=== PATIENT | female | born 1940 | race Caucasian/White ===

== ENCOUNTER 2017-07-08 14:26 | Emergency (ER) | payer MEDICARE, OTHER ==
[~2017-07-08] VITALS: Ht 162.6 cm; Wt 54.2 kg
[~2017-07-08 14:26] MED LIST: ADVAIR 500-501 EACH INH; ALBUTEROL SULF8.5 GM INH; ANTIVERT25 MG PO; BAYER CHEWABLE81 MG PO; BISOPROLOL FUMAR5 MG PO; BUSPIRONE HCL10 MG PO; CIPROFLOXACIN500 MG PO; CLARITIN10 M2 PO; CLONAZEPAM0.5 MG PO; COMBIVENT INH14.7 GM INH; COMBIVENT RESPIM4 GM INH; DESYREL50 MG PO; FUROSEMIDE20 MG PO; HYDROCODON-ACE1 EAC8 PO; HYDROXYZINE HCL10 MG PO; ICAPS PLUS1 EACH PO; LASIX20 MG PO; LEVAQUIN500 MG PO; LEVOFLOXAC500 MG/100 IV; MACROBID 100 M100 MG PO; OMEPRAZOLE20 MG PO; PANTOPRAZOLE SO40 MG PO; PREDNISONE20 MG PO; SERTRALINE HCL100 MG PO; SERTRALINE HCL25 MG PO; SIMVASTATIN20 MG PO; SUCRALFATE1 GM PO; TRAZODONE HCL50 MG PO; VENTOLIN HFA18 GM INH; VICODIN HP 10-1 EAC1 PO; VITAMIN D1000 UNIT PO; VITAMIN D400 UNI1 PO; ZOFRAN ODT4 MG PO
--- OUTSIDE RECORDS SUMMARY | 2017-07-08 14:49 | XMS ---
Demographics + + + | Address | [address] | | | [address] | | | [place] [address] | + + + | Preferred Language | Unknown | + + + | Marital Status | Unknown | + + + | Adventist Affiliation | Unknown | + + + | Race | Unknown | + + + | Ethnic Group | Unknown | + + + Author + + + | Author | [facility] | + + + | Organization | [facility] | + + + | Address | [address] | | | [place] [address] | + + + | Phone | | + + + Care Team Providers + + + + | Care Stereoplotter Operator Name | Role | Phone | + + + + Unavailable | Unavailable | + + + + PROBLEMS +---------+ + + +--------+ + + | Type | Condition | ICD9-CM | [id number] | Onset | Condition | SNOMED | | | | Code | Code | Dates | Status | Code | +---------+ + + +--------+ + + | Problem | Panic | F41.0 | | | Active | [id number] | | | disorder | | | | | | +---------+ + + +--------+ + + | Problem | COPD | | J44.1 | | Active | 569632210 | | | exacerbati | | | | | | | | on | | | | | | +---------+ + + +--------+ + + | Problem | Acute | | J96.02 | | Active | | | | respirator | | | | | | | | y failure | | | | | | | | with | | | | | | | | hypercapni | | | | | | | | a | | | | | | +---------+ + + +--------+ + + | Problem | Hyperchole | | E78.0 | | Active | 22028727 | | | sterolemia | | | | | | +---------+ + + +--------+ + + | Problem | Gastroesop | K21.9 | | | Active | 865573354 | | | hageal | | | | | | | | reflux | | | | | | | | disease | | | | | | | | without | | | | | | | | esophagiti | | | | | | | | s | | | | | | +---------+ + + +--------+ + + | Problem | Rectal | K62.5 | | | Active | 63872798 | | | bleeding | | | | | | +---------+ + + +--------+ + + | Problem | Stomach | R10.9 | | | Active | 56710738 | | | pain | | | | | | +---------+ + + +--------+ + + | 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 | 0379382 | | | emphysema | | | | | | +---------+ + + +--------+ + + | Problem | 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 | 557718975 | | | osteoarthr | | | | | | | | itis | | | | | | | | involving | | | | | | | | multiple | | | | | | | | joints | | | | | | +---------+ + + +--------+ + + | Problem | GERD | | K21.9 | | Active | 778148121 | | | (gastroeso | | | | | | | | phageal | | | | | | | | reflux | | | | | | | | disease) | | | | | | +---------+ + + +--------+ + + | Problem | Anxiety | | F41.9 | | Active | 15689799 | +---------+ + + +--------+ + + ALLERGIES Unknown Allergies SOCIAL HISTORY No smoking Hx information available PLAN OF CARE VITAL SIGNS MEDICATIONS + + + + + + + +--------+ | Medicati | Instruct | Dosage | Frequenc | Start | End Date | Duration | Status | | on | ions | | y | Date | | | | + + + + + + + +--------+ | Fosamax | Orally | 1 tablet | | | | 30 | Active | | 70 MG | once a | | | | | day(s) | | | | week | | | | | | | + + + + + + + +--------+ | DuoNeb | Inhalati | 3 ml | 6h | | | | Active | | 0.5-2.5 | on Four | | | | | | | | (3) | times a | | | | | | | | MG/3ML | day | | | | | | | + + + + + + + +--------+ | Furosemi | Orally | 1 tablet | 24h | | | 30 | Active | | de 20 MG | Once a | | | | | | | | | day | | | | | | | + + + + + + + +--------+ | Betameth | External | 1 | 24h | 07 Aug, | 13 May, | 30 days | Active | | asone | ly Once | applicat | | 2016 | 2017 | | | | Dipropio | a day | ion to | | | | | | | elizabeth | | affected | | | | | | | 0.05 % | | area | | | | | | + + + + + + + +--------+ | Omeprazo | Orally | 1 | 12h | 30 September, | | 30 days | Active | | le 20 mg | bid | capsule | | 2015 | | | | + + + + + + + +--------+ | Simvasta | Orally | 1 tablet | 24h | | | | Active | | tin 20 | Once a | every | | | | | | | MG | day | evening | | | | | | + + + + + + + +--------+ | Sertrali | Orally | 1.5 | 24h | | | | Active | | ne HCl | daily | tablets | | | | | | | 100 MG | | | | | | | | + + + + + + + +--------+ | Advair | Inhalati | 1 puff | 12h | | | 30 days | Active | | Diskus | on Twice | | | | | | | | 500-50 | a day | | | | | | | | MCG/DOSE | | | | | | | | + + + + + + + +--------+ | ProAir | | inhale 2 | | | | | Active | | HFA 108 | | puffs | | | | | | | (90 | | by mouth | | | | | | | Base) | | three | | | | | | | MCG/ACT | | times a | | | | | | | | | day | | | | | | + + + + + + + +--------+ | Meclizin | Orally | 1 tablet | 24h | Oct, | | 30 | Active | | e HCl | Once a | as | | 2016 | | day(s) | | | 12.5 MG | day | needed | | | | | | + + + + + + + +--------+ | BusPIRon | Orally | 1 tablet | 8h | | | 30 | Active | | e HCl 10 | Three | | | | | | | | MG | times a | | | | | | | | | day | | | | | | | + + + + + + + +--------+ RESULTS No Results PROCEDURES No Known procedures IMMUNIZATIONS No Known Immunizations"
--- OUTSIDE RECORDS SUMMARY | 2017-07-08 14:49 | XMS ---
Demographics + + + | Address | [address] | | | [address] | | | [place] [address] | + + + | Preferred Language | Unknown | + + + | Marital Status | Unknown | + + + | Nondenominational Affiliation | Unknown | + + + | Race | Unknown | + + + | Ethnic Group | Unknown | + + + Author + + + | Author | [facility] | + + + | Organization | [facility] | + + + | Address | [address] | | | [place] [address] | + + + | Phone | | + + + Care Team Providers + + + + | Care Machining Engineer Name | Role | Phone | + + + + Unavailable | Unavailable | + + + + PROBLEMS +---------+ + + +--------+ + + | Type | Condition | ICD9-CM | [id number] | Onset | Condition | SNOMED | | | | Code | Code | Dates | Status | Code | +---------+ + + +--------+ + + | Problem | Panic | F41.0 | | | Active | [id number] | | | disorder | | | | | | +---------+ + + +--------+ + + | Problem | COPD | | J44.1 | | Active | 996944293 | | | exacerbati | | | [...] | | E78.0 | | Active | 97378981 | | | sterolemia | | | | | | +---------+ + + +--------+ + + | Problem | Gastroesop | K21.9 | | | Active | 799831959 | | | hageal | | | [...] | K62.5 | | | Active | 96000841 | | | bleeding | | | | | | +---------+ + + +--------+ + + | Problem | Stomach | R10.9 | | | Active | 85667847 | | | pain | | | | | | +---------+ + + +--------+ + + | 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 | 9716495 | | | emphysema | | | | | | +---------+ + + +--------+ + + | Problem | 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 | 832442062 | | | osteoarthr | | | | | | | | itis | | | | | | | | involving | | | | | | | | multiple | | | | | | | | joints | | | | | | +---------+ + + +--------+ + + | Problem | GERD | | K21.9 | | Active | 126989188 | | | (gastroeso | | | | | | | | phageal | | | | | | | | reflux | | | | | | | | disease) | | | | | | +---------+ + + +--------+ + + | Problem | Anxiety | | F41.9 | | Active | 17274147 | +---------+ + + +--------+ + + ALLERGIES Unknown Allergies SOCIAL HISTORY No smoking Hx information available PLAN OF CARE VITAL SIGNS MEDICATIONS Unknown Medications RESULTS No Results PROCEDURES No Known procedures IMMUNIZATIONS No Known Immunizations"
--- OUTSIDE RECORDS SUMMARY | 2017-07-08 14:49 | XMS ---
Demographics + + + | Address | [address] | | | [address] | | | [place] [address] | + + + | Preferred Language | Unknown | + + + | Marital Status | Unknown | + + + | Anabaptism Affiliation | Unknown | + + + | Race | Unknown | + + + | Ethnic Group | Unknown | + + + Author + + + | Author | [facility] | + + + | Organization | [facility] | + + + | Address | [address] | | | [place] [address] | + + + | Phone | | + + + Care Team Providers + + + + | Care Payroll Accountant Name | Role | Phone | + + + + Unavailable | Unavailable | + + + + PROBLEMS +---------+ + + +--------+ + + | Type | Condition | ICD9-CM | [id number] | Onset | Condition | SNOMED | | | | Code | Code | Dates | Status | Code | +---------+ + + +--------+ + + | Problem | Panic | F41.0 | | | Active | [id number] | | | disorder | | | | | | +---------+ + + +--------+ + + | Problem | COPD | | J44.1 | | Active | 471749919 | | | exacerbati | | | [...] | | E78.0 | | Active | 61822355 | | | sterolemia | | | | | | +---------+ + + +--------+ + + | Problem | Gastroesop | K21.9 | | | Active | 572102581 | | | hageal | | | [...] | K62.5 | | | Active | 37757911 | | | bleeding | | | | | | +---------+ + + +--------+ + + | Problem | Stomach | R10.9 | | | Active | 95096224 | | | pain | | | | | | +---------+ + + +--------+ + + | 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 | 0043279 | | | emphysema | | | | | | +---------+ + + +--------+ + + | Problem | 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 | 173464898 | | | osteoarthr | | | | | | | | itis | | | | | | | | involving | | | | | | | | multiple | | | | | | | | joints | | | | | | +---------+ + + +--------+ + + | Problem | GERD | | K21.9 | | Active | 551237551 | | | (gastroeso | | | | | | | | phageal | | | | | | | | reflux | | | | | | | | disease) | | | | | | +---------+ + + +--------+ + + | Problem | Anxiety | | F41.9 | | Active | 29438368 | +---------+ + + +--------+ + + ALLERGIES No Information SOCIAL HISTORY Never Assessed PLAN OF CARE VITAL SIGNS MEDICATIONS Unknown Medications RESULTS No Results PROCEDURES No Known procedures IMMUNIZATIONS No Known Immunizations MEDICAL (GENERAL) HISTORY + + + + | Type | Description | Date | + + + + | Medical History | Hypercholestrol | | + + + + | Medical History | COPD | | + + + + | Medical History | GERD | | + + + + | Medical History | Hypertension | | + + + + | Medical History | Insomnia | | + + + + | Medical History | Vertigo | | + + + + | Medical History | hx/o Breast cancer 2005 | | + + + + | Medical History | | | + + + + | Medical History | Hypoxia on 2L/min since | | | | 2013 | | + + + + | Medical History | Kidney stone, right 02/01/16 | | + + + + | Medical History | T8 compression fx - started | | | | on bisphosphonate 08/2016 | | | | femoral T-score -2.2 | | + + + + | Surgical History | [facility] | | | | Provider | | + + + + | Surgical History | surgery breast cancer s/p | 2005 | | | lumpectomy - post | | | | radiation, on temoxifen for | | | | 5yrs. | | + + + + | Surgical History | L great toe fracture | 2012 | + + + + | Surgical History | D&C | 01/2008 | + + + + | Surgical History | Right ankle fracture | 1999 | + + + + | Surgical History | b/l cataract surgery | | + + + + | Surgical History | Gregoria Mulligan | 2011 | + + + + | Surgical History | Mammogram | 2016 | + + + + | Surgical History | Papsmear | 2007 | + + + + | Surgical History | 2D Echo - EF >70% | 07/11/15 | | | hyperdynamic LV function | | + + + + | Surgical History | DEXA femoral T-score -2.2 | 08/25/16 | + + + + | Hospitalization History | [facility] re: SOB | 07/03/15 | + + + + | Hospitalization History | [facility] re: COPD exacerbation | 07/10-07/14/15 | + + + + | Hospitalization History | [facility] re: sore throat, SOB | 07/17/15 | + + + + | Hospitalization History | [facility] | 07/16-09/06/15 | + + + + | Hospitalization History | [facility] re: SOB | 09/22/15 | + + + + | Hospitalization History | [facility] re: right kidney | 01/31-02/02/16 | | | stone, passed it | | + + + +"
--- OUTSIDE RECORDS SUMMARY | 2017-07-08 14:49 | XMS ---
Demographics + + + | Address | [address] | | | [address] | | | [place] [address] | + + + | Preferred Language [...] | + + + | Organization | [facility] | + + + | Address | [address] | | | [place] [address] | + + + | Phone | | + + + Care Team Providers + + + + | Care Television Servicer Name | Role | Phone | + + + + Unavailable | Unavailable | + + + + PROBLEMS +---------+ + + +--------+ + + | Type | Condition | ICD9-CM | [id number] | Onset | Condition | SNOMED | | | | Code | Code | Dates | Status | Code | +---------+ + + +--------+ + + | Problem | Panic | F41.0 | | | Active | [id number] | | | disorder | | | | | | +---------+ + + +--------+ + + | Problem | COPD | | J44.1 | | Active | 705145207 | | | exacerbati | | | [...] | | E78.0 | | Active | 06558202 | | | sterolemia | | | | | | +---------+ + + +--------+ + + | Problem | Gastroesop | K21.9 | | | Active | 990414135 | | | hageal | | | [...] | K62.5 | | | Active | 19024809 | | | bleeding | | | | | | +---------+ + + +--------+ + + | Problem | Stomach | R10.9 | | | Active | 31590255 | | | pain | | | | | | +---------+ + + +--------+ + + | 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 | 4120976 | | | emphysema | | | | | | +---------+ + + +--------+ + + | Problem | 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 | 257617642 | | | osteoarthr | | | | | | | | itis | | | | | | | | involving | | | | | | | | multiple | | | | | | | | joints | | | | | | +---------+ + + +--------+ + + | Problem | GERD | | K21.9 | | Active | 473512130 | | | (gastroeso | | | | | | | | phageal | | | | | | | | reflux | | | | | | | | disease) | | | | | | +---------+ + + +--------+ + + | Problem | Anxiety | | F41.9 | | Active | 02802963 | +---------+ + + +--------+ + + [...] | 24h | 07 Aug, | 13 [place], | 30 days | Active | | asone | ly Once | applicat | | 2017 | 2018 | | | | Dipropio | a [...]
--- OUTSIDE RECORDS SUMMARY | 2017-07-08 14:49 | XMS ---
Demographics + + + | Address | [address] | | | [address] | | | [place] [address] | + + + | Preferred Language | Unknown | + + + | Marital Status | Unknown | + + + | Jew Affiliation | Unknown | + + + | Race | Unknown | + + + | Ethnic Group | Unknown | + + + Author + + + | Author | [facility] | + + + | Organization | [facility] | + + + | Address | [address] | | | [place] [address] | + + + | Phone | | + + + Care Team Providers + + + + | Care Sales Operations Director Name | Role | Phone | + + + + Unavailable | Unavailable | + + + + PROBLEMS +---------+ + + +--------+ + + | Type | Condition | ICD9-CM | [id number] | Onset | Condition | SNOMED | | | | Code | Code | Dates | Status | Code | +---------+ + + +--------+ + + | Problem | Panic | F41.0 | | | Active | [id number] | | | disorder | | | | | | +---------+ + + +--------+ + + | Problem | COPD | | J44.1 | | Active | 016459017 | | | exacerbati | | | [...] | | E78.0 | | Active | 39795152 | | | sterolemia | | | | | | +---------+ + + +--------+ + + | Problem | Gastroesop | K21.9 | | | Active | 532464644 | | | hageal | | | [...] | K62.5 | | | Active | 95880879 | | | bleeding | | | | | | +---------+ + + +--------+ + + | Problem | Stomach | R10.9 | | | Active | 34061694 | | | pain | | | | | | +---------+ + + +--------+ + + | 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 | 3133446 | | | emphysema | | | | | | +---------+ + + +--------+ + + | Problem | 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 | 221616376 | | | osteoarthr | | | | | | | | itis | | | | | | | | involving | | | | | | | | multiple | | | | | | | | joints | | | | | | +---------+ + + +--------+ + + | Problem | GERD | | K21.9 | | Active | 898509062 | | | (gastroeso | | | | | | | | phageal | | | | | | | | reflux | | | | | | | | disease) | | | | | | +---------+ + + +--------+ + + | Problem | Anxiety | | F41.9 | | Active | 08940344 | +---------+ + + +--------+ + + ALLERGIES + + + + +--------+ | Substance | Reaction | Event Type | Date | Status | + + + + +--------+ | Diclofenac | rectal bleeding | Drug Allergy | Oct, | Active | + + + + +--------+ | Valium | drowsiness | Drug Allergy | Oct, | Active | + + + + +--------+ SOCIAL HISTORY No smoking Hx information available PLAN OF CARE + +---------+ | Activity | Details | + +---------+ +---+ | | +---+ + + + | Follow Up | prn Reason:null | + + + VITAL SIGNS + + + + | Height | 65 in | 2016-11-02 | + + + + | Weight | 126.9 lbs | 2016-11-02 | + + + + | BMI | 21.11 kg/m2 | 2016-11-02 | + + + + | Temperature | 98.2 degrees Fahrenheit | 2016-11-02 | + + + + | Heart Rate | 91 /min | 2016-11-02 | + + + + | Blood pressure systolic | 125 mm Hg | 2016-11-02 | + + + + | Blood pressure diastolic | 84 mm Hg | 2016-11-02 | + + + + MEDICATIONS + + + + + + [...] | Orally | 1 | 12h | 25 May, | | | Active | | le 20 mg [...] | 1.5 | 24h | | | 30 days | Active | | ne HCl | [...] | Once a | as | | 2017 | | day(s) | | | 12.5 MG | day | needed | | | | | | + + + + + + + +--------+ | Betameth | External | 1 | 24h | Aug, | 07 September, | 30 days | Active | | asone | ly Once | applicat | | 2016 | 2018 | | | | Dipropio | a day | ion to | | | | | | | elizabeth | | affected | | | | | | | 0.05 % | | area | | | | | | + + + + + + + +--------+ RESULTS No Results PROCEDURES + + + + + | Procedure | Date Ordered | Related Diagnosis | Body Site | + + + + + | Office Visit, Est | November 02, 2016 | | | | Pt., Level 3 | | | | + + + + + IMMUNIZATIONS No Known Immunizations"
--- OUTSIDE RECORDS SUMMARY | 2017-07-08 14:49 | XMS ---
Demographics + + + | Address | [address] | | | [address] | | | [place] [address] | + + + | Preferred Language | Unknown | + + + | Marital Status | Unknown | + + + | Baptist Affiliation | Unknown | + + + | Race | Unknown | + + + | Ethnic Group | Unknown | + + + Author + + + | Author | [facility] | + + + | Organization | [facility] | + + + | Address | [address] | | | [place] [address] | + + + | Phone | | + + + Care Team Providers + + + + | Care Triple Valve Mechanic Name | Role | Phone | + + + + Unavailable | Unavailable | + + + + PROBLEMS +---------+ + + +--------+ + + | Type | Condition | ICD9-CM | [id number] | Onset | Condition | SNOMED | | | | Code | Code | Dates | Status | Code | +---------+ + + +--------+ + + | Problem | Panic | F41.0 | | | Active | [id number] | | | disorder | | | | | | +---------+ + + +--------+ + + | Problem | COPD | | J44.1 | | Active | 933172472 | | | exacerbati | | | [...] | | E78.0 | | Active | 66514923 | | | sterolemia | | | | | | +---------+ + + +--------+ + + | Problem | Gastroesop | K21.9 | | | Active | 446235798 | | | hageal | | | [...] | K62.5 | | | Active | 84385295 | | | bleeding | | | | | | +---------+ + + +--------+ + + | Problem | Stomach | R10.9 | | | Active | 50853338 | | | pain | | | | | | +---------+ + + +--------+ + + | 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 | 1566267 | | | emphysema | | | | | | +---------+ + + +--------+ + + | Problem | 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 | 382035005 | | | osteoarthr | | | | | | | | itis | | | | | | | | involving | | | | | | | | multiple | | | | | | | | joints | | | | | | +---------+ + + +--------+ + + | Problem | GERD | | K21.9 | | Active | 118562339 | | | (gastroeso | | | | | | | | phageal | | | | | | | | reflux | | | | | | | | disease) | | | | | | +---------+ + + +--------+ + + | Problem | Anxiety | | F41.9 | | Active | 97791386 | +---------+ + + +--------+ + + [...] + + + | Follow Up | 4 Months Reason:null | + + + VITAL SIGNS + + + + | Height | 65 in | 2016-10-15 | + + + + | Weight | 126.4 lbs | 2016-10-15 | + + + + | BMI | 21.03 kg/m2 | 2016-10-15 | + + + + | Temperature | 98.0 degrees Fahrenheit | 2016-10-15 | + + + + | Heart Rate | 63 /min | 2016-10-15 | + + + + | Blood pressure systolic | 118 mm Hg | 2016-10-15 | + + + + | Blood pressure diastolic | 68 mm Hg | 2016-10-15 | + + + + MEDICATIONS + [...] 1 | 24h | 07 Aug, | 2 September, | 30 days | Active | [...] Orally | 1 | 12h | 25 September, | | | Active | | le [...] Orally | 1 tablet | 24h | 09 Oct, | | 30 | Active | | e HCl | Once a | as | | 2016 | | day(s) | | | 12.5 MG | day | needed | | | | | | + + + + + + + +--------+ | BusPIRon | Orally | 1 tablet | 8h | | | | Active | | e HCl 10 [...] + + | Office Visit, Est | October 15, 2016 | | | | Pt., Level 3 | | | | + + + + + IMMUNIZATIONS No Known Immunizations"
--- OUTSIDE RECORDS SUMMARY | 2017-07-08 14:50 | XMS ---
Demographics + + + | Address | [address] | | | [address] | | | [place] [address] | + + + | Preferred Language | Unknown | + + + | Marital Status | Unknown | + + + | Pentecostalism Affiliation | Unknown | + + + | Race | Unknown | + + + | Ethnic Group | Unknown | + + + Author + + + | Author | [facility] | + + + | Organization | [facility] | + + + | Address | [address] | | | [place] [address] | + + + | Phone | | + + + Care Team Providers + + + + | Care Fruit Buying Grader Name | Role | Phone | + + + + Unavailable | Unavailable | + + + + PROBLEMS +---------+ + + +--------+ + + | Type | Condition | ICD9-CM | [id number] | Onset | Condition | SNOMED | | | | Code | Code | Dates | Status | Code | +---------+ + + +--------+ + + | Problem | Panic | F41.0 | | | Active | 224449611 | | | disorder | | | | | | +---------+ + + +--------+ + + | Problem | COPD | | J44.1 | | Active | 270089273 | | | exacerbati | | | [...] | | E78.0 | | Active | 77337092 | | | sterolemia | | | | | | +---------+ + + +--------+ + + | Problem | Gastroesop | K21.9 | | | Active | 250290777 | | | hageal | | | [...] | K62.5 | | | Active | 29371476 | | | bleeding | | | | | | +---------+ + + +--------+ + + | Problem | Stomach | R10.9 | | | Active | 54647947 | | | pain | | | | | | +---------+ + + +--------+ + + | 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 | 1858562 | | | emphysema | | | | | | +---------+ + + +--------+ + + | Problem | 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 | 009403925 | | | osteoarthr | | | | | | | | itis | | | | | | | | involving | | | | | | | | multiple | | | | | | | | joints | | | | | | +---------+ + + +--------+ + + | Problem | GERD | | K21.9 | | Active | 063449542 | | | (gastroeso | | | | | | | | phageal | | | | | | | | reflux | | | | | | | | disease) | | | | | | +---------+ + + +--------+ + + | Problem | Anxiety | | F41.9 | | Active | 20145197 | +---------+ + + +--------+ + + ALLERGIES Unknown Allergies SOCIAL HISTORY No smoking Hx information available PLAN OF CARE VITAL SIGNS MEDICATIONS Unknown Medications RESULTS No Results PROCEDURES No Known procedures IMMUNIZATIONS No Known Immunizations"
--- OUTSIDE RECORDS SUMMARY | 2017-07-08 14:50 | XMS ---
Demographics + + + | Address | [address] | | | [address] | | | [place] [address] | + + + | Preferred Language [...] | + + + | Organization | [facility] | + + + | Address | [address] | | | [place] [address] | + + + | Phone | | + + + Care Team Providers + + + + | Care Assembler Clip On Sunglasses Name | Role | Phone | + + + + Unavailable | Unavailable | + + + + PROBLEMS +---------+ + + +--------+ + + | Type | Condition | ICD9-CM | [id number] | Onset | Condition | SNOMED | | | | Code | Code | Dates | Status | Code | +---------+ + + +--------+ + + | Problem | Panic | F41.0 | | | Active | 601578729 | | | disorder | | | | | | +---------+ + + +--------+ + + | Problem | COPD | | J44.1 | | Active | 988818518 | | | exacerbati | | | [...] | | E78.0 | | Active | 12499195 | | | sterolemia | | | | | | +---------+ + + +--------+ + + | Problem | Gastroesop | K21.9 | | | Active | 235412594 | | | hageal | | | [...] | K62.5 | | | Active | 45859499 | | | bleeding | | | | | | +---------+ + + +--------+ + + | Problem | Stomach | R10.9 | | | Active | 55802059 | | | pain | | | | | | +---------+ + + +--------+ + + | 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 | 5385507 | | | emphysema | | | | | | +---------+ + + +--------+ + + | Problem | 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 | 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 | | | | | | | | itis | | | | | | | | involving | | | | | | | | multiple | | | | | | | | joints | | | | | | +---------+ + + +--------+ + + | Problem | GERD | | K21.9 | | Active | [id number] | | | (gastroeso | | | | | | | | phageal | | | | | | | | reflux | | | | | | | | disease) | | | | | | +---------+ + + +--------+ + + | Problem | Anxiety | | F41.9 | | Active | 67088308 | +---------+ + + +--------+ + + ALLERGIES + + + + +--------+ | Substance | Reaction | Event Type | Date | Status | + + + + +--------+ | Diclofenac | rectal bleeding | Drug Allergy | Dec, | Active | + + + + +--------+ | Valium | drowsiness | Drug Allergy | Dec, | Active | + + + + +--------+ SOCIAL HISTORY No smoking Hx information available PLAN OF CARE + +---------+ | Activity | Details | + +---------+ +---+ | | +---+ + + + | Follow Up | prn Reason:null | + + + VITAL SIGNS + + + + | Height | 65 in | 2017-01-04 | + + + + | Weight | 122.2 lbs | 2017-01-04 | + + + + | BMI | 20.33 kg/m2 | 2017-01-04 | + + + + | Heart Rate | 92 /min | 2017-01-04 | + + + + | Blood pressure systolic | 120 mm Hg | 2017-01-04 | + + + + | Blood pressure diastolic | 69 mm Hg | 2017-01-04 | + + + + MEDICATIONS + + + + + + + +--------+ | Medicati | Instruct | Dosage | Frequenc | Start | End Date | Duration | Status | | on | ions | | y | Date | | | | + + + + + + + +--------+ | Vitamin | | 1 tab | 24h | | | | Active | | K | | | | | | | | + + + + + + + +--------+ | Meclizin | Orally | 1 tablet | 24h | Oct, | | 90 days | Active | | e HCl | Once a | as | | 2016 | | | | | 12.5 MG | day | needed | | | | | | + + + + + + + +--------+ | Fosamax | Orally | 1 tablet | | | Mar, | 90 days | Active | | 70 MG | once a | | | | 2017 | | | | | week | | | | | | | + + + + + + + +--------+ | Omeprazo | Orally | 1 | 12h | 30 September, | | 90 days | Active | | le 20 mg | bid | capsule | | 2016 | | | | + + + + + + + +--------+ | BusPIRon | Orally | 1 tablet | 8h | | | 90 days | Active | | e HCl 10 [...] + + + + + +--------+ | Boost | Orally | 1 can | 24h | 29 Aug, | | 30 days | Active | | High | daily | | | 2017 | | | | | Protein | | | | | | | | | - | | | | | | | | + + + + + + + +--------+ | Sertrali | Orally | 1 tablet | 24h | | | 90 days | Active | | ne HCl | daily | in am | | | | | | | 100 MG | | 1/2 | | | | | | | | | tablet | | | | | | | | | in pm | | | | | | + + + + + + + +--------+ | Furosemi | Orally | 1 tablet | 24h | | | 90 days | Active | | de 20 MG | Once a | | | | | | | | | day | | | | | | | + + + + + + + +--------+ | Advair | Inhalati | 1 puff | 12h | | | 90 days | Active | | Diskus | [...] 1 tablet | 24h | | | 90 days | Active | | tin 20 | Once a | every | | | | | | | MG | day | evening | | | | | | + + + + + + + +--------+ | Betameth | External | 1 | 24h | 07 Aug, | May, | 30 days | Active | [...] + + + + + +--------+ | Nystatin | External | 1 | 12h | Dec, | 25 Feb, | 30 days | Active | | [id number] | ly Twice | applicat | | 2016 | 2017 | | | | UNIT/GM | a day | ion to | | | | | | | | | affected | | | | | | | | | area | | | | | | + + + + + + + +--------+ RESULTS No Results PROCEDURES + + + + + | Procedure | Date Ordered | Related Diagnosis | Body Site | + + + + + | Office Visit, Est | Jan 04, 2017 | | | | Pt., Level 3 | | | | + + + + + IMMUNIZATIONS No Known Immunizations"
--- OUTSIDE RECORDS SUMMARY | 2017-07-08 14:50 | XMS ---
Demographics + + + | Address | [address] | | | [address] | | | [place] [address] | + + + | Preferred Language | Unknown | + + + | Marital Status | Unknown | + + + | Zoroastrian Affiliation | Unknown | + + + | Race | Unknown | + + + | Ethnic Group | Unknown | + + + Author + + + | Author | [facility] | + + + | Organization | [facility] | + + + | Address | [address] | | | [place] [address] | + + + | Phone | | + + + Care Team Providers + + + + | Care Tree Planter Name | Role | Phone | + + + + Unavailable | Unavailable | + + + + PROBLEMS +---------+ + + +--------+ + + | Type | Condition | ICD9-CM | [id number] | Onset | Condition | SNOMED | | | | Code | Code | Dates | Status | Code | +---------+ + + +--------+ + + | Problem | Panic | F41.0 | | | Active | [id number] | | | disorder | | | | | | +---------+ + + +--------+ + + | Problem | COPD | | J44.1 | | Active | 101952655 | | | exacerbati | | | [...] | | E78.0 | | Active | 62421124 | | | sterolemia | | | | | | +---------+ + + +--------+ + + | Problem | Gastroesop | K21.9 | | | Active | 604990818 | | | hageal | | | [...] | K62.5 | | | Active | 28709056 | | | bleeding | | | | | | +---------+ + + +--------+ + + | Problem | Stomach | R10.9 | | | Active | 55011887 | | | pain | | | | | | +---------+ + + +--------+ + + | 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 | 0406547 | | | emphysema | | | | | | +---------+ + + +--------+ + + | Problem | 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 | 664836538 | | | osteoarthr | | | | | | | | itis | | | | | | | | involving | | | | | | | | multiple | | | | | | | | joints | | | | | | +---------+ + + +--------+ + + | Problem | GERD | | K21.9 | | Active | 497979050 | | | (gastroeso | | | | | | | | phageal | | | | | | | | reflux | | | | | | | | disease) | | | | | | +---------+ + + +--------+ + + | Problem | Anxiety | | F41.9 | | Active | 06969598 | +---------+ + + +--------+ + + ALLERGIES Unknown Allergies SOCIAL HISTORY No smoking Hx information available PLAN OF CARE VITAL SIGNS MEDICATIONS + + +---------+ + + + +--------+ | Medicati | Instruct | Dosage | Frequenc | Start | End Date | Duration | Status | | on | ions | | y | Date | | | | + + +---------+ + + + +--------+ | Omeprazo | Orally | 1 | 12h | 25 September, | | 30 days | Active | | le 20 mg | bid | capsule | | 2016 | | | | + + +---------+ + + + +--------+ RESULTS No Results PROCEDURES No Known procedures IMMUNIZATIONS No Known Immunizations"
--- OUTSIDE RECORDS SUMMARY | 2017-07-08 14:50 | XMS ---
Demographics + + + | Address | [address] | | | [address] | | | [place] [address] | + + + | Preferred Language | Unknown | + + + | Marital Status | Unknown | + + + | Orthodoxy Affiliation | Unknown | + + + | Race | Unknown | + + + | Ethnic Group | Unknown | + + + Author + + + | Author | [facility] | + + + | Organization | [facility] | + + + | Address | [address] | | | [place] [address] | + + + | Phone | | + + + Care Team Providers + + + + | Care Teletypewriter Operator Name | Role | Phone | + + + + Unavailable | Unavailable | + + + + PROBLEMS +---------+ + + +--------+ + + | Type | Condition | ICD9-CM | [id number] | Onset | Condition | SNOMED | | | | Code | Code | Dates | Status | Code | +---------+ + + +--------+ + + | Problem | Panic | F41.0 | | | Active | [id number] | | | disorder | | | | | | +---------+ + + +--------+ + + | Problem | COPD | | J44.1 | | Active | 757382897 | | | exacerbati | | | [...] | | E78.0 | | Active | 91025790 | | | sterolemia | | | | | | +---------+ + + +--------+ + + | Problem | Gastroesop | K21.9 | | | Active | 454936713 | | | hageal | | | [...] | K62.5 | | | Active | 84572201 | | | bleeding | | | | | | +---------+ + + +--------+ + + | Problem | Stomach | R10.9 | | | Active | 06451615 | | | pain | | | | | | +---------+ + + +--------+ + + | 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 | 4939586 | | | emphysema | | | | | | +---------+ + + +--------+ + + | Problem | 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 | 991641036 | | | osteoarthr | | | | | | | | itis | | | | | | | | involving | | | | | | | | multiple | | | | | | | | joints | | | | | | +---------+ + + +--------+ + + | Problem | GERD | | K21.9 | | Active | 744777254 | | | (gastroeso | | | | | | | | phageal | | | | | | | | reflux | | | | | | | | disease) | | | | | | +---------+ + + +--------+ + + | Problem | Anxiety | | F41.9 | | Active | 58128173 | +---------+ + + +--------+ + + ALLERGIES Unknown Allergies SOCIAL HISTORY No smoking Hx information available PLAN OF CARE VITAL SIGNS MEDICATIONS Unknown Medications RESULTS No Results PROCEDURES No Known procedures IMMUNIZATIONS No Known Immunizations"
[2017-07-08] MEDS ORDERED: ZITHROMAX250 MG PO (17:24)
--- NOTE | 2017-07-09 22:31 | EKG ---
[facility] [address] [facility] [place] [address] Signed Normal sinus rhythm Low voltage QRS Cannot rule out Anterior infarct , age undetermined Abnormal ECG No previous ECGs available Confirmed by SCOTT HOPPER MD ([id number]) on 07/09/2017 10:31:50 PM Electronically Signed By: SCOTT HOPPER MD 07/09/17 223 PATIENT NAME: HANSA CRAWFORD Electrocardiogram DATE OF : 42 PHYSICIAN: SCOTT HOPPER MD REPORT #: [id number] REPORT IS CONFIDENTIAL AND NOT TO BE RELEASED WITHOUT AUTHORIZATION
== END 2017-07-08 18:11 | disposition home or self-care (01) ==
LOC: ED 14:26
DX: J44.1 Chronic obstructive pulmonary disease with (acute) exacerbation (principal); J44.0 Chronic obstructive pulmonary disease with (acute) lower respiratory infection; J18.9 Pneumonia, unspecified organism; K21.9 Gastro-esophageal reflux disease without esophagitis; Z85.3 Personal history of malignant neoplasm of breast; Z87.891 Personal history of nicotine dependence; Z91.040 Latex allergy status; Z88.2 Allergy status to sulfonamides; Z88.8 Allergy status to other drugs, medicaments and biological substances; Z79.82 Long term (current) use of aspirin; Z79.899 Other long term (current) drug therapy
CPT/HCPCS: 71045; 80053; 83735; 84484; 85025; 93005; 93010; 96374; 99284; J1200; J1956

== ENCOUNTER 2017-08-16 12:46 | Emergency (ER) | payer MEDICARE, OTHER ==
[~2017-08-16] VITALS: Ht 162.6 cm; Wt 52.2 kg
--- OUTSIDE RECORDS SUMMARY | ~2017-08-16 | XMS | Clinical Summary ---
Demographics + + + | Address | [address] | | | [address] | | | [place] [address] | + + + | Home Phone | | + + + | Preferred Language | Unknown | + + + | Marital Status | | + + + | Alevism Affiliation | 1075 | + + + | Race | Unknown | + + + | Ethnic Group | Unknown | + + + Author + + + | Author | [facility] | + + + | Organization | [facility] | + + + | Address | Unknown | + + + | Phone | Unavailable | + + + Support + + + + + | Name | Relationship | Address | Phone | + + + + + | Jyothi Kimbrough | ECON | [address] | | | | | [place] [address] | | + + + + + Care Team Providers + +------+ + | Care Valve Inserter Name | Role | Phone | + [...] | + + + + + | Colon Cancer | | | | | Screening | 2 | | | | (Colonoscopy) | | | | + + + + + | Vaccine: Zoster (#1) | | | | | | 2 | | | + + [...] Vaccine: Influenza | | | | | (Season Ended) | 8 | | | + + + + + Results Not on filefrom Last 3 Months"
--- OUTSIDE RECORDS SUMMARY | ~2017-08-16 | XMS | Clinical Summary ---
Demographics + + + | Address | [address] | | | [address] | | | [place] [address] | + + + | Home Phone | | + + + | Preferred Language | Unknown | + + + | Marital Status | | + + + | Congregation Affiliation | 1075 | + + + | Race | Unknown | + + + | Ethnic Group | Unknown | + + + Author + + + | Author | [facility] | + + + | Organization | [facility] | + + + | Address | Unknown | + + + | Phone | Unavailable | + + + Support + + + + + | Name | Relationship | Address | Phone | + + + + + | Jyothi Kimbrough | ECON | [address] | | | | | [place] [address] | | + + + + + Care Team Providers + +------+ + | Care Sap Integration Architect Name | Role | Phone | [...]
--- OUTSIDE RECORDS SUMMARY | ~2017-08-16 | XMS | Clinical Summary ---
Demographics + + + | Address | [address] | | | [place] [address] | + + + | Home Phone | | + + + | Preferred Language | Unknown | + + + | Marital Status | | + + + | Gnosticism Affiliation | Unknown | + + + | Race | Unknown | + + + | Ethnic Group | Unknown | + + + Author + + + | Author | [facility] | | | and [place] | + + + | Organization | [facility] | | | [...] Providers + +------+ + | Care Chief Airline Radio Operator Name | Role | Phone | [...] | + + + + + | COLON CANCER | | | | | SCREENING | 2 | | | | (COLONOSCOPY EVERY | | | | | 10 YEARS 50-75) | | | | + + + + + | Vaccine: Zoster (#1) | | | | | | 2 | | | + + + + + | Vaccine: Influenza | | 01/18/2015 | | | (Season Ended) | 8 [...] + + | MEDICARE | MEDICA | xxxxxxxxxx | Medica | +1- | | | | RE | | re | [phone] | | | | PART A | | | | | | | AND B | | | | | + +--------+ +--------+ + + | MODA | MODA | xxxxxxxxx | Indemn | [phone] | [address] [address] | | | HEALTH | | ity | [address] | [place] [address] | | | MDCR | | | [...] | [address] | | | [address] | | 1941 | [phone] [address] [place] | | | mon[place] | | | [phone] | + +--------+ +--------+ + +
--- OUTSIDE RECORDS SUMMARY | ~2017-08-16 | XMS | Clinical Summary ---
Demographics + + + | Address | [address] | | | [place] [address] | + + + | Home Phone | | + + + | Preferred Language | Unknown | + + + | Marital Status | | + + + | Anglican Affiliation | Unknown | + + + | Race | Unknown | + + + | Ethnic Group | Unknown | + + + Author + + + | Author | [facility] | | | and [place] | + + + | Organization | [facility] | | | and [place] | + + + | Address | Unknown | + + + | Phone | Unavailable | + + + Support + + +---------+ + | Name | Relationship | Address | Phone | + + +---------+ + | Columba Foreman | ECON | Unknown | | + + +---------+ + | Jyothi Barklye | ECON | Unknown | | + + +---------+ + Care Team Providers + +------+ + | Care Insulation Worker Furnace Installer Name | Role | Phone | + [...] | MODA | [phone] | Indemn | [phone] | [address] [address] | | | HEALTH | | ity | [address] | [place] [address] | | | MDCR | | | [...] | monika | | | [phone] | [phone] | + +--------+ +--------+ + +
[~2017-08-16 12:46] MED LIST changes: +ZITHROMAX250 MG PO
[2017-08-16] MEDS ORDERED: METHYLPREDNISOLO4 M1 PO (14:44)
[2017-08-16] MEDS ORDERED: ZITHROMAX250 MG PO (14:44)
--- NOTE | 2017-08-17 06:37 | EKG ---
[facility] [address] [place] [address] Signed Sinus rhythm with premature atrial complexes Otherwise normal ECG When compared with ECG of 08-JUL-2017 14:38, premature atrial complexes are now present Confirmed by TRISH NICHOLAS MD ([id number]) on 08/17/2017 6:37:43 AM Electronically Signed By: TRISH NICHOLAS MD 08/17/17 0637 PATIENT NAME: HANSA CRAWFORD Electrocardiogram DATE OF : 42 PHYSICIAN: TRISH NICHOLAS MD REPORT #: [id number] REPORT IS CONFIDENTIAL AND NOT TO BE RELEASED WITHOUT AUTHORIZATION
== END 2017-08-16 15:00 | disposition home or self-care (01) ==
LOC: ED 12:46
DX: J44.1 Chronic obstructive pulmonary disease with (acute) exacerbation (principal); K21.9 Gastro-esophageal reflux disease without esophagitis; Z91.040 Latex allergy status; Z87.891 Personal history of nicotine dependence; Z88.2 Allergy status to sulfonamides; Z88.8 Allergy status to other drugs, medicaments and biological substances; Z79.82 Long term (current) use of aspirin; Z79.899 Other long term (current) drug therapy
CPT/HCPCS: 71046; 80048; 81001; 84484; 85025; 93005; 93010; 94640; 96374; 99283; J2930

== ENCOUNTER 2017-11-23 15:33 | Emergency (ER) | payer MEDICARE, OTHER ==
[~2017-11-23] VITALS: Ht 162.6 cm; Wt 50.4 kg
[~2017-11-23 15:33] MED LIST changes: +METHYLPREDNISOLO4 M1 PO
[2017-11-23] MEDS ORDERED: BACTRIM DS TAB1 EACH (18:08)
[2017-11-23] MEDS ORDERED: BACTRIM DS TAB1 EACH PO (18:08)
[2017-11-23] MEDS ORDERED: METHYLPREDNISOLO4 M1 PO (18:09)
[2017-11-23] MEDS ORDERED: CIPRO250 MG PO (18:09)
== END 2017-11-23 18:48 | disposition home or self-care (01) ==
LOC: ED 15:33
DX: J18.9 Pneumonia, unspecified organism (principal); N39.0 Urinary tract infection, site not specified; Z87.891 Personal history of nicotine dependence; Z91.040 Latex allergy status; Z88.2 Allergy status to sulfonamides; Z88.8 Allergy status to other drugs, medicaments and biological substances; Z79.82 Long term (current) use of aspirin; Z79.899 Other long term (current) drug therapy
CPT/HCPCS: 71045; 80053; 81001; 85025; 99285

== ENCOUNTER 2017-11-23 19:43 | Emergency (ER) | payer MEDICARE, OTHER ==
[~2017-11-23] VITALS: Ht 162.6 cm; Wt 50.4 kg
[~2017-11-23 19:43] MED LIST changes: +BACTRIM DS TAB1 EACH; +BACTRIM DS TAB1 EACH PO; +CIPRO250 MG PO
== END 2017-11-23 22:10 | disposition home or self-care (01) ==
LOC: ED 19:43
DX: F41.0 Panic disorder [episodic paroxysmal anxiety] (principal); J44.9 Chronic obstructive pulmonary disease, unspecified; Z87.891 Personal history of nicotine dependence; Z91.040 Latex allergy status; Z88.2 Allergy status to sulfonamides; Z88.8 Allergy status to other drugs, medicaments and biological substances; Z79.899 Other long term (current) drug therapy
CPT/HCPCS: 94640; 99283; J7512

== ENCOUNTER 2017-12-10 18:34 | Emergency (ER) | payer MEDICARE, OTHER ==
[~2017-12-10] VITALS: Ht 162.6 cm; Wt 52.6 kg
[~2017-12-10 18:34] MED LIST changes: +GAVILAX17 GM PO; +SERTRALINE HCL50 MG PO; +SYMBICORT 16010.2 GM INH
[2017-12-10] MEDS ORDERED: ZOFRAN ODT4 MG PO (23:39)
[2017-12-15] MEDS ORDERED: ALENDRONATE SOD70 MG PO (11:37)
[2017-12-15] MEDS ORDERED: ADULT GLYCERIN1 EACH PR (15:14)
[2017-12-15] MEDS ORDERED: REFRESH CLASSI1 EACH OU (15:14)
[2017-12-15] MEDS ORDERED: VITAMIN B-121000 MC2 SL (15:15)
[2017-12-15] MEDS ORDERED: TYLENOL EXTRA500 MG PO (15:15)
== END 2017-12-10 23:54 | disposition home or self-care (01) ==
LOC: ED 18:34
DX: R11.0 Nausea (principal); J44.9 Chronic obstructive pulmonary disease, unspecified; K21.9 Gastro-esophageal reflux disease without esophagitis; Z87.891 Personal history of nicotine dependence; Z91.040 Latex allergy status; Z88.8 Allergy status to other drugs, medicaments and biological substances; Z88.2 Allergy status to sulfonamides; Z79.899 Other long term (current) drug therapy
CPT/HCPCS: 94640; 96361; 96374; 99284; J2405; J7030

== ENCOUNTER 2017-12-15 02:49 | Observation (INO) | payer MEDICARE, OTHER ==
[~2017-12-15] VITALS: Ht 162.6 cm; Wt 50.9 kg
--- OUTSIDE RECORDS SUMMARY | ~2017-12-15 | XMS | Clinical Summary ---
Demographics + + + | Address | [address] | | | [address] | | | [place] [address] | + + + | Home Phone | | + + + | Preferred Language | Unknown | + + + | Marital Status | | + + + | Rastafari Affiliation | 1075 | + + + | Race | Unknown | + + + | Ethnic Group | Unknown | + + + Author + + + | Author | [facility] [employer] [facility] | + + + | Organization | [facility] [employer] [facility] | + + + | Address | Unknown | + + + | Phone | Unavailable | + + + Support + + + + + | Name | Relationship | Address | Phone | + + + + + | Jyothi Kimbrough | ECON | [address] | | | | | [place] [address] | | + + + + + Care Team Providers + +------+ + | Care Client Service Administrator Name | Role | Phone | + +------+ + | Jose F Zambrano MD | PP | | + +------+ + Allergies Not on File Current Medications Not on file Active Problems Not on file Social History + +-------+ +--------+------+ | Tobacco Use | Types | Packs/Day | Years | Date | | | | | Used | | + +-------+ +--------+------+ | Never Assessed | | | | | + +-------+ +--------+------+ + + + | Sex Assigned at | Date Recorded | | | | + + + | Not on file | | + + + Plan of Treatment + + + + + | Health Maintenance | Due Date | Last Done | Comments | + + + + + | Vaccine: | | | | | Dtap/Tdap/Td (1 - | 1 | | | | Tdap) | | | | + + + + + | DEXA SCAN SCREENING | | | | | | 7 | | | + + + + + | Vaccine: | | | | | Pneumococcal 65+ | 7 | | | | Low/Medium Risk (1 | | | | | of 2 - PCV13) | | | | + + + + + | Vaccine: Influenza | | | | | (#1) | 8 | | | + + + + + Results Not on filefrom Last 3 Months"
--- OUTSIDE RECORDS SUMMARY | ~2017-12-15 | XMS | Clinical Summary ---
Demographics + + + | Address | [address] | | | [place] [address] | + + + | Home Phone | | + + + | Preferred Language | Unknown | + + + | Marital Status | | + + + | Rastafari Affiliation | Unknown | + + + | Race | Unknown | + + + | Ethnic Group | Unknown | + + + Author + + + | Author | [facility] | | | and [place] | + + + | Organization | [facility] | | | and [...] Team Providers + +------+ + | Care Cryptological Technician Name | Role | Phone | + [...] + + | MEDICARE | MEDICA | [id number] | Medica | +1- | | | | RE | | re | [phone] | | | | PART A | | | | | | | AND B | | | | | + +--------+ +--------+ + + | MODA | MODA | [id number] | Indemn | [phone] | [address] [address] | | | HEALTH | | ity | [address] | [place] [address] | | | MDCR | | | [...] | monika | | | [phone] | [phone] | + +--------+ +--------+ + +
--- OUTSIDE RECORDS SUMMARY | ~2017-12-15 | XMS | Clinical Summary ---
Demographics + + + | Address | [address] | | | [address] | | | [place] [address] | + + + | Home Phone | | + + + | Preferred Language | Unknown | + + + | Marital Status | | + + + | Jew Affiliation | 1075 | + + + | Race | Unknown | + + + | Ethnic Group | Unknown | + + + Author + + + | Author | [facility] [employer] [facility] | + + + | Organization | [facility] [employer] [facility] | + + + | Address | Unknown | + + + | Phone | Unavailable | + + + Support + + + + + | Name | Relationship | Address | Phone | + + + + + | Jyothi Kimbrough | ECON | [address] | | | | | [place] [address] | | + + + + + Care Team Providers + +------+ + | Care Roll Coverer Name | Role | Phone | + [...]
--- OUTSIDE RECORDS SUMMARY | ~2017-12-15 | XMS | Clinical Summary ---
Demographics + + + | Address | [address] | | | [address] | | | [place] [address] | + + + | Home Phone | | + + + | Preferred Language | Unknown | + + + | Marital Status | | + + + | Nondenominational Affiliation | 1075 | + + + | Race | Unknown | + + + | Ethnic Group | Unknown | + + + Author + + + | Author | [facility] [employer] [facility] | + + + | Organization | [facility] [employer] [facility] | + + + | Address | Unknown | + + + | Phone | Unavailable | + + + Support + + + + + | Name | Relationship | Address | Phone | + + + + + | Jyothi Kimbrough | ECON | [address] | | | | | [place] [address] | | + + + + + Care Team Providers + +------+ + | Care Line Person Name | Role | Phone | + [...]
--- OUTSIDE RECORDS SUMMARY | ~2017-12-15 | XMS | Clinical Summary ---
Demographics + + + | Address | [address] | | | [place] [address] | + + + | Home Phone | | + + + | Preferred Language | Unknown | + + + | Marital Status | | + + + | Nondenominational Affiliation | Unknown | + + + | Race | Unknown | + + + | Ethnic Group | Unknown | + + + Author + + + | Author | [facility] | | | and [place] | + + + | Organization | [facility] | | | [...] Team Providers + +------+ + | Care Head Coach Name | Role | Phone | + [...] + + | MEDICARE | MEDICA | [id number] | Medica | +1- | | | | RE | | re | [phone] | | | | PART A | | | | | | | AND B | | | | | + +--------+ +--------+ + + | MODA | MODA | [id number] | Indemn | [phone] | [address] [address] | | | HEALTH | | ity | [address] | [place] [address] | | | MDCR | | | [...] | mon[place] | | | [phone] | [phone] | + +--------+ +--------+ + +
--- OUTSIDE RECORDS SUMMARY | ~2017-12-15 | XMS | Clinical Summary ---
Demographics + + + | Address | [address] | | | [place] [address] | + + + | Home Phone [...] + + + | Author | [facility] | | | and [place] | + + + | Organization | [facility] | | | [...] Team Providers + +------+ + | Care Meat Blender Name | Role | Phone | + [...] + + | MEDICARE | MEDICA | [id number] | Medica | +1- | | | | RE | | re | [phone] | | | | PART A | | | | | | | AND B | | | | | + +--------+ +--------+ + + | MODA | MODA | [id number] | Indemn | [phone] | [address] [address] | | | HEALTH | | ity | [address] | [place] [address] | | | MDCR | | | [...] | monika | | | [phone] | [phone] | + +--------+ +--------+ + +
--- NOTE | 2017-12-15 06:30 | NUR ---
COOPERATIVE WITH ADMIT ASSESSMENT, O2 2L IN PLACE, SOB NOTED WITH EXERTION. RESTING AT THIS TIME.
--- NOTE | 2017-12-15 08:37 | NUR ---
GOT PATIENT A NEW GLASS OF WATER. HELPED HER MAKE A PHONE CALL. NOW SHE IS SITTING UP IN HER BED JUST FINISHED HER BREAKFAST. SHE SAID SHE MIGHT TAKE A SHOWER TODAY.
--- NOTE | 2017-12-15 09:02 | NUR ---
DR. HOPPER ROUNDED IN ROOM.
--- NOTE | 2017-12-15 10:05 | NUR ---
PATIENT ASSISTED TO THE BR WITH A STBY ASSIST. VOIDED 375MLS. PATIENT FAMILY MEMBER AT BEDSIDE AT THIS TIME.
--- NOTE | 2017-12-15 10:37 | NUR ---
PATIENT REQUESTING STOOL SOFTENER WITH LUNCH. WOULD ALSO LIKE TO HAVE PRUNE JUICE TO ASSIST IN HER GOING TO THE BR. ORDERED LUNCH. PATIENT C/O FOOT CRAMPS. LOTION RUBBED ON FEET.
--- NOTE | 2017-12-15 10:59 | NUR ---
DIETARY IN ROOM WITH PATIENT AT THIS TIME.
[2017-12-15] MEDS ORDERED: MIRTAZAPINE7.5 MG PO (11:36)
[2017-12-15] MEDS ORDERED: ALENDRONATE SOD70 MG PO ×2 (11:37)
--- NOTE | 2017-12-15 12:36 | NUR ---
PATIENT ASSISTED TO CHAIR FROM BED FOR LUNCH. ASSISTED WITH CUTTING UP MEAT. TOLERATING MOVEMENT WELL. NO DIZZINESS OR SOB AT THIS TIME.
--- NOTE | 2017-12-15 13:17 | NUR ---
patient finished 50 percent of lunch. patient assisted back to the bed to rest for a moment. assessment complete. lungs remain clear and diminished in the bases. patient currently sating 92 percent on her chronic 2 l
--- NOTE | 2017-12-15 15:11 | NUR ---
OT IN ROOM TO WORK WITH PATIENT.
[2017-12-15] MEDS ORDERED: REFRESH CLASSI1 EACH OU ×2 (15:14)
[2017-12-15] MEDS ORDERED: ADULT GLYCERIN1 EACH PR ×2 (15:14)
[2017-12-15] MEDS ORDERED: TYLENOL EXTRA500 MG PO ×2 (15:15)
[2017-12-15] MEDS ORDERED: VITAMIN B-121000 MC2 SL ×2 (15:15)
--- NOTE | 2017-12-15 15:16 | NUR ---
MED REC COMPLETE
--- NOTE | 2017-12-15 17:43 | NUR ---
patient did well today. patient is back on her chronic 2 l per nc. sating well. tolerating food well. outpatient appointment with [facility] made. plan to d/c home tomorrow. working with pt/ ot. patient had small bm today. is requesting more stool softener at this time.
--- NOTE | 2017-12-15 17:43 | NUR ---
pt finished 100 percent of dinner. tolerated well. asked for warm blanket.
--- NOTE | 2017-12-15 18:41 | NUR ---
bisacodyl suppository place, pt tolerated well. Pt instructed to hold suppository and call when ready to have bm. Pt denies other needs at this time.
--- NOTE | 2017-12-15 20:20 | NUR ---
CHARGE NURSE ROUNDING NOTE. PT VISITING WITH FAMILY VIA PHONE. NO C/O PAIN. O2 2LNC IN PLACE. FLUIDS AND CALL LIGHT AT HANDS REACH
--- NOTE | 2017-12-15 21:30 | NUR ---
PATIENT HAVING NO PAIN AND MOVING AROUND IN BED INDEPENDENT. PATIENT TOOK ALL EVENING MEDS. LUNGS CLEAR AND BOWEL TONES ACTIVE. PATIENT HAS NO COMPLAINTS AND IS WATCHING TV. IV FLUSHES WELL. USES IS AND ACAPELLA. HAD A SHOWER TODAY.PATIET ON 2L/NC CHRONIC. CALL LIGHT IN REACH.
--- NOTE | 2017-12-15 22:10 | NUR ---
VITALS AND I&OS DONE AND CHARTED. HELPED PT TO THE BATHROOM AND BACK TO BED. BEDSIDE TABLE AND CALL LIGHT WITHIN REACH.
--- NOTE | 2017-12-15 23:14 | NUR ---
PATIENT RESTING QUIETLY ON HER RIGHT SIDE. O2 SATS 96% ON 2L/NC AND HR OF 76 AND RESPIRATIONS OF 16. CALL LIGHT IN REACH.
--- NOTE | 2017-12-16 00:39 | NUR ---
PATIENT COVERD UP AND RESTING QUIETLY ON HER RIGHT SIDE. SATS 99% ON 2L/NC WITH A HR OF 69. RESPIRATIONS REGUALR AND EVEN AT A RATE OF 16. PATIENT'S CALL LIGHT IS IN REACH.
--- NOTE | 2017-12-16 01:41 | NUR ---
VITALS AND I&OS DONE AND CHARTED. HELPED PT TO THE BATHROOM AND BACK TO BED. WARM BLANKET GIVEN. BEDSIDE TABLE AND CALL LIGHT WITHIN REACH.
--- NOTE | 2017-12-16 03:46 | NUR ---
PATIENT HAS BEEN SLEEPING WELL TONIGHT , ON ASSESSMENT PATIENT SATS STILL 96% ON 2L/NC AND HR=68 WITH RESPIRATIONS OF 16. EYES CLOSED AND RESPIRATIONS HAVE BEEN REGULAR AND EVEN. PATIENT GOES BACK TO SLEEP READILY AND HAS HAD NO C/O PAIN. CALL LIGHT IS IN REACH.
--- NOTE | 2017-12-16 05:51 | NUR ---
PATIENT HAS HAD NO C/O PAIN ALL SHIFT AND HAS SLEPT WELL MAINTAINING GOOD VS AND SATS ON HER 2L/NC. ASSESSMENT HAS REMAINED UNCHANGED. PATIENT AMBULATING INTO THE RESTROOM WITH ASSISTANCE. PATIENT HAS NOT CALLED AND ASKED FOR ANYTHING ALL SHIFT OTHER THAN SOME WARM BLANKETS. IV FLUSHES WELL AND CALL LIGHT HAS BEEN IN REACH ALL NIGHT.
--- NOTE | 2017-12-16 06:08 | NUR ---
PATIENT JUST STARTED TO C/O OF A 7/10 SANCHEZ AND NECK PAIN. 650MG OF PO TYLENOL WAS GIVEN WHICH SHE FEELS WILL PROBABLY HELP, BUT SHE SAYS SHE IS ALSO FEELING A LITTLE ANXIOUS WELL AND IS SITTING AT THE SIDE OF THE BED TRYING TO RELAX. CALL LIGHT IS IN REACH IF PATIENT IS IN NEED OF ANYTHING.
--- NOTE | 2017-12-16 06:17 | NUR ---
VITALS DONE AND CHARTED. PT WANTS TO WAIT A FEW MINUTES TO GO TO THE BATHROOM DUE TO HER "BAD HEADACHE" HER RN LUZ CAME IN AND TALKED TO HER ABOUT HER HEADACHE . SHE SAYS SHE WILL CALL WHEN SHE CAN GET UP TO GO TO THE BATHROOM. BEDSIDE TABLE AND CALL LIGHT WITHIN REACH.
--- NOTE | 2017-12-16 08:29 | NUR ---
PATIENT RESTING IN CHAIR. TOLERATING ACTICITY WELL. SITTING IN CHAIR SATING 95 PERCENT ON HER CHRONIC 2 L. MEDICATION GIVEN THIS AM. PATIENT TOLERATING DIET WELL. CURRENTLY EATING 50 PERCENT OF BREAKFAST. ENSURE BROUGHT TO ROOM FOR AFTER BREAKFAST. MIRALAX MIXED IN WATER. PATIENT HAD NO OTHER BMS LASY NIGHT.
--- NOTE | 2017-12-16 09:44 | NUR ---
[id number]: NUTRITION PATIENT UP IN CHAIR. ATE 90% OF HER BREAKFAST. SHE WAS ASKING ABOUT CALORIES YESTERDAY SO TODAY I BROUGHT HER A HIGH-CALORIE HIGH-PROTEIN HANDOUT WITH A LIST OF PROTEIN FOODS AND FATS AND THEIR CALORIES. I REMINDED HER THAT I SUGGEST SHE CONSUME 2000 CALORIES EVERY DAY TO GAIN WEIGHT. SHE MAY NEED MORE CALORIES IF SHE HASN'T GAINED WEIGHT IN 2-3 WEEKS. SHE REALLY LIKES THE ENSURE CLEAR DRINKS. I TOLD HER SHE CAN BUY THEM ON HER OWN IN MOST STORES AROUND HERE. SHE IS REALLY DETERMINED TO GO HOME AND NOT TO A USP. SHE PROCEEDS TO TELL ME ABOUT HER CHILDHOOD, GROWING UP WITH HER TOUGH MOTHER, AND TAKING CARE OF HER MOTHER BEFORE SHE . THEN PHYSICAL THERAPY CAME IN TO WORK WITH HER. I PUT THE HANDOUT IN THE FOLDER WITH OTHER INFO NURSING PROVIDED.
--- NOTE | 2017-12-16 09:44 | NUR ---
PATIENT WORKING WITH PT. AMBULATING IN NUNEZ.
[2017-12-16] MEDS ORDERED: ZITHROMAX250 MG PO ×2 (10:24)
[2017-12-16] MEDS ORDERED: ZOLOFT100 MG PO ×4 (10:25→11:49)
[2017-12-16] MEDS ORDERED: PREDNISONE20 MG PO ×2 (10:26)
--- NOTE | 2017-12-16 10:28 | NUR ---
ROUNDED WITH DR. RODRIGUEZ. PLAN TO DISCHARGE HOME WITH PCP APPOINTMENT. PLAN TO HABE COMMUNITY HEALTH WORKER COME TO HOUSE. FOLLOW UP APPOINTMENT WITH [facility] TO FOLLOW PATIENT DUE ANXIETY.
--- NOTE | 2017-12-16 11:08 | NUR ---
PATIENT BACK FROM THE BR. PATEINT STATING SHE IS STARTING TO HAVE A PANIC ATTACK. PATIENT WORKING HERSELF UP ABOUT GOING HOME. STATING SHE CANNOT GO HOME UNTIL SHE HAS HAD AN ENEMA. ORDER FROM DR. RODRIGUEZ GIVEN. COMMUNITY HEALTH WORKER TO GO INTO ROOM TO GO OVER PLAN TO CONTINUE WORKING WITH THEM AFTER DISCHARGE. PATEINT NEEDING FREQUENT THERAPUTIC COMMUNICATION IN ORDER TO CALM DOWN.
--- NOTE | 2017-12-16 11:13 | NUR ---
PATIENT TALKING WITH SUMMER ABOUT COMMUNITY HEALTH WORKER.
--- NOTE | 2017-12-16 11:34 | NUR ---
ot in room working with patient.
--- NOTE | 2017-12-16 11:40 | NUR ---
PT DAUGHTER EVGENY CALLED, I SPOKE WITH HER FOR SEVERAL MINUTES WITH HER DISCUSING HOW CONCERNED SHE IS ABOUT HER MOTHER AND HER CHOICES FOR LIVING SITUATIONS. SHE STATES THAT SHE IS TRYING TO ARRANGE THE HELP THE PT NEEDS VIA PHONE. STATES SHE HAS TALKED WITH HELPING HANDS. IN SUGGESTION I GAVE HER THE NUMBER FOR AGING AND PEOPLE WITH DISABILITIES AND TOLD HER THEY MAY BE ABLE TO HELP HER SOME. ALSO TOLD EVGENY THAT I HAD TALKED WITH HER MOTHER ABOUT HAVING A CHW COME OUT TO VISIT WITH HER MOTHER AND SEE WHAT KIND OF HELP THEY COULD DO FOR HER. ALSO SAID I WAS GOING TO SEE IF WE COULD GET [facility] IN TO DO AN EVAL AND CHECK ON HER MEDS. ALSO SHE STATED THAT THE THERAPIST THAT IS SEEING HER MOTHER WON'T DO ANYTHING WITH ANY OF THE MEDICATIONS THAT THE PT IS TAKING FOR ANXIETY AND THEY FEEL SOME OF THESE MAY NEED TO BE CHANGED AND MAYBE JUST REEVALUATED BY SOMEONE THAT DEALS WITH THESE TYPES OF MEDS. I TOLD HER WE WOULD LIKE TO GET HER SET UP WITH [facility] IN [facility] AND THEY MAYBE ABLE TO HELP HER. LET HER KNOW THAT [facility] COMES IN TO DO THEIR WORK PROB 1 OR 2 TIMES A WEEK, AND IS NOT THERE ON A DAILY BASIS TO DO CARE. SHE STATED SHE IS ATTEMPTING TO HIRE CAREGIVERS THROUGH [facility].
[2017-12-16] MEDS ORDERED: VENTOLIN HFA18 GM ×2 (11:50)
[2017-12-16] MEDS ORDERED: ZOLOFT50 MG PO ×2 (11:50)
--- NOTE | 2017-12-16 12:15 | NUR ---
TALKED WITH PT ABOUT HER IMPENDING DC AND WHO SHE COULD EXPECT TO CALL AND COME TO VISIT WITH HER. SHE STATED SHE IS GRATEFUL AND APPRECIATES ALL THE HELP WE ARE GIVING. I ALSO TALKED WITH THE RN TAKING CARE OF HER TODAY AND SHE STATED SHE HAS MADE AN APPT WITH [facility] FOR PT ON 01/02/18 AT 2:30 IN AFTERNOON, CHW STATES SHE WOULD GLADLY GO WITH PT TO THIS APPT.
--- NOTE | 2017-12-16 12:33 | NUR ---
rt finished treatment in room. enema given. call light given to patient. patient resting on l side. patient will call when needing to go to br. ordered lunch.
--- NOTE | 2017-12-16 13:02 | NUR ---
patient attempted to have bm. no bm with enema. lunch at bedside. pharmacy in room to go over medication.
--- NOTE | 2017-12-16 13:20 | NUR ---
CHW NOTE REC'D REFERRAL FOR CHW TO FOLLOW PATIENT. WAS ASKED TO SEE PATIENT BEFORE SHE IS DISCHARGED TODAY BY MARCEL, TANVIR. MADE VISIT WITH PATIENT WHO WAS EXPERIENCING ANXIETY. INTRODUCED MYSELF AND POSITION CHW. EXPLAINED WHAT IT IS WE DO AND WAYS I COULD POSSIBLY HELP IN CONNECTING WITH A VARIETY OF COMMUNITY RESOURCES. WE CONTINUED TO TALK SHE SLOWLY BECAME MORE CALM. SHE SHARED SOME CONCERNS SUCH THE FINANCIAL IMPACT THAT IT MAY COST FOR CAREGIVING FOR MEAL PREPS, SOME LIGHT DUTY CLEANING, WATERING YARD, ETC. PATIENT IS IN AGREEANCE FOR ME TO COME OUT TO HER HOME FOR AN ASSESSMENT FOLLOW UP. AFTER VISITING WITH THE PATIENT HANSA I SPOKE TO HER DAUGHTER (TERESE) AND EXPLAINED OUR PLAN. LET HER KNOW THAT I WOULD KEEP HER POSTED LONG HANSA CONTINUES TO AGREE THAT I SHARE HER INFORMATION.
--- NOTE | 2017-12-16 13:23 | NUR ---
patient in good spirits. pharmacy just finished talking with patient. verified with [facility] that medication are being filled. dinner to go ordered for patient.
--- NOTE | 2017-12-16 13:58 | NUR ---
FAXED CHART NOTES INCLUDING FACESHEET, ORDER, H AND P, DC SUMMARY AND PACKET TO [facility]. I TALKED WITH DEXTER RAMEY REGARDING THIS PT EXPLAINING THAT WHEN THE PT WAS DC'D LAST WEEKEND SHE GOT CONFUSED BY THE PHARMACIST (OUTSIDE PHARMACY) TOLD HER SO SHE JUST DIDN'T TAKE ANY OF THOSE MEDS SHE STATES. THIS MAY HAVE CONTRIBUTED TO HER COMING BACK TO THE HOSPITAL. AND EXPLAINED WHAT WE WOULD LIKE FROM HOME HEALTH WITH PT. RECIEVED A FAX CONFIRMATION OF THIS.
--- NOTE | 2017-12-16 14:20 | NUR ---
PT FINISHING UP LUNCH, PREPPING FOR DC. SHE IS ALERT AND ORIENTED ON NC O2. PLEASANT TO VISIT WITH, RICKEY SANTO IN TO DO VITALS. EXTENDED A BLESSING, WILL FOLLOW NEEDED
--- NOTE | 2017-12-16 14:42 | NUR ---
PATIENT WAS NERVOUS ABOUT GOING HOME AND NOT HAVING A SHOWER. OT IN ROOM TO ASSIST PERSON WITH SHOWER BEFORE BEING DISCHARGED HOME.
--- NOTE | 2017-12-16 15:28 | NUR ---
WENT IN ROOM TO GO OVER DISCHARGE INSTRUCTIONS. PATIENT WAS ABLE TO RESTATE APPOINTMENT TIMES AND PLAN FOR WHEN SHE GETS HOME. NUMBER FOR [facility] DISCHARGE PLANNING WAS GIVEN TO HER FOR HER TO CALL IF SHE HAD ANY QUESTIONS. RT CALLED INTO ROOM FOR BREATHING TREATMENT BEFORE DISCHARGE. WC VAN TO COME AND PICK PATIENT UP AT 1615.
--- NOTE | 2017-12-16 17:41 | NUR ---
PATIENT CALLED AT HOME. NEW MEDICATIONS THAT WERE NEW FROM PHARMACY WERE VERIFIED VIA PHONE. PATIENT STATING, " I HAD ONE PANIC ATTACK, BUT I AM DOING WELL NOW". AMINAH PATIENTS FRIEND AT HOME WITH HER. ASKED IF PATIENT HAD ANY OTEHR QUESTIONS ABOUT HER DISCHARGE. NO QUESTIONS ABOUT DISCHARGE AT THIS TIME.
== END 2017-12-16 16:15 | disposition home or self-care (01) ==
LOC: ED 02:49 → MS 02:51
PROVIDERS: ADMIT Internal Medicine
DX: J43.9 Emphysema, unspecified (principal); J96.11 Chronic respiratory failure with hypoxia; F41.1 Generalized anxiety disorder; F41.0 Panic disorder [episodic paroxysmal anxiety]; K21.9 Gastro-esophageal reflux disease without esophagitis; E78.5 Hyperlipidemia, unspecified; J30.2 Other seasonal allergic rhinitis; Z99.81 Dependence on supplemental oxygen; Z85.3 Personal history of malignant neoplasm of breast; Z87.891 Personal history of nicotine dependence; Z79.82 Long term (current) use of aspirin; Z79.51 Long term (current) use of inhaled steroids; Z79.899 Other long term (current) drug therapy; Z88.2 Allergy status to sulfonamides; Z88.8 Allergy status to other drugs, medicaments and biological substances; Z91.040 Latex allergy status
CPT/HCPCS: 71045; 80053; 83880; 85025; 94640; 94668; 94762; 96372; 96374; 96375; 97116; 97162; 97165; 97530; 99285; G0378; J1650; J2405; J2930; J7512

== ENCOUNTER 2017-12-18 20:04 | Emergency (ER) | payer MEDICARE, OTHER ==
[~2017-12-18] VITALS: Ht 162.6 cm; Wt 50.8 kg
--- OUTSIDE RECORDS SUMMARY | ~2017-12-18 | XMS | Clinical Summary ---
Demographics + + + | Address | [address] | | | [place] [address] | + + + | Home Phone | | + + + | Preferred Language | Unknown | + + + | Marital Status | | + + + | Presybeterian Affiliation | Unknown | + + + | Race | Unknown | + + + | Ethnic Group | Unknown | + + + Author + + + | Author | [facility] | | | and [place] | + + + | Organization | [facility] | | | and [...] Team Providers + +------+ + | Care Rn Orthopedic Name | Role | Phone | + [...] + + | MEDICARE | MEDICA | [id number] | Medica | +1- | | | | RE | | re | [phone] | | | | PART A | | | | | | | AND B | | | | | + +--------+ +--------+ + + | MODA | MODA | [id number] | Indemn | [phone] | [address] [address] | | | HEALTH | | ity | [address] | [place] [address] | | | MDCR | | | [...] | monika | | | [phone] | [phone] | + +--------+ +--------+ + +
--- OUTSIDE RECORDS SUMMARY | ~2017-12-18 | XMS | Clinical Summary ---
Demographics + + + | Address | [address] | | | [place] [address] | + + + | Home Phone | | + + + | Preferred Language | Unknown | + + + | Marital Status | | + + + | Bahai Affiliation | Unknown | + + + | Race | Unknown | + + + | Ethnic Group | Unknown | + + + Author + + + | Author | [facility] | | | and [place] | + + + | Organization | [facility] | | | and [...] Team Providers + +------+ + | Care Bilingual Medical Receptionist Name | Role | Phone | + [...] + + | MEDICARE | MEDICA | [id number] | Medica | +1- | | | | RE | | re | [phone] | | | | PART A | | | | | | | AND B | | | | | + +--------+ +--------+ + + | MODA | MODA | [id number] | Indemn | [phone] | [address] [address] | | | HEALTH | | ity | [phone] | [place] [address] | | | MDCR | | | [...] | monika | | | [phone] | [phone] | + +--------+ +--------+ + +
--- OUTSIDE RECORDS SUMMARY | ~2017-12-18 | XMS | Clinical Summary ---
Demographics + + + | Address | [address] | | [address] | | | [place] [address] | + + + | Home Phone [...] + + + | Author | [facility] [employer] [facility] | + + + | Organization | [facility] | + + + | Address | Unknown | + + + | Phone | Unavailable | + + + Support + + + + + | Name | Relationship | Address | Phone | + + + + + | Jyothi Kimbrough | ECON | [address] | | | | | [place] [address] | | + + + + + Care Team Providers + +------+ + | Care Writing Center Director Name | Role | Phone | [...]
--- OUTSIDE RECORDS SUMMARY | ~2017-12-18 | XMS | Clinical Summary ---
Demographics + + + | Address | [address] | | | [address] | | | [place] [address] | + + + | Home Phone | | + + + | Preferred Language | Unknown | + + + | Marital Status | | + + + | Scientology Affiliation | 1075 | + + + | Race | Unknown | + + + | Ethnic Group | Unknown | + + + Author + + + | Author | [facility] [employer] [facility] | + + + | Organization | [facility] | + + + | Address | Unknown | + + + | Phone | Unavailable | + + + Support + + + + + | Name | Relationship | Address | Phone | + + + + + | Jyothi Kimbrough | ECON | [address] | | | | | [place] [address] | | + + + + + Care Team Providers + +------+ + | Care Patient Financial Specialist Name | Role | Phone | [...]
[~2017-12-18 20:04] MED LIST changes: +ADULT GLYCERIN1 EACH PR; +ALENDRONATE SOD70 MG PO; +MIRTAZAPINE7.5 MG PO; +REFRESH CLASSI1 EACH OU; +TYLENOL EXTRA500 MG PO; +VENTOLIN HFA18 GM; +VITAMIN B-121000 MC2 SL; +ZOLOFT100 MG PO; +ZOLOFT50 MG PO
== END 2017-12-18 22:45 | disposition home or self-care (01) ==
LOC: ED 20:04
DX: J44.1 Chronic obstructive pulmonary disease with (acute) exacerbation (principal); F41.9 Anxiety disorder, unspecified; K59.00 Constipation, unspecified; K21.9 Gastro-esophageal reflux disease without esophagitis; Z99.81 Dependence on supplemental oxygen; Z87.891 Personal history of nicotine dependence; Z91.040 Latex allergy status; Z88.8 Allergy status to other drugs, medicaments and biological substances; Z88.2 Allergy status to sulfonamides; Z79.82 Long term (current) use of aspirin; Z79.899 Other long term (current) drug therapy
CPT/HCPCS: 71045; 80053; 83880; 84484; 85025; 96374; 99285; J2930

== ENCOUNTER 2017-12-21 21:57 | Emergency (ER) | payer MEDICARE, OTHER ==
[~2017-12-21] VITALS: Ht 162.6 cm; Wt 50.8 kg
--- OUTSIDE RECORDS SUMMARY | ~2017-12-21 | XMS | Clinical Summary ---
Demographics + + + | Address | [address] | | [address] | | | [place] [address] | + + + | Home Phone | | + + + | Preferred Language | Unknown | + + + | Marital Status | | + + + | Restorationism Affiliation | 1075 | + + + | Race | Unknown | + + + | Ethnic Group | Unknown | + + + Author + + + | Author | [facility] [facility] | + + + | Organization | [facility] | + + + | Address | Unknown | + + + | Phone | Unavailable | + + + Support + + + + + | Name | Relationship | Address | Phone | + + + + + | Jyothi Kimbrough | ECON | [address] | | | | | [place] [address] | | + + + + + Care Team Providers + +------+ + | Care Runner Man Name | Role | Phone | + [...]
--- OUTSIDE RECORDS SUMMARY | ~2017-12-21 | XMS | Clinical Summary ---
Demographics + + + | Address | [address] | | | [place] [address] | + + + | Home Phone | | + + + | Preferred Language | Unknown | + + + | Marital Status | | + + + | Holiness Affiliation | Unknown | + + + | Race | Unknown | + + + | Ethnic Group | Unknown | + + + Author + + + | Author | [facility] | | | and [place] | + + + | Organization | [facility] | | | and [place] | + [...] Team Providers + +------+ + | Care Search Engine Optimization Analyst Name | Role | Phone | + [...] + + | MEDICARE | MEDICA | [id number] | Medica | +1- | | | | RE | | re | [phone] | | | | PART A | | | | | | | AND B | | | | | + +--------+ +--------+ + + | MODA | MODA | [id number] | Indemn | [phone] | [address] [address] | | | HEALTH | | ity | [phone] | [place] [address] | | | MDCR | | | [...] | [birth year] | Home: | [address] | | | al/Fam | | [phone] | [phone] | [address] [place] | | | monika | | | [phone] | [phone] | + +--------+ +--------+ + +
--- OUTSIDE RECORDS SUMMARY | ~2017-12-21 | XMS | Clinical Summary ---
Demographics + + + | Address | [address] | | | [place] [address] | + + + | Home Phone | | + + + | Preferred Language | Unknown | + + + | Marital Status | | + + + | Nondenominational Affiliation | Unknown | + + + | Race | Unknown | + + + | Ethnic Group | Unknown | + + + Author + + + | Author | [facility] | | | and [place] | + + + | Organization | [facility] | | | [...] Team Providers + +------+ + | Care Band And Cuff Cutter Name | Role | Phone | + [...] + + | MEDICARE | MEDICA | [id number] | Medica | +1- | | | | RE | | re | [phone] | | | | PART A | | | | | | | AND B | | | | | + +--------+ +--------+ + + | MODA | MODA | [id number] | Indemn | [phone] | [address] [address] | | | HEALTH | | ity | [phone] | [place] [address] | | | MDCR | | | [...] | monika | | | [phone] | [phone] | + +--------+ +--------+ + +
--- OUTSIDE RECORDS SUMMARY | ~2017-12-21 | XMS | Clinical Summary ---
Demographics + + + | Address | [address] | | | [address] | | | [place] [address] | + + + | Home Phone | | + + + | Preferred Language | Unknown | + + + | Marital Status | | + + + | Voodoo Affiliation | 1075 | + + + | Race | Unknown | + + + | Ethnic Group | Unknown | + + + Author + + + | Author | [facility] | + + + | Organization | [facility] | + + + | Address | Unknown | + + + | Phone | Unavailable | + + + Support + + + + + | Name | Relationship | Address | Phone | + + + + + | Jyothi Kimbrough | ECON | [address] | | | | | [place] [address] | | + + + + + Care Team Providers + +------+ + | Care Repairer Evaporator Name | Role | Phone | + [...]
== END 2017-12-22 00:45 | disposition home or self-care (01) ==
LOC: ED 21:57
DX: J44.9 Chronic obstructive pulmonary disease, unspecified (principal); K21.9 Gastro-esophageal reflux disease without esophagitis; Z85.3 Personal history of malignant neoplasm of breast; Z87.891 Personal history of nicotine dependence; Z91.040 Latex allergy status; Z91.048 Other nonmedicinal substance allergy status; Z79.899 Other long term (current) drug therapy; Z79.52 Long term (current) use of systemic steroids; Z79.82 Long term (current) use of aspirin; Z99.81 Dependence on supplemental oxygen
CPT/HCPCS: 81001; 99285

== ENCOUNTER 2017-12-22 12:23 | Emergency (ER) | payer MEDICARE, OTHER ==
[~2017-12-22] VITALS: Ht 162.6 cm; Wt 50.8 kg
--- OUTSIDE RECORDS SUMMARY | ~2017-12-22 | XMS | Clinical Summary ---
Demographics + + + | Address | [address] | | | [address] | | | [place] [address] | + + + | Home Phone | | + + + | Preferred Language | Unknown | + + + | Marital Status | | + + + | Latter-Day Affiliation | 1075 | + + + | Race | Unknown | + + + | Ethnic Group | Unknown | + + + Author + + + | Author | [facility] [employer] [facility] | + + + | Organization | [facility] | + + + | Address | Unknown | + + + | Phone | Unavailable | + + + Support + + + + + | Name | Relationship | Address | Phone | + + + + + | Jyothi Kimbrough | ECON | [address] | | | | | [place] [address] | | + + + + + Care Team Providers + +------+ + | Care Vending Machine Attendant Name | Role | Phone | + [...]
--- OUTSIDE RECORDS SUMMARY | ~2017-12-22 | XMS | Clinical Summary ---
Demographics + + + | Address | [address] | | | [place] [address] | + + + | Home Phone | | + + + | Preferred Language | Unknown | + + + | Marital Status | | + + + | Roman Catholic Affiliation | Unknown | + + + | Race | Unknown | + + + | Ethnic Group | Unknown | + + + Author + + + | Author | [facility] | | | and [place] | + + + | Organization | [facility] | | | [...] Team Providers + +------+ + | Care Hardware Test Engineer Name | Role | Phone | [...] + + | MEDICARE | MEDICA | [id number] | Medica | +1- | | | | RE | | re | [phone] | | | | PART A | | | | | | | AND B | | | | | + +--------+ +--------+ + + | MODA | MODA | [id number] | Indemn | [phone] | [address] [address] | | | HEALTH | | ity | [address] | [place] [address] | | | MDCR | | | [...] | monika | | | [phone] | [phone] | + +--------+ +--------+ + +
--- NOTE | 2017-12-22 15:40 | EKG ---
[facility] [address] [place], [place] [address] Signed Sinus tachycardia with premature supraventricular complexes Otherwise normal ECG When compared with ECG of 16-AUG-2017 13:34, No significant change was found Confirmed by SCOTT HOPPER MD ([id number]) on 12/22/2017 3:39:36 PM Electronically Signed By: SCOTT HOPPER MD 12/22/17 1540 PATIENT NAME: HANSA CRAWFORD Electrocardiogram DATE OF : 42 PHYSICIAN: SCOTT HOPPER MD REPORT #: [id number] REPORT IS CONFIDENTIAL AND NOT TO BE RELEASED WITHOUT AUTHORIZATION
== END 2017-12-22 18:50 | disposition short-term general hospital (02) ==
LOC: ED 12:23
DX: J44.9 Chronic obstructive pulmonary disease, unspecified (principal); R79.89 Other specified abnormal findings of blood chemistry; K21.9 Gastro-esophageal reflux disease without esophagitis; Z99.81 Dependence on supplemental oxygen; Z91.040 Latex allergy status; Z88.8 Allergy status to other drugs, medicaments and biological substances; Z88.2 Allergy status to sulfonamides; Z79.899 Other long term (current) drug therapy; Z79.82 Long term (current) use of aspirin
CPT/HCPCS: 71045; 80048; 83880; 84484; 85025; 93005; 93010; 94640; 96374; 96375; 99285; J2405; J2930

== ENCOUNTER 2017-12-28 16:24 | Emergency (ER) | payer MEDICARE, OTHER ==
[~2017-12-28] VITALS: Ht 162.6 cm; Wt 50.8 kg
--- OUTSIDE RECORDS SUMMARY | ~2017-12-28 | XMS | Encounter Summary ---
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 Ref Range Status 12/23/2017 138 135 - 145 mmol/L Final POTASSIUM Date Value Ref Range Status 12/23/2017 4.4 3.5 - 4.9 mmol/L Final CHLORIDE Date Value Ref Range Status 12/23/2017 97 (L) 99 - 109 mmol/L Final CO2 Date Value Ref Range Status 12/23/2017 36 (H) 23 - 32 mmol/L Final ANION GAP AGAP Date Value Ref Range Status 12/23/2017 9 5 - 20 mmol/L Final @[id number]@ HDL CHOL Date Value Ref Range Status 12/23/2017 52 >40 mg/dL Final CHOLESTEROL Date Value Ref Range Status 12/23/2017 151 <200 mg/dL Final TSH Date Value Ref Range Status 12/23/2017 0.334 (L) 0.450 - 5.100 uIU/mL Final Comment: Testing performed at [facility], [address] [place] [id number] No results found for: PROT, ALBUMIN, BILITOT, BILIDIR, ALKPHOS, AST, ALT Diagnostic: Nm Myocardial Perfusion Spect (stress And Rest) Result Date: 12/23/2017 AMMY CRAWFORD NM MYOCARDIAL PERFUSION SPECT - STRESS AND REST HISTORY: 77 years. Female. C hest pain TECHNIQUE: A same day protocol was used. For the resting portion of the study the patient was injected intravenously with 11.7 mCi technetium 99m Myoview. Gated SPECT imagi ng was performed in the supine position. The patient was then pharmacologically stressed usi ng a regadenoson protocol. The patient received 0.4 mg of regadenoson intravenously. The p atient was intravenously administered 30.7 mCi technetium 99m Myoview. Gated SPECT images we re acquired in the prone and supine positions. COMPARISON: None. FINDINGS: Decreased radiot racer uptake at the mid septum which could represent infarct or artifact. Prone images were not obtained for differentiation. No stress-induced ischemia. The following functional data was obtained: STRESS: End-diastolic volume: 42 mL End-systolic volume: 7 mL Ejection fractio n: 83% REST: End-diastolic volume: 32 mL End-systolic volume: 6 mL Ejection fraction: 81% 1. No stress-induced ischemia. 2. Nonspecific decreased area of uptake at the mid septum which could represent artifact or infarct. Prone images not obtained for differentiation 3. Left ventricular ejection fraction is calculated at 83%. Risk stratification according to t he [place] [employer] and [place] [employer] Scientific Statement. Circu lation (2008); 118: p 1497-518. Definitions: Low risk: 1. Normal or small myocardial perfusi on defect at rest or with stress.* 2. No change of resting wall motion abnormalities during stress.* Intermediate risk: 1. Mild/moderate resting left ventricular dysfunction (LVEF = 35 % to 49%). 2. Stress-induced moderate perfusion defect without left ventricular dilation or increased lung intake. High risk: 1. Severe resting left ventricular dysfunction (exercise L VEF < 35%). 2. Severe exercise left ventricular dysfunction (exercise LVEF < 35%). 3. Stress -induced large perfusion defect (particularly if anterior). 4. Stress-induced multiple perfu lizeth defects of moderate size. 5. Large, fixed perfusion defect with left ventricular dilati on. 6. Stress-induced moderate perfusion defect with LV dilation. * Although the published d jessie are limited, patients with these findings will probably not be at low risk in the presen ce of either a high risk treadmill score or severe resting left ventricular dysfunction (LVE F < 35%). X-ray Chest 1 View Result Date: 12/22/2017 This is a non-reportable procedure without a radiologist report and is used for image [facility] only PROBLEM LIST Principal Problem: Dyspnea Active Problems: Benign essential hypertension Hyperlipidemia COPD (chronic obstructive pulmonary disease) (HCC) Chronic respiratory failure with hypoxia (HCC) ASSESSMENT & PLAN Dyspnea - likely secondary to COPD. Appears to be somewhat improved. - Continue prednisone and azithromycin - Continue Symbicort - Supplemental oxygen at 2 L, titrate to between 88 and 92 percent - Continue loratadine Hypertension - Continue metoprolol Hyperlipidemia - Continue atorvastatin Depression - Continue Zoloft CODE STATUS: Full Disposition: We will likely send patient home in the morning if she is stable Andrew MoonDO una 12/23/2017 3:33 PM Bernie Hooper, [facility] - 12/22/2017 10:40 PM PDTFormatting of this note may be different from the original. Clinical Pharmacy Note: Renal Monitoring Ammy Crawford 77 y.o. female Ht Readings from Last 1 Encounters: 12/22/17 1.626 m (5' 4") Wt Readings from Last 1 Encounters: 12/22/17 49.1 kg (108 lb 4.8 oz) Creatinine clearance cannot be calculated (No order found.) Pharmacy dosing for renal function per Dr. Sawyer Cross. Currently, there are no labs. Pharmacy will adjust medications, if necessary, in AM when la bs are reported. Bernie Hooper PharmD 12/22/2017 10:40 PM in this encounter Plan of Treatment + +--------+ + + | Name | Priori | Associated Diagnoses | Order Schedule | | | ty | | | + +--------+ + + | Sputum culture | Timed | | Timed (Now or | | | | | Specify) for 1 | | | | | Occurrences starting | | | | | 12/22/2017 until | | | | | 12/22/2017 | + +--------+ + + as of this encounter Procedures + +--------+ + + + | Procedure Name | Priori | Date/Time | Associated Diagnosis | Comments | | | ty | | | | + +--------+ + + + | NM MYOCARDIAL | Routin | 12/23/2017 | | Results for this | | PERFUSION SPECT - | e | 2:05 PM | | procedure are in the | | STRESS AND REST | | PDT | | results section. | + +--------+ + + + | NM CARDIOVASCULAR | Routin | 12/23/2017 | | Results for this | | STRESS TREADMILL | e | 1:14 PM | | procedure are in the | | | | PDT | | results section. | + +--------+ + + + | EKG STANDARD 12 LEAD | Routin | 12/23/2017 | | Results for this | | | e | 5:51 AM | | procedure are in the | | | | PDT | | results section. | + +--------+ + + + | TROPONIN I | Timed | 12/23/2017 | | Results for this | | | | 2:12 AM | | procedure are in the | | | | PDT | | results section. | + +--------+ + + + | CBC W/AUTO DIFF | Routin | 12/23/2017 | | Results for this | | (REFLEX TO MANUAL) | e - AM | 2:12 AM | | procedure are in the | | | | PDT | | results section. | + +--------+ + + + | TSH | Routin | 12/23/2017 | | Results for this | | | e - AM | 2:12 AM | | procedure are in the | | | | PDT | | results section. | + +--------+ + + + | HEMOGLOBIN A1C | Routin | 12/23/2017 | | Results for this | | | e - AM | 2:12 AM | | procedure are in the | | | | PDT | | results section. | + +--------+ + + + | LIPID PANEL | Routin | 12/23/2017 | | Results for this | | | e - AM | 2:12 AM | | procedure are in the | | | | PDT | | results section. | + +--------+ + + + | BASIC METABOLIC | Routin | 12/23/2017 | | Results for this | | PANEL | e - AM | 2:12 AM | | procedure are in the | | | | PDT | | results section. | + +--------+ + + + | PROCALCITONIN | Timed | 12/22/2017 | | Results for this | | | | 10:41 PM | | procedure are in the | | | | PDT | | results section. | + +--------+ + + + | TROPONIN I | Timed | 12/22/2017 | | Results for this | | | | 10:41 PM | | procedure are in the | | | | PDT | | results section. | + +--------+ + + + in this encounter Results NM myocardial perfusion SPECT (stress and rest) (12/23/2017 2:05 PM) + + + | Impressions | Performed At | + + + | 1. No stress-induced ischemia. 2. Nonspecific decreased area | [facility] | | of uptake at the mid septum which could represent artifact or infarct. | RADIOLOGY | | Prone images not obtained for differentiation 3. Left ventricular | | | ejection fraction is calculated at 83%. Risk stratification | | | according to the [place] [employer] and [employer] | | | Cardiology Scientific Statement. Circulation (2008); 118: p 1497-518. | | | Definitions: Low risk: 1. Normal or small myocardial perfusion | | | defect at rest or with stress.* 2. No change of resting wall motion | | | abnormalities during stress.* Intermediate risk: 1. | | | Mild/moderate resting left ventricular dysfunction (LVEF = 35% to | | | 49%). 2. Stress-induced moderate perfusion defect without left | | | ventricular dilation or increased lung intake. High risk: 1. | | | Severe resting left ventricular dysfunction (exercise LVEF < 35%). 2. | | | Severe exercise left ventricular dysfunction (exercise LVEF < 35%). | | | 3. Stress-induced large perfusion defect (particularly if anterior). | | | 4. Stress-induced multiple perfusion defects of moderate size. 5. | | | Large, fixed perfusion defect with left ventricular dilation. 6. | | | Stress-induced moderate perfusion defect with LV dilation. * | | | Although the published data are limited, patients with these findings | | | will probably not be at low risk in the presence of either a high risk | | | treadmill score or severe resting left ventricular dysfunction (LVEF | | | < 35%). | | | 2:15 PM | | + + + + + + | Narrative | Performed At | + + + | AMMY CRAWFORD CO MYOCARDIAL PERFUSION SPECT - STRESS AND REST | [facility] | | HISTORY: 77 years. Female. Chest pain TECHNIQUE: A same day | RADIOLOGY | | protocol was used. For the resting portion of the study the patient | | | was injected intravenously with 11.7 mCi technetium 99m | | | Myoview. Gated SPECT imaging was performed in the supine position. | | | The patient was then pharmacologically stressed using a | | | regadenoson protocol. The patient received 0.4 mg of regadenoson | | | intravenously. The patient was intravenously administered 30.7 mCi | | | technetium 99m Myoview. Gated SPECT images were acquired in | | | the prone and supine positions. COMPARISON: None. | | | FINDINGS: Decreased radiotracer uptake at the mid septum which could | | | represent infarct or artifact. Prone images were not obtained for | | | differentiation. No stress-induced ischemia. The following | | | functional data was obtained: STRESS: End-diastolic volume: 42 mL | | | End-systolic volume: 7 mL Ejection fraction: 83% REST: | | | End-diastolic volume: 32 mL End-systolic volume: 6 mL Ejection | | | fraction: 81% | | + + + + + | Procedure Note | + + | Solomon Gordon In - 12/23/2017 2:20 PM [facility] MYOCARDIAL PERFUSION | | SPECT - STRESS AND RESTHISTORY:77 years. Female. Chest painTECHNIQUE:A same day protocol | | was used. For the resting portion of the study the patient was injected intravenously | | with 11.7 mCi technetium 99m Myoview. Gated SPECT imaging was performed in the supine | | position.The patient was then pharmacologically stressed using a regadenoson protocol. | | The patient received 0.4 mg of regadenoson intravenously. The patient was intravenously | | administered 30.7 mCi technetium 99m Myoview. Gated SPECT images were acquired in the | | prone and supine positions.COMPARISON:None.FINDINGS:Decreased radiotracer uptake at the | | mid septum which could represent infarct or artifact. Prone images were not obtained for | | differentiation. No stress-induced ischemia.The following functional data was | | obtained:STRESS:End-diastolic volume: 42 mLEnd-systolic volume: 7 mLEjection fraction: | | 83%REST:End-diastolic volume: 32 mLEnd-systolic volume: 6 mLEjection fraction: | | 81%IMPRESSION:1. No stress-induced ischemia.2. Nonspecific decreased area of uptake at | | the mid septum which could represent artifact or infarct. Prone images not obtained for | | differentiation3. Left ventricular ejection fraction is calculated at 83%.Risk | | stratification according to the [place] [employer] and [employer] of | | Cardiology Scientific Statement. Circulation (2008); 118: p 1497-518.Definitions:Low | | risk:1. Normal or small myocardial perfusion defect at rest or with stress.* 2. No | | change of resting wall motion abnormalities during stress.* Intermediate risk:1. | | Mild/moderate resting left ventricular dysfunction (LVEF = 35% to 49%).2. Stress-induced | | moderate perfusion defect without left ventricular dilation or increased lung | | intake.High risk:1. Severe resting left ventricular dysfunction (exercise LVEF < 35%).2. | | Severe exercise left ventricular dysfunction (exercise LVEF < 35%).3. Stress-induced | | large perfusion defect (particularly if anterior).4. Stress-induced multiple perfusion | | defects of moderate size.5. Large, fixed perfusion defect with left ventricular | | dilation.6. Stress-induced moderate perfusion defect with LV dilation.* Although the | | published data are limited, patients with these findings will probably not be at low | | risk in the presence of either a high risk treadmill score or severe resting left | | ventricular dysfunction (LVEF < 35%).Electronically signed by Vinayak Bliss MD on | | 12/23/2017 2:15 PM | |IMPRESSION: | |1. No stress-induced ischemia. | |2. Nonspecific decreased area of uptake at the mid septum which could represent artifact o r infarct. Prone images not obtained for differentiation | |3. Left ventricular ejection fraction is calculated at 83%. | | | | | |Risk stratification according to the [place] [employer] and [employer] [employer] Scientific Statement. Circulation (2008); 118: p 1497-518. | | | |Definitions: | |Low risk: | |1. Normal or small myocardial perfusion defect at rest or with stress.* | |2. No change of resting wall motion abnormalities during stress.* | | | |Intermediate risk: | |1. Mild/moderate resting left ventricular dysfunction (LVEF = 35% to 49%). | |2. Stress-induced moderate perfusion defect without left ventricular dilation or increased lung intake. | | | |High risk: | |1. Severe resting left ventricular dysfunction (exercise LVEF < 35%). | |2. Severe exercise left ventricular dysfunction (exercise LVEF < 35%). | |3. Stress-induced large perfusion defect (particularly if anterior). | |4. Stress-induced multiple perfusion defects of moderate size. | |5. Large, fixed perfusion defect with left ventricular dilation. | |6. Stress-induced moderate perfusion defect with LV dilation. | | | |* Although the published data are limited, patients with these findings will probably not b e at low risk in the presence of either a high risk treadmill score or severe resting left v entricular dysfunction (LVEF < 35%). | | | | | | | + + + + + + + | Performing | Address | City/State/Zipcode | Phone Number | | Organization | | | | + + + + + | [facility] | [address] | [place] [address] | | + + + + + NM cardiovascular stress treadmill (12/23/2017 1:14 PM) + + + + + | Component | Value | Ref Range | Performed At | + + + + + | Diagnosis | 1. LEXISCAN | | [facility] | | | ETT.2. NO ST | | | | | ELEVATION OR DEPRESSION | | | | | NOTED.3. MYOCARDIAL | | | | | PERFUSION SCAN TO FOLLOW | | | | | PER RADIOLOGY. J. | | | | | UCHE MARCANO MD [facility] | | | | | Confirmed by KRYS, | | | | | PRINCESS ([id number]) on 12/23/2017 | | | | | 1:33:31 PM | | | + + + + + + + + + + | Performing | Address | City/State/Zipcode | Phone Number | | Organization | | | | + + + + + | [facility] | [address] | [place] [address] | | + + + + + EKG STANDARD 12 LEAD (12/23/2017 5:51 AM) + + + + + | Component | Value | Ref Range | Performed At | + + + + + | Ventricular Rate | 75 | BPM | [facility] | + + + + + | Atrial Rate | 75 | BPM | [facility] | + + + + + | P-R Interval | 156 | ms | [facility] | + + + + + | QRS Duration | 84 | ms | [facility] | + + + + + | Q-T Interval | 374 | ms | [facility] | + + + + + | QTC Calculation | 417 | ms | [facility] | | (Bezet) | | | | + + + + + | Calculated P [place] | -27 | degrees | [facility] | + + + + + | Calculated R [place] | 77 | degrees | [facility] | + + + + + | Calculated T [place] | 75 | degrees | [facility] | + + + + + | Diagnosis | Normal sinus rhythmST | | [facility] | | | elevation, consider | | | | | early repolarization, | | | | | pericarditis, or | | | | | injuryAbnormal ECGWhen | | | | | compared with ECG of | | | | | 04-OCT-2009 | | | | | 04:08,Premature | | | | | ventricular complexes | | | | | are no longer PresentT | | | | | wave amplitude has | | | | | increased in Anterior | | | | | leadsST more elevated in | | | | | 2,3,avf, [id number]-[id number] | | | | | by FE SAXENA MD | | | | | ([id number]) on 12/23/2017 | | | | | 10:19:26 AM | | | + + + + + + + + + + | Performing | Address | City/State/[facility] | Phone Number | | Organization | | | | + + + + + | [facility] | [address] | [place] [address] | | + + + + + Troponin I (12/23/2017 2:12 AM) + + + + + | Component | Value | Ref Range | Performed At | + + + + + | TROPONIN I | 0.026Comment: 0.00 to | 0.00 - 0.10 ng/mL | [facility] | | | 0.10 CONSISTENT WITH | | | | | NORMAL POPULATION0.11 | | | | | to 0.60 CONSISTENT | | | | | WITH INCREASED RISK FOR | | | | | ADVERSE OUTCOMES> | | | | | 0.60 | | | | | CONSISTENT WITH WHO | | | | | CRITERIA FOR ACUTE PA | | | | | Testing performed at | | | | | [facility];[address] [place] [address] | | | | | [facility];[place] [address] | | | + + + + + + + | Specimen | + + | Blood | + + + + + + + | Performing | Address | City/State/Zipcode | Phone Number | | Organization | | | | + + + + + | [facility] | [address] | [place] [address] | | + + + + + Lipid panel (12/23/2017 2:12 AM) + + + + + | Component | Value | Ref Range | Performed At | + + + + + | CHOLESTEROL | 151 | <200 mg/dL | [facility] | | | | | LABORATORY | + + + + + | Triglycerides | 100 | <150 mg/dL | [facility] | | | | | LABORATORY | + + + + + | HDL CHOL | 52 | >40 mg/dL | [facility] | | | | | LABORATORY | + + + + + | LDL CALC | 79Comment: Testing | <100 mg/dL | [facility] | | | performed at [facility], [address] | | LABORATORY | | | [address], | | | | | [place] [address] | | | + + + + + + + | Specimen | + + | Blood | + + + + + + + | Performing | Address | City/State/Zipcode | Phone Number | | Organization | | | | + + + + + | [facility] | [address] | [place] [address] | [phone] | | LABORATORY | [address] | | | + + + + + TSH (12/23/2017 2:12 AM) + + + + + | Component | Value | Ref Range | Performed At | + + + + + | TSH | 0.334 (L)Comment: | 0.450 - 5.100 uIU/mL | [facility] | | | Testing performed at | | LABORATORY | | | [facility], [address] | | | | | [address], [place] | | | | | [address] | | | + + + + + + + | Specimen | + + | Blood | + + + + + + + | Performing | Address | City/State/Zipcode | Phone Number | | Organization | | | | + + + + + | [facility] | [address] | [place] [address] | [phone] | | LABORATORY | [address] | | | + + + + + Glycohemoglobin A1c (12/23/2017 2:12 AM) + + + + + | Component | Value | Ref Range | Performed At | + + + + + | HEMOGLOBIN A1C | 5.2Comment: The [place] | 4.0 - 6.0 % | [facility] | | | Diabetes Association | | LABORATORY | | | considers a hemoglobin | | | | | A1c result of <7.0% to | | | | | be the goal of diabetic | | | | | therapy. When results | | | | | are consistently >8.0%, | | | | | the ADA suggests | | | | | reevaluation of the | | | | | treatment | | | | | regimen. The testing | | | | | method used is certified | | | | | traceable to the | | | | | Diabetes Control and | | | | | Complications Trial | | | | | reference method. | | | + + + + + | ESTIMATED AVG | 103Comment: The ADA | mg/dL | [facility] | | GLUCOSE | considers an eAG result | | LABORATORY | | | of LT 154 mg/dL to be | | | | | the goal of diabetic | | | | | therapy. Estimated | | | | | Average Glucose | | | | | calculated from | | | | | hemoglobin A1c by use of | | | | | the ADA recommended | | | | | formula.Testing | | | | | performed at [facility], [address] | | | | | [facility], | | | | | [place] [address] | | | + + + + + + + | Specimen | + + | Blood | + + + + + + + | Performing | Address | City/State/Zipcode | Phone Number | | Organization | | | | + + + + + | [facility] | [address] | [place] [address] | [phone] | | LABORATORY | [address] | | | + + + + + Basic metabolic panel (12/23/2017 2:12 AM) + + + + + | Component | Value | Ref Range | Performed At | + + + + + | SODIUM | 138 | 135 - 145 mmol/L | [facility] | | | | | LABORATORY | + + + + + | POTASSIUM | 4.4 | 3.5 - 4.9 mmol/L | [facility] | | | | | LABORATORY | + + + + + | CHLORIDE | 97 (L) | 99 - 109 mmol/L | [facility] | | | | | LABORATORY | + + + + + | CO2 | 36 (H) | 23 - 32 mmol/L | [facility] | | | | | LABORATORY | + + + + + | ANION GAP AGAP | 9 | 5 - 20 mmol/L | [facility] | | | | | LABORATORY | + + + + + | GLUCOSE | 97 | 65 - 99 mg/dL | [facility] | | | | | LABORATORY | + + + + + | BUN | 18 | 8 - 25 mg/dL | [facility] | | | | | LABORATORY | + + + + + | CREATININE | 0.7 | 0.50 - 1.00 mg/dL | [facility] | | | | | LABORATORY | + + + + + | BUN/CREAT | 26 | | [facility] | | | | | LABORATORY | + + + + + | CALCIUM | 9.2 | 8.5 - 10.5 mg/dL | [facility] | | | | | LABORATORY | + + + + + | EGFR | >60Comment: GFR <60: | >60 mL/min/1.73m2 | [facility] | | | CHRONIC KIDNEY DISEASE, | | LABORATORY | | | IF FOUND OVER A 3 MONTH | | | | | PERIOD.GFR <15: KIDNEY | | | | | FAILURE.FOR | | | | | AMERICANS, MULTIPLY THE | | | | | CALCULATED GFR BY | | | | | 1.210.This eGFR is | | | | | calculated using the | | | | | MDRD IDID traceable | | | | | equation.Testing | | | | | performed at [facility], [address] | | | | | [facility], | | | | | [place] [address] | | | + + + + + + + | Specimen | + + | Blood | + + + + + + + | Performing | Address | City/State/Zipcode | Phone Number | | Organization | | | | + + + + + | [facility] | [address] | [place] [address] | [phone] | | LABORATORY | [address] | | | + + + + + CBC W/Auto Diff (Reflex to Manual) (12/23/2017 2:12 AM) + + + + + | Component | Value | Ref Range | Performed At | + + + + + | WBC | 7.23 | 3.80 - 11.00 K/uL | [facility] | | | | | LABORATORY | + + + + + | RBC | 4.44 | 3.70 - 5.10 M/uL | [facility] | | | | | LABORATORY | + + + + + | HGB | 12.0 | 11.3 - 15.5 g/dL | [facility] | | | | | LABORATORY | + + + + + | HCT | 36.3 | 34.0 - 46.0 % | [facility] | | | | | LABORATORY | + + + + + | MCV | 81.7 | 80.0 - 100.0 fl | [facility] | | | | | LABORATORY | + + + + + | MCH | 27.1 | 27.0 - 34.0 pg | [facility] | | | | | LABORATORY | + + + + + | MCHC | 33.2 | 32.0 - 35.5 g/dL | [facility] | | | | | LABORATORY | + + + + + | RDW SD | 45.5 | 37 - 53 fl | [facility] | | | | | LABORATORY | + + + + + | PLT | 231 | 150 - 400 K/uL | [facility] | | | | | LABORATORY | + + + + + | MPV | 9.2 | fl | [facility] | | | | | LABORATORY | + + + + + | DIFF TYPE | MANUAL | | [facility] | | | | | LABORATORY | + + + + + | Neutrophils Manual | 89 | % | [facility] | | | | | LABORATORY | + + + + + | Lymphocytes Manual | 7 | % | [facility] | | | | | LABORATORY | + + + + + | Monocytes Manual | 4 | % | [facility] | | | | | LABORATORY | + + + + + | Neutrophils Absolute | 6.43 | 1.90 - 7.40 K/uL | [facility] | | | | | LABORATORY | + + + + + | Lymphocytes Absolute | 0.51 (L) | 1.00 - 3.90 K/uL | [facility] | | | | | LABORATORY | + + + + + | Monocytes Absolute | 0.29 | 0.00 - 0.80 K/uL | [facility] | | | | | LABORATORY | + + + + + | MORPHOLOGY | 1+Comment: HYPONORMAL | | [facility] | | | PLT MORPHTesting | | LABORATORY | | | performed at [facility], [address] | | | | [address], | | | | | [place] [address] | | | | | | | | + + + + + + + | Specimen | + + | Blood | + + + + + + + | Performing | Address | City/State/Zipcode | Phone Number | | Organization | | | | + + + + + | [facility] | [address] | [place] [address] | [phone] | | LABORATORY | [address] | | | + + + + + Troponin I (12/22/2017 10:41 PM) + + + + + | Component | Value | Ref Range | Performed At | + + + + + | TROPONIN I | 0.034Comment: 0.00 to | 0.00 - 0.10 ng/mL | [facility] | | | 0.10 CONSISTENT WITH | | | | | NORMAL POPULATION0.11 | | | | | to 0.60 CONSISTENT | | | | | WITH INCREASED RISK FOR | | | | | ADVERSE OUTCOMES> | | | | | 0.60 | | | | | CONSISTENT WITH WHO | | | | | CRITERIA FOR ACUTE PA | | | | | Testing performed at | | | | | [facility];[address] [place] [address] | | | | | Blvd;[place] [address] | | | + + + + + + + | Specimen | + + | Blood | + + + + + + + | Performing | Address | City/State/Zipcode | Phone Number | | Organization | | | | + + + + + | [facility] | [address] | [place] [address] | | + + + + + PROCALCITONIN (12/22/2017 10:41 PM) + + + + + | Component | Value | Ref Range | Performed At | + + + + + | PROCALCITONIN | <0.05Comment: | <0.5 ng/mL | [facility] | | | INTERPRETIVE | | | | | INFORMATION: PROCALCI | | | | | TONIN PCT <= 0.5 | | | | | ng/mL: Low risk | | | | | for progression to | | | | | severe | | | | | systemic bacteria | | | | | l infection (severe | | | | | sepsis/septic | | | | | shock). Does not | | | | | exclude an infection, | | | | | because | | | | | localized infecti | | | | | ons may be associated | | | | | with such low | | | | | levels. If PCT is | | | | | measured very early | | | | | after | | | | | bacterial challen | | | | | ge (usually <6 hours), | | | | | results may still | | | | | be low and should | | | | | re-assess PCT 6-24 | | | | | hours later. PCT >0.5 | | | | | and <= 2 | | | | | ng/mL: Moderate | | | | | risk for progression to | | | | | severe | | | | | systemic infectio | | | | | n (severe sepsis/septic | | | | | shock). Other | | | | | conditions are known to | | | | | elevate PCT, patient | | | | | should be | | | | | closely monitored both | | | | | clinically and | | | | | by re-assessing | | | | | PCT within 6-24 hours. | | | | | PCT > 2 | | | | | ng/mL: High | | | | | likelihood for | | | | | progression to severe | | | | | systemic bacteria | | | | | l infection (severe | | | | | sepsis/septic shock). | | | | | PCT >= 10 | | | | | ng/mL: High | | | | | likelihood of severe | | | | | sepsis or septic | | | | | shock.Testing performed | | | | | at [facility];[address] [facility] | | | | | [place];[place] [address] | | | + + + + + + + + + + | Performing | Address | City/State/Zipcode | Phone Number | | Organization | | | | + + + + + | [facility] | [address] | [place] [address] | | + + + + + in this encounter Visit Diagnoses Not on filein this encounter Admitting Diagnoses + + | Diagnosis | + + | Chest pain | + + Administered Medications + +--------+---------+------+------+------+ | Medication Order | MAR | Action | Dose | Rate | Site | | | Action | Date | | | | + +--------+---------+------+------+------+ + +---+ | acetaminophen (TYLENOL) | | | suppository 650 mg 650 mg, | | | Rectal, Every 6 Hours PRN, Mild | | | Pain (1-3), Fever, Starting Jossie | | | 12/22/17 at 2231 | | + +---+ | | | + +---+ + +-------+ +--------+---+---+ | acetaminophen (TYLENOL) tablet | Given | | 650 mg | | | | 650 mg 650 mg, Oral, Every 6 | | 8 21:40 | | | | | Hours PRN, Mild Pain (1-3), | | PDT | | | | | Fever, Starting Jossie 12/22/17 at | | | | | | | 2231 | | | | | | + +-------+ +--------+---+---+ +---+---+ | | | +---+---+ + +-------+ +-------+---+---+ | aspirin EC tablet 81 mg 81 mg, | Given | | 81 mg | | | | Oral, Daily, First dose on Tue | | 8 16:48 | | | | | 12/23/17 at 0900 | | PDT | | | | + +-------+ +-------+---+---+ +-------+ +-------+---+---+ | Given | | 81 mg | | | | | 8 09:00 | | | | | | PDT | | | | +-------+ +-------+---+---+ +---+---+ | | | +---+---+ + +-------+ +-------+---+---+ | atorvastatin (LIPITOR) tablet | Given | | 40 mg | | | | 40 mg 40 mg, Oral, Nightly, | | 8 23:42 | | | | | First dose on Tue12/22/17 at 2300 | | PDT | | | | + +-------+ +-------+---+---+ +---+---+ | | | +---+---+ + +-------+ +--------+---+---+ | azithromycin (ZITHROMAX) tablet | Given | | 250 mg | | | | 250 mg 250 mg, Oral, Every 24 | | 8 21:39 | | | | | Hours, First dose on Tue12/23/17 | | PDT | | | | | at 2300, For 4 doses, | | | | | | | Indications: Acute Exacerbation | | | | | | | of COPD | | | | | | + +-------+ +--------+---+---+ +---+---+ | | | +---+---+ + +-------+ +--------+---+---+ | azithromycin (ZITHROMAX) tablet | Given | | 500 mg | | | | 500 mg 500 mg, Oral, Daily, | | 8 23:42 | | | | | First dose on Tue12/22/17 at | | PDT | | | | | 2300, For 1 dose, Indications: | | | | | | | Acute Exacerbation of COPD | | | | | | + +-------+ +--------+---+---+ +---+---+ | | | +---+---+ + +-------+ +---------+---+---+ | budesonide-formoterol | Given | | 2 puffs | | | | (SYMBICORT) 80-4.5 MCG/ACT | | 8 08:11 | | | | | inhaler 2 puff 2 puff, | | PDT | | | | | Inhalation, 2 Times Daily, First | | | | | | | dose on Tue12/23/17 at 0900 | | | | | | + +-------+ +---------+---+---+ +-------+ +---------+---+---+ | Given | | 2 puffs | | | | | 8 21:40 | | | | | | PDT | | | | +-------+ +---------+---+---+ | Given | | 2 puffs | | | | | 8 09:01 | | | | | | PDT | | | | +-------+ +---------+---+---+ +---+---+ | | | +---+---+ + +-------+ +--------+---+---+ | cholecalciferol (VITAMIN D-3) | Given | | 2,000 | | | | tablet 2,000 Units 2,000 Units, | | 8 16:48 | Units | | | | Oral, Daily, First dose on Fri | | PDT | | | | | 12/23/17 at 0900 | | | | | | + +-------+ +--------+---+---+ +-------+ +--------+---+---+ | Given | | 2,000 | | | | | 8 09:00 | Units | | | | | PDT | | | | +-------+ +--------+---+---+ +---+---+ | | | +---+---+ + +-------+ +-------+---+---+ | ipratropium-albuterol (DUO-NEB) | Given | | 3 mLs | | | | 0.5-2.5 mg/3mL nebulizer | | 8 12:41 | | | | | solution 3 mL 3 mL, | | PDT | | | | | Nebulization, Every 6 Hours PRN, | | | | | | | Wheezing, Starting [facility] 12/22/17 at | | | | | | | 2234 | | | | | | + +-------+ +-------+---+---+ +---+---+ | | | +---+---+ + +-------+ +-------+---+---+ | loratadine (CLARITIN) tablet 10 | Given | | 10 mg | | | | mg 10 mg, Oral, Daily, First | | 8 09:00 | | | | | dose on Tue12/23/17 at 0900 | | PDT | | | | + +-------+ +-------+---+---+ +---+---+ | | | +---+---+ + +-------+ +-------+---+---+ | metoprolol (LOPRESSOR) tablet | Given | | 25 mg | | | | 25 mg 25 mg, Oral, 2 Times | | 8 09:01 | | | | | Daily, First dose on [facility] 12/22/17 | | PDT | | | | | at 2300 | | | | | | + +-------+ +-------+---+---+ + +---+ | | | + +---+ | ondansetron (ZOFRAN) injection | | | 4 mg 4 mg, Intravenous, Every 6 | | | Hours PRN, Nausea, Vomiting, | | | Starting [facility] 12/22/17 at 2231 | | + +---+ | | | + +---+ + +-------+ +------+---+---+ | ondansetron (ZOFRAN-ODT) | Given | | 4 mg | | | | disintegrating tablet 4 mg 4 mg, | | 8 17:28 | | | | | Oral, Every 6 Hours PRN, Nausea, | | PDT | | | | | Vomiting, Starting Jossie 12/22/17 | | | | | | | at 2231 | | | | | | + +-------+ +------+---+---+ +---+---+ | | | +---+---+ + +-------+ +-------+---+---+ | pantoprazole (PROTONIX) EC | Given | | 40 mg | | | | tablet 40 mg 40 mg, Oral, Every | | 8 06:23 | | | | | Morning Before Breakfast, First | | PDT | | | | | dose on Tue12/23/17 at 0630 | | | | | | + +-------+ +-------+---+---+ +-------+ +-------+---+---+ | Given | | 40 mg | | | | | 8 05:53 | | | | | | PDT | | | | +-------+ +-------+---+---+ +---+---+ | | | +---+---+ + +-------+ +-------+---+---+ | predniSONE (DELTASONE) tablet | Given | | 40 mg | | | | 40 mg 40 mg, Oral, Daily With | | 8 16:48 | | | | | Breakfast, First dose on Fri | | PDT | | | | | 12/23/17 at 0800 | | | | | | + +-------+ +-------+---+---+ +-------+ +-------+---+---+ | Given | | 40 mg | | | | | 8 09:00 | | | | | | PDT | | | | +-------+ +-------+---+---+ +---+---+ | | | +---+---+ + +-------+ +--------+---+---+ | regadenoson (LEXISCAN) | Given | | 0.4 mg | | | | injection 0.4 mg 0.4 mg, | | 8 13:14 | | | | | Intravenous, Img Once PRN, per | | PDT | | | | | protocol for a Nuc Med | | | | | | | regadenoson stress test, Starting | | | | | | | 12/23/17 at 0838, For 1 dose, | | | | | | | Procedural (NucMed) | | | | | | + +-------+ +--------+---+---+ +---+---+ | | | +---+---+ + +-------+ +--------+---+---+ | sertraline (ZOLOFT) tablet 200 | Given | | 200 mg | | | | mg 200 mg, Oral, Daily, First | | 8 16:49 | | | | | dose on 12/23/17 at 0900 | | PDT | | | | + +-------+ +--------+---+---+ +-------+ +--------+---+---+ | Given | | 200 mg | | | | | 8 09:00 | | | | | | PDT | | | | +-------+ +--------+---+---+ +---+---+ | | | +---+---+ in this encounter
--- OUTSIDE RECORDS SUMMARY | ~2017-12-28 | XMS | Clinical Summary ---
Demographics + + + | Address | [address] | | | [place] [address] | + + + | Home Phone | | + + + | Preferred Language | Unknown | + + + | Marital Status | | + + + | Christianity Affiliation | Unknown | + + + | Race | Unknown | + + + | Ethnic Group | Unknown | + + + Author + + + | Author | [facility] | | | and [place] | + + + | Organization | [facility] | | | and [...] Team Providers + +------+ + | Care Photographic Processor Name | Role | Phone | + [...] + + | MEDICARE | MEDICA | [id number] | Medica | [phone] | | | RE | | re | [phone] | | | | PART A | | | | | | | AND B | | | | | + +--------+ +--------+ + + | MODA | MODA | [id number] | Indemn | [phone] | [address] [address] | | | HEALTH | | ity | [phone] | [place] [address] | | | MDCR | | | [...] | monika | | | [phone] | + +--------+ +--------+ + +
--- OUTSIDE RECORDS SUMMARY | ~2017-12-28 | XMS | Clinical Summary ---
Demographics + + + | Address | [address] | | | [place] [address] | + + + | Home Phone | | + + + | Preferred Language | Unknown | + + + | Marital Status | | + + + | Confucianist Affiliation | Unknown | + + + | Race | Unknown | + + + | Ethnic Group | Unknown | + + + Author + + + | Author | [facility] | | | and [place] | + + + | Organization | [facility] | | | [...] Team Providers + +------+ + | Care Rental Clerk Name | Role | Phone | + [...] + + | MEDICARE | MEDICA | [id number] | Medica | [phone] | | | RE | | re | [phone] | | | | PART A | | | | | | | AND B | | | | | + +--------+ +--------+ + + | MODA | MODA | [id number] | Indemn | [phone] | [address] [address] | | | HEALTH | | ity | [phone] | [place] [address] | | | MDCR | | | [...] | monika | | | [phone] | + +--------+ +--------+ + +
--- OUTSIDE RECORDS SUMMARY | ~2017-12-28 | XMS | Encounter Summary ---
Demographics + + + | Address | [address] | | | [place] [address] | + + + | Home Phone | | + + + | Preferred Language | Unknown | + + + | Marital Status | | + + + | Jewish Affiliation | 1075 | + + + | Race | Unknown | + + + | Ethnic Group | Unknown | + + + Author + + + | Author | [facility] | + + + | Organization | [facility] | + + + | Address | Unknown | + + + | Phone | Unavailable | + + + Support + + + + + | Name | Relationship | Address | Phone | + + + + + | Jyothi Kimbrough | ECON | [address] | | | | | [place] [address] | | + + + + + Care Team Providers + +------+ + | Care Procedures Analyst Name | Role | Phone | + +------+ + | Mariaelena West | PCP | | + +------+ + Encounter Details +--------+ + + + + | Date | Type | Department | Care Team | Description | +--------+ + + + + | 12/22/ | Ancillary | [facility] | See, Medical | Diagnosis unknown | | 2018 | Orders | [facility] | Record | | | | | [address] | | | | | | [place] [address] | | | | | | [phone] | | | +--------+ + + + [...] [facility] | [address] | [place] [address] | | + + + + + in this encounter Visit Diagnoses + + | Diagnosis | + + | Diagnosis unknown | + + | Other unknown and unspecified cause of morbidity or mortality | + +"
--- OUTSIDE RECORDS SUMMARY | ~2017-12-28 | XMS | Clinical Summary ---
Demographics + + + | Address | [address] | | | [place] [address] | + + + | Home Phone | | + + + | Preferred Language | Unknown | + + + | Marital Status | | + + + | Druze Affiliation | 1075 | + + + | Race | Unknown | + + + | Ethnic Group | Unknown | + + + Author + + + | Author | [facility] | + + + | Organization | [facility] | + + + | Address | Unknown | + + + | Phone | Unavailable | + + + Support + + + + + | Name | Relationship | Address | Phone | + + + + + | Jyothi Kimbrough | ECON | [address] | | | | | [place] [address] | | + + + + + Care Team Providers + +------+ + | Care Retail Sales Associate Bilingual Name | Role | Phone | + [...] | | | BrysonMRN: | | | [id number]/ | | | | | | y.o.Admit [...] | | | St. | | | [facility] | | | Hospital | | [...] | | to the | | | [place] | | | Heart | | | Association | | | and | | | [place] | | | College of | | [...] | | | PO2ART, | | | OIL2NVS, | | | [id number], | | | BEART in | | [...] | | | [place], | | | [id number] | | | [address] | | | [place] | | | [address] | | | n [place] | | | [phone] | | | [phone] | | | [...] stratification | | | according to the [place] [employer] Association and [place] [employer] of | | | Cardiology Scientific [...] 83%.Risk | | stratification according to the [place] Heart Association and [place] [employer] of | | Cardiology Scientific Statement. [...] | | |Risk stratification according to the [place] Heart Association and [place] [employer] Car diology Scientific Statement. Circulation [...] [facility] | [address] | [place] [address] | | + + + + + [...] | | | | UCHE MARCANO MD [facility] | | | | | Confirmed by KRYS | | | | | PRINCESS ([id number]) on 12/23/2017 | | | | | 1:33:31 PM | | | + + + + + + + + + + | Performing | Address | City/State/Zipcode | Phone Number | | Organization | | | | + + + + + | [facility] | [address] | [place] [facility] [place] [address] | | + + + + + [...] + + + + | Calculated P [place] | -27 | degrees | [facility] | + + + + + | Calculated R [place] | 77 | degrees | [facility] | + + + + + | Calculated T [place] | 75 | degrees | [facility] [...] in | | | | | 2,3,avf, [id number] | | | | | by FE SAXENA MD | | | | | (203) on 12/23/2017 | | | | | 10:19:26 AM | | | + + + + + + + + + + | Performing | Address | City/State/Zipcode | Phone Number | | Organization | | | | + + + + + | [facility] | [address] | [place] [address] | | + + + + + Troponin I (12/23/2017 2:12 AM)Only the most recent of 2 results within the time period is included. + + + + + | Component | Value | Ref Range | Performed At | + + + + + | TROPONIN I | 0.026Comment: 0.00 to | 0.00 - 0.10 ng/mL | [facility] | | | 0.10 CONSISTENT WITH | | | | | NORMAL POPULATION0.11 | | | | | to 0.60 CONSISTENT | | | | | WITH INCREASED RISK FOR | | | | | ADVERSE OUTCOMES> | | | | | 0.60 | | | | | CONSISTENT WITH WHO | | | | | CRITERIA FOR ACUTE ND | | | | | Testing performed at | | | | | [facility];[address] [facility] | | | | | [facility];[place] [address] | | | + + + + + + + | Specimen | + + | Blood | + + + + + + + | Performing | Address | City/State/Zipcode | Phone Number | | Organization | | | | + + + + + | [facility] | [address] | [place] [address] | | + + + + + [...] | LABORATORY | | | performed at [facility], [address] | | | | | [facility], | | | | | [place] [address] | | | | | | | | + + + + + + + | Specimen | + + | Blood | + + + + + + + | Performing | Address | City/State/Zipcode | Phone Number | | Organization | | | | + + + + + | [facility] | [address] [place] [address] | [place] [address] | [phone] | | LABORATORY | Blvd. | | | + + + + + TSH (12/23/2017 2:12 AM) + + + + + | Component | Value | Ref Range | Performed At | + + + + + | TSH | 0.334 (L)Comment: | 0.450 - 5.100 uIU/mL | [facility] | | | Testing performed at | | LABORATORY | | | TCL, [address] [place] [address] | | | | | Blvd, [place] | | | | | [address] | | | + + + + + + + | Specimen | + + | Blood | + + + + + + + | Performing | Address | City/State/Zipcode | Phone Number | | Organization | | | | + + + + + | [facility] | [address] [facility] | [place] [address] | [phone] | | LABORATORY | Blvd. | | | + + + + + Glycohemoglobin A1c (12/23/2017 2:12 AM) + + + + + | Component | Value | Ref Range | Performed At | + + + + + | HEMOGLOBIN A1C | 5.2Comment: The [place] | 4.0 - 6.0 % | [facility] | | | Diabetes Association [...] | 103Comment: The ADA | mg/dL | [facility] | | GLUCOSE | considers [...] | | | | | performed at [facility], [address] | | | | | [address], | | | | | [place] [address] | | | + + + + + + + | Specimen | + + | Blood | + + + + + + + | Performing | Address | City/State/Zipcode | Phone Number | | Organization | | | | + + + + + | [facility] | [address] | [place] [address] | [phone] | | LABORATORY | Blvd. | | [...] | [facility] | | | performed at [facility], [address] | | LABORATORY | | | [address], | | | | | [place] [address] | | | + + + + + + + | Specimen | + + | Blood | + + + + + + + | Performing | Address | City/State/Zipcode | Phone Number | | Organization | | | | + + + + + | [facility] | [address] [facility] [address] | [place] [address] | [phone] | | LABORATORY | Blvd. | | [...] | | | | | performed at [facility], [address] | | | | | [facility], | | | | | [place] [address] | | | + + + + + + + | Specimen | + + | Blood | + + + + + + + | Performing | Address | City/State/Zipcode | Phone Number | | Organization | | | | + + + + + | [facility] | [address] | [place] [address] | [phone] | | LABORATORY | Blvd. | | | + + + + + PROCALCITONIN (12/22/2017 10:41 PM) + + + + + | Component | Value | Ref Range | Performed At | + + + + + | PROCALCITONIN | <0.05Comment: | <0.5 ng/mL | [facility] | | | INTERPRETIVE | | [...] | | | at [facility];[address] [place] [address] | | | | | [facility];[place] [address] | | | + + + + + + + + + + | Performing | Address | City/State/Zipcode | Phone Number | | Organization | | | | + + + + + | [facility] | [address] | [place] [address] | | + + + + + X-ray chest 1 view (12/22/2017 4:38 PM) + + + | Narrative | Performed At | + + + | This is a non-reportable procedure without a radiologist report and | [facility] | | is used for image storage only | RADIOLOGY | + + + + + + + + | Performing | Address | City/State/Zipcode | Phone Number | | Organization | | | | + + + + + | [facility] | [address] | [place] [address] | | + + + + + [...] +------+-------+ + | MEDICARE | MEDICA | [id number] | | | [address] | | | RE | | | | [place] [address] | | | IP-OP | | | | | + +--------+ +------+-------+ + | [employer] | ODS - | [id number] | | | | | | GENERI [...] | | | [place] | | | [phone] | [phone] | + +--------+ +--------+ + +
--- OUTSIDE RECORDS SUMMARY | ~2017-12-28 | XMS | Encounter Summary ---
Demographics + + + | Address | [address] | | | [place] [address] | + + + | Home Phone | | + + + | Preferred Language | Unknown | + + + | Marital Status | | + + + | Restoration Affiliation | 1075 | + + + | Race | Unknown | + + + | Ethnic Group | Unknown | + + + Author + + + | Author | [facility] | + + + | Organization | [facility] | + + + | Address | Unknown | + + + | Phone | Unavailable | + + + Support + + + + + | Name | Relationship | Address | Phone | + + + + + | Jyothi Kimbrough | ECON | [address] | | | | | [place] [address] | | + + + + + Care Team Providers + +------+ + | Care Aluminum Container Tester Name | Role | Phone | + +------+ + | Mariaelena West | PCP | | + +------+ + Encounter Details +--------+ + + + + | Date | Type | Department | Care Team | Description | +--------+ + + + + | 12/22/ | Ancillary | [facility] | See, Medical | Diagnosis unknown | | 2018 | Orders | [facility] | Record | | | | | [address] | | | | | | [place] [address] | | | | | | [phone] | | | +--------+ + + + [...] [facility] | [address] | [place] [address] | | + + + + + in this encounter Visit Diagnoses + + | Diagnosis | + + | Diagnosis unknown | + + | Other unknown and unspecified cause of morbidity or mortality | + +"
--- OUTSIDE RECORDS SUMMARY | ~2017-12-28 | XMS | Encounter Summary ---
Demographics + + + | Address | [address] | | | [place] [address] | + + + | Home Phone | | + + + | Preferred Language | Unknown | + + + | Marital Status | | + + + | Mu-Ism Affiliation | 1075 | + + + | Race | Unknown | + + + | Ethnic Group | Unknown | + + + Author + + + | Author | [facility] | + + + | Organization | [facility] | + + + | Address | Unknown | + + + | Phone | Unavailable | + + + Support + + + + + | Name | Relationship | Address | Phone | + + + + + | Jyothi Kimbrough | ECON | [address] | | | | | [place] [address] | | + + + + + Care Team Providers + +------+ + | Care Section Chief Name | Role | Phone | + +------+ + | Mariaelena West | PCP | | + +------+ + Encounter Details +--------+ + + + + | Date | Type | Department | Care Team | Description | +--------+ + + + + | 12/22/ | Hospital | [facility] | See, Medical | Diagnosis unknown | | 2017 | Encounter | [facility] | Record | | | | | RADIOLOGY [address] | | | | [address] | | | | | | [place] [address] | | | | | | [phone] | | | +--------+ + + + [...] [facility] | [address] | [place] [address] | | + + + + + in this encounter Visit Diagnoses + + | Diagnosis | + + | Diagnosis unknown | + + | Other unknown and unspecified cause of morbidity or mortality | + +"
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
--- OUTSIDE RECORDS SUMMARY | ~2017-12-28 | XMS | Clinical Summary ---
Demographics + + + | Address | [address] | | | [place] [address] | + + + | Home Phone | | + + + | Preferred Language | Unknown | + + + | Marital Status | | + + + | Restorationist Affiliation | 1075 | + + + | Race | Unknown | + + + | Ethnic Group | Unknown | + + + Author + + + | Author | [facility] | + + + | Organization | [facility] | + + + | Address | Unknown | + + + | Phone | Unavailable | + + + Support + + + + + | Name | Relationship | Address | Phone | + + + + + | Jyothi Kimbrough | ECON | [address] | | | | | [place] [address] | | + + + + + Care Team Providers + +------+ + | Care Grading Machine Operator Name | Role | Phone | [...] | | | BrysonMRN: | | | [id number]/ | | | | | | y.o.Admit [...] | | | St. | | | [facility] | | | Hospital | | | [...] | | to the | | | Macanese | | | Heart | | | Association | | | and | | | Macanese | | | College of | | [...] | | | PO2ART, | | | [id number], | | | [id number], | | | BEART in | | [...] | | | [place], | | | [address] | [address] | | | [place] | | | [address] | | | n [place] | | | [phone] | | | [phone] | | | [...] stratification | | | according to the [place] Heart Association and [employer] [employer] of | | | Cardiology Scientific [...] 83%.Risk | | stratification according to the [place] Heart Association and [employer] of | | Cardiology Scientific Statement. [...] | | |Risk stratification according to the [place] Heart Association and [employer] Car diology Scientific Statement. Circulation [...] [facility] | [address] | [place] [address] | | + + + + + [...] | | | | UCHE MARCANO MD [facility] | | | | | Confirmed by KRYS | | | | | PRINCESS ([id number]) on 12/23/2017 | | | | | 1:33:31 PM | | | + + + + + + + + + + | Performing | Address | City/State/Zipcode | Phone Number | | Organization | | | | + + + + + | [facility] | [address] | [place] [place] [place] [place] [address] | | + + + + + [...] + + + + | Calculated P [place] | -27 | degrees | [facility] | + + + + + | Calculated R [place] | 77 | degrees | [facility] | + + + + + | Calculated T [place] | 75 | degrees | [facility] E[facility] [...] in | | | | | 2,3,avf, v3-l7Gfiuxpszl | | | | | by FE SAXENA MD | | | | | (203) on 12/23/2017 | | | | | 10:19:26 AM | | | + + + + + + + + + + | Performing | Address | City/State/Zipcode | Phone Number | | Organization | | | | + + + + + | [facility] | [address] | [place] [address] | | + + + + + Troponin I (12/23/2017 2:12 AM)Only the most recent of 2 results within the time period is included. + + + + + | Component | Value | Ref Range | Performed At | + + + + + | TROPONIN I | 0.026Comment: 0.00 to | 0.00 - 0.10 ng/mL | [facility]ORY | | | 0.10 CONSISTENT WITH | | | | | NORMAL POPULATION0.11 | | | | | to 0.60 CONSISTENT | | | | | WITH INCREASED RISK FOR | | | | | ADVERSE OUTCOMES> | | | | | 0.60 | | | | | CONSISTENT WITH WHO | | | | | CRITERIA FOR ACUTE CO | | | | | Testing performed at | | | | | [facility];[address] [facility] | | | | | [facility];[place] [address] | | | + + + + + + + | Specimen | + + | Blood | + + + + + + + | Performing | Address | City/State/Zipcode | Phone Number | | Organization | | | | + + + + + | [facility] | [address] | [place] [address] | | + + + + + [...] | LABORATORY | | | performed at [facility], [address] | | | | | [facility], | | | | | [place] [address] | | | | | | | | + + + + + + + | Specimen | + + | Blood | + + + + + + + | Performing | Address | City/State/Zipcode | Phone Number | | Organization | | | | + + + + + | [facility] | [address] [address] | [place] [address] | [phone] | | LABORATORY | Blvd. | | | + + + + + TSH (12/23/2017 2:12 AM) + + + + + | Component | Value | Ref Range | Performed At | + + + + + | TSH | 0.334 (L)Comment: | 0.450 - 5.100 uIU/mL | [facility] | | | Testing performed at | | LABORATORY | | | [facility], [address] [place] [address] | | | | | Blvd, [place] | | | | | [address] | | | + + + + + + + | Specimen | + + | Blood | + + + + + + + | Performing | Address | City/State/Zipcode | Phone Number | | Organization | | | | + + + + + | [facility] | [address] [facility] | [place] [address] | [phone] | | LABORATORY | Blvd. | | | + + + + + Glycohemoglobin A1c (12/23/2017 2:12 AM) + + + + + | Component | Value | Ref Range | Performed At | + + + + + | HEMOGLOBIN A1C | 5.2Comment: The Macanese | 4.0 - 6.0 % | [facility] | | | Diabetes Association | [...] | 103Comment: The ADA | mg/dL | [facility] | | GLUCOSE | considers an [...] | | | | | performed at [facility], [address] | | | | | [place], | | | | | [place] [address] | | | + + + + + + + | Specimen | + + | Blood | + + + + + + + | Performing | Address | City/State/Zipcode | Phone Number | | Organization | | | | + + + + + | [facility] | [address] [facility] | [place] [address] | [phone] | | LABORATORY | Blvd. | | [...] | [facility] | | | performed at [facility], [address] | | LABORATORY | | | [place], | | | | | [place] [address] | | | + + + + + + + | Specimen | + + | Blood | + + + + + + + | Performing | Address | City/State/Zipcode | Phone Number | | Organization | | | | + + + + + | [facility] | [address] [facility] | [place] [address] | [phone] | | LABORATORY | Blvd. | | [...] | | | | | performed at [facility], [address] | | | | | [facility], | | | | | [place] [address] | | | + + + + + + + | Specimen | + + | Blood | + + + + + + + | Performing | Address | City/State/Zipcode | Phone Number | | Organization | | | | + + + + + | [facility] | [address] [facility] | [place] [address] | [phone] | | LABORATORY | Blvd. | | | + + + + + PROCALCITONIN (12/22/2017 10:41 PM) + + + + + | Component | Value | Ref Range | Performed At | + + + + + | PROCALCITONIN | <0.05Comment: | <0.5 ng/mL | [facility] | | | INTERPRETIVE [...] performed | | | | | at [facility];[address] [place] [address] | | | | | [facility];[place] [address] | | | + + + + + + + + + + | Performing | Address | City/State/Zipcode | Phone Number | | Organization | | | | + + + + + | [facility] | [address] | [place] [address] | | + + + + + X-ray chest 1 view (12/22/2017 4:38 PM) + + + | Narrative | Performed At | + + + | This is a non-reportable procedure without a radiologist report and | [facility] | | is used for image storage only | RADIOLOGY | + + + + + + + + | Performing | Address | City/State/Zipcode | Phone Number | | Organization | | | | + + + + + | [facility] | [address] | [place] [address] | | + + + + + [...] +------+-------+ + | MEDICARE | MEDICA | [id number] | | | [address] | | | RE | | | | [place] [address] | | | IP-OP | | | | | + +--------+ +------+-------+ + | [employer] | ODS - | [id number] | | | | | | GENERI [...] | | | monika | | | 1246 | [address] | + +--------+ +--------+ + +
--- OUTSIDE RECORDS SUMMARY | ~2017-12-28 | XMS | Encounter Summary ---
Demographics + + + | Address | [address] | | | [place] [address] | + + + | Home Phone | | + + + | Preferred Language | Unknown | + + + | Marital Status | | + + + | Sikh Affiliation | 1075 | + + + | Race | Unknown | + + + | Ethnic Group | Unknown | + + + Author + + + | Author | [facility] | + + + | Organization | [facility] | + + + | Address | Unknown | + + + | Phone | Unavailable | + + + Support + + + + + | Name | Relationship | Address | Phone | + + + + + | Jyothi Kimbrough | ECON | [address] | | | | | [place] [address] | | + + + + + Care Team Providers + +------+ + | Care Ladies' Locker Room Attendant Name | Role | Phone | + +------+ + | Mariaelena West | PCP | | + +------+ + Encounter Details +--------+ + + + + | Date | Type | Department | Care Team | Description | +--------+ + + + + | 12/22/ | Hospital | [facility] | See, Medical | Diagnosis unknown | | 2017 | Encounter | [facility] | Record | | | | | RADIOLOGY [address] | | | [address] | | | | | | [place] [address] | | | | | | [phone] | | | +--------+ + + + [...] [facility] | [address] | [place] [address] | | + + + + + in this encounter Visit Diagnoses + + | Diagnosis | + + | Diagnosis unknown | + + | Other unknown and unspecified cause of morbidity or mortality | + +"
== END 2017-12-28 19:00 | disposition home or self-care (01) ==
LOC: ED 16:24
DX: J44.1 Chronic obstructive pulmonary disease with (acute) exacerbation (principal); K21.9 Gastro-esophageal reflux disease without esophagitis; Z85.3 Personal history of malignant neoplasm of breast; Z87.891 Personal history of nicotine dependence; Z91.040 Latex allergy status; Z91.048 Other nonmedicinal substance allergy status; Z88.2 Allergy status to sulfonamides; Z88.8 Allergy status to other drugs, medicaments and biological substances; Z79.899 Other long term (current) drug therapy; Z79.52 Long term (current) use of systemic steroids; Z79.2 Long term (current) use of antibiotics; Z79.82 Long term (current) use of aspirin; Z99.81 Dependence on supplemental oxygen
CPT/HCPCS: 71045; 80053; 83880; 84484; 85025; 94640; 96374; 96375; 99285; J2930

== ENCOUNTER 2017-12-31 20:28 | Emergency (ER) | payer MEDICARE, OTHER ==
[~2017-12-31] VITALS: Ht 162.6 cm; Wt 49.0 kg
--- OUTSIDE RECORDS SUMMARY | ~2017-12-31 | XMS | Encounter Summary ---
Demographics + + + | Address | [address] | | | [place] [address] | + + + | Home Phone | | + + + | Preferred Language | Unknown | + + + | Marital Status | | + + + | Cheondoism Affiliation | 1075 | + + + | Race | Unknown | + + + | Ethnic Group | Unknown | + + + Author + + + | Author | [facility] | + + + | Organization | [facility] | + + + | Address | Unknown | + + + | Phone | Unavailable | + + + Support + + + + + | Name | Relationship | Address | Phone | + + + + + | Jyothi Kimbrough | ECON | [address] | | | | | [place] [address] | | + + + + + Care Team Providers + +------+ + | Care Auto Roller Name | Role | Phone | + +------+ + | Mariaelena West | PCP | | + +------+ + Encounter Details +--------+ + + + + | Date | Type | Department | Care Team | Description | +--------+ + + + + | 12/22/ | Hospital | [facility] | See, Medical | Diagnosis unknown | | 2017 | Encounter | [facility] | Record | | | | | RADIOLOGY [address] | | | | | | [address] | | | | | | [place] [address] | | | | | | [phone] | | | +--------+ + + + + Social History + +-------+ +--------+ + | Tobacco Use | Types | Packs/Day | Years | Date | | | | | Used | | + +-------+ +--------+ + | Former Smoker | | | | Quit: 12/23/1999 | + +-------+ +--------+ + + +---+---+---+ | Smokeless Tobacco: | | | | | Never Used | | | | + +---+---+---+ + + + | Sex Assigned at | Date Recorded | | | | + + + | Not on file | | + + + as of this encounter Medications at Time of Discharge + + +--------+---------+ + + | Medication | Sig. | Disp. | Refills | Start | End Date | | | | | | Date | | + + +--------+---------+ + + | albuterol | Inhale 2 puffs into | | | | | | (PROVENTIL | the lungs 3 (three) | | | | | | HFA;VENTOLIN HFA) | times daily as | | | | | | 108 (90 Base) | needed for Wheezing. | | | | | | MCG/ACT inhaler | | | | | | + + +--------+---------+ + + | alendronate | Take 70 mg by mouth | | | | | | (FOSAMAX) 70 MG | every 7 days. Take | | | | | | tablet | in the morning with | | | | | | | a full glass of | | | | | | | water, on an empty | | | | | | | stomach, and do not | | | | | | | take anything else | | | | | | | by mouth or lie down | | | | | | | for the next 30 | | | | | | | min. | | | | | + + +--------+---------+ + + | aspirin 81 MG | Take 81 mg by mouth | | | | | | tablet | daily. | | | | | + + +--------+---------+ + + | azithromycin | Take 1 tab daily x 4 | 4 | 0 | / | | | (ZITHROMAX) 250 MG | days | tablet | | 18 | | | tablet | | | | | | + + +--------+---------+ + + | | Inhale 2 puffs into | | | | | | budesonide-formotero | the lungs 2 (two) | | | | | | l (SYMBICORT) | times daily. | | | | | | 160-4.5 MCG/ACT | | | | | | | inhaler | | | | | | + + +--------+---------+ + + | busPIRone (BUSPAR) | Take 10 mg by mouth | | | | | | 10 MG tablet | 3 (three) times | | | | | | | daily. | | | | | + + +--------+---------+ + + | | Place 1 drop into | | | | | | carboxymethylcellulo | both eyes 4 (four) | | | | | | se (REFRESH PLUS) | times daily as | | | | | | 0.5 % SOLN | needed. | | | | | + + +--------+---------+ + + | cholecalciferol | Take 1,000 Units by | | | | | | (VITAMIN D-3) 1000 | mouth daily. | | | | | | units tablet | | | | | | + + +--------+---------+ + + | cyanocobalamin | Take 1,000 mcg by | | | | | | (VITAMIN B-12) 1000 | mouth daily. | | | | | | MCG tablet | | | | | | + + +--------+---------+ + + | loratadine | Take 10 mg by mouth | | | | | | (CLARITIN) 10 MG | daily. | | | | | | tablet | | | | | | + + +--------+---------+ + + | omeprazole | Take 20 mg by mouth | | | | | | (PRILOSEC) 40 MG | every morning before | | | | | | capsule | breakfast. | | | | | + + +--------+---------+ + + | polyethylene | Take 17 g by mouth | | | | | | glycol (GLYCOLAX) | daily. | | | | | | packet | | | | | | + + +--------+---------+ + + | predniSONE | Take 40mg daily x 4 | 40 | 0 | 08/18/20 | | | (DELTASONE) 10 MG | days then take 30mg | tablet | | 18 | | | tablet | x 4 days then take | | | | | | | 20mg x 4 days then | | | | | | | 10 mg daily x 4 days | | | | | | | then stop | | | | | + + +--------+---------+ + + | sertraline | Take 200 mg by mouth | | | | | | (ZOLOFT) 100 MG | daily. | | | | | | tablet | | | | | | + + +--------+---------+ + + | simvastatin | Take 20 mg by mouth | | | | | | (ZOCOR) 10 MG tablet | nightly. | | | | | + + +--------+---------+ + + as of this encounter Plan of Treatment Not on fileas of this encounter Procedures + +--------+ + + + | Procedure Name | Priori | Date/Time | Associated Diagnosis | Comments | | | ty | | | | + +--------+ + + + | XR CHEST 1 VIEW | Routin | 12/22/2017 | Diagnosis unknown | Results for this | | | e | 4:38 PM | | procedure are in the | | | | PDT | | results section. | + +--------+ + + + in this encounter Results X-ray chest 1 view (12/22/2017 4:38 PM) + + + | Narrative | Performed At | + + + | This is a non-reportable procedure without a radiologist report and | [facility] | | is used for image storage only | [facility]IOLOGY | + + + + + + + + | Performing | Address | City/State/Zipcode | Phone Number | | Organization | | | | + + + + + | [facility] | [address] | [place] [address] | | + + + + + in this encounter Visit Diagnoses + + | Diagnosis | + + | Diagnosis unknown | + + | Other unknown and unspecified cause of morbidity or mortality | + +"
--- OUTSIDE RECORDS SUMMARY | ~2017-12-31 | XMS | Clinical Summary ---
Demographics + + + | Address | [address] | | | [place] [address] | + + + | Home Phone | | + + + | Preferred Language | Unknown | + + + | Marital Status | | + + + | Druze Affiliation | Unknown | + + + | Race | Unknown | + + + | Ethnic Group | Unknown | + + + Author + + + | Author | [facility] | | | and [place] | + + + | Organization | [facility] | | | and [place] | + + + | Address | Unknown | + + + | Phone | Unavailable | + + + Support + + +---------+ + | Name | Relationship | Address | Phone | + + +---------+ + | Columba Foreman | ECON | Unknown | | + + +---------+ + | Jyothi Barkley | ECON | Unknown | | + + +---------+ + Care Team Providers + +------+ + | Care Director Of Retail Marketing Name | Role | Phone | + +------+ + | West Ferrell DO | PP | | + +------+ + Allergies + + + + + + | Active Allergy | Reactions | Severity | Noted | Comments | | | | | Date | | + + + + + + | Clobetasol | | | 08/26/19 | | | | | | 16 | | + + + + + + | Diazepam | | | 04/19/20 | | | | | | 16 | | + + + + + + | Haloperidol | | | 04/19/20 | | | | | | 16 | | + + + + + + | Latex | | | 04/19/20 | | | | | | 16 | | + + + + + + | Sulfa Antibiotics | | | 04/19/20 | | | | | | 16 | | + + + + + + Current Medications + + + +---------+------+------+-------+ | Prescription | Sig. | Disp. | Refills | Star | End | Statu | | | | | | t | Date | s | | | | | | Date | | | + + + +---------+------+------+-------+ | furosemide (LASIX) | Take 20 mg by mouth | | 0 | 03/0 | | Activ | | 20 mg tablet | 2 times daily. | | | 7/20 | | e | | | | | | 16 | | | + + + +---------+------+------+-------+ | VENTOLIN HFA 108 | | | 1 | 02/2 | | Activ | | (90 BASE) MCG/ACT | | | | 1/20 | | e | | inhaler | | | | 16 | | | + + + +---------+------+------+-------+ | aspirin 81 MG | Take 81 mg by mouth | | | | | Activ | | tablet | Daily. | | | | | e | + + + +---------+------+------+-------+ | cholecalciferol | Take 1,000 Units by | | | | | Activ | | (VITAMIN D-3) 1,000 | mouth Daily. | | | | | e | | units tablet | | | | | | | + + + +---------+------+------+-------+ | | Take 1 tablet by | | | | | Activ | | HYDROcodone-acetamin | mouth every 4 hours | | | | | e | | ophen (NORCO) 10-325 | as needed for Pain. | | | | | | | mg per tablet | | | | | | | + + + +---------+------+------+-------+ | hydrOXYzine | Take 10 mg by mouth | | | | | Activ | | hydrochloride | every 4 hours as | | | | | e | | (ATARAX) 10 mg | needed for Anxiety. | | | | | | | tablet | | | | | | | + + + +---------+------+------+-------+ | meclizine | Take 25 mg by mouth | | | | | Activ | | (ANTIVERT) 25 mg | as needed for | | | | | e | | tablet | Nausea. | | | | | | + + + +---------+------+------+-------+ | sertraline | Take one tablet | | | 02 | | Activ | | (ZOLOFT) 50 mg | daily | | | 12/26 | | e | | tablet | | | | 16 | | | + + + +---------+------+------+-------+ | busPIRone (BUSPAR) | Take 10 mg by mouth | | | | | Activ | | 10 MG tablet | 3 times daily. | | | | | e | + + + +---------+------+------+-------+ | atorvaSTATin | Take 10 mg by mouth | | | | | Activ | | (LIPITOR) 10 mg | nightly. | | | | | e | | tablet | | | | | | | + + + +---------+------+------+-------+ | omeprazole | Take 20 mg by mouth | | | | | Activ | | (PRILOSEC) 20 mg | 2 times daily. | | | | | e | | capsule | | | | | | | + + + +---------+------+------+-------+ | Multiple | Take by mouth | | | | | Activ | | Vitamins-Minerals | Daily. | | | | | e | | (ICAPS) CAPS | | | | | | | + + + +---------+------+------+-------+ | loratadine | Take 10 mg by mouth | | | | | Activ | | (CLARITIN) 10 mg | Daily as needed for | | | | | e | | tablet | Allergies. | | | | | | + + + +---------+------+------+-------+ | acetaminophen | Take 500 mg by mouth | | | | | Activ | | (TYLENOL) 500 mg | every 6 hours as | | | | | e | | tablet | needed for Pain. | | | | | | + + + +---------+------+------+-------+ | | Take 3 mLs by | | | | | Activ | | albuterol-ipratropiu | nebulization 4 times | | | | | e | | m (DUONEB) 2.5-0.5 | daily. | | | | | | | mg/3 mL SOLN | | | | | | | + + + +---------+------+------+-------+ | aluminum & | Take 30 mLs by mouth | | | | | Activ | | magnesium | as needed for | | | | | e | | hydroxide-simethicon | Indigestion. | | | | | | | e (MAALOX PLUS | | | | | | | | DOUBLE STRENGTH) | | | | | | | | 400-400-40 mg/5 mL | | | | | | | | suspension | | | | | | | + + + +---------+------+------+-------+ | | Inhale 2 puffs into | 1 | 11 | 05/1 | | Activ | | fluticasone-salmeter | the lungs 2 times | Inhaler | | 2/20 | | e | | ol (ADVAIR HFA) | daily. | | | 16 | | | | 230-21 MCG/ACT | | | | | | | | inhaler | | | | | | | + + + +---------+------+------+-------+ | Spacer/Aero | Use with inhaler as | 1 each | 1 | 05/1 | | Activ | | Chamber Mouthpiece | directed. | | | 2/20 | | e | | MISC | | | | 16 | | | + + + +---------+------+------+-------+ Active Problems + + + | Problem | Noted Date | + + + | Chronic hypercapnic respiratory failure (HCC) | | + + + | COPD (chronic obstructive pulmonary disease) (HCC) | | + + + | GERD (gastroesophageal reflux disease) | | + + + | Hypertension | | + + + | Hyperlipidemia | | + + + | Depression | | + + + | Seasonal allergies | | + + + | Lymphedema of left arm | | + + + Immunizations + + + + | Name | Dates Previously Given | Next Due | + + + + | INFLUENZA 66 Y OR >, | 01/18/2015 | | | TRIVALENT HIGH-DOSE | | | + + + + | PNEUMOCOCCAL | 02/17/2015 | | | CONJUGATE 13-VALENT | | | | (PCV13) | | | + + + + | PNEUMOCOCCAL | 01/19/2008 | | | POLYSACCHARIDE | | | | 23-VALENT (PPSV23) | | | + + + + Family History + + +------+ + | Medical History | Relation | Name | Comments | + + +------+ + | Arthritis | Brother | | | + + +------+ + | Obesity | Brother | | | + + +------+ + | COPD | Brother | | | + + +------+ + | Other (see comment) | Brother | | Polio | + + +------+ + | Diabetes | Brother | | | + + +------+ + | PVD | Brother | | | + + +------+ + | Prostate cancer | Brother | | | + + +------+ + | Drug abuse | Brother | | | + + +------+ + | Heart arrhythmias | Daughter | | | + + +------+ + | Other (see comment) | Daughter | | uterine tumor, benign, with hemorrhage | + + +------+ + | Heart attack | Father | | | + + +------+ + | Hypertension | Father | | | + + +------+ + | Diabetes | Mother | | | + + +------+ + | Hypertension | Mother | | | + + +------+ + | Other (see comment) | Mother | | intestinal obstruction | + + +------+ + | Allergies | Sister | | | + + +------+ + | COPD | Sister | | | + + +------+ + + +------+ + + | Relation | Name | Status | Comments | + +------+ + + | Brother | | Alive | | + +------+ + + | Brother | | Alive | | + +------+ + + | Brother | | | comp of DM | + +------+ + + | Brother | | | prostate cancer | + +------+ + + | Brother | | | suicide | + +------+ + + | Daughter | | Alive | | + +------+ + + | Daughter | | Alive | | + +------+ + + | Father | | | heart attack | | | | (Age | | | | | 56) | | + +------+ + + | Mother | | | intestinal obstruction and diabetes | | | | (Age | | | | | 91) | | + +------+ + + | Sister | | Alive | | + +------+ + + Social History + + + +--------+ + | Tobacco Use | Types | Packs/Day | Years | Date | | | | | Used | | + + + +--------+ + | Former Smoker | Cigarettes | 0.75 | 33 | 09/17/1965 - | | | | | | 05/20/1998 | + + + +--------+ + + +---+---+---+ | Smokeless Tobacco: | | | | | Never Used | | | | + +---+---+---+ + + | Tobacco Cessation: Counseling Given: No | + + + + +---------+ + | Alcohol Use | Drinks/We | oz/Week | Comments | | | ek | | | + + +---------+ + | No | 0 | 0.0 | | | | Standard | | | | | drinks or | | | | | | | | | | equivalen | | | | | t | | | + + +---------+ + + + + | Sex Assigned at | Date Recorded | | | | + + + | Not on file | | + + + Last Filed Vital Signs + + + + | Vital Sign | Reading | Time Taken | + + + + | Blood Pressure | 110/80 | 09/18/2015 0933 PDT | + + + + | Pulse | 86 | 09/18/2015932 PDT | + + + + | Temperature | - | - | + + + + | Respiratory Rate | - | - | + + + + | Oxygen Saturation | 94% | 09/18/2015932 PDT | + + + + | Inhaled Oxygen | - | - | | Concentration | | | + + + + | Weight | 75.3 kg (166 lb) | 09/18/2015932 PDT | + + + + | Height | 165.1 cm (5' 5") | 09/18/2015932 PDT | + + + + | Body Mass Index | 27.62 | 09/18/2015 0933 PDT | + + + + Plan of Treatment + + + + + | Health Maintenance | Due Date | Last Done | Comments | + + + + + | Vaccine: | | | | | Dtap/Tdap/Td (1 - | 1 | | | | Tdap) | | | | + + + + + | Vaccine: Zoster (1 | | | | | of 2) | 2 | | | + + + + + | Vaccine: Influenza | | 01/18/2015 | | | (#1) | 8 | | | + + + + + | Vaccine: | Completed | 02/17/2015, 01/19/2008 | | | Pneumococcal 65+ | | | | | Low/Medium Risk | | | | + + + + + Results Not on filefrom Last 3 Months Insurance + +--------+ +--------+ + + | Payer | Benefi | Subscriber | Type | Phone | Address | | | t Plan | ID | | | | | | / | | | | | | | Group | | | | | + +--------+ +--------+ + + | MEDICARE | MEDICA | [id number] | Medica | [phone] | | | RE | | re | [phone] | | | | PART A | | | | | | | AND B | | | | | + +--------+ +--------+ + + | MODA | MODA | [id number] | Indemn | [phone] [address] [address] | | | HEALTH | | ity | [phone] | [place] [address] | | | MDCR | | | | | | | SUPPL | | | | | + +--------+ +--------+ + + + +--------+ +--------+ + + | Guarantor Name | Accoun | Relation to | Date | Phone | Billing Address | | | t Type | Patient | of | | | | | | | | | | + +--------+ +--------+ + + | HANSA CRAWFORD | Person | Self [birth year] | Home: | [address] | | | al/Fam | | 1941 | [phone] [address] [place] | | | [place] | | [phone] | + +--------+ +--------+ + +
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
--- OUTSIDE RECORDS SUMMARY | ~2017-12-31 | XMS | Encounter Summary ---
Demographics + + + | Address | [address] | | | [place] [address] | + + + | Home Phone | | + + + | Preferred Language | Unknown | + + + | Marital Status | | + + + | Samaritan Affiliation | 1075 | + + + | Race | Unknown | + + + | Ethnic Group | Unknown | + + + Author + + + | Author | [facility] | + + + | Organization | [facility] | + + + | Address | Unknown | + + + | Phone | Unavailable | + + + Support + + + + + | Name | Relationship | Address | Phone | + + + + + | Jyothi Kimbrough | ECON | [address] | | | | | [place] [address] | | + + + + + Care Team Providers + +------+ + | Care Video Software Engineer Name | Role | Phone | + +------+ + | Mariaelena West | PCP | | + +------+ + Encounter Details +--------+ + + + + | Date | Type | Department | Care Team | Description | +--------+ + + + + | 12/22/ | Hospital | [facility] | See, Medical | Diagnosis unknown | | 2017 | Encounter | [facility] | Record | | | | | RADIOLOGY [address] | | [address] | | | | | | [place] [address] | | | | | | [phone] | | | +--------+ + + + [...] + + | [facility] | [address] | [place] [address] | | + + + + + in this encounter Visit Diagnoses + + | Diagnosis | + + | Diagnosis unknown | + + | Other unknown and unspecified cause of morbidity or mortality | + +"
--- OUTSIDE RECORDS SUMMARY | ~2017-12-31 | XMS | Encounter Summary ---
Demographics + + + | Address | [address] | | | [place] [address] | + + + | Home Phone | | + + + | Preferred Language | Unknown | + + + | Marital Status | | + + + | Yarsani Affiliation | [id number] | + + + | Race | Unknown | + + + | Ethnic Group | Unknown | + + + Author + + + | Author | [facility] | + + + | Organization | [facility] | + + + | Address | Unknown | + + + | Phone | Unavailable | + + + Support + + + + + | Name | Relationship | Address | Phone | + + + + + | Jyothi Kimbrough | ECON | [address] | | | | | [place] [address] | | + + + + + Care Team Providers + +------+ + | Care Health Information Internship Name | Role | Phone | + +------+ + | Mariaelena West | PCP | | + +------+ + Encounter Details +--------+ + + + + | Date | Type | Department | Care Team | Description | +--------+ + + + + | 12/22/ | Ancillary | [facility] | See, Medical | Diagnosis unknown | | 2018 | Orders | [facility] Xray | Record | | | | | [address] | | | | | | [place] [address] | | | | | | [phone] | | | +--------+ + + + [...] + + + as of this encounter Plan of Treatment Not on fileas of this encounter Results X-ray chest 1 view (12/22/2017 4:38 PM) + + + | Narrative | Performed At | + + + | This is a non-reportable procedure without a radiologist report and | [facility] | | is used for image storage only | [facility] | + + + + + + + + | Performing | Address | City/State/Zipcode | Phone Number | | Organization | | | | + + + + + | [facility] | [address] | [place] [address] | | + + + + + in this encounter Visit Diagnoses + + | Diagnosis | + + | Diagnosis unknown | + + | Other unknown and unspecified cause of morbidity or mortality | + +"
--- OUTSIDE RECORDS SUMMARY | ~2017-12-31 | XMS | Clinical Summary ---
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 + + + + + | Performing | Address | City/State/Zipcode | Phone Number | | Organization | | | | + + + + + | [facility] | [address] | [place] [address] | | + + + + + X-ray chest 1 view (12/22/2017 4:38 PM) + + + | Narrative | Performed At | + + + | This is a non-reportable procedure without a radiologist report and | [facility] | | is used for image storage only | RADIOLOGY | + + + + + + + + | Performing | Address | City/State/Zipcode | Phone Number | | Organization | | | | + + + + + | [facility] | [address] | [place] [address] | | + + + + + from Last 3 Months Insurance + +--------+ +------+-------+ + | Payer | Benefi | Subscriber | Type | Phone | Address | | | t Plan | ID | | | | | | / | | | | | | | Group | | | | | + +--------+ +------+-------+ + | MEDICARE | MEDICA | [id number] | | | [address] | | | RE | | | | [place] [id number] | | | IP-OP | | | | | + +--------+ +------+-------+ + | ODS HEALTH PLAN | ODS - | [id number] | | | | | | GENERI [...] | + +--------+ +--------+ + + | AMMY CRAWFORD | Person | Self [birth year] | Home: | [address] | | | al/Fam | | 1941 | [phone] | [address] [place] | | | monika | | | [phone] | + +--------+ +--------+ + +
--- OUTSIDE RECORDS SUMMARY | ~2017-12-31 | XMS | Encounter Summary ---
Demographics + + + | Address | [address] | | | [place] [address] | + + + | Home Phone | | + + + | Preferred Language | Unknown | + + + | Marital Status | | + + + | Orthodoxy Affiliation | 1075 | + + + | Race | Unknown | + + + | Ethnic Group | Unknown | + + + Author + + + | Author | [facility] | + + + | Organization | [facility] | + + + | Address | Unknown | + + + | Phone | Unavailable | + + + Support + + + + + | Name | Relationship | Address | Phone | + + + + + | Jyothi Kimbrough | ECON | [address] | | | | | [place] [address] | | + + + + + Care Team Providers + +------+ + | Care Irrigationist Designer Name | Role | Phone | + [...] unknown | | 2018 | Orders | [facility] X[facility] | Record | | | | | [address] | | | | | | [place] [address] | | | | | | [phone] | | | +--------+ + + + [...] [facility] | [address] | [place] [address] | | + + + + + in this encounter Visit Diagnoses + + | Diagnosis | + + | Diagnosis unknown | + + | Other unknown and unspecified cause of morbidity or mortality | + +"
--- OUTSIDE RECORDS SUMMARY | ~2017-12-31 | XMS | Clinical Summary ---
Demographics + + + | Address | [address] | | | [place] [address] | + + + | Home Phone | | + + + | Preferred Language | Unknown | + + + | Marital Status | | + + + | Lutheran Affiliation | Unknown | + + + | Race | Unknown | + + + | Ethnic Group | Unknown | + + + Author + + + | Author | [facility] | | | and [place] | + + + | Organization | [facility] | | | [...] Team Providers + +------+ + | Care Sound Engineer Name | Role | Phone | [...] + + | MEDICARE | MEDICA | [id number] | Medica | [phone] | | | RE | | re | [phone] | | | | PART A | | | | | | | AND B | | | | | + +--------+ +--------+ + + | MODA | MODA | [id number] | Indemn | [phone] | [address] [address] | | | HEALTH | | ity | [phone] | [place] [address] | | | MDCR | | | [...] | monika | | | [phone] | + +--------+ +--------+ + +
--- OUTSIDE RECORDS SUMMARY | ~2017-12-31 | XMS | Clinical Summary ---
Demographics + + + | Address | [address] | | | [place] [address] | + + + | Home Phone | | + + + | Preferred Language | Unknown | + + + | Marital Status | | + + + | Episcopalian Affiliation | 1075 | + + + | Race | Unknown | + + + | Ethnic Group | Unknown | + + + Author + + + | Author | [facility] | + + + | Organization | [facility] | + + + | Address | Unknown | + + + | Phone | Unavailable | + + + Support + + + + + | Name | Relationship | Address | Phone | + + + + + | Jyothi Kimbrough | ECON | [address] | | | | | [place] [address] | | + + + + + Care Team Providers + +------+ + | Care Jigsawyer Name | Role | Phone | + [...] | | | BrysonMRN: | | | [id number]/ | | | | | | y.o.Admit [...] | | | St. | | | [facility] | | | Hospital | | [...] | | to the | | | [place] | | | Heart | | | Association | | | and | | | [place] | | | College of | | [...] | | | 4. | | | Stress-spaphire | | | kirsty | | | [...] | | | PO2ART, | | | [id number], | | | [id number], | | | BEART in | | [...] | | | [place], | | | [address] | | | [address] | | | [place] | | | [address] | | | n [place] | | | [phone] | | | [phone] | | | [...] stratification | | | according to the [place] Heart Association and [place] College of | | | Cardiology Scientific [...] 83%.Risk | | stratification according to the [place] Heart Association and [place] College of | | Cardiology Scientific Statement. [...] | | |Risk stratification according to the [place] Heart Association and [place] [employer] of Car diology Scientific Statement. Circulation [...] [facility] | [address] | [place] [address] | | + + + + + [...] | | | | UCHE MARCANO MD [facility] | | | | | Confirmed by KRYS | | | | | PRINCESS ([id number]) on 12/23/2017 | | | | | 1:33:31 PM | | | + + + + + + + + + + | Performing | Address | City/State/Zipcode | Phone Number | | Organization | | | | + + + + + | [facility] | [address] | [place] [address] | | + + + + + [...] + + + + | Calculated P Elizabeth | -27 | degrees | [facility] | + + + + + | Calculated R Elizabeth | 77 | degrees | [facility] | + + + + + | Calculated T Elizabeth | 75 | degrees | [facility] [...] in | | | | | 2,3,avf, [id number] | | | | | by FE SAXENA MD | | | | | (203) on 12/23/2017 | | | | | 10:19:26 AM | | | + + + + + + + + + + | Performing | Address | City/State/Zipcode | Phone Number | | Organization | | | | + + + + + | [facility] | [address] | [place] [address] | | + + + + + Troponin I (12/23/2017 2:12 AM)Only the most recent of 2 results within the time period is included. + + + + + | Component | Value | Ref Range | Performed At | + + + + + | TROPONIN I | 0.026Comment: 0.00 to | 0.00 - 0.10 ng/mL | [facility] | | | 0.10 CONSISTENT WITH [...] performed at | | | | | [facility];[address] [facility] | | | | | [facility];[place] [address] | | | + + + + + + + | Specimen | + + | Blood | + + + + + + + | Performing | Address | City/State/Zipcode | Phone Number | | Organization | | | | + + + + + | [facility] | [address] | [place] [address] | | + + + + + [...] | LABORATORY | | | performed at [facility], [address] | | | | | [facility], | | | | | [place] [address] | | | | | | | | + + + + + + + | Specimen | + + | Blood | + + + + + + + | Performing | Address | City/State/Zipcode | Phone Number | | Organization | | | | + + + + + | [facility] | [address] [place] [address] | [place] [address] | [phone] | | LABORATORY | [address]vd[address] | | | + + + + + TSH (12/23/2017 2:12 AM) + + + + + | Component | Value | Ref Range | Performed At | + + + + + | TSH | 0.334 (L)Comment: | 0.450 - 5.100 uIU/mL | [facility] | | | Testing performed at | | LABORATORY | | | TCL, [address] [place] [address] | | | | | Blvd, [place] | | | | | [address] | | | + + + + + + + | Specimen | + + | Blood | + + + + + + + | Performing | Address | City/State/Zipcode | Phone Number | | Organization | | | | + + + + + | [facility] | [address] [facility] | [place] [address] | [phone] | | LABORATORY | [address]vd[address] | | | + + + + + Glycohemoglobin A1c (12/23/2017 2:12 AM) + + + + + | Component | Value | Ref Range | Performed At | + + + + + | HEMOGLOBIN A1C | 5.2Comment: The [place]occan | 4.0 - 6.0 % | [facility] | | | Diabetes Association | | [...] | 103Comment: The ADA | mg/dL | [facility] | | GLUCOSE | considers an [...] | | | | | performed at [facility], [address] | | | | | [address], | | | | | [place] [address] | | | + + + + + + + | Specimen | + + | Blood | + + + + + + + | Performing | Address | City/State/Zipcode | Phone Number | | Organization | | | | + + + + + | [facility] | [address] [facility] | [place] [address] | [phone] | | LABORATORY | [address]vd. | | [...] | [facility] | | | performed at [facility], [address] | | LABORATORY | | | [address], | | | | | [place] [address] | | | + + + + + + + | Specimen | + + | Blood | + + + + + + + | Performing | Address | City/State/Zipcode | Phone Number | | Organization | | | | + + + + + | [facility] | [address] [facility] | [place] [address] | [phone] | | LABORATORY | Blvd. | | [...] | | | | | performed at [facility], [address] | | | | | [facility], | | | | | [place] [address] | | | + + + + + + + | Specimen | + + | Blood | + + + + + + + | Performing | Address | City/State/Zipcode | Phone Number | | Organization | | | | + + + + + | [facility] | [address] [facility] | [place] [address] | [phone] | | LABORATORY | Blvd. | | | + + + + + PROCALCITONIN (12/22/2017 10:41 PM) + + + + + | Component | Value | Ref Range | Performed At | + + + + + | PROCALCITONIN | <0.05Comment: | <0.5 ng/mL | [facility] | | | INTERPRETIVE | | [...] performed | | | | | at [facility];[address] [place] [address] | | | | | [facility];[place] [address] | | | + + + + + + + + + + | Performing | Address | City/State/Zipcode | Phone Number | | Organization | | | | + + + + + | [facility] | [address] | [place] [address] | | + + + + + X-ray chest 1 view (12/22/2017 4:38 PM) + + + | Narrative | Performed At | + + + | This is a non-reportable procedure without a radiologist report and | [facility] | | is used for image storage only | RADIOLOGY | + + + + + + + + | Performing | Address | City/State/Zipcode | Phone Number | | Organization | | | | + + + + + | [facility] | [address] | [place] [address] | | + + + + + [...] +------+-------+ + | MEDICARE | MEDICA | [id number] | | | [address] | | | RE | | | | [place] [phone] | | | IP-OP | | | | | + +--------+ +------+-------+ + | ODS HEALTH PLAN | ODS - | [id number] | | | | | | GENERI [...] | | | [place] | | | [phone] | [phone] | + +--------+ +--------+ + +
== END 2017-12-31 21:27 | disposition home or self-care (01) ==
LOC: ED 20:28
DX: K59.00 Constipation, unspecified (principal); Z87.891 Personal history of nicotine dependence; Z91.040 Latex allergy status; Z88.2 Allergy status to sulfonamides; Z88.8 Allergy status to other drugs, medicaments and biological substances; Z79.899 Other long term (current) drug therapy
CPT/HCPCS: 99283

== ENCOUNTER 2018-05-11 11:13 | Inpatient (IN) | payer MEDICARE, OTHER ==
[~2018-05-11] VITALS: Ht 162.6 cm; Wt 49.0 kg
[~2018-05-11 11:13] MED LIST changes: +ASPIR 8181 MG PO; -BAYER CHEWABLE81 MG PO; +CILOXAN5 ML OD; +NEURONTIN300 MG PO; +VALTREX1000 MG PO
--- OUTSIDE RECORDS SUMMARY | 2018-05-11 11:18 | XMS ---
PreManage Notification: HANSA CRAWFORD Security Process Improvement Engineer Events No recent Security Events currently on file CRITERIA MET - Group Notification - 6 ED Visits in 6 Months [facility] - 2 Visits in 30 Days CARE PROVIDERS BARBARA CHONG Internal Medicine 12/12/2017-Current PHONE: Unknown DR BARBARA CHONG Primary Care Current PHONE: [phone] DOCTOR AYALA Primary Care Current PHONE: Unknown Parminder Adams Primary Care Current MD PHONE: Unknown [facility] Other Current Orthopedic Surgery \T\ Fracture Clinic PHONE: Unknown Cora has no Care Guidelines for this patient. Care History Medical/Surgical 01/04/2018 [facility] HISTORY:\T\nbsp; COPD/ PANIC DISORDER/ GERD/ HYPERCHOLESTEROLEMIA/ ANXIETY/ OSTEOARTHRITIS/ GIB 12/12/2017 [facility] - Patient is currently established with [facility]. If patient is seen in the ED during business hours. Please contact CHWs at [facility]. Care Recommendation: This patient has had 5 or more Emergency Department visits in the last 12 months.\T\nbsp; Patient requires education on the scope and purpose of the ED as an acute care provider not a Primary Care Provider and should not be utilized for chronic conditions.\T\nbsp; These are guidelines and the provider should exercise clinical judgment when providing care. E.D. VISIT COUNT (12 MO.) 1 [facility] 14 [facility]. TOTAL 15 NOTE: Visits indicate total known visits. ED/UCC VISIT TRACKING (12 MO.) 05/11/2018 11:14 [facility] [place] TYPE: Emergency COMPLAINT: - SOB,NAUSEA 04/22/2018 14:15 [facility] [place] TYPE: Emergency COMPLAINT: - HEADACHE/FACIAL PAIN DIAGNOSES: - Allergy status to sulfonamides status - alf (current) use of aspirin - Personal history of malignant neoplasm of breast - Other fpc (current) drug therapy - Zoster without complications - Personal history of nicotine dependence - Gastro-esophageal reflux disease without esophagitis - Other nonmedicinal substance allergy status - Latex allergy status - Chronic obstructive pulmonary disease, unspecified 01/28/2018 12:17 [facility] TYPE: Urgent Care 01/08/2018 17:56 [facility] TYPE: Emergency DIAGNOSES: - Chronic obstructive pulmonary disease, unspecified - SOB - Dependence on supplemental oxygen 12/31/2017 20:29 [facility] TYPE: Emergency COMPLAINT: - ABD PAIN/DARK STOOL DIAGNOSES: - Constipation, unspecified - Latex allergy status - Unspecified abdominal pain - Personal history of nicotine dependence - Allergy status to sulfonamides status - Allergy status to other drugs, medicaments and biological substances status - Other termite technician (current) drug therapy 12/28/2017 16:24 [facility] TYPE: Emergency COMPLAINT: - SOB DIAGNOSES: - Allergy status to sulfonamides status - Gastro-esophageal reflux disease without esophagitis - Other nonmedicinal substance allergy status - Personal history of nicotine dependence - Shortness of breath - Chronic obstructive pulmonary disease with (acute) exacerbation - Allergy status to other drugs, medicaments and biological substances status - Dependence on supplemental oxygen - terminal clerk (current) use of systemic steroids - Other fpc (current) drug therapy - terminal clerk (current) use of aspirin - alf (current) use of antibiotics - Latex allergy status - Personal history of malignant neoplasm of breast 12/22/2017 12:24 [facility] [place] TYPE: Emergency COMPLAINT: - SOB DIAGNOSES: - Chronic obstructive pulmonary disease, unspecified - terminal clerk (current) use of aspirin - Other termite technician (current) drug therapy - Allergy status to sulfonamides status - Dependence on supplemental oxygen - Allergy status to other drugs, medicaments and biological substances status - Gastro-esophageal reflux disease without esophagitis - Shortness of breath - Other specified abnormal findings of blood chemistry - Latex allergy status 12/21/2017 21:58 [facility] [place] TYPE: Emergency COMPLAINT: - SOB DIAGNOSES: - Chronic obstructive pulmonary disease, unspecified - Shortness of breath - Dependence on supplemental oxygen - Latex allergy status - alf (current) use of aspirin - Personal history of nicotine dependence - Chronic obstructive pulmonary disease, unspecified - alf (current) use of systemic steroids - Other termite technician (current) drug therapy - Gastro-esophageal reflux disease without esophagitis - Other nonmedicinal substance allergy status - Personal history of malignant neoplasm of breast 12/18/2017 20:04 [facility] [place] TYPE: Emergency COMPLAINT: - SHORTNESS OF BREATH DIAGNOSES: - Shortness of breath - Latex allergy status - Allergy status to other drugs, medicaments and biological substances status - Other termite technician (current) drug therapy - Anxiety disorder, unspecified - Constipation, unspecified - Chronic obstructive pulmonary disease with (acute) exacerbation - alf (current) use of aspirin - Personal history of nicotine dependence - Gastro-esophageal reflux disease without esophagitis - Allergy status to sulfonamides status - Dependence on supplemental oxygen 12/15/2017 02:49 [facility] [place] TYPE: Emergency COMPLAINT: - SOB 12/10/2017 18:35 [facility] [place] TYPE: Emergency COMPLAINT: - NAUSEA DIAGNOSES: - Other termite technician (current) drug therapy - Allergy status to sulfonamides status - Personal history of nicotine dependence - Gastro-esophageal reflux disease without esophagitis - Allergy status to other drugs, medicaments and biological substances status - Latex allergy status - Nausea - Chronic obstructive pulmonary disease, unspecified 12/09/2017 20:28 [facility]Georgie [facility] [place] TYPE: Emergency COMPLAINT: - TROUBLE BREATHING 11/23/2017 19:43 [facility] Martin[facility]ie [facility] [place] TYPE: Emergency COMPLAINT: - ANXIETY DIAGNOSES: - Allergy status to sulfonamides status - Other fpc (current) drug therapy - Panic disorder [episodic paroxysmal anxiety] - Latex allergy status - Personal history of nicotine dependence - Chronic obstructive pulmonary disease, unspecified - Allergy status to other drugs, medicaments and biological substances status 11/23/2017 15:33 [facility] Gonzalezstephane MaritnGeorgie [facility] [place] TYPE: Emergency COMPLAINT: - SOB DIAGNOSES: - Urinary tract infection, site not specified - Other fpc (current) drug therapy - terminal clerk (current) use of aspirin - Allergy status to other drugs, medicaments and biological substances status - Latex allergy status - Allergy status to sulfonamides status - Personal history of nicotine dependence - Pneumonia, unspecified organism - Shortness of breath 08/16/2017 12:46 [facility] VeronicaGeorgie [facility] [place] TYPE: Emergency COMPLAINT: - SOB DIAGNOSES: - terminal clerk (current) use of aspirin - Allergy status to other drugs, medicaments and biological substances status - Other termite technician (current) drug therapy - Chronic obstructive pulmonary disease with (acute) exacerbation - Shortness of breath - Personal history of nicotine dependence - Allergy status to sulfonamides status - Latex allergy status - Gastro-esophageal reflux disease without esophagitis 07/08/2017 14:26 [facility] [place] TYPE: Emergency COMPLAINT: - SOB DIAGNOSES: - Chronic obstructive pulmonary disease with (acute) exacerbation - Allergy status to other drugs, medicaments and biological substances status - Personal history of malignant neoplasm of breast - Latex allergy status - Gastro-esophageal reflux disease without esophagitis - alf (current) use of aspirin - Other fpc (current) drug therapy - Shortness of breath - Personal history of nicotine dependence - Pneumonia, unspecified organism - Allergy status to sulfonamides status - Chronic obstructive pulmonary disease with acute lower respiratory infection INPATIENT VISIT TRACKING (12 MO.) 12/15/2017 02:51 [facility] [place] TYPE: Medical Surgical COMPLAINT: - COPD EXACERBATION DIAGNOSES: - Other seasonal allergic rhinitis - Other termite technician (current) drug therapy - Generalized anxiety disorder - alf (current) use of aspirin - Hyperlipidemia, unspecified - Latex allergy status - alf (current) use of inhaled steroids - Personal history of malignant neoplasm of breast - Panic disorder [episodic paroxysmal anxiety] - Allergy status to sulfonamides status - Dependence on supplemental oxygen - Personal history of nicotine dependence - Gastro-esophageal reflux disease without esophagitis - Emphysema, unspecified - Chronic respiratory failure with hypoxia - Allergy status to other drugs, medicaments and biological substances status - Chronic obstructive pulmonary disease with (acute) exacerbation 12/09/2017 23:[address] [facility] [place] TYPE: Medical Surgical COMPLAINT: - COPD EXACERBATION DIAGNOSES: - Personal history of malignant neoplasm of breast - Hyperlipidemia, unspecified - Other specified anxiety disorders - Anxiety disorder, unspecified - Insomnia, unspecified - Dependence on supplemental oxygen - Personal history of nicotine dependence - Chronic obstructive pulmonary disease with (acute) exacerbation - Hypoxemia - Gastro-esophageal reflux disease without esophagitis [email or web address]
--- NOTE | 2018-05-11 17:50 | NUR ---
PT TO ROOM FROM ER, REPORT RECEIVED FROM TANVIR RODRIGUEZ. PT TRANSFERS TO BED WITH 4 PERSON ASSIST. PT ASSESSMENT COMPLETED. CALL LIGHT AND PERSONAL ITEMS IN REACH. PT STATES PAIN IS TOLERABLE, PT PLACED ON 2LPNC AND IS SATTING AT 96% ON 2LPNC WHICH PT STATES SHE IS CHRONICALLY ON. NG TUBE HOOKED UP TO LOW INTERMITTENT SUCTION AND PRODUCES SMALL AMOUNT OF CLEAR BROWN FLUID.
--- NOTE | 2018-05-11 19:00 | NUR ---
ASSISTED TO PREP pt FOR SURGERY. RECEIVED REPORT FROM TANVIR SUGGS. pt LEFT FOR SURGERY AT 1910.
--- NOTE | 2018-05-11 21:36 | NUR ---
PT TO THE FLOOR, PT AOX4, DROWSY AND WEAK FROM SURGERY, PT DENIES ANY PAIN, DENIES SOB, ON 2LNC, O2 SAT 98%, DENIES NAUSEA OR VOMITING, IV FLUIDS INFUSING PER EMAR WNL, PT'S BRIZUELA CATHETER DRAINING WNL, AGUSTIN DRAIN DRAINING WNL, SCD'S ON, ROUTE SALES MANAGER/PLUMBING CONTRACTOR IN ROOM WITH PT, NO NEW ORDERS. LS CLEAR UPPER BILATERAL LOBES, LOWER BILATERAL LOBES DIMINSHED, HEART SOUNDS REGULAR, IN SINUS RHYTHM, BT HYPOACTIVE, MEPILEX DRESSING NOTED IN PT'S RIGHT INGUINAL AREA, DRESSING C/D/I. PT'S SKIN DRY, MISCELLANEOUS BRUISES AND ABRASIONS ON ARMS AND LEGS, NG TUBE IN PT'S RIGHT NARE, SET TO LIWS, DRAINING WNL. NO REQUESTS AT THIS TIME. CALL LIGHT WITHIN REACH. FALL PRECAUTIONS IN PLACE.
--- NOTE | 2018-05-11 21:47 | NUR ---
05/11/182146 Nia Jovel 2141- PT ARRIVES TO CCU RM 128 FROM SURGERY ON STRETCHER. PT ASLEEP, ON 2 L O2 VIA NC. RESP EVEN AND UNLABORED. PT REACTIVE TO VERBAL STIMULATION. NG TUBE PLACED ON INTERMITTENT SUCTION. PT HAS BRIZUELA IN PLACE.
--- NOTE | 2018-05-11 22:38 | NUR ---
IN ROOM TO ADMIN SCHEDULED MEDS, PT RESTING IN BED, IV FLUIDS INFUSING PER EMAR, NG TO LIWS, BRIZUELA CATH DRAINING WNL, PT AOX4, ASKING QUESTIONS REGARDING MEDICATIONS, EDUCATION PROVIDED, QUESTIONS ANSWERED, PT TOLERATED MEDS WELL. NO REQUESTS AT THIS TIME, CALL LIGHT WITHIN REACH, FALL PRECAUTIONS IN PLACE. ON 2LNC, O2 SAT 96%.
--- NOTE | 2018-05-11 23:30 | NUR ---
PT RESTING IN BED, EYES CLOSED, EASILY AROUSABLE, NO REQUESTS AT THIS TIME, IV FLUIDS INFUSING PER EMAR, SCD'S ON, NG TUBE SET TO LIWS, DRAINING WNL, CALL LIGHT WITHIN REACH. FALL PRECAUTIONS IN PLACE.
--- NOTE | 2018-05-12 01:17 | NUR ---
PT RESTING IN BED, EYES CLOSED, BREATHS EVEN, ON 2LNC, O2 SAT > 95%, VSS, HR 91, BP 111/57, SCD'S ON, IV FLUIDS INFUSING PER EMAR. PT AOX4, EASILY AROUSABLE, DROWSY, WEAK FROM SURGERY. NG TUBE TO LIWS, BRIZUELA CATH DRAINING WNL, AGUSTIN DRAIN DRAINING WNL, RIGHT INGUINAL DRESSING C/D/I. LS DIMINISHED IN BILATERAL LOWER LOBES, CLEAR OTHERWISE, BT HYPOACTIVE, PT DENIES ANY PAIN, DENIES SOB. NO REQUESTS AT THIS TIME. CALL LIGHT WITHIN REACH.
--- NOTE | 2018-05-12 02:22 | NUR ---
PT RESTING IN BED, EYES CLOSED, BREATHES EVEN, UNLABORED, ON 2LNC, NO C/O SOB/CP, O2 SAT >95, HR 88, IV FLUIDS INFUSING PER EMAR, NG TUBE TO LIWS. CALL LIGHT WITHIN REACH, FALL PRECAUTIONS IN PLACE.
--- NOTE | 2018-05-12 03:00 | NUR ---
NEW IV STARTED IN PT'S RIGHT FOREARM BY DARIUSZ RAMEY, PT TOLERATED WELL. IV FLUIDS INFUSING PER EMAR WNL, PT DENIES ANY PAIN, DENIES ANY SOB/CP, ON 2LNC, NG TUBE DRAINING WNL, BRIZUELA CATH DRAINING WNL, AGUSTIN DRAIN DRAINING WNL, NO REQUESTS AT THIS TIME. CALL LIGHT WITHIN REACH.
--- NOTE | 2018-05-12 04:30 | NUR ---
CALL LIGHT ANSWERED, PT STATES "I NEED TO PEE" PT EDUCATED ON BRIZUELA CATHETER PLACEMENT, PT ACKNOWLEDGES, PT AOX4, OCCASIONALLY CONFUSED, DROWSY, OVERALL APPROPRIATE, PT DENIES ANY PAIN, DENIES ANY SOB, ON 2LNC, NO REQUESTS AT THIS TIME. CALL LIGHT WITHIN REACH. FALL PRECAUTIONS IN PLACE. MEPILEX DRESSING C/D/I, NG TUBE DRAINING WNL TO LIWS.
--- NOTE | 2018-05-12 08:22 | NUR ---
SPOKE WITH PATIENT IN ROOM. PATIENT STATES SHE LIVES ALONE. HAS CAREGIVER FOR 2-3 HOURS A DAY 7 DAYS A WEEK. PATIENT STATES SHE DOESN'T DRIVE, USES [employer] TICKETS. PATIENT STATES HER CAREGIVER DOES MOST OF HER SHOPPING. PATIENT DENIES USING A WALKER OR CANE TO AMBULATE. HAS NO STAIRS AT HER HOME, HAS 1/2 STEP SHE STATES GOING IN. PATIENT WANTS TO RETURN HOME AT DISCHARGE. STATES SHE HAS BEEN IN REHAB BEFORE AND HOPES SHE DOESN'T HAVENT TO GO TO A FACILITY. WE DISCUSSED THIS DEPENDS ON HOW SHE IS DOING AT DISCHARGE AND IF SHE FEELS SAFE TO GO HOME ALONE. SHE STATES UNDERSTANDING. NO OTHER QUESTIONS AT THIS TIME.
--- NOTE | 2018-05-12 08:41 | NUR ---
PT AWAKE AND TALKING TI THIS SALES OFFICER NONE STOP ABOUT DIFFERENT STAFF IN THE HOSPITAL. PT THEN TELLS SALES OFFICER THAT SHE HAS SHINGLES. WHEN ASKED WHERE SHE HAS THEN THIS SALES OFFICER WAS TOLD ON HER FACE. PT DOES HAVE A FEW AREAS OF SCABS ON FACE AND A REDNED AREA AROUND UPPER LIP TO THE BRIDGE OF HER NOSE ON THE LEFT SIDE. BUT THE SCABS SHE IS TALKING ABOUT ARE ON DIFFERENT AREA OF HER FACE.
--- NOTE | 2018-05-12 09:53 | NUR ---
SPOKE WITH DR KAUR AND NURSING ABOUT ORDERING PT AND OT TO WORK WITH PATIENT SHE WANTS TO GO HOME AT DISCHARGE.
--- NOTE | 2018-05-12 11:42 | NUR ---
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 DID NOT ASK OR REQUEST PAIN MEDICATIONS. NG TUBE CLAMPED WITH AMBULATION, THEN BACK TO LIWS. RESP THERAPY INTO GIVE NEB TX AT THIS TIME.
--- NOTE | 2018-05-12 12:20 | NUR ---
DR KAUR NOTIFIED REGARDING XRAY REPOTS THAT IT IS UP FOR REVIEW, AND IF HE WAS GOING TO TRANSFER PT TO M/S AT SOME POINT TODAY. HE WILL CALL BACK AND LET STAFF KNOW.
--- NOTE | 2018-05-12 12:21 | NUR ---
PT REMAINS UP IN THE CAIR, BRIZUELA DRAINING YELLOW IN COLOR URINE, NG TO LIWS AT THIS TIME, AND PT IS SLEEPING IN CHAIR, BUT AWAKES WHEN STAFF ENTERS THE ROOM.
[2018-05-12] MEDS ORDERED: GABAPENTIN100 MG PO (12:24)
--- NOTE | 2018-05-12 12:45 | NUR ---
PT STATED THAT SHE HAD SURGERY LAST NIGHT, WHICH SHE DID. NG TUBE IN, PT COMPLAINS OF DISCOMFORT FROM NG. PT REQUESTED I CONTACT THE RAFAKIMBERLYSILAS CLIENT SERVICE COORDINATOR IN [facility], SHE FEELS SHE HAS LESS THAN A YEAR TO LIVE AND WANTS TO MAKE SOME ARRANGEMENTS. I CONTACTED THE CLIENT SERVICE COORDINATOR-HE CAME AND VISITED WITH PT. WILL FOLLOW NEEDED
--- NOTE | 2018-05-12 12:48 | NUR ---
MED REC COMPLETE WITH [facility] REFILL HISTORY AND PATIENT INTERVIEW.
--- NOTE | 2018-05-12 13:50 | NUR ---
PT BACK TO BED AT THIS TIME, PT HAS PROBLEMS FOLLOWING DIRECTIONS SUCH TURN TO THE LEFT AND SIT ON THE BED. PT WAS WANTING TO WALK TO THE OTHER SIDE OF THE ROOM AND GET INBED.
--- NOTE | 2018-05-12 14:15 | NUR ---
PT C/O PAIN AT THE INCISION AREA MEDICATED WITH TORDAL 15MG IVP AT THIS TIME.
--- NOTE | 2018-05-12 15:34 | NUR ---
PT SLEEPING AT THIS TIME, APPEARS TO BE COMFORTABLE AT THIS TIME.
--- NOTE | 2018-05-12 16:17 | OR ---
[facility] [address], [place] [address] Signed DATE OF OPERATION: 05/11/2018 SURGEON: José Luis Kaur MD TIME: 9:50 p.m. PREOPERATIVE DIAGNOSES: 1. Incarcerated right inguinal hernia with small bowel obstruction. 2. Severe chronic obstructive pulmonary disease (home oxygen requiring). 3. Steroid dependency. POSTOPERATIVE DIAGNOSES: 1. Incarcerated right inguinal hernia with segment of infarcted small bowel. 2. Right direct inguinal hernia. PROCEDURES: 1. Reduction of incarcerated strangulated right inguinal hernia. 2. Segmental bowel resection of infarcted small bowel with end-to-end enteroenterostomy. 3. Repair of right inguinal hernia direct defect. ANESTHESIA: Spinal, Delgado [place], SERVICE DOG TRAINER, and local 20 mL of 0.25% Marcaine with epinephrine. INDICATION: This 77-year-old white woman has been feeling poorly for the past few days and presented to the emergency room where she was found to have a markedly elevated white count, but no specific pain. Her evaluation was relatively unremarkable and on that basis, underwent a CT scan. This showed findings consistent with small bowel obstruction as well as an incarcerated right inguinal hernia with small bowel within it. Marked inflammation was noted. Her white count is elevated greater than 22,000. Of special note, she has steroid-dependent advanced emphysema with requirement for home oxygen. She is admitted at this time to undergo reduction of the hernia and other indicated procedures including repair of the hernia. Preoperative preparation has included administration of stress dose steroids, intravenous antibiotics. Obtaining of an arterial blood gas showing marked CO2 Electronically Signed By: JOSÉ LUIS KAUR MD 05/12/18 1617 PATIENT NAME: HANSA CRAWFORD OPERATIVE REPORT DATE OF : 42 REPORT #: [id number] PHYSICIAN: JOSÉ LUIS KAUR MD PCP: BARBARA CHONG DO REPORT IS CONFIDENTIAL AND NOT TO BE RELEASED WITHOUT AUTHORIZATION [facility] [address], [place] [address] Signed retention (CO2 of 56, O2 of 76 on 2 L nasal cannula oxygen), and EKG showing no sign of acute myocardial injury. She does have an elevated troponin to 0.02. She understands the risks of bleeding, infection, cardiopulmonary problems, and other unforeseen complications related to this operation and wished to proceed. FINDINGS: She had placement of a spinal anesthetic without incident, which was completely adequate for operation this evening. The densely incarcerated hernia showed segment of infarcted small bowel. Delivery of the bowel out of the hernia sac (which proved to be the cephalad to the inguinal ligament and in the floor of the inguinal canal consistent with direct hernia) required segmental resection with end-to-end anastomosis. Repair of the hernia included ligation and excision of the hernia sac as well as fascial reapproximation of the tendon of the transversus abdominis to the iliopubic tract vincent to a Bret ligament repair. DESCRIPTION OF PROCEDURE: The patient was brought to the operating room, given a spinal anesthetic. Preoperative antibiotics had been given as well stress dose steroids. A Coulter catheter was placed. The lower abdomen was prepared with a chlorhexidine solution and draped sterilely. Palpable mass was quite dense and hard and could not be reduced despite efforts to do so as previously. Incision was made directly over the mass, which was about the level of the inguinal ligament slightly above that possibly. Dissection was carried through the skin and subcutaneous tissue and inferior epigastric vessel was isolated, ligated, and secured with Vicryl tie. With meticulous care, the tissue was , edematous findings were noted. Very dark tissue was noted as incarcerated viscus. With various manipulations, it was completely isolated from the external oblique. It appeared to emanate above the inguinal ligament and therefore was not a femoral hernia. Attempts at reduction were quite unsuccessful. Using a right angle clamp, the fascia at the neck was incised with electrocautery, freeing it more fully. Despite this, it still could not be reduced. With various manipulations, the hernia sac could be identified separate from the incarcerated viscus which was dark and violaceous in appearance. Photographs were taken notably. The hernia sac was incised and entry showed somewhat bloody thin fluid as well as segment of small bowel. Segment of small bowel was carefully freed from the hernia sac and found to have segmental infarction. Proximal and distal limbs of the loop of bowel that were incarcerated were gently delivered through the relatively narrow hernia sac opening to viable bowel. Clearly, segmental resection will be required. The spinal anesthetic was working quite nicely. It was deemed more optimal to provide resection through the groin if possible. Small bowel was delivered out of the wound as much as possible. Mindful that some Electronically Signed By: JOSÉ LUIS KAUR MD 05/12/18 1617 PATIENT NAME: HANSA CRAWFORD OPERATIVE REPORT DATE OF : 42 REPORT #: [id number] PHYSICIAN: JOSÉ LUIS KAUR MD PCP: BARBARA CHONG DO REPORT IS CONFIDENTIAL AND NOT TO BE RELEASED WITHOUT AUTHORIZATION [address] [address] Signed amount of compromised flow to the more proximal segment occurred in delivering the bowel, but upon reducing and reevaluating, clearly was a positional ischemia and once resection was complete and anastomosis complete, high expectation of good anastomotic blood flow was noted. Mesentery to the infarcted segment was scored and secured with hemostats and secured with 2-0 Vicryl ties. MARICEL stapling device 55 mm in length was used to transect the two segments of the limb of bowel using a silk suture as a stay so as to avoid retraction of the bowel loop ends. A segment of bowel was sent for pathology. An end-to-end enteroenterostomy was undertaken with an outer layer of 3-0 silk suture and an inner layer of interrupted 3-0 Vicryl suture. Good patency to the anastomosis was noted and viability proximally and distally. The bowel was returned to the peritoneal cavity through the aperture of the hernia defect. The neck of the hernia sac appeared to emanate above the inguinal ligament, most consistent with a direct hernia. Inspection internally showed no sign of sliding component to the hernia sac (bladder fat, etc.) Neck of the hernia sac was secured with 2-0 silk suture doubly applied and redundant sac was amputated and passed for pathology. Further interrogation of the area showed this defect to likely be a direct defect. Mindful that implantation of mesh in this setting would be highly prone to infection. A primary repair of the Bret ligament type was deemed most appropriate. The patel fibrous edge of the tendon of the transversus abdominis was secured to the iliopubic tract with interrupted 0 PDS suture. The iliac artery and vein were identified and made free from injury during the course of this repair. External oblique was more fully developed and secured with running 2-0 Vicryl through a separate stab incision. A 7 mm flat Bo drain was placed beneath the external oblique fascia down to the floor of the repaired canal. Cecily's layer was reapproximated with interrupted 2-0 Vicryl. Skin closed with running subcuticular 3-0 Vicryl. Steri-Strips were applied. The drain was secured to the skin with 2-0 nylon suture and attached to bulb suction. A Mepilex silver sponge dressing was applied as was an OpSite. The patient was taken to the intensive care unit directly having suffered no complication. Blood loss was less than 25 mL. The operation was rather prolonged, complicated, and difficult on the basis of anatomic factors lasting three times longer than standard hernia repair. Electronically Signed By: JOSÉ LUIS KAUR MD 05/12/18 1617 PATIENT NAME: HANSA CRAWFORD OPERATIVE REPORT DATE OF : 42 REPORT #: [id number] PHYSICIAN: JOSÉ LUIS KAUR MD PCP: BARBARA CHONG DO REPORT IS CONFIDENTIAL AND NOT TO BE RELEASED WITHOUT AUTHORIZATION [facility] [address] [place] [id number] Signed MD JOANNE Porras/MARLO /[id number] cc: DO Shiva Zapien MD Copies: BARBARA CHONG WILLIAM S MD ~ Electronically Signed By: JOSÉ LUIS KAUR MD 05/12/18 1617 PATIENT NAME: HANSA CRAWFORD OPERATIVE REPORT DATE OF : 42 REPORT #: [id number] PHYSICIAN: JOSÉ LUIS KAUR MD PCP: BARBARA CHONG DO REPORT IS CONFIDENTIAL AND NOT TO BE RELEASED WITHOUT AUTHORIZATION
--- NOTE | 2018-05-12 16:20 | HP ---
[facility] [address], [place] [address] Signed ADMISSION DATE: 05/11/2018 PREOPERATIVE DIAGNOSIS: Incarcerated right inguinal hernia with small-bowel obstruction. HISTORY OF PRESENT ILLNESS: This is a 77-year-old white woman, who has had several days with poor oral intake and nausea, vomiting, and so forth. She presented to the emergency room, where she was evaluated by Dr. Rainey. She had no complaint of groin pain particularly, but a CT scan was done and she did have an elevated white count. A CT scan performed showed dilated loops of small bowel as well as an incarcerated right inguinal hernia. Attempted reduction of the right inguinal hernia have been unsuccessful by Dr. Rainey. She is noted concurrently to have diverticulosis. PAST MEDICAL HISTORY: Also includes chronic obstructive pulmonary disease, for which she is home oxygen dependent. A chest x-ray was performed showed no acute pathology. There was significant hyperinflation with increased lucency of the lungs, but no evidence of pneumonia, congestive heart failure, or other problem particularly. She has undergone left breast cancer treatment by me in the past including partial mastectomy. She has had no known recurrent disease. The patient takes only aspirin. SOCIAL HISTORY: She lives alone, though she does have some visiting healthcare personnel as well. LABORATORY STUDIES: Showed no sign of acidosis and CO2 is 32. Troponin is noted to be 0.020, normal is less than 0.10. She has no associated chest pain. To my knowledge, a 12-lead EKG has not yet been performed. REVIEW OF SYSTEMS: She denies any chest pain or particular shortness of breath. She does have nasal cannula oxygen in place. She has diffuse abdominal pain and has had nausea and vomiting. PHYSICAL EXAMINATION: GENERAL: This is a very thin and somewhat cachectic white woman, who is alert and oriented, who does not look systemically toxic. HEENT: Mucous membranes are quite dry. Trachea is midline. CHEST: Shows diminished breath sounds, but no wheeze or rhonchi. ABDOMEN: Not particularly distended, mildly tender only. There is an incarcerated Electronically Signed By: JOSÉ LUIS KAUR MD 05/12/18 1620 PATIENT NAME: HANSA CRAWFORD HISTORY AND PHYSICAL DATE OF : 42 REPORT #: [id number] PHYSICIAN: JOSÉ LUIS KAUR MD PCP: BARBARA CHONG DO REPORT IS CONFIDENTIAL AND NOT TO BE RELEASED WITHOUT AUTHORIZATION [facility] [address] [place], [place] [address] Signed right inguinal hernia, which is not reducible despite efforts to do so. EXTREMITIES: Show no sign of edema, but do show mild clubbing. Examination of the sacrum shows erythematous change of the skin, but no sign of open wound or ulcer. LABORATORY DATA: Chest x-ray is reviewed confirming flattened diaphragms with some hyperinflation. There is no sign of cardiomegaly by any means. Her chem profile shows a glucose of 107, chloride of 86, CO2 of 32, calcium 9.6. Lipase is 4. Liver enzymes normal. Bilirubin 0.6. Troponin is 0.020. She has no associated chest pain. Her white count is 22.1, her hematocrit is 39, platelets are 254,000. MEDICATION LIST: Includes administration of 80 mg Solu-Medrol intravenously once in the ER as well as a Proventil inhaler daily. She was started on Ancef 2 g as well. ASSESSMENT: She has an incarcerated right inguinal hernia as well as bowel obstruction from it. She has had nausea and vomiting and abdominal pain. This has gone on for several days by the sounds of it. She is clinically dehydrated. She does have significant underlying chronic obstructive pulmonary disease. Her elevated troponin without associated chest pain or other signs of cardiac involvement is notable, but not one that would contraindicate an operative intervention, which is emergent for incarcerated inguinal hernia. I discussed the risks of bleeding, infection, cardiopulmonary complications, and so forth with her regarding operative management of this problem, which should be undertaken this evening. She understands and agrees. MD JOANNE Porras/MODL /[id number] cc: DO Dr. Redd Zapien Electronically Signed By: JOSÉ LUIS KAUR MD 05/12/18 1620 PATIENT NAME: HANSA CRAWFORD HISTORY AND PHYSICAL DATE OF : 42 REPORT #: [id number] PHYSICIAN: JOSÉ LUIS KAUR MD PCP: BARBARA CHONG DO REPORT IS CONFIDENTIAL AND NOT TO BE RELEASED WITHOUT AUTHORIZATION [address] [address] Signed Copies: BARBARA CHONG DO ~ Electronically Signed By: JOSÉ LUIS KAUR MD 05/12/18 1620 PATIENT NAME: HANSA CRAWFORD HISTORY AND PHYSICAL DATE OF : 42 REPORT #: [id number] PHYSICIAN: JOSÉ LUIS KAUR MD PCP: BARBARA CHONG DO REPORT IS CONFIDENTIAL AND NOT TO BE RELEASED WITHOUT AUTHORIZATION
--- NOTE | 2018-05-12 17:00 | NUR ---
DR KAUR INTO SEE PT AT THIS TIME. NEW ORDERS RECEIVED AT THIS TIME. PT WILL BE ALLOWED LIQUIDS, BUT WILL LEAVE THE NG TUBE INPLACE TO LIWS.
--- NOTE | 2018-05-12 17:27 | NUR ---
PT GIVEN POPSCILE AND SOME ICE CHIPS AT THIS TIME. EATING THE POPSCILE AND DID WELL WITH IT.
--- NOTE | 2018-05-12 18:19 | NUR ---
PT TALKING ON THE PHONE AT THIS TIME, TOLERATED PO INTAKE. NG CONTIOUES TO BE CONTECTED TO LIWS.
--- NOTE | 2018-05-12 19:30 | NUR ---
AWAKE IN BED, DENIES NEEDS AT THIS TIME.
--- NOTE | 2018-05-12 20:30 | NUR ---
IN TO DO ASSESMENT AND DISCUSS PLAN OF CARE FOR THE NIGHT, PT AGREEABLE. DENIES PAIN AT THIS TIME, SOMEWHAT ANXIOUS REGARDING DRAIN AND NGT.
--- NOTE | 2018-05-12 22:05 | EKG ---
[facility] [address] [facility] [place] [address] Signed Normal sinus rhythm Normal ECG When compared with ECG of 22-DEC-2017 12:32, premature supraventricular complexes are no longer present Nonspecific T wave abnormality now evident in Lateral leads Confirmed by BERNIE RODRIGUEZ DO ([id number]) on 05/12/2018 10:05:47 PM Electronically Signed By: BERNIE RODRIGUEZ DO 05/12/18 2205 PATIENT NAME: HANSA CRAWFORD Electrocardiogram DATE OF : 42 PHYSICIAN: BERNIE RODRIGUEZ DO REPORT #: [id number] REPORT IS CONFIDENTIAL AND NOT TO BE RELEASED WITHOUT AUTHORIZATION
--- NOTE | 2018-05-12 23:00 | NUR ---
PT UP TO SIT AT SIDE OF BED AND STAND AT BEDSIDE. PT RELUCTANT FOR ACTIVITY BUT PT EDUCATED REGARDING NEED TO INCREASE ACTIVITY FOR BOWEL FX. PT VERBALIZES AGREEMENT AND UNDERSTANDING. UP TO STAND AT BEDSIDE, PT BECOMES VERY ANXIOUS C/O SOB, STEADY OF FEET THEN BACK INTO BED SHORTLY AFTER. PT HAVING A BIT OF ANXIETY, HR UP TO 120'S. RN AT BEDSIDE REASSURING PT, TAKES APPROX 30 MINUTES FOR PT TO CALM AND LIE BACK INTO BED TO TRY TO SLEEP.
--- NOTE | 2018-05-12 23:50 | NUR ---
PT SBA WITH WALKER TO SIDE OF BED, TOLERATED WELL, GAIT STEADY. PT ASSISTED TO EDGE OF BED, PT MARCHING IN PLACE, PT REQUESTING TO STAND. PT SBA WITH WALKER, PT ABLE TO PEST CONTROL CHEMICAL TECHNICIAN PLACE FOR 3-4 MINS. PT'S FACE BECAME FLUSHED AND PT TAKING DEEP BREATHS, PT STATES "I FEEL A PANIC ATTACKING COMING ON." HR NOTED TO INCREASE TO 120'S AND RR IN 30'S. PT REQUESTING HOME INHALER. DR. KAUR AT BEDSIDE TO CHECK IN ON PT. PER DR KAUR, PT MAY USE HOME INHALER PRN. PT'S NURSE DARIUSZ UPDATED. PT NOW RELAXING IN BED, HR 80'S, SPO2 96% ON 2L NC.
--- NOTE | 2018-05-13 02:43 | NUR ---
PT HAS BEEN SOMEWHAT RESTLESS THE PAST FEW HOURS BUT DOES APPEAR TO BE SLEEPING AT TIMES. HR MOSTLY 90'S. PT HAS CALLED A FEW TIMES FOR WARM BLANKET, TO HAVE MONEY IN HER PURSE COUNTED AND PUT INTO SAFE, AND TO C/O "BUGS COMING OUT OF MY BED" WHICH TURNED OUT TO BE THE NGT SUCTION MOVEMENT SHE WAS SEEING. PT UNSURE IF SHE BELIEVES THAT THE NGT IS NOT BUGS BUT DOES EVENTUALLY SETTLE DOWN TO TRY TO SLEEP. HR 80'S, RR 20.
--- NOTE | 2018-05-13 05:07 | NUR ---
CALL LIGHT ANSWERED. PT C/O PAIN AROUND SURGICAL SITE AND THROAT IRRATATION. RATING PAIN 8/10, 15 MG TORADOL GIVEN. PT NOTED TO HAVE INCREASED RESTLESSNESS AND ANXIOUS, REQUESTING LIGHTS ON AND TO SIT UP. OXYGEN SATURATION DECREASING DOWN TO 70'S, OXYGEN TITRATED TO 6L. PT REMOVED NC AND QUICKLY DESATED TO 53%, OXIMASK APPLIED, PRN NEB GIVEN, RT AT BEDSIDE. PT'S OXYGEN SATURATION RETURNED TO 98% ON 6L NC. RT TITRATED OXYGEN TO 4L AND TOLERATING WELL. PT CONTINUES TO HAVE OXYGEN SATURATION IN HIGH 90'S, TIRATED TO 3L OXIMASK, OXYGEN SATURATION CURRENTLY 97%. WILL CONTINUE TO MONITOR
--- NOTE | 2018-05-13 06:30 | NUR ---
PT HAS BEEN AWAKE MOST OF THE NIGHT, TRYING TO SLEEP BUT DOES GET ANXIOUS ABOUT VARIOUS SMALL THINGS. HAS HAD SOME MOMENTS OF CONFUSION WELL. NGT PUT OUT 100ML LAST 8 HOURS, HEATHER 10 ML. VSS, ALTHOUGH SPO2 DOES DROP LOW 50% WHEN PT OFF HER CHRONIC O2.
--- NOTE | 2018-05-13 08:13 | NUR ---
PT IS ASLEEP AT THIS TIME, RESP RATE REGULAR AND BME012% WITH O2 2L'S VIA NC. PT DID NOT SLEEP MUCH LAST NIGHT AND WAS AWAKE AND NERVOUS ABOUT HER MONEY AND OTHER PERSONAL ITEMS. PT URINE OUT HAS INCREASED THROUGH THE NIGHT.
--- NOTE | 2018-05-13 08:52 | NUR ---
PT AWAKEN FOR ABD XRAY AT THIS TIME. PT COOPERATIVE WITH THIS PROCESS, HEATHER BRIZUELA EMPTY. NG TUBE REPOSITIONED AND RETAPED AT THIS TIME.
--- NOTE | 2018-05-13 09:07 | NUR ---
PT DAUGHTER FROM [place] CALLED ALL QUESTIONS ANSWERED. SHE IS ON HER WAY TO [place] THIS AM. INFORMED PATIENT AND SHE IS GLAD THAT FAMILY IS COMING.
--- NOTE | 2018-05-13 09:21 | NUR ---
PT REQUESTED A POPSCILE AT THIS TIME, GIVEN TO PT AND HOB ELEVATED AT THIS TIME.
--- NOTE | 2018-05-13 11:05 | NUR ---
OFFERED PT A BED BATH AND TO GET UP IN THE CHAIR, PT REFUSED AT THIS TIME, AND WANTED HER PERSONAL CELL PHONE TO MAKE A CALL.
--- NOTE | 2018-05-13 12:13 | NUR ---
COMPLETE BEDBATH COMPLETED AND PT UP TO THE CHAIR, PT C/O PAIN AND WANTED PAIN PILL. PT DOES NOT HAVE PAIN PILLS ORDERED AT THIS TIME, BUT DOES HAVE TORDAL 15MG IVP GIVEN FOR PAIN 5/10 ABD. CALL LIGHT WITHIN REACH AND PERSONAL CELL PHONE.
--- NOTE | 2018-05-13 13:35 | NUR ---
CALL INTO DR KAUR REGARDING PT WANTING HER NG OUT AND BRIZUELA CATHETER. ALL REMOVED AND PT TEENA-WELL. PT STATES "IF THIS TUBE DOES NOT COME OUT I AM GOING TO STARVE" EXPLAINED THIS ALL TO DR KAUR. PT REMAINS UP IN THE CHAIR HAS SMALL AMOUNTS OF CLEAR LIQUIDS INFRONT OF HER, BUT HAS NOT TAKEN IN MUCH AT THIS TIME.
--- NOTE | 2018-05-13 15:13 | NUR ---
DR KAUR INTO SEE PT. PT JUST HAD GOTEN BACK TO BED AFTER VOIDING 100MLS OF URINE IN BS COMMODE. PT FUSSY ABOUT ALL ASCEPTS OF HER TUBES AND LIFE. DR KAUR PULLED OUT HER HEATHER DRAIN. THEN FRESH STERI STRIPS PLACED OVER DRAIN SITE AND INCISION.
--- NOTE | 2018-05-13 16:39 | NUR ---
dinner order for pt at this time, she has been talking on the phone with freinds and family.
--- NOTE | 2018-05-13 16:51 | NUR ---
PT CONTIOUES TO TALK ON THE PHONE THIS AFTERNOON. SHE IS BETTER NOW THAT SHE CAN HAVE FLUIDS, BUT SHE IS PUSHING AT STAFF FOR ICE CREAM, TOAST, AND WHAT EVER ELSE SHE COMES UP WITH THAT SHE WANTS TO EAT. "YOU ARE STARVING ME, CAN'T I EAT WHAT I WANT" EXPLAINED THAT IF SHE WENT TO QUICK WITH FOOD THAT SHE MAY GET HER NG TUBE BACK AND THAT SEAMED TO SETTLE HER ABOUT WANTING REAL FOOD OTHER THAN LIQUIDS.
--- NOTE | 2018-05-13 17:54 | NUR ---
PT CONTIOUES TO WORK N HER CLEAR LIQUIDS OF BROTH, JELLO, AND A COLA. PT DAUGHTER IS HERE AT THIS TIME. ALL QUESTIONS ANSWERED.
--- NOTE | 2018-05-13 19:09 | NUR ---
FAMILY REMAINS ATT HE BEDSIDE AND TALKING WITH PT THIS EVENING. REPORT GIVEN TO THE TIPPLE MECHANIC ALL QUESTIONS ANSWERED.
--- NOTE | 2018-05-13 19:46 | NUR ---
UP TO BSC TO VOID, PT ASKING IF SHE HAD HAD A STOOL SHE COULDN'T TELL. TEENA BEING UP WELL WHEN ASKED IF HAVING PAING PT WAS VAGUE AND STATED NOT MUCH. STERI STRIPS INTACT INCISON RLQ DOES HAVE SMALL AMT LIGHT PINK SERO PADILLA DRAINAGE. COCCYX IS SL RED, BLANCHES WELL.
--- NOTE | 2018-05-13 22:08 | NUR ---
HAS TURNED SELF TO SIDE, READY FOR SLEEP.
--- NOTE | 2018-05-13 23:05 | NUR ---
UP TO BSC TO VOID, TEENA WELL. PM CARE PER GIANNA RAMEY. DRSG OVER RLQ INCISION HELD IN PLACE WITH MESH UNDERWARE INCISION IS LEAKING SEROSAN FLUID. ALSO MISSY PAD IN PLACE TO PAD COCCYX, WHICH IS WHAT PT DOES AT HOME. GIVEN POPSICKLE, PT STATES SHE IS HUNGRY.
--- NOTE | 2018-05-13 23:44 | NUR ---
TEENA ELLIS. READY FOR SLEEP.
--- NOTE | 2018-05-14 00:25 | NUR ---
PT HAS HAD SEVERAL EPISODES OF 5 TO 7 SECONDS OF PSVT, ALSO HAVING INC PAC'S. DR KAUR CALLED AND ORDERS RECIEVED.
--- NOTE | 2018-05-14 01:50 | NUR ---
WAS UP AGAIN TO VOID. TEENA WELL. PT WANTED TO TAKE HER RINGS OFF, DECLINED TO HAVE THEM LOCKED IN SAFE. 4 RINGS WERE PUT IN DENTURE CUP, SLEALED WITH TAPE AND PUT IN PINK PURSE PER PT'S INSTRUCTIONS.
--- NOTE | 2018-05-14 01:51 | NUR ---
MG 1.8, AWAITING RESULTS OF REST OF LABS. EPISODES OF PSVT ARE DECREASING.
--- NOTE | 2018-05-14 02:41 | NUR ---
DR KAUR NOTIFIED OF LABS ORDER FOR POTASSIUM RECIEVED.
--- NOTE | 2018-05-14 03:09 | NUR ---
SLEEPING, RESP REG.
--- NOTE | 2018-05-14 04:18 | NUR ---
AWAKE TO VOID. SL SOB WITH EXERTION AND BREATH TONES ARE A LITTLE DIMMER WITH END EXP WHEEZES. DRSG TO LOWER ABD SAT, CHANGED. BACK TO SLEEP QUICKLY.
--- NOTE | 2018-05-14 06:14 | NUR ---
SLEEPING SOUNDLY, SAT DEC 02 OUT OF NARES. 02 REPLACED AND SATS INCREASED BACK TO 90'S.
--- NOTE | 2018-05-14 08:00 | NUR ---
ASSESSMENT DONE. TALKED WITH PATIENT ABOUT PLAN OF CARE FOR DAY IS UNDERSTANDING. UP TO COMMODE TO VOID, BACK TO BED W/O INCIDENT. SITTING UP IN BED FOR BREAKFAST. DRESSING TO RLQ REINFORCED. HAS ACTIVE BOWEL SOUNDS. DENEIS PASSING FLATUS.
--- NOTE | 2018-05-14 09:57 | NUR ---
SLEEPING WITH HOB ELEVATED. NO DISTRESS NOTED.
--- NOTE | 2018-05-14 10:00 | NUR ---
PHYS THERAPY HERE TO WORK WITH PATIENT.
--- NOTE | 2018-05-14 10:30 | NUR ---
PATIEINT TOLERATED PHYS THERAPY WELL. NOW IN CHAIR. DRESSING TO RLQ CHANGED. MOD AMOUNT OF SEROSANG DRAINAGE NOTED. FEW STERI-STIPS IN PLACE.
--- NOTE | 2018-05-14 12:00 | NUR ---
REMAINS IN CHAIR, ASSESSMENT UNCHANGED. DENEIS NEED FOR PAIN MEDICATION, DENEIS NAUSEA. IS REQUESTING INCREASED DIET, ASKING FOR JAPANESE FRIES. EDUCATION REGARDING DIET AND NEED FOR GI REST GIVEN. PATIENT IS VERY FORGETFUL. FAMILY MEMBERS ARE IN ROOM.
--- NOTE | 2018-05-14 13:00 | NUR ---
SITTING IN CHAIR TAKING CLEAR LIQUIDS.
--- NOTE | 2018-05-14 13:10 | NUR ---
DR. KAUR HERE TO SEE PATIENT, IS AWARE OF DRAINAGE FROM POST-OP SITE. ORDERS RECIEVED FOR CT OF ABD/PELVIS. NO FUTHER CLEAR LIQUIDS AT THIS TIME.
--- NOTE | 2018-05-14 13:20 | NUR ---
TO COMMODE TO EXPELL SMALL FORMED YUE LIKE STOOL AND TO VOID QS AMOUNT OF CLEAR KATHI UTINE.
--- NOTE | 2018-05-14 13:30 | NUR ---
TO CT VIA W/C, ACCOMP BY Hipbone AND RN.
--- NOTE | 2018-05-14 13:55 | NUR ---
RETURN TO ROOM 128, TOLERATED CT WELL, BACK TO BED WITH ASSIST. IS FAIRLY STABLE ON FEET. STATES SHE FEELS STRONGER THIS AFTERNOON.
--- NOTE | 2018-05-14 14:30 | NUR ---
WILL KEEP PATIENT NPO UNTIL RESULTS OF CT.
--- NOTE | 2018-05-14 15:30 | NUR ---
TORDOL GIVEN FOR ABD DISCOMFORT.
--- NOTE | 2018-05-14 16:00 | NUR ---
ASSESSMENT DONE, C/O SLIGHT ABD DISCOMFORT AT UMBLICUS AREA. DR. KAUR UPDATED ON RESULTS OF CT, ORDERS TO RESUME CLEAR LIQUIDS. IV SITES NON FUNCTIONAL. IV STATED TO RIGHT WRIST AREA. IVF AT 85 ML/HR. DRESSING TO RLQ CHANGED. PT IS VERY TALKATIVE. C/O SLIGHT NAUSEA.
--- NOTE | 2018-05-14 16:23 | NUR ---
RESTFUL AFTER TORDOL. LAYING ON RIGHT SIDE. O2 AT 2 L NC.
--- NOTE | 2018-05-14 19:03 | NUR ---
RESTFUL, NO DISTRESS NOTED. REPORT TO NEXT SHIFT.
--- NOTE | 2018-05-14 20:28 | NUR ---
AT 1920 UP TO BS TO VOID AND TEENA WELL. DR KAUR WAS IN TO SEE PT. PT NOW ON PHONE WITH FAMILY MEMBER.
--- NOTE | 2018-05-14 21:40 | NUR ---
HAD LONG VISIT WITH DAUGHTER. WHEN LISTENED TO BOWEL SOUNDS PT DID STATE HAD SOME UMBILICAL DISCOMFORT BUT IS TEENA IT. ALSO C/O DISCOMFORT AT IV SITE, SITE IS GOOD. READY FOR SLEEP.
--- NOTE | 2018-05-15 02:21 | NUR ---
FEELING SOB,AND ANXIOUS, BREATH TONES CEAR BUT DIM, AIR EXCHANGE UNCHANGED FROM EARLIER. RT CALLED WILL GIVE NEB. HAD CHANGED TO OXY MASK HAD BEEN BREATHING THROUGH MOUTH AND SATS HAD DECREASED TO 80'S. IS 100% NOW.
--- NOTE | 2018-05-15 02:36 | NUR ---
FEELING BETTER SINCE NEB, HAVE NOTED GOING IN AND OUT OF A FIB. IS ABLE TO DOZE. HYDROCORITISONE CREAM TO FACE IT WAS ITCHING.
--- NOTE | 2018-05-15 02:41 | NUR ---
DR KAUR GIVEN UPDATE. WILL CHECK LABS.
--- NOTE | 2018-05-15 04:25 | NUR ---
DR KAUR CALLED RE LABS, ORDERS RECIEVED.
--- NOTE | 2018-05-15 04:43 | NUR ---
PT REMAINS FAIRLY ANXIOUS. C/O OF PAIN ABOVE UMBILICUS, REFERS TO IT 'GAS'. PALPATED ABD, DISTENDED IN LOWER QUADRANTS, SOFT. ADMINISTERED 650MG TYLENOL PO AND SAT PT UP IN BED. OXYMASK ON FOR MOUTH BREATHING. CHANGED ABD DRESSING, DRAIN SITE LEAKING SERO-SANGUINOUS FLUID. NEW ATTENDS ON. STARTED ANOTHER IV IN RFA, 22G. STARTED K-PHOS IVPB AND MG IVPB 2GM. PT RR REMAINS ELEVATED IN 30'S, REPORTS FEELING HOT. HR 110'S-120'S AFIB.
--- NOTE | 2018-05-15 06:36 | NUR ---
DR KAUR CALLED AT 0557 TO UPDATE RE: PT MENTATION CHANGES. PT DROWSY AND INTERMITTENTLY CONFUSED. TALKS ABOUT SITUATIONS NOT RELEVANT SUCH THE OXYMASK BEING HER GLASSES, BUT NOT THE RIGHT ONES HERS ARE AT HOME. HAS SENSE OF IMPENDING DOOM - 'THIS IS PROBABLY WHATS GOING TO CAUSE ME TO CROCK'. ORDER RECEIVED FOR CARDIZEM 5MG UP TO 10MG IV PUSH FOR CONTINUED ELEVATED HR 110'S. RR 30'S. AFTER DRAWING UP MEDICATION, PT NOTED TO HAVE CONVERTED TO SINUS RYTHYM/SINUS ARRYTHMIA. BP ALSO 92/68 MANUAL. CARDIZEM HELD AT THIS TIME. PT NOW IS CURRENTLY ASLEEP ON R SIDE. HR 80'S S.R. SPO2 100% ABG DRAW AT 0620. RR 25. NC 2L O2.
--- NOTE | 2018-05-15 09:00 | NUR ---
OOB TO COMMODE TO VOID 500 ML OF KATHI URINE. THEN TO CHAIR. SPONGE BATH GIVEN.
--- NOTE | 2018-05-15 09:30 | NUR ---
DR. KAUR HERE TO SEE PATIENT. NOTE WRITTEN FOR PATIENT TO BE IN CCU.
--- NOTE | 2018-05-15 10:15 | NUR ---
SPOKE WITH PATIENTS [facility] SHE STATES THEY ARE WONDERING ABOUT SWING BED PROGRAM FOR PATIENT IF SHE NEEDS REHAB. WE DISCUSSED THIS POSSIBLITY OR FACILITY IF PATIENT WILL NEED LONGER REHAB STAY. WE DISCUSSED THAT WE WILL KNOW MORE SHE WORKS WITH PT AND IS CLOSER TO DISCHARGE. QUESTIONS ANSWERED. WILL CONTINUE TO FOLLOW.
--- NOTE | 2018-05-15 12:00 | NUR ---
ASSESSMENT DONE, ENCOURAGE DEEP BRATHING. DR. HOPPER AWARE OF CONSULT. PATIENT DENIES PAIN.
--- NOTE | 2018-05-15 13:03 | NUR ---
patient CONTINUE TO SIT IN CHAIR, FAMILY MEMBERS ARE IN ROOM. PT SIPPING ON CLEAR LIQUIDS.
--- NOTE | 2018-05-15 15:10 | NUR ---
RECIEVED TOTAL OF 5 MG IV CARDIZEM BETWEEN [id number] EACH DOSE GIVEN IN 2.5 MG INCREMENTS. MONITOR SHOWS NSR, HR-80'S. PATIENT DENIES CHEST PAIN, SLIGHT NAUSEA.
--- NOTE | 2018-05-15 15:40 | NUR ---
C/O NAUSEA, HAD SMALL EMESIS OF APPROX 20 ML OF YELLOW CONTENTS. ZOFRAN 4 MG IV GIVEN. TO COMMODE TO VOID 200 ML OF DK KATHI UINE, TO CHAIR WITH ASSIST. HR MORE IRREGULAR WITH MOVEMENT
--- NOTE | 2018-05-15 16:30 | NUR ---
MESSAGE LEFT WITH DR. KAUR'S OFFICE REGARDING EMESIS AND DR. HOPPER'S CONSULT.
--- NOTE | 2018-05-15 16:57 | NUR ---
BACK TO BED WITH ASSIST. C/O FEELING VERY TIRED.
--- NOTE | 2018-05-15 17:22 | NUR ---
DR. KAUR UPDATED ON PT STATUS, NO FUTHER ORDERS RECIEVED. PATIENT IS ASLEEP ON LAYING ON RIGHT SIDE.
--- NOTE | 2018-05-15 20:19 | NUR ---
DOZING WITH HEAD OF BED ALMOST FLAT, LAYING ON SIDE, FOUND TO HAVE SMALL EMESIS ON GOWN. WHEN AWAKE C/O BEING NAUSEATED AND DID HAVE ANOTHER SMALL EMESIS. EMESIS IS BILE GREEN/YELLOW. HOB ELEVATED. NEB TX GIVEN AND TEENA WELL. STATES IS TIRED.
--- NOTE | 2018-05-15 22:08 | NUR ---
SLEEPING MOST OF TIME. AWAKENED FOR MEDS,GIVEN SMALL SIP H20 FOR COMFORT. DENIES NEED TO VOID.
--- NOTE | 2018-05-16 00:49 | NUR ---
AWAKENS EASILY BUT IS STILL DROWSY. UP TO BSC TO VOID. HR UP TO 120 AT FIRST THEN BACK TO 90'S WHILE STILL ON COMMODE. PASSING GAS. CONT TO HAVE MOD AMT SEROSANG DRAINAGE FROM RLQ DRAIN/INCISION SITE.
--- NOTE | 2018-05-16 03:12 | NUR ---
SLEEPING SOUNDLY. REMAINS SR.
--- NOTE | 2018-05-16 04:07 | NUR ---
PT AWAKENED VERY BRIEFLY DURING ASSESSMENT. SLEEPING SOUNDLY POSITIONED ON R SIDE.
--- NOTE | 2018-05-16 04:39 | NUR ---
O2 OUT OF NARES, PT AWAKENED WHEN BEING REPLACED MORE AWAKE THAN BEFORE.
--- NOTE | 2018-05-16 06:02 | NUR ---
AWAKENED WHEN MEDS GIVEN. DENIES NEED TO VOID. PT WONDERS WHEN SHE WILL BE ABLE TO EAT.
--- NOTE | 2018-05-16 06:53 | NUR ---
UP TO BSC TO VOID AND HAVE SMALL LIQ STOOL WITH FEW FORMED BITS, ALSO PASSED GAS. FEELS BETTER AFTERWARD. TEENA BEING UP WELL.
--- NOTE | 2018-05-16 08:00 | NUR ---
ASSESSMENT DONE. DR. KAUR HERE TO SEE PATIENT. NO FUTHER ORDERS AT TIME.
--- NOTE | 2018-05-16 08:35 | NUR ---
ABD XRAY DONE.
--- NOTE | 2018-05-16 10:49 | NUR ---
PHYS THERAPY WORKING WITH PATIENT.
--- NOTE | 2018-05-16 12:00 | NUR ---
ASSESSMENT DONE. DENEIS PAIN. VISITING WITH FAMILY MEMBERS. IV PATENT, PATIENT IS W/O C/O.
--- NOTE | 2018-05-16 16:10 | NUR ---
AMBULATED TO BR TO VOID AND EXPELL SMALL SOFT FORMED BROWN STOOL. SPONGE BATH GIVEN WHILE UP TO BR. THEN TO BEDSIDE TO HAVE HAIR DONE. TOLERATED WELL. PATIENT STATES SHE IS FEELING BETTER THIS AFTERNOON.
--- NOTE | 2018-05-16 17:30 | NUR ---
DR. KAUR HERE TO SEE PATIENT. PATIENT IS SITTING AT BEDSIDE EATING TAKING CLEAR LIQ
--- NOTE | 2018-05-16 21:53 | NUR ---
PT AWAKE AND WANTING SOMETHING MORE TO DRINK. "YOU ARE STARVING ME AND I AM HUNGRY". OFFERED TOMATO SOUP TO DRINK AT HIS TIME.
--- NOTE | 2018-05-16 22:32 | NUR ---
PT IN BED LYING WITH EYES CLOSED, BUT WHEN STAFF IS IN THE ROOM SHE WILL AWAKEN AND ASK WHAT WE ARE DOING. REASURED PT THAT SHE NEEDS TO SLEEP AND TRY TO GET SOME SLEEP.
--- NOTE | 2018-05-16 23:21 | NUR ---
PT IS ASLEEP AT THIS TIME, SPO2 100% AT THIS TIME WITH 2L NC INPLACE.
--- NOTE | 2018-05-17 00:33 | NUR ---
PT CONTIOUES TO BE SLEEPING AT THIS TIME. WILL DO ASSEMENT WHEN PT IS AWAKE.
--- NOTE | 2018-05-17 00:52 | NUR ---
PT CONTIOUES TO BE SLEEPING.
--- NOTE | 2018-05-17 01:22 | NUR ---
PT UP TO THE BEDSIDE COMMODE VOIDED AND BACK TO BED. PT WAS VERY SOB WITH ACTIVITY TO THE BS COMMODE. VOIDED AND BACK TO BED, RT PRESENT TO GIVE NEB TX. PT PRESENT WITH ANXIETY, CAN'T GET AIR, AND INCREASED HEART RATE AND BLOOD PRESSURE. PT DID SETTLE DOWN AND RESP RATE AND HEART RATE DECREASED. PT REMAINED IN S-TACH.
--- NOTE | 2018-05-17 01:28 | NUR ---
DR HOPPER NOTIFIED NO NEW ORDERS.
--- NOTE | 2018-05-17 02:25 | NUR ---
CARE ASSUMED OF PT, REPORT RECEIVED FROM TRACY RAMEY. PT RESTING WITH EYES CLOSED, RESP EVEN, UNLABORED, SPO2 92% ON 2L RT RECENTLY IN TO TURN O2 DOWN FROM 3L SPO2 WAS 99%. CARDIZEM IV GIVEN HR 100-110 BP 108/64 MAP 74 PREMED, HR DOWN TO 90'S AFTER MED GIVEN. PT REMAINS ASLEEP DURING CARDIZEM BEING GIVEN.
--- NOTE | 2018-05-17 03:03 | NUR ---
PT PULLED O2 OFF, SPO2 DOWN TO 83%, AWAKE IN BED. STARTING TO GET A LITTLE ANXIOUS ABOUT O2 SATS BUT PT RESASSURED, HELPED TO RELAX AND TRY TO LIE BACK DOWN AND SLEEP. SPO2 BACK UP TO 96% ONCE O2 BACK ON, HR ALSO UP FROM 80'S TO 105-122 DURING THE TIME.
--- NOTE | 2018-05-17 04:41 | NUR ---
PT AWAKENS FEELING SOB/ REQUESTS NEB TX, RT IN TO DO NEB. ASSESSMENT DONE. LUNGS CLEAR/DIM. HR 100.
--- NOTE | 2018-05-17 05:15 | NUR ---
PT NOW RESTING WITH EYES CLOSED, HR 100 AND SPO2 96% ON 2L/NC.
--- NOTE | 2018-05-17 06:37 | NUR ---
IV CARDIZEM GIVEN, MINIMAL CHANGE NOTED IN HR. PT AWAKE IN BED AT THIS TIME, SOMEWHAT ANXIOUS, TALKING ABOUT NEEDING HER HOME INHALER AND DISCUSSING HER HOME AND FAMILY MEMBERS IN AN ANXIOUS MANNER. ENCOURAGED HER TO REST AND RELAX. HOT TEA GIVEN. STATES SHE WILL NEED TO GET UP TO VOID IN A WHILE AND WILL CALL WHEN SHE IS READY.
--- NOTE | 2018-05-17 07:25 | NUR ---
HR REMAINS ABOVE 100 SINCE IV CARDIZEM GIVEN. PT UP TO BSC TO VOID AND HAVE MED BOWEL MOVEMENT. HR UP TO 120'S WHILE UP. BACK TO SIT AT EDGE OF BED, TEENA FAIRLY WELL, MINIMAL SOB.
--- NOTE | 2018-05-17 07:35 | NUR ---
PT SHIFT REPORT RECEIVED FROM MILL WORK RN. PT IS UP TO CAMMODE AND BACK TO BED. PER MILL WORK PT HAS HAD SOME EPISODES OF "ANXIETY". PT REPORTS "I FEEL ANXIOUS AT TIMES AND I GET SOB WHEN THIS HAPPENS".
--- NOTE | 2018-05-17 08:00 | NUR ---
PT AWAKE AND RESTING IN BED AT THIS TIME. PT DENIES ANY NEEDS AT THIS TIME. PT ASSESSMENT COMPELTED. PT BREATH SOUNDS DIMINISHED. RESPIRATORY THERAPY IN TO SEE PATIENT. WILL CONTINUE TO CLOSELY MONITOR. PT HAD BM THIS AM. NO OTHER ISSUES AT THIS TIME. BREAKFAST ORDERED.
--- NOTE | 2018-05-17 10:30 | NUR ---
PER MD STOP FLUIDS AND GIVE 20 OF IV LASIX. PT RR INCREASED TO 26-28. PT DENIES SOB AT THIS TIME. PER MD HOLD IV CARDIZEM DOSE. INSTEAD GIVE 45MG TAB OF PO CARDIZEM AT THIS TIME. WILL CONTINUE TO CLOSELY MONTIOR. PT HAS A WHEEZE NOTED AT TIMES. CLEARS WITH COUGH.
--- NOTE | 2018-05-17 11:00 | NUR ---
PT RR INCREASED AND PATIENT STATES SHE WANTS A NEB TREATMENT. RT NOTIFIED AND IN THE ROOM TO GIVE TREATMENT. WILL CONTINUE TO CLOSELY MONITOR. PT HR UP TO 100'S AT TIMES.
--- NOTE | 2018-05-17 11:50 | NUR ---
CALLED MD TO NOTIFY PTS HR IS NOTED TO BE A.FIB 120-140'S. PER MD GIVE 5MG IV CARDIZEM PUSH. WILL CONTINUE TO CLOSELY MONITOR,
--- NOTE | 2018-05-17 12:00 | NUR ---
IV CARDIZEM GIVEN WILL MONTIOR EFFECTIVENESS AND HOW PATIENT TOLERATES IT.
--- NOTE | 2018-05-17 12:20 | NUR ---
CALLED MD AGAIN. PTS HR CHANGED INITIALLY WITH CARDIZEM GTT, BUT ALMOST IMMEDIATELY WENT BACK UP AND IS NOW RESTING IN THE 140-160'S. PER MD GIVE ANOTHER DOSE OF 5MG IV CARDIZEM PUSH AND START ON CARDIZEM GTT AT 10MLS/HR.
--- NOTE | 2018-05-17 12:30 | NUR ---
CARDIZEM PUSH AND GTT STARTED. PT HAS ALSO RECEIVED POTASSIUM AND MAGNESIUM IV IS RUNNING IN OTS OTHER IV AT THIS TIME. WILL MONITOR FOR CHANGES IN PTS HR AND BP.
--- NOTE | 2018-05-17 12:45 | NUR ---
CALLED MD HOPPER AGAIN. PTS HR UNCHAGED WITH IV PUSH OF CARDIZEM AND GTT AT 10MLS/HR. PTS HR NOW 160'S UP TO 180'S AT TIMES. MD HOPPER COMING TO SEE PATIENT.
--- NOTE | 2018-05-17 12:55 | NUR ---
GAVE DOSE OF METOPROLOL 5MG IV PUSH AT THIS TIME. MD AT THE BEDSIDE. MEDICATION ADMINISTERED WITH BP MONITOR Q3-5 MINUTES. PTS BP TOLERATING MEDICATIONS WELL. PT CARDIZEM GTT AT 15MLS/HR. PT HR WITHIN A FEW MINUTES DECREASED DOWN TO 80'S IN A SINUS RHYTHM WITH ECTOPY NOTED. PER MD KEEP PT ON CARDIZEM GTT AND MONITOR HR AND BP. WILL CONTINUE TO CLOSELY MONITOR. PT DURING THIS TIME HAD HER DAUGHTER AT THE BEDSIDE. PT RR INCREASED AND PT APPEARED RESTLESS AT TIMES.
--- NOTE | 2018-05-17 13:00 | NUR ---
PT STATES "I AM STARTING TO FEEL A LITTLE BETTER, I DONT FEEL THE THUMPING IN MY CHEST ANYMORE". PT ASSISTED TO USE BEDPAN AND PT FILLED THE BEDPAN WITH URINE. PT CLEANED AND NEW PAD PLACED. WILL CONTINUE TO CLOSELY MONITOR.
--- NOTE | 2018-05-17 15:30 | NUR ---
BELT FIXER PAVITHRA RAMEY IN TO START IV ON PATIENT. PER MD KAUR WHO IS HERE TO SEE THE PATIENT, ITS OKAY TO START AN IV ON PTS LEFT ARM. UPDATED MMD VINCENT ON PATIENT STATUS AND HR ISSUES THAT OCCURED TODAY. MD KAUR INCREASED PTS DIET TO REGULAR. PT HAS HAD 2 BMS TODAY. LUNCH ORDERED. WILL CONTINUE TO CLOSELY MONITOR.
--- NOTE | 2018-05-17 17:00 | NUR ---
CALLED MD HOPPER TO VERIFY ORDERS. PER MD HOPPER GIVE PO 60MG CARDIZEM AND DECREASE CARDIZEM GTT AFTER. WILL CONTINUE TO TITRATE GTT. NO OTHER ISSUES AT THIS TIME. DINNER ORDERED. PT UP TO THE CAMMODE.
--- NOTE | 2018-05-17 17:15 | NUR ---
CARDIZEM GTT TITRATED TO 10MLS/HR.
--- NOTE | 2018-05-17 18:49 | NUR ---
CARDIZEM GTT DECREASED TO 5MLS/HR. WILL CONTINUE TO CLOSELY MONITOR. PT EATING DINNER AT THIS TIME. PTS HR REMAINS IN THE 80'S IN SINUS RHYTHM. BP 110-120'S SYSTOLIC. WILL CONTINUE TO CLOSELY MONITOR.
--- NOTE | 2018-05-17 19:44 | NUR ---
REPORT RECEIVED FROM BHARGAV RAMEY. RT JUST FINISHED UP NEB. PT IN BED, RESTING. ASSESSMENT DONE. DENIES PAIN. HR 80'S SINUS RHYTHM. PT STATES "IM FINE, IM JUST FOCUSING ON BREATHING GOOD".
--- NOTE | 2018-05-17 19:56 | NUR ---
DR HOPPER CALLED TO GIVE ORDERS REGARDING EVENING MEDS, CARDIZEM GTT TURNED OFF AND WILL GIVE IV LOPRESSOR 5MG NOW. PT CONT TO REST IN BED WITH HR UPPER 70'S, SINUS RHYTHM.
--- NOTE | 2018-05-17 21:04 | NUR ---
PT INC LIQUID STOOL, MISSY CARE DONE, ATTENDS PLACED AND PT REPOSITIONED UP IN BED. HR 70.
--- NOTE | 2018-05-17 23:24 | NUR ---
PT SUDDENLY ANXIOUS, SITING UP AT EDGE OF BED HR 80'S AT FIRST THEN EVENTUALLY UP TO 100. STATES "I JUST FEEL SO PINNED IN, IM JUSTT SO TIED UP". ALSO BECOMING MORE SOB, REQUESTS NEB TX. RT IN TO DO NEB TX.
--- NOTE | 2018-05-18 00:30 | NUR ---
PT CONT TO GET MORE ANXIOUS, HR EVENTUALLY UP TO 115 AND RESP RATE UP HIGH 40 AND SPO2 DOWN TO 70%. PT BREATHING VERY FAST AND SHALLOW AND TAKING A LOT OF DIRECTION AND REASSURANCE TO TRY TO RELAX HERSELF AND SLOW DOWN HER BREATHING. PT WAS UNABLE TO COMPLETE ENTIRE NEB TX DUE TO ANXIETY, REQUESTS DIFFERENT THINGS DURING THIS EPISDOE SUCH COKE, HER HOME INHALERS, TO LIE BACK AND TO GET UP AND WALK. PT EVENTUALLY WAS ABLE TO SLOW BREATHING DOWN AND BREATHE THROUGH HER NOSE WITH DIRECTION AND REASSURANCE AND SPO2 CAME UP TO 98% AND RESP BACK DOWN TO 15, THEN SHE LIED BACK IN TO BED TO TRY TO REST AND SLEEP.
--- NOTE | 2018-05-18 02:00 | NUR ---
PT CONT TO BE RESTFULL AT THIS TIME, CONT TO MONITOR. STILL ON 2L/NC WITH SPO2 98% AND HR 80'S.
--- NOTE | 2018-05-18 02:45 | NUR ---
PT AWAKENS FOR IV LOPRESSOR, IS SOMEWHAT ANXIOUS WITH MANY DIFFERENT CONCERNS ABOUT HERSELF, INCISION, BREATHING, OXYGEN TUBING, MONITOR, ETC. ENCOURAGED PT NOT TO WORRY ABOUT THINGS AND TO FOCUS ON KEEPING HERSELF RELAXED. UP TO VOID AND HAVE LARGE LIQUID STOOL THEN BACK TO BED, PT VERY ANXIOUS WHILE UP ON COMMODE BUT WAS ABLE TO KEEP CONTROL OF HER BREATHING AND LIE BACK IN BED AND TRY TO SLEEP.
--- NOTE | 2018-05-18 08:00 | NUR ---
PT UP TO THE CHAIR FOR BKF AT THIS TIME, PT DID WELL WITH THE FEW STEPS THAT SHE TOOK TO GET FROM BED TO THE CHAIR.
--- NOTE | 2018-05-18 09:23 | NUR ---
PT REMAINS UP IN THE CHAIR AT THIS TIME, AND APPEARS TO BE SLEEPING.
--- NOTE | 2018-05-18 10:01 | NUR ---
PT BACK TO BED AT THIS TIME, AMBULATES WELL.
--- NOTE | 2018-05-18 10:32 | NUR ---
DR KAUR INTO SEE PT THIS AM, NO NEW ORDERS.
--- NOTE | 2018-05-18 11:14 | NUR ---
PT MEDICATED WITH ZORFAN FOR GERD. C/O OF NAUSEA ALSO, PT WAS WORKING WITH PHYSICAL THERAPY AND AFTER NOT FEELING WELL WITH TO THE CHAIR.
--- NOTE | 2018-05-18 12:17 | NUR ---
PT REMAINS UP IN THE CHAIR AT THIS TIME. LUNCH ORDERED
--- NOTE | 2018-05-18 12:39 | NUR ---
PT CURRENTLY UP IN THE CHAIR EATTING LUNCH AT THIS TIME. PT DENIES ANY C/O'S OF NAUSEA OR GERD. ONCE PT STARTS EATING SHE DOES WELL WITH IT.
--- NOTE | 2018-05-18 13:17 | NUR ---
PT IS SITING IN CHAIR, RECOGNIZED ME AND INVITED ME IN. PT SAID PASTOR MEADE HAS BEEN IN TO VISIT, SHE SEEMS TO BE PLEASED WITH HIS VISITS. SHE ONCE AGAIN TOLD ME THAT SHE HAS COPD, AND THAT THERE IS NO CURE, BUT SHE IS LEARNING TO HANDLE IT. EXTENDED A BLESSING, WILL FOLLOW NEEDED
--- NOTE | 2018-05-18 13:45 | NUR ---
PT ATE WELL FOR LUNCH. REMAINS UP IN THE CHAIR AT THIS TIME.
--- NOTE | 2018-05-18 14:03 | NUR ---
PT UP TO BED SIDE COMMODE TO VOID. C/O PAIN TO COCCYX. RED AREA NOTED THAT IS BLANCHABLE. PT BACK TO BED,. FLOATED ON PILLOWS TO RELIEVE PRESSURE
--- NOTE | 2018-05-18 15:48 | NUR ---
REPORT CALLED TO AWA ALL QUESTIONS ANSWERED. PT PLACED ON TELE#8 AND TRANSFERED TO THE ROOM VIA CHAIR, ALL PERSONAL BELONGINGS SENT WITH PT.
--- NOTE | 2018-05-18 16:03 | NUR ---
PT SITTING UP IN CHAIR RECEIVING NEB TREATMENT WITH RT AT BEDSIDE. CALL LIGHT IN [facility] UPDATED. PT ORIENTED TO ROOM/UNIT. PT DENIES NEEDS OR CONCERNS.
--- NOTE | 2018-05-18 16:41 | NUR ---
pt restign in chair, talking on phone, speech clear. Assessment completed. VSS and diltiazem 60mg administered po -see JUL. Call light and h20 in reach.
--- NOTE | 2018-05-18 19:10 | NUR ---
HELPED PT BACK TO BED FROM THE BATHROOM WITH HER FWW. BEDSIDE TABLE AND CALL LIGHT IN REACH.
--- NOTE | 2018-05-18 19:13 | NUR ---
SHIFT REPORT RECEIVED FROM DAYSHIFT RN AT BEDSIDE. PT IN BATHROOM WITH EXCHANGE MECHANIC TO VOID. RR WNL, TELE #[address], HR WNL. INCISION TO RIGHT LOWER QUADRANT OPEN TO AIR, MILD SEEPING FROM INCISION NOTED, AWARE PER SHIFT REPORT BY AWA RAMEY. PT DENIES ADDITIONAL NEEDS.
--- NOTE | 2018-05-18 19:30 | NUR ---
HELPED PT TURN HER TV ON.
--- NOTE | 2018-05-18 19:45 | NUR ---
HELPED PT TURN HER TV OFF. TURNED FAN ON FOR HER. PT NEEDS NOTHING ELSE AT THIS TIME.
--- NOTE | 2018-05-18 20:12 | NUR ---
CHARGE NURSE ROUNDING NOTE: PT PLACED ON CONTACT ISOLATION PT STATES SHE HAS BEEN DX WITH FACIAL SHINGLES?, WILL DO ANSG JUDGEMENT UNTIL PT IS ASSESS IN AM BY . PT STATED THAT SHE GOT DX LAST WEEK WHEN SHE CAME TO ER, ON O2, AWAKE, ALERT AND ORIENTED. NO C/O APIN
--- NOTE | 2018-05-18 20:56 | NUR ---
ASSESSMENT COMPLETE. PT A/OX3, DENIES PAIN AT THIS TIME. SCHEDULED MEDICATIONS ADMINISTERED WITHOUT CONCERN. VSS, PT ON 2L NC, DENIES SOB AT THIS TIME. SURGICAL SITE IS OPEN TO AIR WITH STERI STRIPS, SCANT SEEPING NOTED AT SITE, MD AWARE PER SHIFT REPORT BY AWA RAMEY. WILL CONTINUE TO MONITOR. PT DENIES ADDITIONAL NEEDS, CALL LIGHT IN REACH.
--- NOTE | 2018-05-18 22:00 | NUR ---
PER PT REQUEST I TURNED OFF THE FAN. AND GOT HER TWO WARM BLANKETS.
--- NOTE | 2018-05-18 22:35 | NUR ---
PT RETURNED FROM THE BATHROOM SBA. PT NOW IN CHAIR. PT REPORTS MILD SOB, PT ENCOURAGED TO DEEP BREATH, SOB RESOLVED ITSELF. VSS, BP 125/62. MAP 92. HR 73. PT ON TELE #8, SINUS RHYTHM. PT STATES, "I JUST FEEL RESTLESS, I THINK I'M GOING TO TRY AND SLEEP IN THE CHAIR". PT PROVIDED WITH WARM BLANKET, WATER AT BEDSIDE. CALL LIGHT IN REACH.
--- NOTE | 2018-05-19 00:05 | NUR ---
PT APPEARS COMFORTABLE, RESTING IN CHAIR. EYES CLOSED, RR EVEN AND UNLABORED. CALL LIGHT IN REACH. TELE #8 ON, HR WNL.
--- NOTE | 2018-05-19 03:58 | NUR ---
THIS RN NOTIFIED BY AUGUST ADVERTISING DESIGNER THAT PT REQUESTS BREATHING TREATMENT. RT NOTIFIED. CALL LIGHT IN REACH.
--- NOTE | 2018-05-19 04:16 | NUR ---
HELPED PT TO THE BSC AND BACK TO BED. PT ASKED FOR A BREATHING TREATMENT, I INFORMED HER RN LESTER. BEDSIDE TABLE AND CALL LIGHT IN REACH.
--- NOTE | 2018-05-19 04:51 | NUR ---
MORNING ASSESSMENT COMPLETE. PT DENIES PAIN. VSS, SCHEDULED CARDIZEM ADMINISTERED. PT STATES, "DOES THIS PLACE HAVE GHOSTS, I THINK I SEE SOMEONE". PT IS A/OX3, BUT FORGETFUL AT TIMES. NEW STERI STRIPS PLACED BY MACHINE ASSEMBLER ROSE RAMEY. PT DENIES FURTHER NEEDS, CALL LIGHT IN REACH.
--- NOTE | 2018-05-19 06:55 | NUR ---
PT HAD A GOOD NIGHT. PT A/OX3, BUT WAS FORGETFUL AT TIMES. PT USES CALL APPROPERIATELY. PT ON TELE#8, HR WNL. SCHEDULED CARDIZEM AND METOPROLOL. PT SBA 1-2P. PT ON 2LNC, SOB AT TIMES WITH EXERTION.
--- NOTE | 2018-05-19 06:59 | NUR ---
HELPED PT TO THE BSC AND BACK TO BED. BEDSIDE TABLE AND CALL LIGHT IN REACH.
--- NOTE | 2018-05-19 07:15 | NUR ---
Pt resting supine in bed, eyes closed and respirations even and unlabored. Call light and h20 in reach. Pt appears to be sleeping comfortably. Bedside report received from TANVIR Mata.
--- NOTE | 2018-05-19 07:50 | NUR ---
PATIENT RESTING IN BED. PATIENT'S BREAKFAST ORDERED. ICE WATER GIVEN. CALL LIGHT WITHIN REACH. NO OTHER NEEDS AT THIS TIME
--- NOTE | 2018-05-19 08:14 | NUR ---
PT FOUND TO BE SLEEPING WITH O2 OFF AND REPORTS SOB WITH RR28. O2 IN HIGH 60'S ON RA PER PULSE OXIMETER. 2LPNC WAS QUIKLEY REAPPLIED AND RT IN ADMINISTERING NEB TREATMENTS. 02 NOW 92% ON 2LPNC AND PT STATES SHE NO LONGER IS FEELING SOB. NEB TX'S CONTINUE AND RT AT BEDSIDE. CALL LIGHT AND H20 IN REACH. CPOX APPLIED.
--- NOTE | 2018-05-19 08:32 | NUR ---
PT RESTING SUPINE IN BED, DENIES SOB ON 2LPNC, PULSE OX CONTINUES TO READ 92-93% ON 2LPNC. ASSESSMENT COMPLETED AND AM MEDICATIONS ADMINISTERED. CALL LIGHT AND H2O IN REACH. PRN ANTI ITCH CREAM APPLIED TO CHEEKS PER PT REQUEST AND REPORTS OF PURITIS TO BILAT CHEEK. MILD REDNESS NOTED TO LEFT CHEEK BUT NO VISABLE BLISTERS OR SKIN BREAKDOWN NOTED.
--- NOTE | 2018-05-19 08:50 | NUR ---
NOTIFIED OF PT DESATTING TO HIGH 60'S ON RA WHEN HER NASAL CANULLA FELL OFF WHILE SHE WAS SLEEPING, O2 IS BACK UP TO 92% ON 2LPNC AND NEB TX'S GIVEN PER RT. PT DENIES SOB CURRENTLY AND O2 REMAINS IN LOW 90'S PER CPOX. CPOX ORDER RECEIEVED. NO FURHTER ORDERS AT THIS TIME.
--- NOTE | 2018-05-19 09:46 | NUR ---
PATIENT RESTING IN BED. DR AND RN IN ROOM. VITAL SIGNS AND I&O DONE. CALL LIGHT WITHIN REACH. NO OTHER NEEDS AT THIS TIME
--- NOTE | 2018-05-19 10:16 | NUR ---
pt resting supine in bed, respirations even and unlabored at 20. cpox shows 92% on 2lpnc. VSS. Diltiazem administered po. No further needs or concerns voiced. call light and h20 in reach.
--- NOTE | 2018-05-19 11:00 | NUR ---
PATIENT CALLS TO USE BATHROOM. PATIENT IN BED. PATIENT WALKS TO BATHROOM USING A WALKER. ONE PERSON ASSISTING. PATIENT BACKS TO CHAIR. LINENS CHANGED. PATIENT REFUSE SHOWER. CALL LIGHT WITHIN REACH. NO OTHER NEEDS AT THIS TIME
--- NOTE | 2018-05-19 11:31 | NUR ---
IN TO ANSWER CALL LIGHT, PT STATES "SOMETHING WEAS BEEPING AT ME AND I'M NOT SURE WHAT IT WAS BUT IT'S STOPPED NOW" O2 SAT 92% ON 2LPNC PER CPOX AND HR IN 60'S. CALL LIGHT AND PERSONAL ITEMS INCLUDING H20 IN REACH. PT DENIES FURTHER NEEDS.
--- NOTE | 2018-05-19 12:05 | NUR ---
PT LAYING IN BED, ALERT AND ORIENTED. SHE MENTIONED THAT SHE IS TO BE DC'D TODAY, AND THAT SHE FELT SHE COULD RECOVER QUICKER AT HOME. LOOKING FORWARD TO BEING IN HER OWN BED. DOESNOT APPEAR TO BE IN ANY DISTRESS, EXTENDED A BLESSING. WILL FOLLOW NEEDED
--- NOTE | 2018-05-19 15:46 | NUR ---
Pt sitting up in chair assessment completed. Pt states she ordered dinner. incision appears to be draining small amount of serous drainage. no warmth, redness or swelling noted. Call light and h20 in reach. no concerns or requests voiced.
--- NOTE | 2018-05-19 16:21 | NUR ---
RECIEVED A MESSAGE THAT PT DAUGHTER JOSE M CALLED AND COULD I CALL HER BACK. I CALLED HERNESTO BACK AT [phone] AND SHE VOICED CONCERNS ABOUT HER MOTHER BEING SENT HOME WITH NO ONE THERE. I TOLD HER HER MOTHER DID INDEED EXPLAIN THAT SHE HAS CARE GIVERS FOR 2 HOURS/DAY 7 DAYS A WEEK. ALSO THAT SHE HAS A VERY CLOSE FRIEND THAT CAN COME AND SPEND EXTRA TIME WITH HER I DID SAY I WAS GOING TO ASK DR KAUR IF WE COULD HAVE ORDERS FOR HOME HEALTH RN AND PT TO COME TO THE HOUSE AND WORK WITH THE PT. DAUGHTER STATED SHE WAS CALLING [employer]PING [employer] TO INFORM THEN OF THE IMPENDING DC OF PT IN NEXT DAY OR SO. SO THEY WOULD BE AVAILABLE FOR HER ALSO.
--- NOTE | 2018-05-19 17:57 | NUR ---
PATIENT SITING UP IN CHAIR. VITAL SIGNS AND I&O DONE. PATIENT DID NOT VOID DURING THIS PERIOD. RN NOTIFIED. CALL LIGHT WITHIN REACH. NO OTHER NEEDS AT THIS TIME.
--- NOTE | 2018-05-19 19:15 | NUR ---
SHIFT REPORT RECEIVED FROM DAYSHIFT TANVIR BILLINGS AT BEDSIDE. PT AWAKE, 2LNC IN PLACE. NO DISTRESS NOTED, CALL LIGHT IN REACH. NO FURTHER NEEDS AT THIS TIME. PT APPEARS IN GOOD SPIRITS.
--- NOTE | 2018-05-19 20:56 | NUR ---
ASSESSMENT COMPLETE. PT A/OX3, CURRENTLY DENIES PAIN. VSS, PT ON 2LNC, DENIES SOB. WHEEZES AUSCULTATED IN LEFT UPPER LOBE, O2 SAT WNL. INCISION SITE OPEN TO AIR, STERI STRIPS IN PLACE, MINIMAL CLEAR SERSANGINEOUS WEEPING NOTED, WILL CONTINUE TO MONITOR. REDDNESS NOTED TO COCCYX, BLANCHABLE, PILLOW PLACED UNDER COCCYX FOR PROTECTION IN SKIN BREAKDOWN. PT DENIES FURTHER NEEDS, CALL LIGHT IN REACH.
--- NOTE | 2018-05-19 22:40 | NUR ---
HELPED PT TO THE BSC AND BACK TO BED. BEDSIDE TABLE AND CALL LIGHT IN REACH. PT NEEDS NOTHING MORE AT THIS TIME.
--- NOTE | 2018-05-20 00:04 | NUR ---
PT RESTING IN BED, EYES CLOSED. RR EVEN AND UNLABORED. 2LNC IN PLACE. NO RESPIRATORY DISTRESS NOTED. CALL LIGHT IN REACH.
--- NOTE | 2018-05-20 02:18 | NUR ---
PT LAYING IN BED, EYES CLOSED. NO DISTRESS NOTED, 2LNC IN PLACE. CALL LIGHT IN REACH.
--- NOTE | 2018-05-20 04:37 | NUR ---
THIS RN IN ROOM TO ANSWER CALL LIGHT, PT REQUESTING PRN BREATHING TREATMENT. THIS RN TO ASSESSMENT PT. NC OFF PT, O2 SAT 70'S. 2LNC PLACED ON PT, THEN TITRATED TO 3LNC. PT INSTRUCTED TO DEEP BREATH IN THROUGH NOSE AND OUT THROUGH MOUTH. O2 RETUNRED TO LOW 90'S. O2 TITRATED DOWN TO ORIGINAL 2LNC. ASSESSMENT COMPLETE. OTHER THAN INITIAL DESAT OF O2, NO NEW CONCERNS. RT CALLED FOR PRN BREATHING TREATMENT. PT STATES, "I FEEL BETTER", BUT CONTINUES TO WANT BREATHING TREATMENT. NO ADDITIONAL NEEDS, CALL LIGHT IN REACH.
--- NOTE | 2018-05-20 05:26 | NUR ---
VITALS AND I&OS DONE AND CHARTED. BED ALARM SET. WITH THE HELP OF TANVIR BATISTA WE ADJUSTED HER IN BED TO HER COMFORT. BEDSIDE TABLE AND CALL LIGHT IN REACH. PER PT REQUEST I GOT HER SOME TEA.
--- NOTE | 2018-05-20 05:28 | NUR ---
PT A/OX3 BUT FORGETFUL AT TIMES. VSS, NC2L IN PLACE. PT DOES NOT ALWAYS LEAVE NC ON, DESATS ON RA.CONTINUOUS PULSE OX IN PLACE. PT IMPULSIVE AT TIMES, BED ALARM ON. REGULAR DIET TOLERATING WELL, DENIED NAUSEA ALL SHIFT, BOWEL TONES ACTIVE. INCISION SITE OPEN TO AIR WITH STERI STRIPS, WEEPING. MD AWARE PER SHIFT REPORT.
--- NOTE | 2018-05-20 08:00 | NUR ---
RECEIVED REPORT AT 0700, FOUND PT IN BED SLEEPING. NO NEW CONCERNS NOTED AT THAT TIME.
--- NOTE | 2018-05-20 10:00 | NUR ---
V/S ARE WDL, ABD IS NON-DISTENDED, BOWEL TONES ARE ACTIVE. INCISIONS ARE STILL LEAKING CLEAR FLUIDS AT TIMES. 1/2 INCH OF LARGER INCISION HAS OPENED. I WILL TALK TO MD KAUR WHEN HE COMES IN. LOBES ARE CLEAR BUT DIMINISHED IN THE BASES. PT HAS BETTER APPETITE STATED BY HERSELF THIS MORNING. WILL CONTINUE TO MONITOR INCISION SITE AND BP'S.
--- NOTE | 2018-05-20 12:00 | NUR ---
PT IS UP IN CHAIR. NO NEW CONCERNS.
--- NOTE | 2018-05-20 13:34 | NUR ---
PER MD KAUR, SMALL OPEN WOUND WAS PACKED WITH DRY GAUZE, PAPER TAPE WAS APPLIED. WILL CONTINUE TO MONITOR.
--- NOTE | 2018-05-20 13:57 | NUR ---
PATIENT SITTING UP IN CHAIR. PATIENT BACKS TO BED. ONE PERSON ASSISTING. VITAL SIGNS AND I&O DONE. ICE WATER GIVEN. CALL LIGHT WITHIN REACH. NO OTHER NEEDS AT THIS TIME
--- NOTE | 2018-05-20 14:26 | NUR ---
PATIENT CALLS TO USE BATHROOM. PATIENT IN BED. PATIENT WALKS TO BATHROOM USING A WALKER. ONE PERSON ASSISTING. ATTEND CHANGED. PATIENT BACKS TO BED. PATIENT COMPLAINS ABOUT NAUSEA AND ASKS FOR SOME MEDICINE. RN NOTIFIED. CALL LIGHT WITHIN REACH. NO OTHER NEEDS AT THIS TIME
--- NOTE | 2018-05-20 15:00 | NUR ---
PT HAS A TEMP OF 99.0 ORALLY. WILL CONTINUE TO MONITOR. PT ALSO HAS NAUSEA, 4MG IV ZOFRAN HAVE BEEN GIVEN. WILL CONTINUE TO MONIOR.
--- NOTE | 2018-05-20 15:13 | NUR ---
PATIENT CALLS AND COMPLAINS ABOUT STOMACHACHE AND SAYS SHE FEELS VERY HOT AND NEEDS THE FAN ON. THIS CONTACT FINGER ASSEMBLER TAKES HER TEMPERATURE (99.6 TEMPORAL AND 99.0 ORAL), TURNS ON THE FAN AND PUTS A WET TOWEL ON HER FOREHEAD. RN NOTIFIED.
--- NOTE | 2018-05-20 15:25 | NUR ---
PT JUST RECEIVED ANOTHER 4MG IV ZOFRAN SINCE HER NAUSEA HAS NOT SUBSIDED WITH THE FIRST DOSE. I WILL GIVE HER SOME TYLENOL IF NEEDED IF HER TEMP IS CLIMBING. AT THIS TIME HOWEVER PT WOULD NOT BE ABLE TO KEEP THE TYLENOL DOWN.
--- NOTE | 2018-05-20 15:46 | NUR ---
NAUUSEA HAS SUBSIDED AT THIS TIME. RES THERAPY IN ROOM FOR SEBASTIAN XIAO.
--- NOTE | 2018-05-20 16:37 | NUR ---
PT AT THIS TIME IS AFREBRILE AT 98.6 ORALLY. PT ALSO DENIES NAUSEA AT THIS TIME.
--- NOTE | 2018-05-20 18:06 | NUR ---
PATIENT RESTING IN BED. PATIENT ASKS FOR A CUP OF FRUIT. CUP OF FRUIT ORDERED. VITAL SIGNS AND I&O DONE. CALL LIGHT WITHIN REACH. NO OTHER NEEDS AT THIS TIME
--- NOTE | 2018-05-20 18:14 | NUR ---
PT IN THE MORNING DID WELL OVERALL. AFTER EATING LUNCH PT BECAME VERY NAUSEOUS. PT ALSO HAD A TEMP OF 99.0 F. 8MG OF ZOFRAN WAS GIVEN AND NAUSEA DID SUBSIDE AND SO DID HER TEMP. INCISION IS STILL WEEPING AND A 1CM PORTION HAS DEHISCED. PER MD KAUR WE ARE TO PACK IT WITH DRY GAUZE. PT WAS ALSO ANXIOUS THIS AFTERNOON WITH INCREASED RR. LATER THIS AFTERNOON HER SOB SUBSIDED AND SO DID HER INCREASED RR. NO OTHER CONCERNS NOTED SO FAR.
--- NOTE | 2018-05-20 19:10 | NUR ---
SHIFT REPORT RECEIVED FROM DAYSHIFT RN AT BEDSIDE. PT AWAKE AND A/OX3. DENIES NEEDS ATT HIS TIME. PT ON 2LNC. CALL LIGHT IN REACH.
--- NOTE | 2018-05-20 21:48 | NUR ---
ASSESSMENT COMPLETE. SCHEDULED MEDS GIVEN (SEE EMAR). SCHEDULED BENADRYL HELD PER PT REQUEST. PT A/OX4, DENIES PAIN. VSS, PT ON 2LNC O2 SAT AND HR WNL. REDDENED AREA NOTED ON COCCYX, ALLEVYN IN PLACE FROM DAYSHIFT, SURROUNDING AREA BLANCHABLE. SMALL DEHISCENCE DURING DAYSHIFT PER SHIFT REPORT, SITE PACKED WITH 2X2 AND COVERED WITH PAPER TAPE PER TANVIR QUEZADA. NO FURTHER NEEDS NOTED, CALL LIGHT IN REACH.
--- NOTE | 2018-05-20 21:49 | NUR ---
VITALS AND I&OS DONE AND CHARTED. CHANGED DIRTY GOWN. CHANGED DRAW SHEET ALSO. BEDSIDE TABLE AND CALL LIGHT IN REACH. FRESH WATER GIVEN. HELPED PT TO THE BSC AND BACK TO BED. PT NEEDS NOTHING MORE AT THIS TIME.
--- NOTE | 2018-05-21 02:07 | NUR ---
PT RESTING IN BED, EYES CLOSED, RR EVEN. CONTINOUS PULSE OX IN PLACE, HR60 O2 SAT 97% ON 2LNC. CALL LIGHT IN REACH.
--- NOTE | 2018-05-21 02:49 | NUR ---
HELPED PT TO THE BSC AND BACK TO BED. BED ALARM SET. BEDSIDE TABLE AND CALL LIGHT WITHIN REACH. PT NEEDS NOTHING MORE AT THIS TIME.
--- NOTE | 2018-05-21 05:03 | NUR ---
PT HAD A GOOD NIGHT. A/OX4, VSS. 2LNC CHRONICALLY. NO PAIN THIS SHIFT. TOLERATING REGULAR DIET WELL, NO NAUSEA. INCISION PARTLY COVERED WELL OPEN TO AIR W/ STERI STRIPS. PT IS AT TIMES IMPATIENT, BED ALARM ON. 1PA W/ WALKER FOR AMBULATION, SOB ON AMBULATION AT TIMES. PT VOIDING QS URINE, BOWEL TONES ACTIVE.
--- NOTE | 2018-05-21 05:11 | NUR ---
HELPED PT TO THE BSC AND BACK TO BED. VITALS AND I&OS DONE AND CHARTED. FRESH WATER GIVEN. CLEANED ROOM AND EMPTIED GARBAGE. BEDSIDE TABLE AND CALL LIGHT IN REACH. PT NEEDS NOTHING MORE AT THIS TIME. BED ALARM SET.
--- NOTE | 2018-05-21 05:15 | NUR ---
ASSESSMENT COMPLETE. LAB ANIMAL TECHNOLOGIST AUGUST FINISHING VS AND I&O'S. PT A/OX4, DENIES PAIN. WEEPING NOTED TO LEFT GROIN SURGICAL SITE, SITE REINFORCED WITH 2X2 AND PAPER TAPE. PT DENIES FURTHER NEEDS. PT ON 2LNC, O2 SAT 95%, HR WNL. CALL LIGHT IN REACH.
--- NOTE | 2018-05-21 07:26 | NUR ---
PT RESTING SUPINE IN BED WITH HOB ELEVATED. PT REPORTS EXPERIENCING SOME SHORTNESS OF BREATH. O2 SAT 96% ON 2LPNC, RR 22. RT NOTIFIED AND AGREE TO COME SEE PT AND ADMINISTER NEB TX'S PT STATES "OH THAT WOULD BE GREAT THANK YOU" CALL LIGHT AND H20 IN REACH.
--- NOTE | 2018-05-21 07:45 | NUR ---
PT RESTING SUPIN EIN BED, RT IN TO GIVE NEB TREATMENTS. PT APPEARS TO BE IN NO ACUTE DISTRESS AND O2 SAT REMAINS IN MID 90'S. PT SPEAKS FULL SENTANCES. BEDSIDE REPORT RECEIVED FROM NOC SHIFT RN. CALL LIGHT AND H20 IN REACH.
--- NOTE | 2018-05-21 08:00 | NUR ---
PATIENT IN BED. PATIENT WALKS TO USE BATHROOM USING A WALKER. ONE PERSON ASSISTING. LINENS CHANGED. PATIENT BACKS TO CHAIR. CALL LIGHT WITHIN REACH. NO OTHER NEEDS AT THIS TIME
--- NOTE | 2018-05-21 08:58 | NUR ---
PT RESTING IN CHAIR, CALL LIGHT AND H20 IN REACH. PT DENIES SOB, ANXIETY OR PAIN. ASSESSMENT COMPLETED AND AM MEDICATIONS ADMINISTERED. PT STATES SHE WOULD LIKE AN HOUR NAP BEFORE P.T. WORKS WITH HER. WILL NOTIFY HER P.T. PT ALSO REPORTS THAT HER BREAKFAST TRAY DIDN'T INCLUDE A COOKIE AND FRUIT LIKE SHE STATES SHE ORDERED. KITCHEN NOTIFIED OF PT'S REQUEST. PT DENIES FURTHER NEEDS OR REQUESTS.
--- NOTE | 2018-05-21 10:37 | NUR ---
PATIENT RESTING IN BED. PHYSICAL THERAPIST IN ROOM. VITAL SIGNS AND I&O DONE. CALL LIGHT WITHIN REACH. NO OTHER NEEDS AT THIS TIME
--- NOTE | 2018-05-21 10:58 | NUR ---
PT RESTING SUPINE IN BED, CALL LIGHT AND H20 IN REACH. PT GIVING DESIGN ENGINEER AGRICULTURAL EQUIPMENT HER LUNCH ORDER AND APPEARS TO BE IN NO DISTRESS SPEAKING FULL SENTANCES WITH 2LPNC IN PLACE. PT DENIES NEEDS OR CONCERNS.
--- NOTE | 2018-05-21 14:01 | NUR ---
PATIENT IN BED. PATIENT WALKS TO USE BATHROOM USING A WALKER. ONE PERSON ASSISTING. PATIENT BACKS TO BED. VITAL SIGNS AND I&O DONE. CALL LIGHT WITHIN REACH. NO OTHER NEEDS AT THIS TIE
--- NOTE | 2018-05-21 14:08 | NUR ---
PT RESTING SUPINE IN BED RESTING WITH EYES CLOSED AND RESPIRATIONS EVEN AND UNLABORED. CALL LIGHT AND H20 IN REACH. PT APPEARS TO BE SLEEPING COMFORTABLY.
--- NOTE | 2018-05-21 15:30 | NUR ---
PT RESTING SUPINE IN BED, PM MEDS ADMINISTERED AND ASSESSMENT COMPLETED. CALL LIGHT AND H2O IN REACH. NO NEEDS/CONCERNS VOICED.
--- NOTE | 2018-05-21 17:27 | NUR ---
Pt resting in recliner, denies needs or concerns. family at bedside. call light, h20 and personal items within reach.
--- NOTE | 2018-05-21 19:00 | NUR ---
SHIFT REPORT RECEIVED FROM TANVIR BILLINGS. PT AWAKE AND LAYING IN BED, 2L O2 IN PLACE. CONTINUOUS PULSE OX IN PLACE, O2 SAT 96%, HR 65. PT DENIES NEEDS AT THIS TIME, CALL LIGHT IN REACH. GAUZE TO INCISION SITE TO RIGHT GROIN/LOWER QUADRANT NOTED.
--- NOTE | 2018-05-21 20:25 | NUR ---
ROUNDED CHARGE. PATIENT IS BEING ASSISTED BY RN TO THE RESTROOM A SBA W/FWW. PATIENT DENIES ANY COMMENTS, QUESTIONS OR CONCERNS. NO NEEDS NOTED. ROOM CLEANED.
--- NOTE | 2018-05-21 20:30 | NUR ---
ASSESMENT COMPLETE. VSS, I&O'S RECORDED. PT A/OX4, PRN TYLENOL GIVEN FOR 6/10 PAIN IN TAILBONE. SCHEDULED MEDS ASLO GIVEN. NEW GAUZE PLACED TO RIGHT LOWER QUADRANT/INGUINAL INCISION. NO URETHER NEEDS AT THIS TIME, CALL LIGHT IN REACH. PT REFUSES SCD'S AT THIS TIME.
--- NOTE | 2018-05-21 21:37 | NUR ---
PT RESTING IN BED, RR EVEN AND UNLABORED, NO RESPIRATORY DISTRESS NOTED. O2 SAT 99%, O2 NC TITRATED DOWN TO 2LNC. O2 SAT MAINTAINING >94%, HR 60'S. PT DENIES NEEDS, CALL LIGHT IN REACH.
--- NOTE | 2018-05-21 21:56 | NUR ---
GOT HER TWO WARM BLANKETS PER REQUEST OF PT. BEDSIDE TABLE AND CALL LIGHT IN REACH. SHE NEEDS NOTHING MORE AT THIS TIME.
--- NOTE | 2018-05-21 22:24 | NUR ---
CONTINUOUS PULSE OX ALARMING, THIS RN IN ROOM TO ASSESS. 2LNC OUT OF NARES, 02 SAT 85%. NC PLACED IN CORRECT POSITION, PT INSTRUCTED TO DEEP BREATH, O2 SAT RETURNED TO WNL, 91-93%. CALL LIGHT IN REACH.
--- NOTE | 2018-05-22 00:30 | NUR ---
PT RESTING COMFORTABLY, RR EVEN AND UNLABORED. 2LNC IN PLACE, O2 SAT 95%, HR 58. CALL LIGHT IN REACH.
--- NOTE | 2018-05-22 02:30 | NUR ---
ASSESSMENT COMPLETE. PT A/O X3, VERBALIZES DISCOMFORT AT COCCYX, DONUT DEVICE IN PLACE. SEROUS DRAINAGE NOTED ON ABD PAD AT INCISION SITE, ABD PAD REPLACED. PT DENIES FURTHER NEEDS, CALL LIGHT IN REACH. CONTINUOUS PULSE OX IN PLACE, O2 SAT >90% ON 2LNC, HR 60'S.
--- NOTE | 2018-05-22 02:44 | NUR ---
INFORMED BY ECONOMICS TEACHER STEWART THAT PT REPORTS SOB AND WAS FOUND IN TRIPOD POSITION AND O2 SAT 90% WITH NC OUT OF NARES. THIS RN IN ROOM TO ASSESS PT AND FOUND PT O2 SATS 94-95%, HR UPPER 50'S-60'S. PT REPORTS MILD SOB, PT ASSISTED WITH REPOSITIONING, NO FURTHER NEEDS. CALL LIGHT IN REACH.
--- NOTE | 2018-05-22 03:44 | NUR ---
PT REPORTS 6/10 PAIN IN TAILBONE. PT ASSISTED WITH REPOSITIONING, DONUT DEVICE IN PLACE. PT STATES, "THAT'S BETTER". PRN REJI ALSO GIVEN. NO FURTHER NEEDS, CALL LIGHT IN REACH.
--- NOTE | 2018-05-22 04:46 | NUR ---
PT HAD A GENNY, SLEPT ON AND OFF DURING THE SHIFT. PT A/OX3, PAIN WELL CONTROLLED WITH PRN TYLENOL AND RESPOSITIONING. DONUT DEVICE IN PLACE FOR REDDENED COCCYX, CLEAR OPSITE ALSO IN PLACE. VSS, PT ON CPOX W/ 2LNC, SOB W/ EXERTION. PT NEEDS MONITORING TO ENSURE NC REMAINS IN NARES. 1PA W/ AMBULATION, TOLERATING REGULAR DIET, NO NAUSEA THIS SHIFT. TENATIVE DISCHARGE TODAY, PT WILL RECEIVE HOME HEALTH FOR WOUND. ABD IN PLACE, DRAININGSEROUS FLUID, SMALL DEHISCENCE NOTED, VINCENT ALREADY AWARE.
--- NOTE | 2018-05-22 05:34 | NUR ---
PT RESTING IN CHAIR, CHAIR ALARM ON. VSS, I&O'S RECORDED. ROOM TIDED, FRESH WATER AT BEDSIDE.
--- NOTE | 2018-05-22 07:31 | NUR ---
scheduled 0900 protonix given early per pt request. keara caruso aware and okay with early administration.
--- NOTE | 2018-05-22 09:30 | NUR ---
PT SITTING UP IN RECLINER. ATE ALL OF BREAKFAST, TEENA WELL. DENIES PAIN OR OTHER CONCERNS AT THIS TIME. ALERT AND ORIENTED. SATTING 94% AT 2L NC. DENIES SOB. RIGHT INGUINIAL INCISION SITE WITH SMALL TO MODERATE AMOUNT OF SEROSANGUINOUS DRAINAGE, ABD IN PLACE. CALL LIGHT WITHIN REACH.
--- NOTE | 2018-05-22 09:43 | NUR ---
PATIENT IN CHAIR RESTING. FRESH WATER GIVEN. CALL LIGHT IN REACH. NO FURTHER NEEDS AT THIS TIME.
--- NOTE | 2018-05-22 10:45 | NUR ---
PT AMB HALLWAY WITH P.T. AND TEENA SCHULER. NO SOB.
--- NOTE | 2018-05-22 12:15 | NUR ---
PT SITTING UP IN RECLINER WATCHING TV. DENIES NEEDS OR CONCERNS AT THIS TIME. CALL LIGHT WITHIN REACH.
--- NOTE | 2018-05-22 13:26 | NUR ---
PT TO BE DC'D TODAY, SHE WELCOMED ME IN AND LET ME KNOW ABOUT HER DC. SHE SEEMED VERY CONCERND THAT THE DETAILS OF HER DC WERE FALLING THROUGH THE CRACKS SO TO SPEAK. WAITING FOR DR KAUR, AND CONCERNED SHE WOULD NOT HAVE ENOUTH O2 TO MAKE IT HOME. TOLD HER I WOULD CHECK WITH DIGITAL SALES EXECUTIVE, AND MAKE SURE THEY WERE AWARE OF HER CONCERNS, WHICH I DID. SHE THANKED ME, WILL CON- TINUE TO FOLLOW NEEDED
--- NOTE | 2018-05-22 14:11 | NUR ---
PATIENT IN BED RESTING WITH EYES CLOSED. CALL LIGHT IN REACH. NO FURTHER NEEDS AT THIS TIME.
[2018-05-22] MEDS ORDERED: TOPROL XL50 MG PO (15:12)
[2018-05-22] MEDS ORDERED: DILTIAZEM 24HR240 M3 PO (15:13)
[2018-05-22] MEDS ORDERED: MAPAP325 MG PO (15:13)
--- NOTE | 2018-05-22 15:40 | NUR ---
PT RESTING IN BED. HYDROCOLLOID DRESSING ON COCCYX REPLACED IT WAS WRINKLED AND CAUSING PT DISCOMFORT. CALL LIGHT WITHIN REACH.
--- NOTE | 2018-05-22 17:30 | NUR ---
TALKED TO FARHANA BENITEZ BAG CHECKER AND [facility] ABOUT PT GOING HOME AND MEDICATIONS FOR THE NIGHT. [facility] ADVISED GIVNING THE METOPORAL NOW THAT WAY SHE DOESNT NEED TO WORRY ABOUT FILLING PRESCRIPTIONS TONIGHT.
--- NOTE | 2018-05-23 15:45 | NUR ---
FAXED CHART NOTES TO [facility] THIS AM, INCLUDING FACE SHEET, H AND P, DC SUMMARY AND PACKET, ORDER FOR HOME HEALTH. RECIEVED A FAX CONFIRMATION. TALKED WITH THE PT DAUGHTER HERNESTO AT [phone]. TOLD HER I WOULD CALL HER BACK THIS AFTERNOON WHEN I HAD MORE OF AN IDEA OF WHEN HOME HEALTH WOULD COME TO SEE HER MOTHER. I ATTEMPTED TO CALL HER BACK AND LEFT A MESSAGE FOR HER TO CALL ME.
--- NOTE | 2018-05-24 19:22 | DS ---
[facility] [address], [place] [address] Signed ADMISSION DATE: 05/11/2018 DISCHARGE DATE: 05/22/2018 REASON FOR ADMISSION: The patient is a 77-year-old white woman, who has had several days of poor oral intake with nausea, vomiting, and other abdominal complaints. She presented to the emergency room, where she was evaluated Dr. Rainey. She had no complaint of groin pain particularly, but a CT scan was done due to an elevated white count and the scan showed dilated small bowel loops as well as an incarcerated right inguinal hernia. Subsequent close examination of the right groin did show a mass in the right groin. She is noted best to have an incarcerated inguinal hernia with small bowel obstruction related to it. She additionally has rather severe and advanced chronic obstructive pulmonary disease, for which she is on home oxygen 2 liters a minute. She had no acute problem on chest x-ray, only very flattened diaphragms consistent with advanced chronic obstructive pulmonary disease. She is admitted for further evaluation and care. PHYSICAL EXAMINATION: GENERAL: Showed a very thin and somewhat cachectic white woman, who is alert and oriented. Does not look systemically toxic. HEENT: Mucous membranes were quite dry. Trachea is midline. CHEST: She had diminished breath sounds, but no wheeze or rhonchi. ABDOMEN: Not distended, only mildly tender. There is an incarcerated right inguinal hernia, which is not reducible despite efforts to do so. EXTREMITIES: She had no sign of peripheral edema, did show mild clubbing. LABORATORY DATA: Her troponin level was 0.020, thought more likely related to her underlying medical issue rather than cardiac problem. A 12-lead EKG showed no ischemic changes. Lab studies were essentially normal. Chloride 86, CO2 32, calcium 9.6, lipase 4. Liver enzymes are normal. Platelets 254,000, hematocrit 39, white count 22.1. HOSPITAL COURSE: She was emergently fluid resuscitated, given intravenous broad-spectrum antibiotics and taken to operation. A spinal anesthetic was used on the basis of her extreme and advanced chronic obstructive pulmonary disease and weariness so that she could be extubated if intubated for an abdominal operation. With extreme care and some amount of difficulty, the right inguinal hernia and its incarcerated viscus could be freed up showing ischemic bowel with perforation within it. Segmental bowel resection was undertaken with a hand-sewn end-to-end anastomosis and the bowel returned to the abdominal cavity. The defect in the right groin was repaired not with mesh, but rather Electronically Signed By: JOSÉ LUIS KAUR MD 05/24/18 192 PATIENT NAME: HANSA CRAWFORD DISCHARGE SUMMARY DATE OF : 42 REPORT #: [id number] PHYSICIAN: JOSÉ LUIS KAUR MD PCP: [facility] DO REPORT IS CONFIDENTIAL AND NOT TO BE RELEASED WITHOUT AUTHORIZATION [address] [address] Signed with a primary suture of the tendon of the transversus abdominis to the ilioinguinal ileopubic tract with interrupted absorbable PDS suture. A drain was placed as well. She postoperatively went directly to the intensive care unit for further monitoring given her advanced chronic obstructive pulmonary disease. A preoperative arterial blood gas confirmed a picture consistent with advanced chronic obstructive pulmonary disease. She had impressive improvement in the intensive care unit. A nasogastric tube was maintained in place. She had rather significant abdominal distention and loops of bowel on plain abdominal x-ray and clinical examination. Continued nasogastric tube decompression was maintained. The tube was maintained in place. Continued monitoring was undertaken as well. Plain abdominal x-rays showed persistence of her distended loops of bowel. She did not have air-fluid levels particularly. Her nasogastric tube was discontinued as her abdomen became soft and there was little nasogastric tube output. Abdominal x-ray and followup still showed dilated small bowel without signs of obstruction proper. It was more consistent with ileus or similar such problem. There was no air noted below the right inguinal ligament to suggest recurrent hernia. Though she was feeling well, she did not seem to have much progression as regard to abdominal distention, which was minimal, but the abdominal x-ray which showed a fair amount of small bowel air. A CT scan of the abdomen was obtained to ascertain that there was no sign of recurrent hernia or internal hernia problem given her complex bowel resection through the groin. There is no such finding of the recurrent hernia in any way. The patient was feeling reasonably well and was advanced in her diet from liquids ultimately to solids. She did develop findings of atrial fibrillation. Electrolytes were re-evaluated showing a low potassium, magnesium, and phosphate. All were treated intravenously with much improvement. She had a recurrent bout of atrial fibrillation with rapid ventricular response, unresponsive to diltiazem alone, ultimately requiring both diltiazem and a beta cyndi, metoprolol. Hospitalist involved in her care included Dr. Hopper, Dr. Patel, and Dr. Porter. In time, she began having good bowel function, bowel movements and so forth and was advanced in her diet and ultimately transferred to the regular nursing floor. The drain that had been placed at the time of operation was really draining much in the first 24 hours, indeed had no suction on it and therefore, it was removed. By this point, she started to have some drainage from the inguinal wound in the lateral aspect. She did not have complete separation of the wound edges, but some serous drainage, most likely peritoneal fluid from the method of repair employed in her case. It is recalled that mesh was not implanted due to the high probability an infectious development in that regard. She was maintained in the intensive care unit up to that point, which her rhythm Electronically Signed By: JOSÉ LUIS KAUR MD 05/24/181921 PATIENT NAME: HANSA CRAWFORD DISCHARGE SUMMARY DATE OF : 42 REPORT #: [id number] PHYSICIAN: JOSÉ LUIS KAUR MD PCP: [facility] DO REPORT IS CONFIDENTIAL AND NOT TO BE RELEASED WITHOUT AUTHORIZATION [facility] [address], [place] [address] Signed stabilized as sinus and was monitored on the regular nursing floor with telemetry. She had a progressive improvement, able to sit up at the bedside and eating and maintaining her home oxygen level of 2 liters/minute. It is noted that she had left facial zoster several weeks prior to her current admission, which was managed with topical agents. She had no open or raw sores. The patient did have episodes of anxiety also associated with orthopnea and was maintained with her usual bronchodilator approach. She was discontinued on gabapentin, which was thought to be giving her side effects of double vision and gait imbalance. By day of discharge, she is ambulating with assistance and transferring independently. Oral Cardizem and metoprolol had been initiated, which she is tolerating well and episodic leakage of her right groin wound site is managed with plain gauze dressing at this time. She was noted to have a small pressure ulcer of the coccyx, for which a DuoDERM dressing was applied. It is anticipated that she will have home health to assist with supervision of her medications and local wound care. Additionally, home physical therapy will be provided. This note testifies to a [id number] encounter I had with the patient the day of discharge, anticipating these interventions. She is certifiable homebound based on her advanced chronic obstructive pulmonary disease, underlying wound issues, and need for home oxygen. Coordination with the landscape architect and planner has allowed for arrangements to be made for her home health needs. DISCHARGE MEDICATIONS: Include: 1. Metoprolol-XL 50 mg p.o. at bedtime, #60, refill 4. 2. Diltiazem 24 mg tablets extended release one tablet p.o. daily, #60, refill 4. 3. Tylenol 325 mg 650 p.o. Q.6 hours p.r.n. pain, #60. 4. Aspirin 81 mg p.o. daily. 5. Claritin 10 mg p.o. daily as needed for allergies. 6. Ventolin inhaler two puffs three times a day as needed. 7. Buspirone 10 mg tablets one tablet p.o. 3 times a day. 8. Omeprazole 20 mg one tablet p.o. b.i.d. 9. Simvastatin 20 mg p.o. at bedtime. 10. Vitamin D 3000 units daily. 11. MiraLAX 8.5 g daily as needed for constipation. 12. Budesonide and formoterol fumarate, Symbicort 160/4.5 inhaler 10.2 g two puffs b.i.d. 13. Alendronate 70 mg tablets p.o. weekly. 14. Polyvinyl alcohol povidone (Refresh Classic eye drops) one drop each eye four times daily as needed for dry eyes. 15. Glycerin suppository as needed for constipation. Electronically Signed By: JOSÉ LUIS KAUR MD 05/24/18 192 PATIENT NAME: HANSA CRAWFORD DISCHARGE SUMMARY DATE OF : 42 REPORT #: [id number] PHYSICIAN: JOSÉ LUIS KAUR MD PCP: [facility] DO REPORT IS CONFIDENTIAL AND NOT TO BE RELEASED WITHOUT AUTHORIZATION [facility] [address], [place] [address] Signed 16. Vitamin B12 one tablet p.o. sublingual daily. 17. Sertraline 100 mg tablets two tablets p.o. daily. 18. She will discontinue gabapentin 100 mg t.i.d. as it had caused equilibrium problems apparently. DISCHARGE DIAGNOSES: 1. Small bowel obstruction related to incarcerated right inguinal hernia, status post segmental bowel resection and repair of inguinal hernia (inguinal approach and spinal anesthetic). 2. Advanced chronic obstructive pulmonary disease with home oxygen 2 liters nasal cannula daily perpetually. 3. Dyslipidemia. 4. Reflux disease. 5. Generalized sarcopenia and deconditioning. I certify the patient is homebound, needing Home Health Services as well as in-house physical therapy. FOLLOWUP PLANS: She is return to see me in approximately four weeks. She will see Dr. Chong in the next 2 weeks. MD JOANNE Porras/MICHELLEL /[id number] cc: MD [place] DO Cynthia Rasch, MD Brian Piteo, MD Electronically Signed By: JOSÉ LUIS KAUR MD 05/24/18 1922 PATIENT NAME: HANSA CRAWFORD DISCHARGE SUMMARY DATE OF : 42 REPORT #: [id number] PHYSICIAN: JOSÉ LUIS KAUR MD PCP: [facility] DO REPORT IS CONFIDENTIAL AND NOT TO BE RELEASED WITHOUT AUTHORIZATION [address] [address] Signed Copies: SCOTT HOPPER MD, ARIAN DO RASCH, CYNTHIA MD PITEO, BRIAN DO ~ Electronically Signed By: JOSÉ LUIS KAUR MD 05/24/181921 PATIENT NAME: HANSA CRAWFORD DISCHARGE SUMMARY DATE OF : 42 REPORT #: [id number] PHYSICIAN: JOSÉ LUIS KAUR MD PCP: [facility] DO REPORT IS CONFIDENTIAL AND NOT TO BE RELEASED WITHOUT AUTHORIZATION
== END 2018-05-22 17:34 | disposition home or self-care (01) | DRG 330 ==
LOC: ED 11:13 → CCU 16:33 → MS 16:33 → CCU 21:30 → MS 05-18 15:44
PROVIDERS: ADMIT Surgery
PROC: 0YQ50ZZ Repair Right Inguinal Region, Open Approach (ICD-10-PCS; 2018-05-11)
PROC: 0DT80ZZ Resection of Small Intestine, Open Approach (ICD-10-PCS; principal; 2018-05-11 19:25)
DX: K40.30 Unilateral inguinal hernia, with obstruction, without gangrene, not specified as recurrent (principal); J96.12 Chronic respiratory failure with hypercapnia; J96.11 Chronic respiratory failure with hypoxia; J44.9 Chronic obstructive pulmonary disease, unspecified; Z99.81 Dependence on supplemental oxygen; Z79.52 Long term (current) use of systemic steroids; E78.5 Hyperlipidemia, unspecified; K21.9 Gastro-esophageal reflux disease without esophagitis; M62.84 Sarcopenia; R53.81 Other malaise; Z85.3 Personal history of malignant neoplasm of breast; I48.0 Paroxysmal atrial fibrillation; Z79.01 Long term (current) use of anticoagulants; F41.8 Other specified anxiety disorders
CPT/HCPCS: 00830; 36415; 36600; 71045; 74018; 74177; 80048; 80053; 80069; 81001; 82247; 82465; 82803; 83615; 83690; 83735; 84100; 84478; 84484; 84550; 85025; 88300; 88307; 93005; 93010; 94640; 94762; 96361; 96374; 96375; 97110; 97116; 97162; 97530; 99285-25; J0131; J0690; J1170; J1644; J1720; J1885; J1940; J2250; J2370; J2405; J2704; J2930; J3010; J3475; J3480; J7040; J7060; J7120; Q9967

== ENCOUNTER 2018-05-24 10:58 | Emergency (ER) | payer MEDICARE, OTHER ==
[~2018-05-24] VITALS: Ht 162.6 cm; Wt 49.0 kg
[~2018-05-24 10:58] MED LIST changes: +DILTIAZEM 24HR240 M3 PO; +GABAPENTIN100 MG PO; +MAPAP325 MG PO; +TOPROL XL50 MG PO
--- OUTSIDE RECORDS SUMMARY | 2018-05-24 11:02 | XMS ---
PreManage Notification: HANSA CRAWFORD Security Project Planner Events No recent Security Events currently on file CRITERIA MET - Group Notification - 6 ED Visits in 6 Months [facility] - 2 Visits in 30 Days CARE PROVIDERS BARBARA CHONG Internal Medicine 12/12/2017-Current PHONE: Unknown DR BARBARA CHONG Primary Care Current PHONE: [phone] DOCTOR AYALA Primary Care Current PHONE: Unknown COLT REMY Primary Care [facility] PHONE: Unknown Parminder Adams Primary Care Current [place] PHONE: Unknown [facility] Current Orthopedic Surgery \T\ [facility] PHONE: Unknown Cora has no Care Guidelines for this patient. Care History Medical/Surgical 01/04/2018 [facility] HISTORY:\T\nbsp; COPD/ PANIC DISORDER/ GERD/ HYPERCHOLESTEROLEMIA/ ANXIETY/ OSTEOARTHRITIS/ GIB 12/12/2017 [facility] - Patient is currently established with [facility]. If patient is seen in the ED during business hours. Please contact CHWs at [facility]. Care Recommendation: This patient has had [...] VISIT COUNT (12 MO.) 1 Colt Remy 15 JOSSELIN Krause TOTAL 16 NOTE: Visits indicate total known visits. ED/UCC VISIT TRACKING (12 MO.) 05/24/2018 10:58 [facility] [place] TYPE: Emergency COMPLAINT: - SOB 05/11/2018 11:14 [facility] TYPE: Emergency COMPLAINT: - SOB,NAUSEA 04/22/2018 14:15 [facility] [place] TYPE: Emergency COMPLAINT: - HEADACHE/FACIAL PAIN DIAGNOSES: - Allergy status to sulfonamides status - intermediate card tender (current) use of aspirin - Personal history of malignant neoplasm of breast - Other termite treater helper (current) drug therapy - Zoster without complications - Personal history of nicotine dependence - Gastro-esophageal reflux disease without esophagitis - Other nonmedicinal substance allergy status - Latex allergy status - Chronic obstructive pulmonary disease, unspecified 01/28/2018 12:17 [facility] TYPE: Urgent Care 01/08/2018 17:56 [facility] TYPE: Emergency DIAGNOSES: - Chronic obstructive pulmonary [...] medicaments and biological substances status - Other jail (current) drug therapy 12/28/2017 16:24 [facility] [place] TYPE: Emergency COMPLAINT: - SOB DIAGNOSES: - Allergy status to sulfonamides status - Gastro-esophageal reflux disease without esophagitis - Other nonmedicinal substance allergy status - Personal history of nicotine dependence - Shortness of breath - Chronic obstructive pulmonary disease with (acute) exacerbation - Allergy status to other drugs, medicaments and biological substances status - Dependence on supplemental oxygen - [facility] (current) use of systemic steroids - Other jail (current) drug therapy - intermediate card tender (current) use of aspirin - intermediate card tender (current) use of antibiotics - Latex allergy status - Personal history of malignant neoplasm of breast 12/22/2017 12:24 [facility] TYPE: Emergency COMPLAINT: - SOB DIAGNOSES: - Chronic obstructive pulmonary disease, unspecified - [facility] (current) use of aspirin - Other termite treater helper (current) drug therapy - Allergy status to [...] supplemental oxygen - Latex allergy status - intermediate card tender (current) use of aspirin - Personal history of nicotine dependence - Chronic obstructive pulmonary disease, unspecified - [facility] (current) use of systemic steroids - Other jail (current) drug therapy - Gastro-esophageal reflux disease without esophagitis - Other nonmedicinal substance allergy status - Personal history of malignant neoplasm of breast 12/18/2017 20:04 [facility] TYPE: Emergency COMPLAINT: - SHORTNESS OF BREATH DIAGNOSES: - Shortness of breath - Latex allergy status - Allergy status to other drugs, medicaments and biological substances status - Other termite treater helper (current) drug therapy - Anxiety disorder, unspecified - Constipation, unspecified - Chronic obstructive pulmonary disease with (acute) exacerbation - intermediate card tender (current) use of aspirin - Personal history of nicotine dependence - Gastro-esophageal reflux disease without esophagitis - Allergy status to sulfonamides status - Dependence on supplemental oxygen 12/15/2017 02:49 [facility] TYPE: Emergency COMPLAINT: - SOB 12/10/2017 18:35 [facility] TYPE: Emergency COMPLAINT: - NAUSEA DIAGNOSES: - Other jail (current) drug therapy - Allergy status to sulfonamides status - Personal history of nicotine dependence - Gastro-esophageal reflux disease without esophagitis - Allergy status to other drugs, medicaments and biological substances status - Latex allergy status - Nausea - Chronic obstructive pulmonary disease, unspecified 12/09/2017 20:28 [facility] TYPE: Emergency COMPLAINT: - TROUBLE BREATHING 11/23/2017 19:43 [facility] TYPE: Emergency COMPLAINT: - ANXIETY DIAGNOSES: - Allergy status to sulfonamides status - Other termite treater helper (current) drug therapy - Panic disorder [episodic paroxysmal anxiety] - Latex allergy status - Personal history of nicotine dependence - Chronic obstructive pulmonary disease, unspecified - Allergy status to other drugs, medicaments and biological substances status 11/23/2017 15:33 [facility] TYPE: Emergency COMPLAINT: - SOB DIAGNOSES: - Urinary tract infection, site not specified - Other jail (current) drug therapy - [facility] (current) use of aspirin - Allergy status to other drugs, medicaments and biological substances status - Latex allergy status - Allergy status to sulfonamides status - Personal history of nicotine dependence - Pneumonia, unspecified organism - Shortness of breath 08/16/2017 12:46 [facility] TYPE: Emergency COMPLAINT: - SOB DIAGNOSES: - [facility]FP (current) use of aspirin - Allergy status to other drugs, medicaments and biological substances status - Other termite treater helper (current) drug therapy - Chronic obstructive pulmonary [...] - Gastro-esophageal reflux disease without esophagitis - intermediate card tender (current) use of aspirin - Other termite treater helper (current) drug therapy - Shortness of breath - Personal history of nicotine dependence - Pneumonia, unspecified organism - Allergy status to sulfonamides status - Chronic obstructive pulmonary disease with acute lower respiratory infection INPATIENT VISIT TRACKING (12 MO.) 05/11/2018 16:33 [facility] TYPE: Medical Surgical COMPLAINT: - INCARCERATED R HERNIA DIAGNOSES: - Personal history of malignant neoplasm of breast - [facility] (current) use of systemic steroids - Sarcopenia - Chronic respiratory failure with hypercapnia - Gastro-esophageal reflux disease without esophagitis - Hyperlipidemia, unspecified - intermediate card tender (current) use of anticoagulants - Chronic obstructive pulmonary disease, unspecified - intermediate card tender (current) use of systemic steroids - Other specified anxiety disorders - Personal history of malignant neoplasm of breast - Dependence on supplemental oxygen - Chronic obstructive pulmonary disease, unspecified - Sarcopenia - Other malaise - Paroxysmal atrial fibrillation - Unilateral inguinal hernia, with obstruction, without gangrene, not specified as recurrent - intermediate card tender (current) use of anticoagulants - Chronic respiratory failure with hypoxia - Other specified anxiety disorders - Chronic respiratory failure with hypercapnia - Dependence on supplemental oxygen - Gastro-esophageal reflux disease without esophagitis - Hyperlipidemia, unspecified - Paroxysmal atrial fibrillation - Chronic respiratory failure with hypoxia - Other malaise 12/15/2017 02:51 [facility] TYPE: Medical Surgical COMPLAINT: - COPD EXACERBATION DIAGNOSES: - Other seasonal allergic rhinitis - Other termite treater helper (current) drug therapy - Generalized anxiety disorder - intermediate card tender (current) use of aspirin - Hyperlipidemia, unspecified - Latex allergy status - intermediate card tender (current) use of inhaled steroids - Personal [...] Hypoxemia - Gastro-esophageal reflux disease without esophagitis [email or web address]
== END 2018-05-24 13:36 | disposition home or self-care (01) ==
LOC: ED 10:58
DX: T81.31XA Disruption of external operation (surgical) wound, not elsewhere classified, initial encounter (principal); J44.9 Chronic obstructive pulmonary disease, unspecified; K21.9 Gastro-esophageal reflux disease without esophagitis; Z85.3 Personal history of malignant neoplasm of breast; Z87.891 Personal history of nicotine dependence; Z91.040 Latex allergy status; Z91.048 Other nonmedicinal substance allergy status; Z88.2 Allergy status to sulfonamides; Z88.8 Allergy status to other drugs, medicaments and biological substances; Z79.899 Other long term (current) drug therapy; Z79.82 Long term (current) use of aspirin
CPT/HCPCS: 85025; 94640; 99285

== ENCOUNTER 2019-02-27 08:24 | Emergency (ER) | payer MEDICARE, OTHER ==
[~2019-02-27] VITALS: Ht 162.6 cm; Wt 49.0 kg
--- OUTSIDE RECORDS SUMMARY | ~2019-02-27 | XMS | Clinical Summary ---
Demographics + + + | Address | [address] | | | [place] [address] | + + + | Home Phone | | + + + | Preferred Language | Unknown | + + + | Marital Status | Single | + + + | Orthodox Affiliation | Unknown | + + + | Race | White | + + + | Ethnic Group | Not or | + + + Author + + + | Author | [facility] | + + + | Organization | [facility] | + + + | Address | Unknown | + + + | Phone | Unavailable | + + + Support + + + + + | Name | Relationship | Address | Phone | + + + + + | Columba Law | ECON | [address] | | | | | [place], [place] | | | | | [address] | | + + + + + Care Team Providers + +------+ + | Care Water Project Manager Name | Role | Phone | + +------+ + | West Ferrell | PCP | | + +------+ + Source Comments MICHAEL is fully live on both [facility] and [facility] Allergies + + + + + + | Active Allergy | Reactions | Severity | Noted | Comments | | | | | Date | | + + + + + + | Adhesive Tape | Rash | Medium | 12/23/19 | | | | | | 18 | | + + + + + + | Clobetasol | Unknown | Medium | 12/23/19 | unknown | | | | | 18 | | + + + + + + | Diazepam | Unknown | Medium | 08/16/20 | Disorientation and | | | | | 18 | weakness | + + + + + + | Haloperidol | Unknown | Medium | 08/16/20 | Unknown | | | | | 18 | | + + + + + + | Latex | Rash | Medium | 08/16/20 | | | | | | 18 | | + + + + + + | Sulfasalazine | Unknown | Medium | 08/16/20 | unknown | | | | | 18 | | + + + + + + Medications + + + +---------+------+------+-------+ | Medication | Sig | Dispensed | Refills | Star | End | Statu | | | | | | t | Date | s | | | | | | Date | | | + + + +---------+------+------+-------+ | albuterol 90 | Inhale by mouth. | | 0 | | | Activ | | mcg/actuation | | | | | | e | | inhalation HFA | | | | | | | | aerosol inhaler | | | | | | | + + + +---------+------+------+-------+ | VENTOLIN HFA 90 | inhale 2 puff by | | 0 | 09/1 | | Activ | | mcg/actuation | mouth three times a | | | 0/20 | | e | | inhalation HFA | day | | | 18 | | | | aerosol inhaler | | | | | | | + + + +---------+------+------+-------+ | alendronate 70 mg | Take by mouth. | | 0 | | | Activ | | oral tablet | | | | | | e | + + + +---------+------+------+-------+ | aspirin chewable | Chew and swallow. | | 0 | | | Activ | | 81 mg oral | | | | | | e | | tablet,chewable | | | | | | | + + + +---------+------+------+-------+ | azithromycin 250 | | | 0 | 08/1 | | Activ | | mg oral tablet | | | | 9/20 | | e | | | | | | 18 | | | + + + +---------+------+------+-------+ | SYMBICORT 160-4.5 | | | 0 | 06/2 | | Activ | | mcg/actuation | | | | 7/20 | | e | | inhalation HFA | | | | 18 | | | | aerosol inhaler | | | | | | | + + + +---------+------+------+-------+ | busPIRone 10 mg | Take by mouth. | | 0 | | | Activ | | oral tablet | | | | | | e | + + + +---------+------+------+-------+ | cholecalciferol | Take by mouth. | | 0 | | | Activ | | (Vitamin D3) | | | | | | e | | (VITAMIN D3) 1,000 | | | | | | | | unit oral tablet | | | | | | | + + + +---------+------+------+-------+ | ciprofloxacin HCl | | | 0 | 07/1 | | Activ | | 250 mg oral tablet | | | | 8/20 | | e | | | | | | 18 | | | + + + +---------+------+------+-------+ | loratadine 10 mg | Take by mouth. | | 0 | | | Activ | | oral tablet | | | | | | e | + + + +---------+------+------+-------+ | methylPREDNISolone | | | 0 | 08/0 | | Activ | | 4 mg oral | | | | 4/20 | | e | | tablets,dose pack | | | | 18 | | | + + + +---------+------+------+-------+ | omeprazole 20 mg | | | 0 | 07/3 | | Activ | | oral capsule,delayed | | | | 1/20 | | e | | release(DR/EC) | | | | 18 | | | + + + +---------+------+------+-------+ | omeprazole 40 mg | Take by mouth. | | 0 | | | Activ | | oral capsule,delayed | | | | | | e | | release(DR/EC) | | | | | | | + + + +---------+------+------+-------+ | polyethylene | | | 0 | 06/2 | | Activ | | glycol 17 gram oral | | | | 6/20 | | e | | powder in packet | | | | 18 | | | + + + +---------+------+------+-------+ | predniSONE 10 mg | | | 0 | 08 | | Activ | | oral tablet | | | | 01/26 | | e | | | | | | 18 | | | + + + +---------+------+------+-------+ | sertraline 100 mg | Take by mouth. 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 | | + + + + + | Last Assessment & Plan: Advanced disease, treatment started a | | few months ago with improvement per patient and per record | | Avastin both eyes | + + + + + | Benign essential hypertension | 12/22/2017 | + + + | Chronic respiratory failure with hypoxia | 12/22/2017 | + + + | COPD (chronic obstructive pulmonary disease) | 12/22/2017 | + + + | Dyspnea | 12/22/2017 | + + + | Hyperlipidemia | 12/22/2017 | + + + Family History + + +------+ + | Medical History | Relation | Name | Comments | + + +------+ + | Heart Disease | Father | | | + + +------+ + | Diabetes | Mother | | | + + +------+ + | Glasses | Sister | | | + + +------+ + + +------+--------+ + | Relation | Name | Status | Comments | + +------+--------+ + | Father | | | | + +------+--------+ + | Mother | | | | + +------+--------+ + | Sister | | | | + +------+--------+ + Social History + +-------+ +--------+------+ | Tobacco Use | Types | Packs/Day | Years | Date | | | | | Used | | + +-------+ +--------+------+ | Former Smoker | | | | | + +-------+ +--------+------+ + +---+---+---+ | Smokeless Tobacco: | | | | | Never Used | | | | + +---+---+---+ + + + | Sex Assigned at | Date Recorded | | | | + + + | Not on file | | + + + + + + + | Job Start Date | Occupation | Industry | + + + + | Not on file | Not on file | Not on file | + + + + + + + + | Travel History | Travel Start | Travel End | + + + + + + | No recent travel history available. | + + Last Filed Vital Signs Not on file Plan of Treatment + + + + + | Health Maintenance | Due Date | Last Done | Comments | + + + + + | Influenza (Flu) | | 01/18/2015 | | | vaccination (#1) | 9 | | | + + + + + | Pneumococcal | Completed | 02/17/2015, 01/19/2008 | | | vaccination | | | | + + + + + Results Not on filefrom Last 3 Months Insurance + +--------+ +--------+ + +--------+ | Payer | Benefi | Subscriber | Effect | Phone | Address | Type | | | t Plan | ID | alvina | | | | | | / | | Dates | | | | | | Group | | | | | | + +--------+ +--------+ + +--------+ | MEDICARE | MEDICA | xxxxxxxxxx | 09/07/19 | [phone] | [address] | Medica | | | RE A & | | 07-Pre | 1 | [phone] | [address] | | | B | | sent | | [place] | | | | | | | | [id number] | | + +--------+ +--------+ + +--------+ | MODA MEDICARE | MODA | xxxxxxxxx | 05/09/19 | [phone] | [address] | POS | | SUPPLEMENT | MEDICA | | 17-Pre | 4 | [id number] | | | | RE | | sent | | [place], | | | | [place] | | | | [place] [address] | | | | MENT | | | | | | + +--------+ +--------+ + +--------+ + +--------+ +--------+ + + | Guarantor Name | Accoun | Relation to | Date | Phone | Billing Address | | | t Type | Patient | of | | | | | | | | | | + +--------+ +--------+ + + | Ammy Kraus | Person | Self | [birth year] | | [address] | | | [place] | | 1941 | [phone] | [place] [address] | | | [place]ika | | | 0 (Home) | | + +--------+ +--------+ + +"
--- OUTSIDE RECORDS SUMMARY | ~2019-02-27 | XMS | Encounter Summary ---
Demographics + + + | Address | [address] | | | [place] [address] | + + + | Home Phone | | + + + | Preferred Language | Unknown | + + + | Marital Status | Single | + + + | Yazidism Affiliation | Unknown | + + + | Race | White | + + + | Ethnic Group | Not or | + + + Author + + + | Author | [facility] | + + + | Organization | [facility] | + + + | Address | Unknown | + + + | Phone | Unavailable | + + + Support + + + + + | Name | Relationship | Address | Phone | + + + + + | Columba Law | ECON | [address] | | | | | [place], [place] | | | | | [address] | | + + + + + Care Team Providers + +------+ + | Care Chief Yeoman Name | Role | Phone | + +------+ + | West Ferrell | PCP | | + +------+ + Reason for Visit + + + | Reason | Comments | + + + | New patient | | | consultation | | + + + | AMD - Age-related | | | macular degeneration | | + + + | Decreased vision | | + + + Encounter Details +--------+---------+ + + + | Date | Type | Department | Care Team | Description | +--------+---------+ + + + | 01/18/ | Office | [facility] | Luis Cline MD | Exudative | | 2018 | Visit | [facility] | [address] | age-related macular | | | | [place] [address] [address] [place], [place]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, | | | | [address] [facility] [address] | [phone] | bilateral, with | | | | [address] | [phone] | active choroidal | | | | Building [place], | | neovascularization | | | | [place] [address] | | ([facility]) (Primary Dx) | | | | [phone] | | | +--------+---------+ + + + Social History + +-------+ +--------+------+ | [...] recent travel history available. | + + documented as of this encounter Progress Notes Luis Cline MD - 01/18/2018 3:00 PM PDT [facility] Progress Note 01/18/2018 Assessment & Plan: 77 y.o. female Exudative age-related macular degeneration, bilateral, with active choroidal neovasculariza tion (HCC) Advanced disease, treatment started a few months ago with improvement per patient and per r ecord Avastin both eyes Call for decreased vision, increased distortion, increased pain, new floaters or flashing l ights Follow up: Return in about 6 weeks (around 03/01/2018). Low vision evaluation recommended Chief Complaint: New patient consultation AMD - Age-related macular degeneration Decreased vision HPI: She is presented with h/o AMD OU. She has been getting anti-Vegf OU. She is here for p ossible injection OU. She is going back to Dr Martinez after this visit per family. She states t hat her vision has been decreasing since the last injection OU. Current Outpatient Prescriptions (Other) Medication Sig albuterol Inhale by mouth. alendronate Take by mouth. aspirin chewable Chew and swallow. azithromycin busPIRone Take by mouth. cholecalciferol (Vitamin D3) Take by mouth. ciprofloxacin HCl loratadine Take by mouth. methylPREDNISolone omeprazole omeprazole Take by mouth. polyethylene glycol predniSONE sertraline Take by mouth. SYMBICORT VENTOLIN HFA inhale 2 puff by mouth three times a day Reviewed: Tobacco | Allergies | Meds | Problems | Med Hx | Surg Hx | Fam Hx | Examination: See Ophthalmology Module Attestations: The factory maintenance technician, under the supervision of the physician, is responsible for performing the f ollowing sections: RFV, ROS, PMH, PSH, SocHx, FH, Med list, Base Ophth Exam. The attending physician is responsible for the entire content of the note and has personall y performed the HPI and the physical examination LUIS CLINE MD documen milagros in this encounter Plan of Treatment Not on filedocumented as of this encounter Procedures + +--------+ + + + | Procedure Name | Priori | Date/Time | Associated Diagnosis | Comments | | | ty | | | | + +--------+ + + + | AVASTIN INJECTION - | Routin | 01/18/2018 | Exudative | Results for this | | OS - LEFT EYE | e | 4:47 PM | age-related macular | procedure are in the | | | | PDT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, | results section. | | | | | bilateral, with | | | | | | active choroidal | | | | | | neovascularization | | | | | | ([facility]) | | + +--------+ + + + | AVASTIN INJECTION - | Routin | 01/18/2018 | Exudative | Results for this | | OD - RIGHT EYE | e | 4:46 PM | age-related macular | procedure are in the | | | | PDT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, | results section. | | | | | bilateral, with | | | | | | active choroidal | | | | | | neovascularization | | | | | | (HCC) | | + +--------+ + + + | OCT, RETINA | Routin | 01/18/2018 | Exudative | Results for this | | | e | 4:07 PM | age-related macular | procedure are in the | | | | PDT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, | results section. | | | | | bilateral, with | | | | | | active choroidal | | | | | | neovascularization | | | | | | (HCC) | | + +--------+ + + + documented in this encounter Results AVASTIN INJECTION - OS - LEFT EYE (01/18/2018 4:47 PM PDT) + + + | Narrative | Performed At | + + + | Pre-Procedure | | | Procedures, alternatives and risks discussed with patient. Questions | | | answered., confirmed correct patient, procedure, site and consent. | | | | | | | | | Anesthesia | | | Anesthesia: subconjunctival | | | Anesthetic Medication: Lidocaine 1% | | | | | | | | | Procedure | | | Preparation: betadine to ocular surface, eyelid speculum | | | | | | Needle: 30g | | | | | | | | | Injection: 1.25 mg bevacizumab 1.25 mg/0.05 mL | | | [facility]: [id number] | | | Lot: [id number] | | | Expiration Date: 03/19/2018 | | | Route: intravitreal | | | Site: Left Eye | | | | | | Estimated blood loss: none | | | | | | | | | Post Op | | | Post procedure assessment: visual acuity at least count fingers, eye | | | rinsed, patient tolerated procedure well | | | Additional Comments: Ramirez [facility]ham | | + + + AVASTIN INJECTION - OD - RIGHT EYE (01/18/2018 4:46 PM PDT) + + + | Narrative | Performed At | + + + | Pre-Procedure | | | Procedures, alternatives and risks discussed with patient. Questions | | | answered., confirmed correct patient, procedure, site and consent. | | | | | | | | | Anesthesia | | | Anesthesia: subconjunctival | | | Anesthetic Medication: Lidocaine 1% | | | | | | | | | Procedure | | | Preparation: betadine to ocular surface, eyelid speculum | | | | | | Needle: 30g | | | | | | | | | Injection: 1.25 mg bevacizumab 1.25 mg/0.05 mL | | | [facility]: [id number] | | | Lot: [id number] | | | Expiration Date: 03/19/2018 | | | Route: intravitreal | | | Site: Right Eye | | | | | | Estimated blood loss: none | | | | | | | | | Post Op | | | Post procedure assessment: visual acuity at least count fingers, eye | | | rinsed, patient tolerated procedure well | | | Additional Comments: Ramirez [facility] | | + + + OCT, RETINA (01/18/2018 4:07 PM PDT) + + + | Narrative | Performed At | + + + | Corporate General Manager | [facility] | | DocumentationRight EyeQuality: good Central macular thickness: | [facility] | | 450 Segmentation: accurate Left EyeQuality: good Central | | | macular thickness: 565 Segmentation: accurate Provider | | | DocumentationRight EyeFluid and related findings: IRF Left | | | EyeFluid and related findings: SRF, IRF Retinal findings: | | | Subretinal scar | | | | | |Left Eye | | |Quality: good | | | | | |Central macular thickness: 565 | | |Segmentation: accurate | | | | | | | | |Provider Documentation | | |Right Eye | | |Fluid and related findings: IRF | | | | | | | | |Left Eye | | |Fluid and related findings: SRF, IRF | | |Retinal findings: Subretinal scar | | + + + + + + + + | Performing | Address | City/State/Zipcode | Phone Number | | Organization | | | | + + + + + | [facility] | [address] | [place] [address] | | | [place] | [place]. | | | + + + + + documented in this encounter Visit Diagnoses + + | Diagnosis | + + | Exudative age-related macular degeneration, bilateral, with active choroidal | | neovascularization (HCC) - Primary | + + documented in this encounter Administered Medications + +--------+ +---------+------+--------+ | Medication Order | MAR | Action | Dose | Rate | Site | | | Action | Date | | | | + +--------+ +---------+------+--------+ | bevacizumab (AVASTIN) | Given | 01/19/20 | 1.25 mg | | Right | | intravitreal injection 1.25 mg | | 18 4:46 | | | Eye | | 1.25 mg, ONCE PRN (IPROC), 1 | | PM PDT | | | | | dose, Starting Tue01/18/18 at | | | | | | | 1646, Until Tue01/18/18 at 1646 | | | | | | + +--------+ +---------+------+--------+ +---+---+ | | | +---+---+ + +-------+ +---------+---+ + | bevacizumab (AVASTIN) | Given | 01/19/20 | 1.25 mg | | Left Eye | | intravitreal injection 1.25 mg | | 18 4:47 | | | | | 1.25 mg, ONCE PRN (IPROC), 1 | | PM PDT | | | | | dose, Starting Tue01/18/18 at | | | | | | | 1647, Until 01/18/18 at 1647 | | | | | | + +-------+ +---------+---+ + +---+---+ | | | +---+---+ documented in this encounter"
--- OUTSIDE RECORDS SUMMARY | ~2019-02-27 | XMS | Clinical Summary ---
Demographics + + + | Address | [address] | | | [place] [address] | + + + | Home Phone | | + + + | Preferred Language | Unknown | + + + | Marital Status | | + + + | Temple Affiliation | Unknown | + + + | Race | Unknown | + + + | Ethnic Group | Unknown | + + + Author + + + | Author | [facility] | | | and [place] | + + + | Organization | [facility] | | | and [...] Team Providers + +------+ + | Care Creative Engagement Director Name | Role | Phone | [...] left arm | | + + + Encounters +--------+ + + + + | Date | Type | Specialty | Care Team | Description | +--------+ + + + + | 12/01/ | Orders Only | | Provider, | | | 2018 | | | Historical, MD | | +--------+ + + + + from Last 3 Months Immunizations + + + + | Name [...] + | Pulse | 80 | 12/24/2017 1505 PDT | + + + + | Temperature | 36.8 C (98.2 F) | 12/24/2017 1505 PDT | + + + + | Respiratory Rate | 18 | 12/24/2017 1505 PDT | + + + + | Oxygen Saturation | 94% | 09/18/2015932 PDT | + + + + | Inhaled Oxygen | - | - | | Concentration | | | + + + + | Weight | 51.3 kg (113 lb) | 12/24/20171504 PDT | + + + + | Height | 162.6 cm (5' 4") | 12/24/20171504 PDT | + + + + | Body Mass Index | 19.4 | 12/24/20171504 PDT | + + + + Plan [...] + +--------+ | MEDICARE | MEDICA | [id number] | 09/07/19 | [phone] | | Medica | | | RE | | 07-Pre | 5 | | re | | | PART A | | sent | | | | | | AND B | | | | | | + +--------+ +--------+ + +--------+ | MODA | MODA | [id number] | 05/09/19 | [phone] | [address] | Indemn | | | HEALTH | | 14-Pre | 9 | [address] | ity | | | MDCR | | sent | | [place], | | | | [place] | | | | [place] [address] | | + +--------+ +--------+ + +--------+ [...] Self | [birth year] | | [address] | | | al/Fam | | 1941 | [phone] | [address] [place] | | | [place] | | | 6 (Home) | [address] | + +--------+ +--------+ + + Advance Directives Patient has advance care planning documents on file. For more information, please contact:[facility] [address]
--- OUTSIDE RECORDS SUMMARY | ~2019-02-27 | XMS | Clinical Summary ---
Demographics + + + | Address | [address] | | | [place] [address] | + + + | Home Phone | | + + + | Preferred Language | Unknown | + + + | Marital Status | Single | + + + | Jew Affiliation | Unknown | + + + | Race | White | + + + | Ethnic Group | Not or | + + + Author + + + | Author | [facility] | + + + | Organization | [facility] | + + + | Address | Unknown | + + + | Phone | Unavailable | + + + Support + + + + + | Name | Relationship | Address | Phone | + + + + + | Columba Law | ECON | [address] | | | | | [place], [place] | | | | | [address] | | + + + + + Care Team Providers + +------+ + | Care Warp Tension Tester Name | Role | Phone | + +------+ + | West Ferrell | PCP | | + +------+ + Source Comments MICHAEL is fully live on both [facility] and [facility] Allergies + + + + + + [...] | | | | | | | [address] | | + +--------+ +--------+ + +--------+ | MODA MEDICARE | MODA | xxxxxxxxx | 05/09/19 | [phone] | [address] | POS | | SUPPLEMENT | MEDICA | | 17-Pre | 4 | [id number] | | | | RE | | sent | | [place], | | | | [place] | | | | [place] [address] | | | | MENT | | [...] | | [place] | | 1941 | [phone] | [place] [address] | | | [place] | | | 0 (Home) | | + +--------+ +--------+ + +"
--- OUTSIDE RECORDS SUMMARY | ~2019-02-27 | XMS | Encounter Summary ---
Demographics + + + | Address | [address] | | | [place] [address] | + + + | Home Phone | | + + + | Preferred Language | Unknown | + + + | Marital Status | | + + + | Mormonism Affiliation | Unknown | + + + | Race | Unknown | + + + | Ethnic Group | Unknown | + + + Author + + + | Author | [facility] | | | and [place] | + + + | Organization | [facility] | | | and [place] | + + + | Address | Unknown | + + + | Phone | Unavailable | + + + Support + + +---------+ + | Name | Relationship | Address | Phone | + + +---------+ + | Columba Foreman | ECON | Unknown | | + + +---------+ + | Jyothi Barkley ECON | Unknown | | + + +---------+ + Care Team Providers + +------+ + | Care Track Grinder Operator Name | Role | Phone | + +------+ + | West Ferrell DO | PCP | | + +------+ + Encounter Details +--------+ + + + + | Date | Type | Department | Care Team | Description | +--------+ + + + + | 12/01/ | Orders Only | [facility] | Provider, | | | 2019 | | SYSTEM GENERIC OP | [address] | | | | | [address] | [place] | | | | | [address] [place], [place] | [place] [address] | | | | | [address] | | | | | | [phone] | | | +--------+ + + + + Social History + + + [...] | | | + +---+---+---+ + + +---------+ + | Alcohol Use [...] + + documented as of this encounter Plan of Treatment Not on filedocumented as of this encounter Visit Diagnoses Not on filedocumented in this encounter"
--- OUTSIDE RECORDS SUMMARY | ~2019-02-27 | XMS | Encounter Summary ---
Demographics + + + | Address | [address] | | | [place] [address] | + + + | Home Phone | | + + + | Preferred Language | Unknown | + + + | Marital Status | | + + + | Episcopal Affiliation | Unknown | + + + | Race | Unknown | + + + | Ethnic Group | Unknown | + + + Author + + + | Author | [facility] | | | and [place] | + + + | Organization | [facility] | | | [...] Team Providers + +------+ + | Care Poultry Inseminator Name | Role | Phone | + +------+ + | West Ferrell DO | PCP | | + +------+ + Encounter Details +--------+ + + + + | Date | Type | Department | Care Team | Description | +--------+ + + + + | 12/01/ | Orders Only | [facility] | Provider, | | | 2019 | | SYSTEM GENERIC OP | [address] | | | | | [address] | [place] | | | | | [address] [place], [place] | [place] [address] | | | | | [address] | | | | | | [phone] | | | +--------+ + + + [...]
--- OUTSIDE RECORDS SUMMARY | ~2019-02-27 | XMS | Clinical Summary ---
Demographics + + + | Address | [address] | | | [place] [address] | + + + | Home Phone | | + + + | Preferred Language | Unknown | + + + | Marital Status | | + + + | Advent Affiliation | 1075 | + + + | Race | Unknown | + + + | Ethnic Group | Unknown | + + + Author + + + | Author | [facility] (Historical as of | | | 12-23-18) | + + + | Organization | [facility] (Historical as of | | | 12-23-18) | + + + | Address | Unknown | + + + | Phone | Unavailable | + + + Support + + + + + | Name | Relationship | Address | Phone | + + + + + | Jyothi Kimbrough | AUBREY | [address] | | | | | [place] [address] | | + + + + + Care Team Providers + +------+ + | Care Engineering Drafter Name | Role | Phone | + [...] +------+-------+ + | MEDICARE | MEDICA | [id number] | | | [address] | | | RE | | | | [place] [address] | | | IP-OP | | | | | + +--------+ +------+-------+ + | [employer] PLAN | ODS - | [id number] | | | | | | GENERI [...] | | | [place] | | | [address] | [address] | + +--------+ +--------+ + +
--- OUTSIDE RECORDS SUMMARY | ~2019-02-27 | XMS | Encounter Summary ---
Demographics + + + | Address | [address] | | | [place] [address] | + + + | Home Phone | | + + + | Preferred Language | Unknown | + + + | Marital Status | Single | + + + | Pentecostalism Affiliation | Unknown | + + + | Race | White | + + + | Ethnic Group | Not or | + + + Author + + + | Author | [facility] | + + + | Organization | [facility] | + + + | Address | Unknown | + + + | Phone | Unavailable | + + + Support + + + + + | Name | Relationship | Address | Phone | + + + + + | Columba Law | ECON | [address] | | | | | [place], [place] | | | | | [address] | | + + + + + Care Team Providers + +------+ + | Care Journeyman Wireman Name | Role | Phone | + [...] Exudative | | 2018 | Visit | [facility] at | [address] | 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[place], [place]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, | | | | [facility] [address] [place] | [address] | bilateral, with | | | | [address] | [phone] | active choroidal | | | | [address] [place], | | neovascularization | | | | [place] [address] | | ([facility]) (Primary Dx) | | | | [phone] | | | +--------+---------+ + + + [...] Cline MD - 01/18/2018 3:00 PM PDT [facility] Progress Note 01/18/2018 Assessment & Plan: 77 [...] | Examination: See Ophthalmology Module Attestations: The claims technician, under the supervision of the physician, [...] neovascularization | | | | | | ([facility]) | | + +--------+ + + + [...] bevacizumab 1.25 mg/0.05 mL | | | [facility]: [id number] | | | Lot: [id number] | | | Expiration Date: 03/19/2018 | [...] bevacizumab 1.25 mg/0.05 mL | | | [facility]: [id number] | | | Lot: [id number] | | | Expiration Date: 03/19/2018 | [...] Performed At | + + + | [employer] Consultant | [facility] | | [facility] [facility]: [...] [facility] | [address] | [place] [address] | | | [place] | Reyna. | [...]
--- OUTSIDE RECORDS SUMMARY | ~2019-02-27 | XMS | Clinical Summary ---
Demographics + + + | Address | [address] | | | [place] [address] | + + + | Home Phone | | + + + | Preferred Language | Unknown | + + + | Marital Status | | + + + | Judaism Affiliation | 1075 | + + + | Race | Unknown | + + + | Ethnic Group | Unknown | + + + Author + + + | Author | [facility] (Historical as of | | | 12-23-18) | + + + | Organization | [facility] (Historical as of | | | 12-23-18) | + + + | Address | Unknown | + + + | Phone | Unavailable | + + + Support + + + + + | Name | Relationship | Address | Phone | + + + + + | Jyothi Kimbrough | AUBREY | [address] | | | | | [place] [address] | | + + + + + Care Team Providers + +------+ + | Care Meat Grader Name | Role | Phone | [...] +------+-------+ + | MEDICARE | MEDICA | [id number] | | | [address] | | | RE | | | | [place] [address] | | | IP-OP | | | | | + +--------+ +------+-------+ + | [employer] PLAN | ODS - | [id number] | | | | | | GENERI [...] | | | [place] | | | [address] | [address] | + +--------+ +--------+ + +
--- OUTSIDE RECORDS SUMMARY | ~2019-02-27 | XMS | Clinical Summary ---
Demographics + + + | Address | [address] | | | [place] [address] | + + + | Home Phone | | + + + | Preferred Language | Unknown | + + + | Marital Status | | + + + | Jew Affiliation | Unknown | + + + | Race | Unknown | + + + | Ethnic Group | Unknown | + + + Author + + + | Author | [facility] | | | and Paulana | + + + | Organization | [facility] | | [...] Providers + +------+ + | Care Rn Family Practice Name | Role | Phone | + [...] + +--------+ | MEDICARE | MEDICA | [id number] | 09/07/19 | [phone] | | Medica | | | RE | | 07-Pre | 5 | | re | | | PART A | | sent | | | | | | AND B | | | | | | + +--------+ +--------+ + +--------+ | MODA | MODA | [id number] | 05/09/19 | [phone] | [address] | Indemn | | | HEALTH | | 14-Pre | 9 | [address] | ity | | | MDCR | | sent | | [address], | | | | [place] | | | | [place] [address] | | + +--------+ +--------+ + +--------+ [...] | | al/Fam | | 1941 | [phone] | [address] [place] | | | mon[place] | | | 6 (Home) | [address] | + +--------+ +--------+ + + Advance Directives Patient has advance care planning documents on file. For more information, please contact:[facility] [place] [address]
[~2019-02-27 08:24] MED LIST changes: +BUSPIRONE HCL5 MG PO; +NEURONTIN100 MG PO; +PRAVACHOL20 MG PO; +ZOLOFT25 MG PO
[2019-02-27] MEDS ORDERED: ALENDRONATE SOD70 MG PO (08:36)
[2019-02-27] MEDS ORDERED: NORCO 5-325 TA1 EACH PO (10:18)
== END 2019-02-27 10:51 | disposition home or self-care (01) ==
LOC: ED 08:24
DX: S22.089A Unspecified fracture of T11-T12 vertebra, initial encounter for closed fracture (principal); K21.9 Gastro-esophageal reflux disease without esophagitis; Z85.3 Personal history of malignant neoplasm of breast; Z87.891 Personal history of nicotine dependence; Z88.2 Allergy status to sulfonamides; Z88.5 Allergy status to narcotic agent; Z91.040 Latex allergy status; Z88.8 Allergy status to other drugs, medicaments and biological substances; Z79.899 Other long term (current) drug therapy; W01.198A Fall on same level from slipping, tripping and stumbling with subsequent striking against other object, initial encounter
CPT/HCPCS: 71046; 72100; 99283-25

== ENCOUNTER 2019-03-06 13:38 | Inpatient (IN) | payer MEDICARE, OTHER ==
[~2019-03-06] VITALS: Ht 162.6 cm; Wt 45.4 kg
--- OUTSIDE RECORDS SUMMARY | ~2019-03-06 | XMS | Clinical Summary ---
Demographics + + + | Address | [address] | | | [place] [address] | + + + | Home Phone | | + + + | Preferred Language | Unknown | + + + | Marital Status | | + + + | Taoism Affiliation | Unknown | + + + | Race | Unknown | + + + | Ethnic Group | Unknown | + + + Author + + + | Author | [facility] | | | and [place] | + + + | Organization | [facility] | | | [...] Team Providers + +------+ + | Care Talent Acquisition Sourcer Name | Role | Phone | + +------+ + | West Ferrell DO | PCP | | + +------+ + Allergies + + + + + + | Active Allergy | Reactions | Severity | Noted | Comments | | | | | Date | | + + + + + + | Adhesive & Tape | Rash | Medium | 12/23/19 | | | | | | 18 | | + + + + + + | Clobetasol | Other (See Comments) | Medium | 08/26/19 | unknown | | | | | 16 | | + + + + + + | Diazepam | Other (See Comments) | Medium | 08/26/19 | Disorientation and | | | | | 16 | weakness | + + + + + + | Haloperidol | Other (See Comments) | Medium | 08/26/19 | Unknown | | | | | 16 | | + + + + + + | Latex | Rash | Medium | 08/26/19 | | | | | | 16 | | + + + + + + | Sulfa Antibiotics | Other (See Comments) | Medium | 08/26/19 | unknown unknown | | | | | 16 | [...] | 2 times daily. | | | 11/25 | | e | | | | [...] Take 81 mg by mouth | | 0 | | | Activ | | tablet | Daily. | | | | | e | + + + +---------+------+------+-------+ | cholecalciferol | Take 1,000 Units by | | 0 | | | Activ | | (VITAMIN D-3) 1,000 | mouth Daily. | | | | | e | | units tablet | | | | | | | + + + +---------+------+------+-------+ | | Take 1 tablet by | | 0 | | | Activ | | HYDROcodone-acetamin | mouth every 4 hours | | | | | e | | ophen (NORCO) 10-325 | as needed for Pain. | | | | | | | mg per tablet | | | | | | | + + + +---------+------+------+-------+ | hydrOXYzine | Take 10 mg by mouth | | 0 | | | Activ | | hydrochloride | every 4 hours as | | | | | e | | (ATARAX) 10 mg | needed for Anxiety. | | | | | | | tablet | | | | | | | + + + +---------+------+------+-------+ | meclizine | Take 25 mg by mouth | | 0 | | | Activ | | (ANTIVERT) 25 mg | as needed for | | | | | e | | tablet | Nausea. | | | | | | + + + +---------+------+------+-------+ | sertraline | Take one tablet | | 0 | 02/1 | | Activ | | (ZOLOFT) 50 mg | daily | | | 8/20 | | e | | tablet | | | | 16 | | | + + + +---------+------+------+-------+ | busPIRone (BUSPAR) | Take 10 mg by mouth | | 0 | | | Activ | | 10 MG tablet | 3 times daily. | | | | | e | + + + +---------+------+------+-------+ | atorvaSTATin | Take 10 mg by mouth | | 0 | | | Activ | | (LIPITOR) 10 mg | nightly. | | | | | e | | tablet | | | | | | | + + + +---------+------+------+-------+ | omeprazole | Take 20 mg by mouth | | 0 | | | Activ | | (PRILOSEC) 20 mg | 2 times daily. | | | | | e | | capsule | | | | | | | + + + +---------+------+------+-------+ | Multiple | Take by mouth | | 0 | | | Activ | | Vitamins-Minerals | Daily. | | | | | e | | (ICAPS) CAPS | | | | | | | + + + +---------+------+------+-------+ | loratadine | Take 10 mg by mouth | | 0 | | | Activ | | (CLARITIN) 10 mg | Daily as needed for | | | | | e | | tablet | Allergies. | | | | | | + + + +---------+------+------+-------+ | acetaminophen | Take 500 mg by mouth | | 0 | | | Activ | | (TYLENOL) 500 mg | every 6 hours as | | | | | e | | tablet | needed for Pain. | | | | | | + + + +---------+------+------+-------+ | | Take 3 mLs by | | 0 | | | Activ | | albuterol-ipratropiu | nebulization 4 times | | | | | e | | m (DUONEB) 2.5-0.5 | daily. | | | | | | | mg/3 mL SOLN | | | | | | | + + + +---------+------+------+-------+ | aluminum & | Take 30 mLs by mouth | | 0 | | | Activ | | magnesium [...] | + + + +---------+------+------+-------+ | alendronate | Take 70 mg by mouth | | 0 | | | Activ | | (FOSAMAX) 70 mg | every 7 days. Take | | | | | e | | tablet | in the morning [...] | min. | | | | | | + + + +---------+------+------+-------+ | azithromycin | Take 1 tab daily x 4 | | 0 | 08/1 | | Activ | | (ZITHROMAX) 250 mg | days | | | 8/20 | | e | | tablet | | | | 18 | | | + + + +---------+------+------+-------+ | | Inhale 2 puffs into | | 0 | | | Activ | | budesonide-formotero | the lungs 2 (two) | | | | | e | | l (SYMBICORT) | times daily. | | | | | | | 160-4.5 mcg/puff | | | | | | | | inhaler | | | | | | | + + + +---------+------+------+-------+ | | Place 1 drop into | | 0 | | | Activ | | carboxymethylcellulo | both eyes 4 (four) | | | | | e | | se (REFRESH TEARS) | times daily as | | | | | | | 0.5% ophthalmic | needed. | | | | | | | solution | | | | | | | + + + +---------+------+------+-------+ | cyanocobalamin | Take 1,000 mcg by | | 0 | | | Activ | | (VITAMIN B-12) 1000 | mouth daily. | | | | | e | | MCG tablet | | | | | | | + + + +---------+------+------+-------+ | polyethylene | Take 17 g by mouth | | 0 | | | Activ | | glycol (MIRALAX) | daily. | | | | | e | | packet | | | | | | | + + + +---------+------+------+-------+ | predniSONE | Take 40mg daily x 4 | | 0 | 08/1 | | Activ | | (DELTASONE) 10 mg | days then take 30mg | | | 8/20 | | e | | tablet | x 4 days then take | | | 18 | | | | | 20mg x 4 days then | | | | | | | | 10 mg daily x 4 days | | | | | | | | then stop | | | | | | + + + +---------+------+------+-------+ | simvastatin | Take 20 mg by mouth | | 0 | | | Activ | | (ZOCOR) 10 mg tablet | nightly. | | | | | e | + + + +---------+------+------+-------+ | albuterol 90 | Inhale 2 puffs into | | 0 | | | Activ | | mcg/puff inhaler | the lungs 3 (three) | | | | | e | | | times daily as | | | | | | | | needed for Wheezing. | | | | | | + + + +---------+------+------+-------+ | aspirin 81 MG | Take 81 mg by mouth | | 0 | | | Activ | | tablet | daily. | | | | | e | + + + +---------+------+------+-------+ | omeprazole | Take 20 mg by mouth | | 0 | | | Activ | | (PRILOSEC) 40 MG | every morning before | | | | | e | | capsule | breakfast. | | | | | | + + + +---------+------+------+-------+ | sertraline | Take 200 mg by mouth | | 0 | | | Activ | | (ZOLOFT) 100 mg | daily. | | | | | e | | tablet | | | | | | | + + + +---------+------+------+-------+ | MAPAP 325 MG | take 2 tablets by | | 0 | 01/1 | | Activ | | tablet | mouth if needed for | | | 4/20 | | e | | | MILD PAIN | | | 19 | | | + + + +---------+------+------+-------+ | amoxicillin | take 1 capsule by | | 0 | 05/0 | | Activ | | (AMOXIL) 500 MG | mouth twice a day | | | 3/20 | | e | | capsule | | | | 19 | | | + + + +---------+------+------+-------+ | busPIRone (BUSPAR) | | | 0 | 06/1 | | Activ | | 5 mg tablet | | | | 9/20 | | e | | | | | | 19 | | | + + + +---------+------+------+-------+ | ciprofloxacin | instill 2 drops into | | 0 | 12/1 | | Activ | | (CILOXAN) 0.3% | left eye four times | | | 6/20 | | e | | ophthalmic solution | a day | | | 18 | | | + + + +---------+------+------+-------+ | CARTIA XT 240 MG | | | 0 | 03/1 | | Activ | | 24 hr capsule | | | | 4/20 | | e | | | | | | 19 | | | + + + +---------+------+------+-------+ | gabapentin | | | 0 | 07/0 | | Activ | | (NEURONTIN) 100 mg | | | | 3/20 | | e | | capsule | | | | 19 | | | + + + +---------+------+------+-------+ | lisinopril | take 1 tablet by | | 0 | 04/1 | | Activ | | (PRINIVIL, ZESTRIL) | mouth once daily | | | 2/20 | | e | | 10 mg tablet | | | | 19 | | | + + + +---------+------+------+-------+ | | take 1 tablet by | | 1 | 03/2 | | Activ | | lisinopril-hydrochlo | mouth once daily | | | 6/20 | | e | | rothiazide | | | | 19 | | | | (PRINZIDE,ZESTORETIC | | | | | | | | ) 20-25 MG per | | | | | | | | tablet | | | | | | | + + + +---------+------+------+-------+ | methylPREDNISolone | take as directed on | | 0 | 08/0 | | Activ | | (MEDROL DOSEPAK) 4 | pack with food | | | 4/20 | | e | | mg tablet | | | | 18 | | | + + + +---------+------+------+-------+ | metoprolol | take 1 tablet by | | 0 | 01/1 | | Activ | | succinate | mouth at bedtime | | | 4/20 | | e | | (TOPROL-XL) 50 mg 24 | | | | 19 | | | | hr tablet | | | | | | | + + + +---------+------+------+-------+ | potassium chloride | take 1 tablet by | | 1 | 04/1 | | Activ | | (KLOR-CON) 10 mEq | mouth once daily | | | 2/20 | | e | | CR tablet | with food | | | 19 | | | + + + +---------+------+------+-------+ | pravastatin | | | 1 | / | | Activ | | (PRAVACHOL) 20 mg | | | | 6/20 | | e | | tablet | | | | 19 | | | + + + +---------+------+------+-------+ | simvastatin | take 1 tablet by | | 0 | / | | Activ | | (ZOCOR) 20 mg tablet | mouth every evening | | | 2/20 | | e | | | | | | 18 | | | + + + +---------+------+------+-------+ | valACYclovir | take 1 tablet by | | 0 | / | | Activ | | (VALTREX) 1 g tablet | mouth three times a | | | 620 | | e | | | day | | | 18 | | | + + + +---------+------+------+-------+ | furosemide (LASIX) | take 1 tablet by | | 1 | 04/ | | Activ | | 40 mg tablet | mouth once daily | | | 2/20 | | e | | | | | | 19 | | | + + + +---------+------+------+-------+ | predniSONE | take 2 tablets by | | 0 | 08/ | | Activ | | (DELTASONE) 20 mg | mouth once daily for | | | 0/20 | | e | | tablet | 5 days | | | 18 | | | + + + +---------+------+------+-------+ Active Problems + + + | Problem | Noted Date | + + + | Benign essential hypertension | 12/22/2017 | + + + | Dyspnea | 12/22/2017 | + + + | Chronic respiratory failure with hypoxia | 12/22/2017 | + + + | Chronic hypercapnic respiratory failure | | + + + | COPD (chronic obstructive pulmonary disease) | | + + + | GERD [...] | + + Last Filed Vital Signs + + + + | Vital Sign | Reading | Time Taken | + + + + | Blood Pressure | 117/58 | 12/24/2017 1505 PDT | + + + + | Pulse | 80 | 12/24/20171504 PDT | + + + + | Temperature | 36.8 C (98.2 F) | 12/24/20171504 PDT | + + + + | Respiratory Rate | 18 | 12/24/20171504 PDT | + + + + | Oxygen Saturation | 94% | 09/18/2015932 PDT | + + + + | Inhaled Oxygen | - | - | | Concentration | | | + + + + | Weight | 51.3 kg (113 lb) | 12/24/20171504 PDT | + + + + | Height | 162.6 cm (5' 4") | 12/24/2017 1505 PDT | + + + + | Body Mass Index | 19.4 | 12/24/2017 1505 PDT | + + + + Plan [...] | + + + + + | Breast Cancer | | | | | Screening | 7 | | | + + + + + | Vaccine: Influenza | | 01/18/2015 | | | (#1) | 9 | | | + [...] + +--------+ | MEDICARE | MEDICA | [id number] | 09/07/19 | [phone] | | Medica | | | RE | | 07-Pre | 5 | | re | | | PART A | | sent | | | | | | AND B | | | | | | + +--------+ +--------+ + +--------+ | MODA | MODA | [id number] | 05/09/19 | [phone] | [address] | Indemn | | | HEALTH | | 14-Pre | 9 | [address] | ity | | | MDCR | | sent | | [place], | | | | [place] | | | | [place] [address] | | + +--------+ +--------+ + +--------+ + +--------+ +--------+ + + | Guarantor Name | Accoun | Relation to | Date | Phone | Billing Address | | | t Type | Patient | of | | | | | | | | | | + +--------+ +--------+ + + | Ammy Kraus | Person | Self | [birth year] | [address] | | | [place] | | 1941 | [phone] | [address] [place] | | | [place] | | | 6 (Home) | [address] | + +--------+ +--------+ + + Advance Directives Patient has advance care planning documents on file. For more information, please contact:[facility] [place] [address]
--- OUTSIDE RECORDS SUMMARY | ~2019-03-06 | XMS | Encounter Summary ---
Demographics + + + | Address | [address] | | | [place] [address] | + + + | Home Phone | | + + + | Preferred Language | Unknown | + + + | Marital Status | Single | + + + | Rastafari Affiliation | Unknown | + + + | Race | White | + + + | Ethnic Group | Not or | + + + Author + + + | Author | [facility] | + + + | Organization | [facility] | + + + | Address | Unknown | + + + | Phone | Unavailable | + + + Support + + + + + | Name | Relationship | Address | Phone | + + + + + | Columba Law | ECON | [address] | | | | | [place], [place] | | | | | [address] | | + + + + + Care Team Providers + +------+ + | Care Certified Hyperbaric Technician Name | Role | Phone | [...] Exudative | | 2018 | Visit | [facility] at | [address] | 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[place], [place]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, | | | | [address] [place] | [address] | bilateral, with | | | | [address] | [phone] | active choroidal | | | | Building [place], | | neovascularization | | | | [place] [address] | | ([facility]) (Primary Dx) | | | | [phone] | | | +--------+---------+ + + + [...] Cline MD - 01/18/2018 3:00 PM PDT [facility] Progress Note 01/18/2018 Assessment & Plan: 77 [...] | Examination: See Ophthalmology Module Attestations: The glass installer technician, under the supervision of the physician, [...] neovascularization | | | | | | ([facility]) | | + +--------+ + + + [...] bevacizumab 1.25 mg/0.05 mL | | | [facility]: [id number] | | | Lot: [id number] | | | Expiration Date: 03/19/2018 | [...] bevacizumab 1.25 mg/0.05 mL | | | [facility]: [id number] | | | Lot: [id number] | | | Expiration Date: 03/19/2018 | [...] Performed At | + + + | Engineering Recruiter | [facility] | | [employer] [facility]: [...] [facility] | [address] | [place] [address] | | | [place] | Reyna. | [...]
--- OUTSIDE RECORDS SUMMARY | ~2019-03-06 | XMS | Clinical Summary ---
Demographics + + + | Address | [address] | | | [place] [address] | + + + | Home Phone | | + + + | Preferred Language | Unknown | + + + | Marital Status | Single | + + + | Confucianist Affiliation | Unknown | + + + | Race | White | + + + | Ethnic Group | Not or | + + + Author + + + | Author | [facility] | + + + | Organization | [facility] | + + + | Address | Unknown | + + + | Phone | Unavailable | + + + Support + + + + + | Name | Relationship | Address | Phone | + + + + + | Columba Law | ECON | [address] | | | | | [place], [place] | | | | | [address] | | + + + + + Care Team Providers + +------+ + | Care Biology Tutor Name | Role | Phone | + +------+ + | West Ferrell | PCP | | + +------+ + Source Comments MICHAEL is fully live on both [facility] and [facility] All[facility] + + + + + + [...] | | | | | | | [address] | | + +--------+ +--------+ + +--------+ | MODA MEDICARE | MODA | xxxxxxxxx | 05/09/19 | [phone] | [address] | POS | | SUPPLEMENT | MEDICA | | 17-Pre | 4 | [id number] | | | | RE | | sent | | [place], | | | | [place] | | | | [place] [address] | | | | MENT | | [...] | | al/[place] | | 1941 | [phone] | [place] [address] | | | [place] | | | 0 (Home) | | + +--------+ +--------+ + +"
--- OUTSIDE RECORDS SUMMARY | ~2019-03-06 | XMS | Clinical Summary ---
Demographics + + + | Address | [address] | | | [place] [address] | + + + | Home Phone | | + + + | Preferred Language | Unknown | + + + | Marital Status | | + + + | Orthodox Affiliation | 1075 | + + + | Race | Unknown | + + + | Ethnic Group | Unknown | + + + Author + + + | Author | [facility] (Historical as of | | | 12-23-18) | + + + | Organization | [facility] (Historical as of | | | 12-23-18) | + + + | Address | Unknown | + + + | Phone | Unavailable | + + + Support + + + + + | Name | Relationship | Address | Phone | + + + + + | Jyothi Kimbrough | AUBREY | [address] | | | | | [place] [address] | | + + + + + Care Team Providers + +------+ + | Care Licensed Appraiser Name | Role | Phone | + +------+ + | West Ferrell DO | PP | | + +------+ + Allergies + + + + + + | Active Allergy | Reactions | Severity | Noted | Comments | | | | | Date | | + + + + + + | Clobetasol | Other (See Comments) | Medium | 12/23/19 | unknown | | | | | 18 | | + + + + + + | Haloperidol | Other (See Comments) | Medium | 12/23/19 | Unknown | | | | | 18 | | + + + + + + | Latex | Rash | Medium | 12/23/19 | | | | | | 18 | | + + + + + + | Sulfa Antibiotics | Other (See Comments) | Medium | 12/23/19 | unknown | | | | | 18 | | + + + + + + | Sulfacetamide | Other (See Comments) | Medium | 12/23/19 | unknown | | | | | 18 | | + + + + + + | Adhesive Tape | Rash | Medium | 12/23/19 | | | | | | 18 | | + + + + + + | Diazepam | Other (See Comments) | Medium | 12/23/19 | Disorientation and | | | | | 18 | weakness | + + + + + + Current Medications + + +--------+---------+------+------+-------+ | Prescription | Sig. | Disp. | Refills | Star | End | Statu | | | | | | t | Date | s | | | | | | Date | | | + + +--------+---------+------+------+-------+ | sertraline | Take 200 mg by mouth | | | | | Activ | | (ZOLOFT) 100 MG | daily. | | | | | e | | tablet | | | | | | | + + +--------+---------+------+------+-------+ | cholecalciferol | Take 1,000 Units by | | | | | Activ | | (VITAMIN D-3) 1000 | mouth daily. | | | | | e | | units tablet | | | | | | | + + +--------+---------+------+------+-------+ | simvastatin | Take 20 mg by mouth | | | | | Activ | | (ZOCOR) 10 MG tablet | nightly. | | | | | e | + + +--------+---------+------+------+-------+ | aspirin 81 MG | Take 81 mg by mouth | | | | | Activ | | tablet | daily. | | | | | e | + + +--------+---------+------+------+-------+ | omeprazole | Take 20 mg by mouth | | | | | Activ | | (PRILOSEC) 40 MG | every morning before | | | | | e | | capsule | breakfast. | | | | | | + + +--------+---------+------+------+-------+ | loratadine | Take 10 mg by mouth | | | | | Activ | | (CLARITIN) 10 MG | daily. | | | | | e | | tablet | | | | | | | + + +--------+---------+------+------+-------+ | albuterol | Inhale 2 puffs into | | | | | Activ | | (PROVENTIL | the lungs 3 (three) | | | | | e | | HFA;VENTOLIN HFA) | times daily as | | | | | | | 108 (90 Base) | needed for Wheezing. | | | | | | | MCG/ACT inhaler | | | | | | | + + +--------+---------+------+------+-------+ | busPIRone (BUSPAR) | Take 10 mg by mouth | | | | | Activ | | 10 MG tablet | 3 (three) times | | | | | e | | | daily. | | | | | | + + +--------+---------+------+------+-------+ | polyethylene | Take 17 g by mouth | | | | | Activ | | glycol (GLYCOLAX) | daily. | | | | | e | | packet | | | | | | | + + +--------+---------+------+------+-------+ | | Inhale 2 puffs into | | | | | Activ | | budesonide-formotero | the lungs 2 (two) | | | | | e | | l (SYMBICORT) | times daily. | | | | | | | 160-4.5 MCG/ACT | | | | | | | | inhaler | | | | | | | + + +--------+---------+------+------+-------+ | alendronate | Take 70 mg by mouth | | | | | Activ | | (FOSAMAX) 70 MG | every [...] | | | | | + + +--------+---------+------+------+-------+ | cyanocobalamin | Take 1,000 mcg by | | | | | Activ | | (VITAMIN B-12) 1000 | mouth daily. | | | | | e | | MCG tablet | | | | | | | + + +--------+---------+------+------+-------+ | | Place 1 drop into | | | | | Activ | | carboxymethylcellulo | both eyes 4 (four) | | | | | e | | se (REFRESH PLUS) | times daily as | | | | | | | 0.5 % SOLN | needed. | | | | | | + + +--------+---------+------+------+-------+ | predniSONE | Take 40mg daily x 4 | 40 | 0 | 08/1 | | Activ | | (DELTASONE) 10 MG | days then take 30mg | tablet | | 8/20 | | e | | tablet | x 4 days then take | | | 18 | | | | | 20mg x 4 days then | | | | | | | | 10 mg daily x 4 days | | | | | | | | then stop | | | | | | + + +--------+---------+------+------+-------+ | azithromycin | Take 1 tab daily x 4 | 4 | 0 | 08 | | Activ | | (ZITHROMAX) 250 MG | days | tablet | | 12/26 | | e | | tablet | | | | 18 | | | + + +--------+---------+------+------+-------+ Active Problems + + + | Problem | Noted Date | + + + | Dyspnea | 12/22/2017 | + + + | Benign essential hypertension | 12/22/2017 | + + + | Hyperlipidemia | 12/22/2017 | + + + | COPD (chronic obstructive pulmonary disease) (HCC) | 12/22/2017 | + + + | Chronic respiratory failure with hypoxia (HCC) | 12/22/2017 | + + + Social History + +-------+ [...] AM PDT | + + + + Plan [...] filefrom Last 3 Months Insurance + +--------+ +------+-------+ + | Payer | Benefi | Subscriber | Type | Phone | Address | | | t Plan | ID | | | | | | / | | | | | | | Group | | | | | + +--------+ +------+-------+ + | MEDICARE | MEDICA | [id number] | | | [address] | | | RE | | | | [place] [address] | | | IP-OP | | | | | + +--------+ +------+-------+ + | ODS HEALTH PLAN | ODS - | [id number] | | | | | | GENERI | | | | | | | C | | | | | + +--------+ +------+-------+ + + +--------+ +--------+ + + | Guarantor Name | Accoun | Relation to | Date | Phone | Billing Address | | | t Type | Patient | of | | | | | | | | | | + +--------+ +--------+ + + | HANSA CRAWFORD | Person | Self [birth year] | Home: | [address] | | | [address] | | 1941 | [phone] [address] [place] | | | monika | | | [phone] | [phone] | + +--------+ +--------+ + +
--- OUTSIDE RECORDS SUMMARY | ~2019-03-06 | XMS | Clinical Summary ---
Demographics + + + | Address | [address] | | | [place] [address] | + + + | Home Phone | | + + + | Preferred Language | Unknown | + + + | Marital Status | | + + + | Shinto Affiliation | 1075 | + + + | Race | Unknown | + + + | Ethnic Group | Unknown | + + + Author + + + | Author | [facility] (Historical as of | | | 12-23-18) | + + + | Organization | [facility] (Historical as of | | | 12-23-18) | + + + | Address | Unknown | + + + | Phone | Unavailable | + + + Support + + + + + | Name | Relationship | Address | Phone | + + + + + | Jyothi Kimbrough | AUBREY | [address] | | | | | [place] [address] | | + + + + + Care Team Providers + +------+ + | Care Technology Sales Consultant Name | Role | Phone | + [...] +------+-------+ + | MEDICARE | MEDICA | [id number] | | | [address] | | | RE | | | | [place] [address] | | | IP-OP | | | | | + +--------+ +------+-------+ + | ODS HEALTH PLAN | ODS - | [id number] | | | | | | GENERI [...] | | | mon[place] | | | [phone] | [phone] | + +--------+ +--------+ + +
--- OUTSIDE RECORDS SUMMARY | ~2019-03-06 | XMS | Encounter Summary ---
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, with | | | | [address] | 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[place], | | neovascularization | | | | [place] [address] | | ([facility]) (Primary Dx) | | | | [phone] | | | +--------+---------+ + + + [...] Cline MD - 01/18/2018 3:00 PM PDT [facility] [place] [facility] Progress Note 01/18/2018 Assessment & Plan: 77 [...] | Examination: See Ophthalmology Module Attestations: The veterinary surgery technician, under the supervision of the physician, [...] neovascularization | | | | | | ([facility]) | | + +--------+ + + + [...] bevacizumab 1.25 mg/0.05 mL | | | [facility]: [id number] | | | Lot: [id number] | | | Expiration Date: 03/19/2018 | [...] bevacizumab 1.25 mg/0.05 mL | | | [facility]: [id number] | | | Lot: [id number] | | | Expiration Date: 03/19/2018 | [...] Performed At | + + + | [facility] | [facility] | | DocumentationRight EyeQuality: [...] [facility] | [address] | [place] [address] | | | [place] | Reyna. | [...]
--- OUTSIDE RECORDS SUMMARY | ~2019-03-06 | XMS | Clinical Summary ---
Demographics + + + | Address | [address] | | | [place] [address] | + + + | Home Phone | | + + + | Preferred Language | Unknown | + + + | Marital Status | | + + + | Alevism Affiliation | Unknown | + + + | Race | Unknown | + + + | Ethnic Group | Unknown | + + + Author + + + | Author | [facility] | | | and [place]ana | + + + | Organization | [facility] | | | [...] Team Providers + +------+ + | Care Beater Dumper Name | Role | Phone | + [...] + +--------+ | MEDICARE | MEDICA | [id number] | 09/07/19 | [phone] | | Medica | | | RE | | 07-Pre | 5 | | re | | | PART A | | sent | | | | | | AND B | | | | | | + +--------+ +--------+ + +--------+ | MODA | MODA | [id number] | 05/09/19 | [phone] | [address] | Indemn | | | HEALTH | | 14-Pre | 9 | [phone] | ity | | | MDCR | | sent | | [place], | | | | [place] | | | | [place] [address] | | + +--------+ +--------+ + +--------+ [...] monika | | | 6 (Home) | [address] | + +--------+ +--------+ + + Advance Directives Patient has advance care planning documents on file. For more information, please contact:[facility] [address]
--- OUTSIDE RECORDS SUMMARY | ~2019-03-06 | XMS | Clinical Summary ---
Demographics + + + | Address | [address] | | | [place] [address] | + + + | Home Phone | | + + + | Preferred Language | Unknown | + + + | Marital Status | | + + + | Confucianism Affiliation | Unknown | + + + | Race | Unknown | + + + | Ethnic Group | Unknown | + + + Author + + + | Author | [facility] | | | and [place] | + + + | Organization | [facility] | | | [...] Team Providers + +------+ + | Care Crm Marketing Analyst Name | Role | Phone | [...] + +--------+ | MEDICARE | MEDICA | [id number] | 09/07/19 | [phone] | | Medica | | | RE | | 07-Pre | 5 | | re | | | PART A | | sent | | | | | | AND B | | | | | | + +--------+ +--------+ + +--------+ | MODA | MODA | [id number] | 05/09/19 | [phone] | [address] | Indemn | | | HEALTH | | 14-Pre | 9 | [phone] | ity | | | MDCR | | sent | | [place], | | | | [place] | | | | [place] [address] | | + +--------+ +--------+ + +--------+ [...] monika | | | 6 (Home) | [address] | + +--------+ +--------+ + + Advance Directives Patient has advance care planning documents on file. For more information, please contact:[facility] and [facility] [place] [address]
--- OUTSIDE RECORDS SUMMARY | ~2019-03-06 | XMS | Clinical Summary ---
Demographics + + + | Address | [address] | | | [place] [address] | + + + | Home Phone | | + + + | Preferred Language | Unknown | + + + | Marital Status | Single | + + + | Mandaen Affiliation | Unknown | + + + | Race | White | + + + | Ethnic Group | Not or | + + + Author + + + | Author | [facility] | + + + | Organization | [facility] | + + + | Address | Unknown | + + + | Phone | Unavailable | + + + Support + + + + + | Name | Relationship | Address | Phone | + + + + + | Columba Law | ECON | [address] | | | | | [place], [place] | | | | | [address] | | + + + + + Care Team Providers + +------+ + | Care Township Clerk Name | Role | Phone | + +------+ + | West Ferrell | PCP | | + +------+ + Source Comments MICHAEL is fully live on both [facility] Allergies + + + + [...] | | | | | | | [address] | | + +--------+ +--------+ + +--------+ | MODA MEDICARE | MODA | xxxxxxxxx | 05/09/19 | [phone] | [address] | POS | | SUPPLEMENT | MEDICA | | 17-Pre | 4 | [id number] | | | | RE | | sent | | [place], | | | | [place]PP[place] | | | | [place] [address] | | | | MENT | | [...] | | [place] | | 1941 | [phone] | [place] [address] | | | monika | | | 0 (Home) | | + +--------+ +--------+ + +"
--- OUTSIDE RECORDS SUMMARY | ~2019-03-06 | XMS | Clinical Summary ---
Demographics + + + | Address | [address] | | | [place] [address] | + + + | Home Phone | | + + + | Preferred Language | Unknown | + + + | Marital Status | | + + + | Latter Day Affiliation | 1075 | + + + | Race | Unknown | + + + | Ethnic Group | Unknown | + + + Author + + + | Author | [employer] [facility] (Historical as of | | | 12-23-18) | + + + | Organization | [facility] (Historical as of | | | 12-23-18) | + + + | Address | Unknown | + + + | Phone | Unavailable | + + + Support + + + + + | Name | Relationship | Address | Phone | + + + + + | Jyothi Kimbrough | AUBREY | [address] | | | | | [place] [address] | | + + + + + Care Team Providers + +------+ + | Care Converting Operator Name | Role | Phone | [...] +------+-------+ + | MEDICARE | MEDICA | [id number] | | | [address] | | | RE | | | | [place] [address] | | | IP-OP | | | | | + +--------+ +------+-------+ + | ODS HEALTH PLAN | ODS - | [id number] | | | | | | GENERI [...] | | | [place] | | | [address] | [address] | + +--------+ +--------+ + +
--- OUTSIDE RECORDS SUMMARY | ~2019-03-06 | XMS | Encounter Summary ---
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, | | | | [facility] [address] [place] | [address] | bilateral, with | | | | [address] | [phone] | active choroidal | | | | Building [place], | | neovascularization | | | | [place] [id number] | | ([facility]) (Primary Dx) | | | | [phone] | | | +--------+---------+ + + + [...] Cline MD - 01/18/2018 3:00 PM PDT [facility] [place] Progress Note 01/18/2018 Assessment & Plan: 77 [...] | Examination: See Ophthalmology Module Attestations: The cable television technician, under the supervision of the physician, [...] neovascularization | | | | | | ([facility]) | | + +--------+ + [...] bevacizumab 1.25 mg/0.05 mL | | | [facility]: [id number] | | | Lot: [id number] | | | Expiration Date: 03/19/2018 | [...] bevacizumab 1.25 mg/0.05 mL | | | [facility]: [id number] | | | Lot: [id number] | | | Expiration Date: 03/19/2018 | [...] Performed At | + + + | [facility] | [facility] | | DocumentationRight EyeQuality: [...] [facility] | [address] | [place] [address] | | | [place] | Reyna. | [...]
--- OUTSIDE RECORDS SUMMARY | ~2019-03-06 | XMS | Clinical Summary ---
Demographics + + + | Address | [address] | | | [place] [address] | + + + | Home Phone [...] + + + | Author | [facility] | + + + | Organization | [facility] | + + + | Address | Unknown | + + + | Phone | Unavailable | + + + Support + + + + + | Name | Relationship | Address | Phone | + + + + + | Columba Law | ECON | [address] | | | | | [place], [place] | | | | | [address] | | + + + + + Care Team Providers + +------+ + | Care Commissioning Manager Name | Role | Phone | + +------+ + | West Ferrell | PCP | | + +------+ + Source Comments MICHAEL is fully live on both [facility] and [facility] Allergies + + + + [...] | | | | | | | [address] | | + +--------+ +--------+ + +--------+ | MODA MEDICARE | MODA | xxxxxxxxx | 05/09/19 | [phone] | [address] | POS | | SUPPLEMENT | MEDICA | | 17-Pre | 4 | [id number] | | | | RE | | sent | | [place], | | | | [place]PP[place] | | | | [place] [address] | | | | MENT | | [...] | | [place] | | 1941 | [phone] | [place] [address] | | | monika | | | 0 (Home) | | + +--------+ +--------+ + +"
[~2019-03-06 13:38] MED LIST changes: +NORCO 5-325 TA1 EACH PO
--- NOTE | 2019-03-06 19:07 | NUR ---
PATIENT ARRIVES TO CCU AT 1855 FROM ER. PT MOVED OVER TO CCU BED. PT ON BIPAP WITH SETTINGS OF 15/8, SP02 35%, AND RATE OF 24. PT DROWSY, DOES RESPOND TO PAIN AND OPENS EYES BRIEFLY TO VOICE. REPEAT ABG TO BE DRAWN AROUND 1999. BRIZUELA DRAINING YELLOW URINE. INITIAL BP 86/55. REPORT TO BE GIVEN TO NOC SHIFT.
--- NOTE | 2019-03-06 20:30 | NUR ---
PATIENT CONTINUES TO WEAR THE BIPAP WITH 35% FIO2 AND RR20. BLOOD GASES DRAWN BY THIS RN WITH RT ASSIST. PATIENT REACTED MINIMALLY TO BLOOD DRAW. DOES NOT OPEN EYES DURING THIS INTERATION. OCCATIONALLY MOVES HER LEFT ARM INTO THE AIR AND BACK TO THE BACK. PATIENT POSITIONED ON HER RIGHT SIDE WITH MARGARITO AREAS PADDED, ATTEND PLACED ON COCCXY AREA DUE TO REDNESS AND RISK OF BREAK DOWN. SKIN OVERALL IS FRAGILE AND DRY WITH POOR TUGOR. NO OPEN AREAS OF SKIN NOTED. AUTOMATIC BP OF 78/54, VERIFIED WITH MANUAL BP ON RIGHT ARM OF 78/56. HR 90'S. IV FLUIDS PER ORDER, ABX INFUSING.
--- NOTE | 2019-03-06 21:52 | NUR ---
PATIENT ABLE TO ANSWER YES/NO QUESTIONS APPROPRIATELY. REPORTS PAIN IN BACK. PATIENT REPOSITIONED FOR COMFORT. RT IN ROOM TO ADJUST BIPAP SETTINGS PER DISCUSSION WITH . PATIENT'S BP STABLE AT THIS TIME.
--- NOTE | 2019-03-06 22:05 | NUR ---
REPORTED CHANGES IN BP, ORDERS FOR PIP TO BE REDUCED TO 18. MONITOR BP Q15M AND REPORT TO MD. NOTIFIED RT.
--- NOTE | 2019-03-06 22:45 | NUR ---
ABG DRAWN BY THIS RN WITH RT ASSIST. PATIENT TOLERATED WELL. PATIENT REQUESTING BIPAP MASK OFF AND WATER. MASK REMOVED AND 10L OXY MASK IN PLACE. PATIENT GIVEN MOUTH SWAB TO SOOTHE DRY MOUTH. PATIENT MORE ALERT, ASKING QUESTIONS ABOUT HER FAMILY AND HER TREATMENT. ALL QUESTIONDS ANSWERED. PATIENT APPEARS ORIENTED, BUT LIMITED VERBAL RESPONCES DUE TO SOB. PATIENT REPORTS PAIN IN HER BACK FROM RECENT INJURY AND ALSO HER THROAT AND MOUTH FROM THE PRESSURE OF THE BIPAP. ASSISTED TO REPOSITION PATIENT FOR COMFORT. LUNG SOUNDS ARE TIGHT AND DIM THORUGHOUT, MINIMAL AIR MOVEMENT HEARD. PATIENT'S RR 36 OFF BIPAP AND 100% O2 SAT WITH 10L OXY MASK.
--- NOTE | 2019-03-06 23:00 | NUR ---
DISCUSSED PATIENT'S COGNITIVE IMPROVEMENT, PAIN, AND ABG RESULTS WITH VIA PHONE. ORDERS RECEIVED FOR LIDODERM PATCH FOR PATIENT'S BACK AND PRN MORPHINE. DR. HOPPER ALSO INSTRUCTS STAFF TO KEEP PATIENT ON BIPAP AT CURRENT SETTINGS OVER NIGHT. LIDODERM PATCH APPLIED, 1MG PRN MORPHINE PROVIDED TO PATIENT. PATIENT AGREEABLE TO WEAR BIPAP AT THIS TIME, VERBALIZED HER DISCOMFORT WITH MASK IN PLACE. ENCOURAGED PATIENT TO REST. DISCUSSED PLAN OF CARE WITH PATIENT AND DISCUSSED HER FAMILY'S ARRIVAL IN THE NEXT FEW HOURS. PATIENT VERBALIZED UNDERSTANDING. BIPAP IN PLACE, VS STABLE. PATIENT RESTING WITH EYES CLOSED.
--- NOTE | 2019-03-07 00:15 | NUR ---
PATIENT ATTEMPTING TO REMOVE MASK AND YELLING WITH IT IN PLACE. BIPAP REMOVED. OXY MASK PLACED ON PATIENT. PATIENT REQUESTING WATER WHICH WAS PROVIDED IN SMALL SIPS. NO SIGNS OF ASPIRATION NOTED. CHAPSTICK APPLIED TO PATIENT'S LIPS. PATIENT IS MUCH MORE ALERT AT THIS TIME. TELLS THIS RN ABOUT HER FAMILY, HER HISTORY OF CANCER AND WISHES TO BE DNR/DNI, AND ASK AGAIN ABOUT HER TREATMENT PLAN. EDUCATION PROVIDED ON USE OF BIPAP, LAB RESULTS, ABX AND STERIODS. PATIENT AGREEABLE TO THIS PLAN. BIPAP PLACED BACK ON PATIENT. CALL LIGHT IN PATIENT'S HAND.
--- NOTE | 2019-03-07 01:45 | NUR ---
PATIENT TOLERATING BIPAP WELL. APPEARS TO BE SLEEPING. VS STABLE. BP CONTINUE TO BE SOFT BUT CONSISTENT. PATIENT'S URINE OUTPUT HAS DECREASED. 28 MLS FOR LAST 4 HOURS. POSITIONED BRIZUELA TUBING FOR MORE SUCCESSFUL DRAINAGE. WILL MONITOR HOURLY OUTPUT CLOSELY.
--- NOTE | 2019-03-07 03:59 | NUR ---
3300 PATIENT'S FAMILY ARRIVED. PATIENT SLEEPING, WOKE TO SOUND. BIPAP REMOVED PER PATIENT REQUEST. PATIENT TALKING IN SHORT PHRASES WITH FAMILY. OXY MASK IN PLACE, 6L WITH O2 SAT 98%. PATIENT COMPLAINED OF PAIN, PRN MORPHINE PROVIDED AND PATIENT REPOSITIONED. APPEARS MORE COMFORTABLE. FAMILY AT BEDSIDE.
--- NOTE | 2019-03-07 04:33 | NUR ---
UPDATE PROVIDED TO FAMILY. ALL QUESTIONS ANSWERED. PATIENT BACK ON BIPAP, NEB TREATMENT PROVIDED PER RT. FAMILY LEAVING FOR THE EVENING, ASSURED THEM WE WOULD CALL IF NEEDED.
--- NOTE | 2019-03-07 06:23 | NUR ---
PATIENT CALLING OUT FOR HELP. NOT TOLERATING BIPAP AT THIS TIME. OXY MASK IN PLACE, 6L. O2 SATS >95% WITH RR 24. PATIENT APPEARS VERY ANXIOUS AND IS DIFFICULT TO SOOTHE. REPORTS PAIN IN BACK. NOTIFIED DR. HOPPER, ORDERS FOR CHANGE OF MORPHINE DOSE RECEIVED.
--- NOTE | 2019-03-07 06:54 | NUR ---
PATIENT PROVIDED WITH PRN MORPHINE AND SCHEDULED MEDS. PATIENT GRIMMACING AND REPORTING BACK PAIN. ASSURED PATIENT OF PAIN MEDICATION BEING GIVEN. ORAL CARE DONE, MOISTURIZER APPLIED. PATIENT AGREES TO PUT BIPAP ON UNTIL FAMILY RETURNS.
--- NOTE | 2019-03-07 07:33 | NUR ---
PATIENT RESTING IN BED AT THIS TIME WEARING THE BIPAP, SETTINGS OF 18/8 AND 35%. PT HAS BEEN GOING IN AND OUT OF SVT IN THE 120s, THEN BACK TO A SINUS RHYTHM IN THE 100s. DR. HOPPER TO BE NOTIFIED. LAST BP 87/59.
--- NOTE | 2019-03-07 07:40 | NUR ---
DR. HOPPER CALLED AND ORDERS REC'D FOR BOLUS AND TO CHECK A MAG LEVEL. PT TO REMAIN ON BIPAP.
--- NOTE | 2019-03-07 08:40 | NUR ---
PATIENT MORE AWAKE AND INDICATES THAT SHE WANTS THE MASK OFF. PT STATES SHE IS IN SO MUCH PAIN IN HER BACK, AND HER MOUTH IS DRY. ORAL CARE PROVIDED. OXYGEN DROPS TO LOW 80s VERY RAPIDLY. PT WANTING TO KNOW WHEN SHE CAN HAVE MORE WATER. IV BOLUS FINISHES AT THIS TIME AND IV ROCEPHIN STARTED ON RIGHT AC. PT HELPED TO REPOSITON BEST POSSIBLE. CONTINUE TO MONITOR.
--- NOTE | 2019-03-07 08:47 | NUR ---
POSITIVE BLOOD CULTURE RESULT REC'D FROM LAB OF GRAM POSITIVE COCCI IN CLUSTERS IN AEROBIC BOTTLE. DR. HOPPER TO BE NOTIFIED.
--- NOTE | 2019-03-07 09:03 | NUR ---
PATIENT CONTINUES TO GO IN AND OUT OF SVT. PT REMAINS ON BIPAP AT THIS TIME, 18/8 AND 35%.
--- NOTE | 2019-03-07 09:08 | NUR ---
DR. HOPPER IN UNIT TO SEE PATIENT. HR REMAINS GOING IN AND OUT OF SVT, SOMETIMES APPEAR IRREGULAR LIKE AFIB. LAST BP 81/62. CONTINUE TO MONITOR.
--- NOTE | 2019-03-07 09:15 | NUR ---
PATIENT REPOSITIONED IN BED.
--- NOTE | 2019-03-07 09:21 | NUR ---
RT IN ROOM TO DRAW ABG.
[2019-03-07] MEDS ORDERED: BUSPIRONE HCL5 MG PO (09:32)
--- NOTE | 2019-03-07 10:18 | NUR ---
250 MCG OF DIGOXIN GIVEN PER ORDER. PT OFF BIPAP SINCE AROUND 0955 AND ON 4 L OXYMASK. PT CAN HAVE CLEAR LIQUIDS SHE KEEPS REQUESTING BROTH. HR REMAINS ELEVATED, IN THE 110-160s, AFIB W/RVR. LAST BP 86/58 (65). MONITORING URINE OUTPUT HOURLY. CONTINUE TO MONITOR CLOSELY.
--- NOTE | 2019-03-07 10:40 | NUR ---
PATIENT BACK IN A SINUS RHYTHM AT THIS TIME. PATIENT'S DAUGHTER AND FAMILY HERE. PT MORE ALERT, ABLE TO TAKE PILLS, ADN SIPS OF WATER. CONTINUE TO MONITOR CLOSELY.
--- NOTE | 2019-03-07 12:29 | NUR ---
PATIENT HAVING ECHO AT THIS TIME. PT HAS REMAINED IN A SINUS RHYTHM, CURRENTLY 95. PT'S FAMILY REMAINS IN ROOM. URINE OUTPUT STARTED TO INCREASE WELL.
--- NOTE | 2019-03-07 12:47 | NUR ---
PATIENT PLACED BACK ON BIPAP AT THIS TIME.
--- NOTE | 2019-03-07 14:00 | NUR ---
Attempted to speak with Ammy, but notified by RN pt has declined and is unable to speak at this time.
--- NOTE | 2019-03-07 15:10 | NUR ---
PATIENT GIVEN BED BATH AND TOLERATED WELL. NEW GOWN AND LINENS PROVIDED. PT STILL HAD STOOL ON BOTTOMS OF FET FROM HER INCONTINENCE AT HOME. PT VERY DROWSY. PT UNABLE TO TAKE STRONG ENOUGH DRINKS OF WATER AT THIS TIME THAT HER 1500 MEDS TO BE HELD FOR NOW. BIPAP BACK ON AT THIS TIME. CONTINUE TO MONITOR.
--- NOTE | 2019-03-07 16:52 | NUR ---
Medications reconciled using [facility] pharmacy record. Per daughter, [facility] medication list is accurate
--- NOTE | 2019-03-07 16:55 | NUR ---
PATIENT OFF BIPAP AT THIS TIME AND RESTING WELL ON 4 L OXYMASK. SP02 IS 97% AND WILL TITRATE O2 DOWN. 2ND DOSE OF DIGOXIN IV GIVEN OVER 5 MINUTES. LAST BP 105/73. BRIZUELA DRAINING CLEAR YELLOW URINE. CONTINUE TO MONITOR.
--- NOTE | 2019-03-07 17:46 | EKG ---
[facility] [address] [place] [address] Signed Sinus tachycardia with premature atrial complexes Otherwise normal ECG No previous ECGs available Confirmed by SCOTT HOPPER MD ([id number]) on 03/07/2019 5:45:47 PM Electronically Signed By: SCOTT HOPPER MD 03/07/19 1746 PATIENT NAME: HANSA CRAWFORD Electrocardiogram DATE OF : 42 PHYSICIAN: SCOTT HOPPER MD REPORT #: [id number] REPORT IS CONFIDENTIAL AND NOT TO BE RELEASED WITHOUT AUTHORIZATION
--- NOTE | 2019-03-07 18:25 | NUR ---
PATIENT HAS CONTINUED TO REST THIS EVENING AND HAS BEEN DROWSY. PT WILL AWAKEN TO VOICE, BUT DOES NOT STAY AWAKE FOR LONG. ALL PILLS HELD DUE TO THIS MENTATION. FAMILY ARRIVES BACK IN ROOM AT THIS TIME. CONTINUE TO MONITOR.
--- NOTE | 2019-03-07 19:30 | NUR ---
PT REPORT RECIEVED AT THIS TIME. RT ADIA IN GIVING PATIENT BREATHING TX AT THIS TIME.
--- NOTE | 2019-03-07 20:32 | NUR ---
IN TO ASSESS PATIENT. PT RESPONDS VERBALLY AND OPENS EYES WHEN SPOKEN TO. ANSWERS QUESTIONS APPROPRIATELY, AND THEN FALLS BACK TO SLEEP. LUNGS DIMINISHED IN BOTH BASES.OXYGEN SATURATIONS DROPPED TO 84 PERCENT DURING MEDICATION ADMINISTRATION. PLACED ON BIPAP AT THIS TIME. REPOSITIONED IN BED. WILL CONTINUE ASSESS AND MONITOR.
--- NOTE | 2019-03-07 21:33 | NUR ---
PT CALLED OUT FOR HELP. BIPAP REMOVED AT THIS TIME AND SIPS OF WATER GIVEN. ASSISTED PT WITH REPOSITIONING IN STRETCHER. PLACED BACK ON 3 L OXYMASK. CALL LIGHT WITHIN REACH. NO FURTHER NEEDS AT THIS TIME.
--- NOTE | 2019-03-07 21:51 | NUR ---
PT REQUESTING BREATHING TREATMENT. RT IN ROOM AT THIS TIME.
--- NOTE | 2019-03-08 00:01 | NUR ---
IN TO ASSESS PATIENT, REPORTS BACK PAIN SHE RATES 7/10. PAIN MEDICATION ADMINISTERED (SEE EMAR). PT PLACED ON BIPAP AT THIS TIME, BUT WAS UNABLE TO TOLERATE IT. REPOSITIONED ON LEFT SIDE. CALL LIGHT WITHIN REACH. NO FUTHER NEEDS AT THIS TIME.
--- NOTE | 2019-03-08 01:34 | NUR ---
IN TO CHECK ON PATIENT, REPORTS PAIN IS DOWN TO A 4/10. STATES SHE IS FEELING ANXIOUS. EDUCATED PT ON RELAXATION TECHNIQUES. CALL LIGHT WITHIN REACH. NO FURTHER NEEDS AT THIS TIME.
--- NOTE | 2019-03-08 03:15 | NUR ---
PT CALLED OUT. ASSISTED PT WITH REPOSITIONING IN BED. GIVEN CALL LIGHT AND EDUCATED ON HOW TO USE IT. PT REMAINS ORIENTED TO SELF AND SITUATION, BUT NOT DATE AND TIME. NO COMPLAINTS OF SHORTNESS OF BREATH OR PAIN AT THIS TIME.
--- NOTE | 2019-03-08 04:54 | NUR ---
PATIENTS HR INCREASED INTO 140'S WHILE PATIENT WAS SLEEPING. HEART RATE WENT DOWN TO 94 AFTER WAKING. NO NOTED DISTRESS, SHORTNESS OF BREATH, OR DISCOMFORT. PT REPOSITIOINED IN STRETCHER. CALL LIGHT WITHIN REACH. WILL CONTINUE TO MONITOR.
--- NOTE | 2019-03-08 05:46 | NUR ---
LAB IN ROOM.
--- NOTE | 2019-03-08 06:25 | NUR ---
pt repositioned in bed and given a warm blanket. complaining of hunger, offered jello but pt said no.
--- NOTE | 2019-03-08 06:45 | NUR ---
PT HEART RATE INCREASED TO 140'S. PT IS ASYMPTOMATIC, RESTING WITH EYES CLOSED. BREATHING EVEN A UNLABORED. HEART RATE BACK DOWN INTO 90'S.
--- NOTE | 2019-03-08 07:30 | NUR ---
PATIENT SHIFT REPORT RECIEVED FROM RELATIONSHIP MANAGEMENT LEAD RN. PATIENT RESTING IN BED WITH OXYMASK ON AT THIS TIME. BED ALARM IN PLACE. PATIENT IS STILL SLEEPING AT THIS TIME. WILL CONTINUE TO CLOSELY MONITOR.
--- NOTE | 2019-03-08 08:45 | NUR ---
PATIENT RESTING ON BIPAP AT THIS TIME. PATIENT WAKES WHEN STAFF TALK TO HER, BUT SHE QUICKLY FALLS BACK TO SLEEP. WILL LET HER REST FOR NOW. ASSESSMENT COMPLETED. BREATH SOUNDS CLEAR AND DIMINISHED. BOWEL TONES ACTIVE. WILL CONTINUE TO CLOSELY MONITOR.
--- NOTE | 2019-03-08 10:15 | NUR ---
PATIENT MORE AWAKE AT THIS TIME AND ABLE TO TAKE HER MORNING MEDICATION. PATIENT ABLE TO SWALLOW PILLS WITH WATER AND APPLESAUSE TO WASH IT DOWN. PATIENT NOW ON 3L OXYMASK. PATIENT IS VERY SOFT SPOKEN AND DIFFICULT TO UNDERSTAND. PATIENTS SPO2 DROPPED TO THE 70'S WITH REMOVING MASK LONG ENOUGH TO GIVE PATIENTS MEDICATIONS. PATIENT RECOVERED SLOWLY WITH TAKING SLOW DEEP BREATHS. PATIENT HAS VERY LITTLE RESERVE WITH ACTIVITY. WILL CONTINUE TO CLOSELY MONITOR.
--- NOTE | 2019-03-08 11:00 | NUR ---
HOPPER IN TO SEE PATIENT. PATIENTS FAMILY AT THE BEDSIDE. PATIENT REMAINS ON 3L OXYMASK. NEW ORDERS PER MD PLACED. WILL CONTINUE TO BIPAP PER MD. PATIENT IS ANXIOUS AT TIMES AND INCREASES WITH BIPAP USAGE. WILL CONTINUE TO CLOSELY MONITOR.
--- NOTE | 2019-03-08 11:30 | NUR ---
Met with Ammy, she is awake and able to talk today. States she wants to return to her home with her paid certified caregiver. PCG is only there for 2 hours per day and this is concerning due to pt declining condition. Daughter will be arriving to check on pt.
--- NOTE | 2019-03-08 12:00 | NUR ---
PATIENT REPOSITIONED AND TYLENOL GIVEN. PATIENT QUICKLY DESATS WITH MINIMAL MOVEMENT. PLACED ON BIPAP FOR RECOVERY. WILL CONTINUE TO CLOSELY MONITOR. FAMILY LEFT AT THIS TIME.
--- NOTE | 2019-03-08 12:15 | NUR ---
PATIENT VERY ANXIOUS AND PULLING AT BIPAP. BIPAP REMOVED AND PLACED ON 3L OXYMASK. PATIENT NOW RESTING IN BED AT THIS TIME. WILL TRY AND PLACE BACK ON BIPAP AFTER AWHILE.
--- NOTE | 2019-03-08 13:30 | NUR ---
NETWORK ANALYST IN TO ASSIST PATIENT WITH HER LUNCH SINCE SHE IS AWAKE. READJUSTED AND SITTING IN A HIGH OROURKE POSITION TO EAT. WILL CONTINUE TO CLOSELY MONITOR.
--- NOTE | 2019-03-08 14:28 | NUR ---
LIP BALM APPLIED TO PT NOSE AND LIPS. LOTION APPLIED TO BODY TOLERATED LUNCH WELL. REMAINED AT 92-95% ON 4L OXYPLUS MASK WHILE EATING.
--- NOTE | 2019-03-08 15:22 | NUR ---
MEDICATIONS ADMINISTERED AND PLACED BACK ON BIPAP AT THIS TIME. PATIENT DOES BETTER WITH TAKING HER PILLS WITH APPLESAUSE AT THIS TIME. PATIENT NOW ON THE BIPAP AND PATIENT RESTING. CHECKED PATIENTS BACK WHERE LIDOCAIN PATCH IS DUE TO SENSITIVITY TO ADHESIVE. NO REDDNESS NOTED. WILL CONTINUE TO CLOSELY MONITOR.
--- NOTE | 2019-03-08 17:30 | NUR ---
PATIENT RESTING IN BED WITH FAMILY AT BEDSIDE. PATIENT TOLERATED MEDICATIONS WELL WITH APPLESAUCE. MD HOPPER UPDATED EARLIER THAT PATIENT HAS NOT WORN THE BIPAP VERY MUCH TODAY. ANY ATTEMPT TO WEAR BIPAP MASK PATIENTS ANXIETY INCREASES AND PATIENT PULLS OFF MASK. PATIENT HAS WORN IT ABOUT 4 TIMES TODAY BETWEEN 10-30 MINUTES AT A TIME SINCE THIS MORNING. WILL MONITOR FOR INCREASED CONFUSION/DROWSINESS. NO OTHER NEEDS AT THIS TIME. WILL CONTINUE TO CLOSELY MONITOR.
--- NOTE | 2019-03-08 18:20 | NUR ---
PATIENT RESTING IN BED WITH FAMILY AT BEDSIDE. PATIENT IS TALKATIVE THIS EVENING. BRIZUELA DRAINGING CLEAR YELLOW URINE. DINNER ORDERED. NO OTHER NEEDS AT THIS TIME. WILL CONTINUE TO CLOSELY MONITOR.
--- NOTE | 2019-03-08 19:30 | NUR ---
REPORT RECIEVED FROM CCU RN. CARE OF PATIENT ASSUMED AT THIS TIME. RT ADIA IN GIVING PATIENT BREATHING TREATMENT. PT FAMILY LEAVING AT THIS TIME. CALL LIGHT IN REACH, NO FURTHER NEEDS AT THIS TIME.
--- NOTE | 2019-03-08 20:12 | NUR ---
IN TO ASSESS PATIENT. CARDIZEM DRIP INFUSING AT 3MG/HR, IV FLUIDS INFUSING WELL. PT ALERT AND ORIENTED. RESPONDS TO QUESTIONS APPROPRIATELY. DENIES PAIN AT THIS TIME. BREATHING IS EVEN AND UNLABORED. R=22. LUNG SOUND DIMINSHED IN BOTH BASES. DISCUSSED PLAN OF CARE FOR EVENING. PT VERBALIZED AN UNDERSTANDING. CALL LIGHT AND PERSONAL BELONGINGS WITHIN REACH.
--- NOTE | 2019-03-08 20:55 | NUR ---
HELPED PT WITH PM CARE. WASHED FACED, RINSED MOUTH, AND PERFORMED BRIZUELA CATHETER CARE. PT DESATURATED DOWN TO 82 PERCENT WITH EXERTION. SATURATIONS QUICKLY RETURNED TO 95 PERCENT WITH REST. MEDICATIONS ADMINISTERED. NO FURTHER NEEDS A THIS TIME.
--- NOTE | 2019-03-08 22:00 | NUR ---
PT RESTING WITH EYES CLOSED. BREATHING EVEN AND UNLABORED R=16. CALL LIGHT WITHIN REACH. NO FURTHER NEEDS AT THIS TIME.
--- NOTE | 2019-03-09 | NUR ---
IN TO ASSESS PATIENT AT THIS TIME. TURNED PATIENT ON TO LEFT SIDE. GIVEN A BREATHING TREATMENT BY RT AT THIS TIME. IV FLUIDS AND CARTIZEM DRIP CONTINUE TO INFUSE (SEE EMAR). WARM BLANKETS PROVIDED. NO FURTHER NEEDS AT THIS TIME.
--- NOTE | 2019-03-09 02:00 | NUR ---
PT CALLED OUT FOR HELP, IN TO CHECK ON PT AT THIS TIME. STATES SHE IS HAVING 7/10 BACK PAIN. REPORTS SEEING MEN IN HER ROOM PUT A MACHINE ON HER. REORIENTED PATIENT TO TIME, LOCATION, AND SITUATION. PRN PAIN MEDICATION ADMINISTERED (SEE EMAR). SIPS OF WATER GIVEN. CALL LIGHT WITHIN REACH, NO FURTHER NEEDS AT THIS TIME.
--- NOTE | 2019-03-09 04:13 | NUR ---
IN TO ASSESS PATIENT. REPORTS PAIN IN BACK HAS REDUCED TO A 4/10 AT THIS TIME. REPOSTIONED AND PROVIDED WITH WARM BLANKETS. CALL LIGHT WITHIN REACH. NO FURTHER NEEDS AT THIS TIME.
--- NOTE | 2019-03-09 05:34 | NUR ---
RT IN ROOM FOR ABG DRAW
--- NOTE | 2019-03-09 05:51 | NUR ---
PLACED BIPAP ON PATIENT, NOT WELL TOLERATED. RT CALLED TO ADJUST MASK.
--- NOTE | 2019-03-09 06:05 | NUR ---
RT IN TO CHANGE THE MASK SIZE. PT ABLE TO TOLERATE THE BIPAP FOR 5-10 MINUTES BEFORE CALLING OUT AND CRYING. PLACED BACK ON 3 L OXY MASK AT THIS TIME.
--- NOTE | 2019-03-09 07:30 | NUR ---
PATIENT SHIFT REPORT RECIEVED FROM SALES ASSOCIATE FISHING RN. PATIENT IS MORE ANXIOUS, CONFUSED, AND BP INCREASING THIS AM PER REPORT. PATIENT RESTING IN BED AT THIS TIME. WILL CONTINUE TO CLOSELY MONITOR.
--- NOTE | 2019-03-09 08:00 | NUR ---
CALLED MD HOPPER TO UPDATE THAT I AM CONCERNED ABOUT THIS PATIENT. PATIENTS WORK OF BREATHING IS INCREASED, RETRACTIONS NOTED, BP ELEVATED TO 180'S SYSTOLIC, AND PATIENT IS REFUSING TO USE BIPAP AT THIS TIME. PER MD CALL FAMILY TO HAVE THEM COME IN FOR A CARE CONFERENCE. NO OTHER CHANGES AT THIS TIME.
--- NOTE | 2019-03-09 08:30 | NUR ---
THIS RN HAS TRIED MULTIPLE TIMES TO CONTACT MULTIPLE FAMILY MEMBERS. UNABLE TO CONTACT ANYONE AT THIS TIME. WILL CONTINUE TO TRY TO CONTACT FAMILY. UPDATED MD HOPPER.
--- NOTE | 2019-03-09 09:30 | NUR ---
PATIENT REQUESTED TO HAVE HER HAIR WASHED. HAIR WASHED BY CUSTOMER SERVICE SUPERVISOR [place]. ALL LINEN CHANGED. LIDOCIAN PATCH PLACED. ALL OTHER MEDS HELD PER MD HOPPER. PATIENT ASSESSMENT COMPLETED. PATIENT BREATH SOUNDS CLEAR AND CRACKLES NOTED IN LOWER BASES. BOWEL TONES ACTIVE. BRIZUELA PRESENT WITH CLEAR YELLOW URINE. PATIENT POSITONED WITH PILLOW SUPPORT. WILL CONTINUE TO CLOSELY MONITOR.
--- NOTE | 2019-03-09 10:30 | NUR ---
FAMILY ARRIVED AND MD SPOKE WITH FAMILY IN [facility] TO PATIENTS PLAN OF CARE. PATIENT WILL GO COMFORT CARE. NEW ORDERS IN PLACE. WILL GIVE FENTANYL AT THIS TIME AND HOLD OFF ON GIVING MORPHINE UNTIL PATIENTS OTHER FAMILY HAS ARRIVED. PATIENT IS OCCASIOANLLY RESTLESS AND HAS PAIN IN HER LOWER BACK. WILL GIVE PRN FENTANYL NEEDED.
--- NOTE | 2019-03-09 12:00 | NUR ---
PATIENT RESTING IN BED AND REPOSITIONED MULTIPLE TIMES FOR COMFORT. GAVE PRN FENTANYL. FAMILY AT THE BEDSIDE VISITING WITH THE PATIENT. PATIENT REMAINS ON3L OXYMASK AT THIS TIME. BRIZUELA EMPTIED. PUMPS CLEARED. PATIENTS IVS ARE SALINE LOCKED. PASTORAL CARE IN TO VISIT WITH THE PATIENT AND FAMILY. WILL CONTINUE TO CLOSELY MONITOR.
--- NOTE | 2019-03-09 12:45 | NUR ---
PATIENT WILL BE TRANSFERED TO ROOM 108. PATIENT CONTINUES TO BE VERY UNCOMFORTABLE. PER FAMILY GO AHEAD AND GIVE OTHER PRN PAIN MEDICATIONS. ALL PATIENTS FAMILY WILL BE HERE ANYTIME. GAVE 5MG OF ORAL MORPHINE FOR COMFORT. AND ZOFRAN FOR NAUSEA. PATIENT TOELRATED WELL. PATIENTS OXYGEN INTIALLY DROPPED. INCREASED TO 5L OXYMASK UNTIL PATIENT CAN VISIT WITH HER GRAND-DAUGHTERS WHO WILL ARRIVE WITHIN A FEW MINUTES. REPORT GIVEN TO IGOR RAMEY ON [employer]. ALL QUESTIONS ANSWERED. FAMILY UPDATED ON PLAN OF CARE TO TRANSITION PATIENT TO THE MEDICAL UNIT.
--- NOTE | 2019-03-09 12:51 | NUR ---
RECEIVED BOTH A CALL FROM TANVIR SEBASTIAN AND REFERRAL FROM DR RUCHI MCKAY. PT. SHE HAS JUST BEEN PLACED ON COMFORT MEASURES. ENTERED PTS' RM, FAMILY PRESENT. PT RESPONDS TO MY VOICE, AWARE OF MY PRESENCE. HAD PRAYER WITH PT, AND GAVE HER A P.SHAWL. FAMILY HAS QUESTIONS ABOUT POA AND RAMRIEZ. FAMILY AND PT NEED FURTHER SPIRITUAL GUIDANCE. END OF SHIFT AND I HAVE CALLED LENS INSPECTOR CAR STORER FOR CONTINUATION OF CARE. WILL HELP NEEDED
--- NOTE | 2019-03-09 13:07 | NUR ---
NUTRITION CONSULT FOR BMI<18.5. PATIENT'S BMI IS 17.16. SHE IS NOW COMFORT CARE. NO NUTRITION FOCUSED PHYSICAL EXAM DONE AT THIS TIME. PATIENT IS ON A FULL LIQUID DIET. ENSURE AVAILABLE IF PATIENT DESIRES TO SUPPLEMENT ORAL FOOD INTAKE. NO NUTRITION INTERVENTION DONE AT THIS TIME. WILL REMAIN AVAILABLE IF NEEDED.
--- NOTE | 2019-03-09 13:10 | NUR ---
PATIENT TRANSFERED TO ROOM 108 WITH ALL BELONGINGS WITH FAMILY. COMFORT CARE CART PROVIDED IN ROOM 108. ALL QUESTIONS ANSWERED. NO OTHER NEEDS AT THIS TIME. IGOR RAMEY WILL RESUME CARE.
--- NOTE | 2019-03-09 13:13 | NUR ---
PATIENT TRANSFERRED TO UNIT VIA HOSPITAL BED. REPORT RECEIVED PRIOR TO ARRIVAL. FAMILY ACCOMPANYING PATIENT. 6L OXYMASK FOR COMFORT. VANILLA ICE CREAM ORDERED.
--- NOTE | 2019-03-09 14:16 | NUR ---
PATIENT LAYING IN BED WITH FAMILY IN ROOM. PATIENTS LEGS ARE RESTLESS AND BACK IS ARCHED. PATIENT DOESN'T RESPOND TO REPEATED INQUIRIES REGARDING PAIN. RESPIRATIONS OF 26. 5MG OF MORPHINE GIVEN FOR COMFORT. PATIENT O2 TITRATED TO 3L OXYMASK.
--- NOTE | 2019-03-09 14:30 | NUR ---
I WAS CALLED IN TO HELP FAMILY GET NOTORY PUBLIC FOR SOME PAPER WORK. IT DOESN'T SEEM THOUGH A NOTORY WILL BE ABLE TO NOTORIZE THE PTS SIGNATURE SHE IS NOT COMPETENT TO SIGN AT THIS TIME. THE FAMILY WAS ADVISED THAT AT THIS POINT THEY DONT NEED A NOTORY TO SIGN A POA THE PT'S CHILDREN ALREADY ARE THE NOK WHO CAN MAKE DECISIONS FOR THEIR MOTHERS MEDICAL CARE.
--- NOTE | 2019-03-09 14:33 | NUR ---
Pt. is transferring to swing bed for comfort care.
== END 2019-03-09 14:20 | disposition swing bed (61) | DRG 189 ==
LOC: ED 13:38 → CCU 13:39 → MS 03-09 13:10
PROVIDERS: ADMIT Internal Medicine
PROC: 5A09357 Assistance with Respiratory Ventilation, Less than 24 Consecutive Hours, Continuous Positive Airway Pressure (ICD-10-PCS; principal; 2019-03-07)
DX: J96.21 Acute and chronic respiratory failure with hypoxia (principal); J44.1 Chronic obstructive pulmonary disease with (acute) exacerbation; I47.2 Ventricular tachycardia; J96.22 Acute and chronic respiratory failure with hypercapnia; K21.9 Gastro-esophageal reflux disease without esophagitis; E78.5 Hyperlipidemia, unspecified; S22.089D Unspecified fracture of T11-T12 vertebra, subsequent encounter for fracture with routine healing; F41.1 Generalized anxiety disorder; I48.91 Unspecified atrial fibrillation; D50.9 Iron deficiency anemia, unspecified; Z66 Do not resuscitate; Z51.5 Encounter for palliative care; Z79.83 Long term (current) use of bisphosphonates; Z79.891 Long term (current) use of opiate analgesic; Z79.51 Long term (current) use of inhaled steroids; Z79.899 Other long term (current) drug therapy; Z88.2 Allergy status to sulfonamides; Z88.8 Allergy status to other drugs, medicaments and biological substances; Z91.040 Latex allergy status
CPT/HCPCS: 36415; 36600; 51702; 71045; 80048; 80053; 80162; 81001; 82728; 82803; 83540; 83605; 83735; 83880; 84443; 84466; 84484; 85025; 87040; 87077; 87186; 93005; 93010; 93306; 94640; 94644; 94645; 94660; 99285-25; C9113; J0153; J0456; J0696; J1160; J1650; J2270; J2405; J2930; J3010; J3475; J7040; J7060; J7120; J7121

== ENCOUNTER 2019-03-09 15:00 | Inpatient (IN) | payer MEDICARE, OTHER ==
[~2019-03-09] VITALS: Ht 162.6 cm; Wt 45.4 kg
--- OUTSIDE RECORDS SUMMARY | ~2019-03-09 | XMS | Clinical Summary ---
Demographics + + + | Address | [address] | | | [place] [address] | + + + | Home Phone | | + + + | Preferred Language | Unknown | + + + | Marital Status | Single | + + + | Buddhist Affiliation | Unknown | + + + | Race | White | + + + | Ethnic Group | Not or | + + + Author + + + | Author | [facility] | + + + | Organization | [facility] | + + + | Address | Unknown | + + + | Phone | Unavailable | + + + Support + + + + + | Name | Relationship | Address | Phone | + + + + + | Columba Law | ECON | [address] | | | | | [place], [place] | | | | | [address] | | + + + + + Care Team Providers + +------+ + | Care Card Reader Name | Role | Phone | + +------+ + | West Ferrell | PCP | | + +------+ + Source Comments MICHAEL is fully live on both [facility] Allergies + + + + + + [...] | | | | | | | [address] | | + +--------+ +--------+ + +--------+ | MODA MEDICARE | MODA | xxxxxxxxx | 05/09/19 | [phone] | [address] | [address] | | SUPPLEMENT | MEDICA | | 17-Pre | 4 | [id number] | | | | RE | | sent | | [place], | | | | [place]PPLE | | | | [place] [address] | | | | MENT | | [...] | | al/Boyd | | 1941 | [phone] | [place] [address] | | | monika | | | 0 (Home) | | + +--------+ +--------+ + +"
--- OUTSIDE RECORDS SUMMARY | ~2019-03-09 | XMS | Encounter Summary ---
Demographics + + + | Address | [address] | | | [place] [address] | + + + | Home Phone | | + + + | Preferred Language | Unknown | + + + | Marital Status | Single | + + + | Jehovah'S Witness Affiliation | Unknown | + + + | Race | White | + + + | Ethnic Group | Not or | + + + Author + + + | Author | [facility] | + + + | Organization | 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[address] | 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 | | | | Building [place], | | neovascularization | | | | [place] [address] | | ([facility]) (Primary Dx) | | | | [phone] | | | +--------+---------+ + + + [...] Cline MD - 01/18/2018 3:00 PM PDT [facility] Progress Note 01/18/2018 Assessment & Plan: 77 [...] | Examination: See Ophthalmology Module Attestations: The cardiovascular technician, under the supervision of the physician, [...] | | | | ([facility]) | | + +--------+ + + + [...] bevacizumab 1.25 mg/0.05 mL | | | [facility]: [id number] | | | Lot: [id number] | | | Expiration Date: 03/19/2018 | [...] bevacizumab 1.25 mg/0.05 mL | | | [facility]: [id number] | | | Lot: [id number] | | | Expiration Date: 03/19/2018 | [...] Performed At | + + + | Flying Ii Instructor | [facility] | | [facility]: [...] [facility] | [address] | [place] [address] | | | [place] | Reyna. | [...]
--- OUTSIDE RECORDS SUMMARY | ~2019-03-09 | XMS | Clinical Summary ---
Demographics + + + | Address | [address] | | | [place] [address] | + + + | Home Phone | | + + + | Preferred Language | Unknown | + + + | Marital Status | | + + + | Uatsdin Affiliation | Unknown | + + + | Race | Unknown | + + + | Ethnic Group | Unknown | + + + Author + + + | Author | [facility] | | | and [place] | + + + | Organization | [facility] | | | [...] Team Providers + +------+ + | Care Hot Oiler Name | Role | Phone | + [...] + +--------+ | MEDICARE | MEDICA | [id number] | 09/07/19 | [phone] | | Medica | | | RE | | 07-Pre | 5 | | re | | | PART A | | sent | | | | | | AND B | | | | | | + +--------+ +--------+ + +--------+ | MODA | MODA | [id number] | 05/09/19 | [phone] | [address] | Indemn | | | HEALTH | | 14-Pre | 9 | [id number] | ity | | | MDCR | | sent | | [place], | | | | [place] | | | | [place] [address] | | + +--------+ +--------+ + +--------+ [...] monika | | | 6 (Home) | [address] | + +--------+ +--------+ + + Advance Directives Patient has advance care planning documents on file. For more information, please contact:[facility] [place] [address]
--- OUTSIDE RECORDS SUMMARY | ~2019-03-09 | XMS | Clinical Summary ---
Demographics + + + | Address | [address] | | | [place] [address] | + + + | Home Phone | | + + + | Preferred Language | Unknown | + + + | Marital Status | | + + + | Sabianist Affiliation | [phone] | + + + | Race | Unknown | + + + | Ethnic Group | Unknown | + + + Author + + + | Author | [facility] (Historical as of | | | 12-23-18) | + + + | Organization | [facility] (Historical as of | | | 12-23-18) | + + + | Address | Unknown | + + + | Phone | Unavailable | + + + Support + + + + + | Name | Relationship | Address | Phone | + + + + + | Jyothi Kimbrough | AUBREY | [address] | | | | | [place] [address] | | + + + + + Care Team Providers + +------+ + | Care Ct Scan Tech Name | Role | Phone [...] +------+-------+ + | MEDICARE | MEDICA | [id number] | | | [address] | | | RE | | | | [place] [address] | | | IP-OP | | | | | + +--------+ +------+-------+ + | [employer] PLAN | ODS - | [id number] | | | | | | GENERI [...] | | | monika | | | [phone] | [phone] | + +--------+ +--------+ + +
--- NOTE | 2019-03-09 14:15 | NUR ---
PATIENT TRANSFERED TO SWING BED
--- NOTE | 2019-03-09 16:00 | NUR ---
PATIENT RESPIRATIONS OF 26 AND IS RESTLESS. FENTANYL PATCH ADMINISTERED TO LEFT SHOULDER WITH OPSITE OVER PATCH.
--- NOTE | 2019-03-09 16:00 | NUR ---
Met with family. Pt is transfered to TC bed for end of life comfort care. Pt is declining family present and deny needs.
--- NOTE | 2019-03-09 17:20 | NUR ---
PATIENT LAYING IN BED WITH EYES CLOSED. FAMILY IN ROOM. RESPIRATIONS OF 18, STRONG RADIAL PULSES. FAMILY DENIES ANY NEEDS AT THIS TIME.
--- NOTE | 2019-03-09 18:33 | NUR ---
COMFORT CARE PATIENT. FENTANYL PATCH PLACED ON LEFT SHOULDER. OXYGEN AT 3L OXYMASK. FAMILY IN ROOM. MORPHINE FOR COMFORT. NO VITALS. BRIZUELA IN PLACE.
--- NOTE | 2019-03-09 19:03 | NUR ---
BROUGHT PATIENT TWO WARM BLANKETS.
--- NOTE | 2019-03-09 19:05 | NUR ---
BRIZUELA DRAINED FOR 350 MLS.
--- NOTE | 2019-03-09 20:31 | NUR ---
PATIENT'S EYES CLSOED, LEGS SHIFTING IN BED, RR 26. WOB INCREASED. PATIENT ON 2L OXIMASK FOR COMFORT. ADMINISTERED 5 MG SL MORPHINE. PATIENT SHAKES HEAD YES OR NO TO QUESTIONS. REPOSITIONED, ORAL CARE PROVIDED.
--- NOTE | 2019-03-09 20:50 | NUR ---
DR. HOPPER TO ROOM, PATIENT CONTINUES TO APPEAR RESTLESS. DISCUSSED BETTER PAIN CONTROL, AND ADMINISTERED AN ADDITIONAL 15MG SL MORPHINE.
--- NOTE | 2019-03-09 21:06 | NUR ---
PATIENT APPEARS MORE COMFORTABLE, RR 24, REPOSITIONED TO SIDE WITH PILLOWS.
--- NOTE | 2019-03-09 21:46 | NUR ---
PATIENT CONTINUING TO USE ACCESSORY MUSCLES WOB, LEGS APPEAR TENSE AND PATIENT SHIFTING IN BED AND PULLING AT LINEN. ADMINISTERED 1MG IV ATIVAN.
--- NOTE | 2019-03-09 22:50 | NUR ---
PATIENT WOB INCREASING, FACE SCALE FOR PAIN 3/10. ADMINISTERED 10 MG SL MORPHINE.
--- NOTE | 2019-03-10 | NUR ---
REPOSITIONED PATIENT TO BACK FLOATED WITH PILLOWS. PATIENT APPEARS CALM, WOB IMPROVED. CONTINUES TO PRODUCE CLEAR URINE. MOUTH CARE PROVIDED. CALM MUSIC PLAYING IN BACK GROUND.
--- NOTE | 2019-03-10 02:20 | NUR ---
PATIENT WOB INCREASING AND APPEARS TO BE USING ACCESSORY MUSCLES. FAMILY CONCERNED PATIENT UNCOMFORTABLE. ADMINISTERED 10MG SL MORPHINE. FAMILY AT BEDSIDE.
--- NOTE | 2019-03-10 03:03 | NUR ---
PATIENT APPEARS TO HAVE STOPPED BREATHING AND NO HEART BEAT AUSCULTATED. FAMILY AT BEDSIDE. DR. HOPPER NOTIFIED, WILL BE ARRIVING TO FLOOR SHORTLY.
--- NOTE | 2019-03-10 03:45 | NUR ---
DR. HOPPER TO ROOM, AND CALLED TIME OF . PASTORAL CARE NOTIFIED, AND ARRANGEMENTS IMPLEMENTED, REMOVED BRIZUELA AND IV LEFT ARM.
--- NOTE | 2019-03-10 04:53 | NUR ---
I WAS CALLED IN AFTER THE PT'S PASSING. FAMILY OPTED NOT TO STAY TO SEE THE BODY OUT OF THE HOSPITAL. FAMILY'S CHOICE OF HOME IS [facility]. FAMILY IS TO BE CALLED FIRST THING THIS MORNING THEY WILL BE LEAVING TOWN QUICKLY.
--- NOTE | 2019-03-10 05:20 | NUR ---
MORTUARY ARRIVED, PT'S BODY TAKEN TO [facility].
== END 2019-03-10 05:25 | DRG 189 ==
LOC: MS 15:00
PROVIDERS: ADMIT Internal Medicine
DX: J96.21 Acute and chronic respiratory failure with hypoxia (principal); J44.1 Chronic obstructive pulmonary disease with (acute) exacerbation; J96.22 Acute and chronic respiratory failure with hypercapnia; F41.1 Generalized anxiety disorder; Z51.5 Encounter for palliative care; Z79.83 Long term (current) use of bisphosphonates; Z79.899 Other long term (current) drug therapy; Z88.2 Allergy status to sulfonamides; Z88.8 Allergy status to other drugs, medicaments and biological substances; Z91.040 Latex allergy status
CPT/HCPCS: J2060